=== PATIENT | female | born 1945 | race Caucasian/White ===

== ENCOUNTER → 2016-06-24 | Outpatient (CLI) | payer MEDICARE ==
--- NOTE | 2016-06-28 10:55 | MM ---
Reason for exam: screening (asymptomatic). Last mammogram was performed 6 years and 1 month ago. History: Patient is postmenopausal and has history of high-risk lesion on a previous biopsy at age 58. Excisional biopsy of the right breast, March 24, 2004. Benign stereotactic core biopsy of the right breast, February 25, 2004. High risk stereotactic core biopsy of the right breast, February 25, 2004. 2 core biopsies of the right breast. Took hormonal contraceptives for 10 years beginning at age 18. Physical Findings: A clinical breast exam by your physician is recommended on an annual basis and results should be correlated with mammographic findings. MG 3D Screening Mammo W/Cad Bilateral CC and MLO view(s) were taken. Prior study comparison: July 03, 2014, mammogram, performed at [facility]. The breast tissue is heterogeneously dense. This may lower the sensitivity of mammography. Finding #1: There is a 21 mm obscured oval mass in the subareolar position of the right breast. Finding #2: There are typically benign round calcifications in both breasts. ASSESSMENT: Incomplete: need additional imaging evaluation, BI-RAD 0 RECOMMENDATION: Ultrasound of the right breast. [facility] will attempt to contact patient to return for ultrasound.
== END ==
LOC: RADMAMWWP 07:11
PROVIDERS: ATTEND Family Medicine
DX: Z12.31 Encounter for screening mammogram for malignant neoplasm of breast (principal)
CPT/HCPCS: 77063; G0202

== ENCOUNTER → 2016-06-29 | Outpatient (CLI) | payer MEDICARE ==
--- NOTE | 2016-06-29 08:36 | USB ---
Reason for exam: additional evaluation requested from abnormal screening. History: Patient is postmenopausal and has history of high-risk lesion on a previous biopsy at age 58. Excisional biopsy of the right breast, March 24, 2004. Benign stereotactic core biopsy of the right breast, February 25, 2004. High risk stereotactic core biopsy of the right breast, February 25, 2004. 2 core biopsies of the right breast. Took hormonal contraceptives for 10 years beginning at age 18. Physical Findings: Nurse Summary: right breast prominent nodularity posterior nipple, all soft, movable (nurse ts). US Breast Workup RT Right breast ultrasound includes all four quadrants, the retroareolar region and axilla. Finding demonstrates no cystic or solid lesion seen. These results were verbally communicated with the patient and result sheet given to the patient on 06/29/16. ASSESSMENT: Negative, BI-RAD 1 RECOMMENDATION: Return to routine screening mammogram schedule for both breasts. Manage patient on a clinical basis.
== END | disposition home or self-care (01) ==
LOC: RADUSWWP 07:36
PROVIDERS: ATTEND Family Medicine
DX: R92.8 Other abnormal and inconclusive findings on diagnostic imaging of breast (principal)

== ENCOUNTER → 2016-12-14 | Outpatient (CLI) | payer MEDICARE ==
--- NOTE | 2016-12-14 11:58 | MM ---
Reason for exam: follow-up at short interval from prior study. Last mammogram was performed 6 months ago. History: Patient is postmenopausal and has history of high-risk lesion on a previous biopsy at age 58. Excisional biopsy of the right breast, March 24, 2004. Benign stereotactic core biopsy of the right breast, February 25, 2004. High risk stereotactic core biopsy of the right breast, February 25, 2004. 2 core biopsies of the right breast. Took hormonal contraceptives for 10 years beginning at age 18. Physical Findings: Nurse did not find any significant physical abnormalities on exam. MG 3D Diag Mammo W/Cad RT CC and MLO view(s) were taken of the right breast. Prior study comparison: June 29, 2016, right breast US breast workup RT. June 24, 2016, bilateral MG 3d screening mammo w/cad. July 03, 2014, mammogram, performed at [facility]. May 21, 2010, bilateral digital screening mammo w/CAD. The breast tissue is heterogeneously dense. This may lower the sensitivity of mammography. There is chronic nodularity in the right breast. Similar configuration with a large dense patch of tissue in the anterior to middle depth central right breast. These results were verbally communicated with the patient and result sheet given to the patient on 12/14/16. ASSESSMENT: Incomplete: need additional imaging evaluation, BI-RAD 0 RECOMMENDATION: Ultrasound of the right breast.
--- NOTE | 2016-12-14 11:59 | USB ---
Reason for exam: follow-up at short interval from prior study. History: Patient is postmenopausal and has history of high-risk lesion on a previous biopsy at age 58. Excisional biopsy of the right breast, March 24, 2004. Benign stereotactic core biopsy of the right breast, February 25, 2004. High risk stereotactic core biopsy of the right breast, February 25, 2004. 2 core biopsies of the right breast. Took hormonal contraceptives for 10 years beginning at age 18. US Breast RT Right breast ultrasound includes all four quadrants, the retroareolar region and axilla. Finding demonstrates no cystic or solid lesion seen. These results were verbally communicated with the patient and result sheet given to the patient on 12/14/16. ASSESSMENT: Negative, BI-RAD 1 RECOMMENDATION: Return to routine screening mammogram schedule for both breasts. Back on schedule.
== END | disposition home or self-care (01) ==
LOC: RADMAMWWP 08:46
PROVIDERS: ATTEND Surgery
DX: R92.8 Other abnormal and inconclusive findings on diagnostic imaging of breast (principal)
CPT/HCPCS: 76641; G0206; G0279

== ENCOUNTER → 2017-06-30 | Outpatient (CLI) | payer MEDICARE ==
--- NOTE | 2017-07-03 07:20 | MM ---
Reason for exam: screening (asymptomatic). Last mammogram was performed 7 months ago. History: Patient is postmenopausal and has history of high-risk lesion on a previous biopsy at age 58. Excisional biopsy of the right breast, March 24, 2004. Benign stereotactic core biopsy of the right breast, February 25, 2004. High risk stereotactic core biopsy of the right breast, February 25, 2004. 2 core biopsies of the right breast. Took hormonal contraceptives for 10 years beginning at age 18. Physical Findings: A clinical breast exam by your physician is recommended on an annual basis and results should be correlated with mammographic findings. MG 3D Screening Mammo W/Cad Bilateral CC and MLO view(s) were taken. Prior study comparison: December 14, 2016, right breast MG 3d diag mammo w/cad RT. June 24, 2016, bilateral MG 3d screening mammo w/cad. The breast tissue is heterogeneously dense. This may lower the sensitivity of mammography. Finding: There are typically benign round, diffuse/scattered and grouped calcifications in both breasts. There is no discrete abnormality. ASSESSMENT: Benign, BI-RAD 2 RECOMMENDATION: Routine screening mammogram of both breasts in 1 year.
== END | disposition home or self-care (01) ==
LOC: RADMAMWWP 08:43
PROVIDERS: ATTEND Family Medicine
DX: Z12.31 Encounter for screening mammogram for malignant neoplasm of breast (principal)
CPT/HCPCS: 77063; 77067

== ENCOUNTER → 2017-07-14 | Outpatient (CLI) | payer MEDICARE ==
--- NOTE | 2017-07-14 15:36 | US ---
EXAMINATION TYPE: US carotid duplex BILAT DATE OF EXAM: 07/14/2017 COMPARISON: NONE CLINICAL HISTORY: R51 Headache; prior smoker x 2 years; HTN, high cholesterol EXAM MEASUREMENTS: RIGHT: Peak Systolic Velocity (PSV) cm/sec ----- Right CCA: 48.8 ----- Right ICA: 118.9 ----- Right ECA: 114.3 ICA/CCA ratio: 2.4 RIGHT: End Diastole cm/sec ----- Right CCA: 9.7 ----- Right ICA: 29.7 ----- Right ECA: 20.8 LEFT: Peak Systolic Velocity (PSV) cm/sec ----- Left CCA: 93.4 ----- Left ICA: 90.7 ----- Left ECA: 187.3 ICA/CCA ratio: 1.0 LEFT: End Diastole cm/sec ----- Left CCA: 22.0 ----- Left ICA: 25.9 ----- Left ECA: 20.0 VERTEBRALS (direction of flow): Right Vertebral: Antegrade Left Vertebral: Antegrade Rhythm: Arrhythmia note on image [id number]. Tortuous ECA and ICA vessels are noted bilaterally. IMPRESSION: Mild to moderate hyperechoic wall changes are seen in bilateral carotid artery vessels with abnormall y elevated PSV in Left ECA proximally. Criteria for Assigning % of Stenosis / Diameter reduction (Estimation based on the indirect measurements of the internal carotid artery velocities (ICA PSV). 1. Normal (no stenosis)=ICA PSV < 125 cm/s: ratio < 2.0: ICA EDV<40 cm/s. 2. Less than 50% stenosis=ICA PSV < 125 cm/s: ratio < 2.0: ICA EDV<40 cm/s. 3. 50 to 69% stenosis=ICA PSV of 125 to 230 cm/s: ration 2.0 ? 4.0: ICA EDV 40-100 cm/s. 4. Greater than 70% stenosis to near occlusion= ICA PSV > 230 cm/s: ratio > 4.0: ICA EDV > 100 cm/s. 5. Near occlusion= ICA PSV velocities may be low or undetectable: variable ratio and ICA EDV. 6. Total occlusion=unable to detect flow.
== END | disposition home or self-care (01) ==
LOC: RADUSWWP 13:15
PROVIDERS: ATTEND Family Medicine
DX: R93.1 Abnormal findings on diagnostic imaging of heart and coronary circulation (principal); R51 Headache
CPT/HCPCS: 93880

== ENCOUNTER → 2017-11-03 | Outpatient (CLI) | payer MEDICARE ==
--- NOTE | 2017-11-03 09:59 | CT ---
EXAMINATION TYPE: CT brain wo con DATE OF EXAM: 11/03/2017 COMPARISON: None HISTORY: MOBLEY, confusion CT DLP: [address] of the brain was performed. The ventricles, basal cisterns and sulci overlying the cerebral convexities demonstrate mild enlargem ent. There is no evidence for intracranial hemorrhage or sulcal effacement. There is decreased attenuation about the periventricular white matter and deep white matter of both c erebral hemispheres, compatible with chronic small vessel ischemia. Differential diagnosis does inclu de demyelination. No mass effects are seen.No midline shift. Osseous calvarium is intact. If symptoms persist consider MRI. Mild chronic maxillary sinusitis. IMPRESSION: 1. Age related atrophic and chronic small vessel ischemic change without acute intracranial process s een at this time.
== END | disposition home or self-care (01) ==
LOC: RADCTMAIN 09:30
PROVIDERS: ATTEND Family Medicine
DX: G31.1 Senile degeneration of brain, not elsewhere classified (principal); I67.82 Cerebral ischemia
CPT/HCPCS: 70450

== ENCOUNTER → 2018-07-06 | Outpatient (CLI) | payer MEDICARE ==
--- NOTE | 2018-07-06 14:48 | MM ---
Reason for exam: screening (asymptomatic). Last mammogram was performed 1 year ago. History: Patient is postmenopausal and has history of high-risk lesion on a previous biopsy at age 58. Excisional biopsy of the right breast, March 24, 2004. Benign stereotactic core biopsy of the right breast, February 25, 2004. High risk stereotactic core biopsy of the right breast, February 25, 2004. 2 core biopsies of the right breast. Took hormonal contraceptives for 10 years beginning at age 18. Physical Findings: A clinical breast exam by your physician is recommended on an annual basis and results should be correlated with mammographic findings. MG 3D Screening Mammo W/Cad Bilateral CC and MLO view(s) were taken. Prior study comparison: June 30, 2017, bilateral MG 3d screening mammo w/cad. December 14, 2016, right breast MG 3d diag mammo w/cad RT. The breast tissue is heterogeneously dense. This may lower the sensitivity of mammography. There are benign appearing round regional calcifications bilaterally. There is chronic nodularity in the right breast. There is no discrete abnormality. ASSESSMENT: Benign, BI-RAD 2 RECOMMENDATION: Routine screening mammogram of both breasts in 1 year.
== END | disposition home or self-care (01) ==
LOC: RADMAMWWP 07:50
PROVIDERS: ATTEND Family Medicine
DX: Z12.31 Encounter for screening mammogram for malignant neoplasm of breast (principal)
CPT/HCPCS: 77063; 77067

== ENCOUNTER → 2020-04-29 | Outpatient (CLI) | payer MEDICARE ==
--- NOTE | 2020-05-01 13:34 | MM ---
Reason for exam: screening (asymptomatic). Last mammogram was performed 1 year and 10 months ago. History: Patient is postmenopausal and has history of high-risk lesion on a previous biopsy at age 58. Excisional biopsy of the right breast, March 24, 2004. Benign stereotactic core biopsy of the right breast, February 25, 2004. High risk stereotactic core biopsy of the right breast, February 25, 2004. 2 core biopsies of the right breast. Took hormonal contraceptives for 10 years beginning at age 18. Physical Findings: A clinical breast exam by your physician is recommended on an annual basis and results should be correlated with mammographic findings. MG 3D Screening Mammo W/Cad Bilateral CC and MLO view(s) were taken. Prior study comparison: July 06, 2018, bilateral MG 3d screening mammo w/cad. June 30, 2017, bilateral MG 3d screening mammo w/cad. The breast tissue is heterogeneously dense. This may lower the sensitivity of mammography. Stable benign calcifications. There is no discrete abnormality. No significant changes when compared with prior studies. ASSESSMENT: Benign, BI-RAD 2 RECOMMENDATION: Routine screening mammogram of both breasts in 1 year.
== END ==
LOC: RADMAMWWP 11:17
PROVIDERS: ATTEND Family Medicine
DX: Z12.31 Encounter for screening mammogram for malignant neoplasm of breast (principal)
CPT/HCPCS: 77063; 77067

== ENCOUNTER → 2020-06-18 | Outpatient (CLI) | payer MEDICARE ==
--- NOTE | 2020-06-18 16:55 | FL ---
EXAMINATION TYPE: FL barium swallow DATE OF EXAM: 06/18/2020 COMPARISON: NONE HISTORY: Gastroesophageal reflux TECHNIQUE: Fluoroscopy. FINDINGS: Esophagus stylish normal-caliber and is normal contour of the gastroesophageal junction. Ga stroesophageal junction opens to normal caliber. No reflux could be elicited. The few tertiary contra ctions were present during the exam. There is incomplete stripping of the esophageal bolus in the hor izontal drinking position. Significant volume remains present following swallowing and horizontal dri nking. Fluoroscopy time 45 seconds. Number of images: 0. IMPRESSION: 1. Presbyesophagus. 2. No significant retention of contrast in the esophagus in the horizontal drinking position. 3. No reflux elicited. 4. No persistent stenosis.
== END | disposition home or self-care (01) ==
LOC: RADUSWWP 10:58
PROVIDERS: ATTEND Family Medicine
DX: K22.8 Other specified diseases of esophagus (principal)
CPT/HCPCS: 74220

== ENCOUNTER 2020-07-08 16:50 | Inpatient (IN) | payer MEDICARE ==
--- NOTE | 2020-07-08 17:36 | ED ---
General Adult HPI - General Chief complaint: Psychiatric Symptoms Stated complaint: Confusion Time Seen by Provider: 07/08/20 17:09 Source: patient, family Mode of arrival: ambulatory Limitations: no limitations - History of Present Illness Initial comments: Dictation was produced using [employer] dictation software. please excuse any grammatical, word or spelling errors. This patient was cared for during a federal and state declared state of emerg ency secondary to Covid 19 Chief Complaint: 75-year-old female past medical history of dementia presents to the emergency department with daughter for worsening mental status changes. History of Present Illness: Patient 75-year-old female she has what daughter describes as early stages of dementia. Patient has multiple personalities. Normally she is calm and makes comments to herself. Over the last couple days her symptoms have been acutely worsening to the point where she would destroy things in the house. Daughter describes patient as having arguments with her self. Daughter states that patient has been talking to multiple people the house that aren't there. Patient denies any complaints at this time. She has been followed up with by neurologist and primary care physician on an outpatient basis. Daughter reports that neurologist recently ordered an MRI for the patie nt. The ROS documented in this emergency department record has been reviewed and confirmed by me. Those systems with pertinent positive or negative responses have been documented in the HPI. All other systems are other negative and/or noncontributory. PHYSICAL EXAM: General Impression: Alert and oriented x3, not in acute distress HEENT: Normocephalic atraumatic, extra-ocular movements intact, pupils equal and reactive to light bilaterally, mucous membranes moist. Cardiovascular: Heart regular rate and rhythm Chest: Able to complete full sentences, no retractions, no tachypnea Abdomen: abdomen soft, non-tender, non-distended, no organomegaly Musculoskeletal: Pulses present and equal in all extremities, no peripheral edema Motor: no focal deficits noted Neurological: CN II-XII grossly intact, no focal motor or sensory deficits noted Skin: Intact with no visualized rashes Psych: Pleasant, talks about this other individual ED course: 75-year-old who presents to the emergency department for mental status changes. Patient has chronic history of dementia however is having worsening symptoms. Furthermore, patient is being worked aggressive. Vital signs upon arrival are within acceptable limits. Laboratory evaluation obtained. CBC, metabolic panel is unremarkable. Urinalysis shows 18 white blood cells, no other acute abnormalities. Computed tomography scan of the brain is unremarkable. Patient denies any urinary symptoms. However there is some concern that patient might have a UTI. Pending urine cultures. Patient is medically cleared for EPS evaluation they recomm ended inpatient admission to our psychiatric unit. EKG interpretation: Ventricular rate 60, normal sinus rhythm,. 164, QRS 92, QTc 438. No WV prolongation, no QTC prolongation, T-wave inversion in lead 3 d. No old EKG for comparison. Overall, this EKG is nonspecific - Related Data Home Medications Medication Instructions Recorded Confirmed Aspirin EC [Ecotrin] 325 mg PO DAILY 07/08/20 07/08/20 Calcium Carbonate/Vitamin D3 1 cap PO DAILY 07/08/20 07/08/20 [Calcium 600 mg-D3 10 Mcg (400 Iu)] DULoxetine HCL 40 mg PO DAILY 07/08/20 07/08/20 Donepezil [Aricept] 10 mg PO HS 07/08/20 07/08/20 Famotidine [Pepcid] 20 mg PO DAILY PRN 07/08/20 07/08/20 Fish Oil/Dha/Epa [Fish Oil 1,200 1 cap PO HS 07/08/20 07/08/20 mg Fish Oil] Ginko Biloba 120 mg PO DAILY 07/08/20 07/08/20 Levothyroxine Sodium [Euthyrox] 50 mcg PO DAILY 07/08/20 07/08/20 Memantine [Namenda] 5 mg PO HS 07/08/20 07/08/20 Memantine [Namenda] 10 mg PO DAILY 07/08/20 07/08/20 Metoprolol Tartrate [Lopressor] 100 mg PO BID 07/08/20 07/08/20 Mirtazapine [Remeron] 15 mg PO HS 07/08/20 07/08/20 Multivit-Min/FA/Lycopen/Lutein 1 tab PO DAILY 07/08/20 07/08/20 [Centrum Silver Tablet] Nitroglycerin Sl Tabs [Nitrostat] 0.4 mg SUBLINGUAL Q5M PRN 07/08/20 07/08/20 Pantoprazole Sodium [Protonix] 40 mg PO DAILY 07/08/20 07/08/20 Pravastatin Sodium [Pravachol] 80 mg PO HS 07/08/20 07/08/20 QUEtiapine [SEROquel] 50 mg PO BID@1700,2100 07/08/20 07/08/20 Ubidecarenone [Co Q-10] 200 mg PO DAILY 07/08/20 07/08/20 Vitamin B Complex 1 cap PO DAILY 07/08/20 07/08/20 hydrALAZINE HCL [Apresoline] 50 mg PO BID 07/08/20 07/08/20 Allergies Allergy/AdvReac Type Severity Reaction Status Date / Time lisinopril Allergy Unknown Verified 07/08/20 17:06 simvastatin [From Zocor] Allergy Unknown Verified 07/08/20 17:06 Review of Systems ROS Statement: Those systems with pertinent positive or pertinent negative responses have been documented in the HPI. ROS Other: All systems not noted in ROS Statement are negative. Past Medical History Past Medical History: Dementia, Hyperlipidemia, Hypertension History of Any Multi-Drug Resistant Organisms: None Reported Past Surgical History: Orthopedic Surgery Past Psychological History: Anxiety, Depression Smoking Status: Former smoker Past Alcohol Use History: None Reported Past Drug Use History: None Reported General Exam Limitations: no limitations Course Vital Signs 07/08/20 07/08/20 17:02 18:30 Temperature 98.1 F Pulse Rate 76 64 Respiratory 16 18 Rate Blood Pressure 158/69 168/70 O2 Sat by Pulse 95 97 Oximetry Medical Decision Making - Lab Data Result diagrams: 07/08/20 18:05 07/08/20 18:05 Lab Results 07/08/20 07/08/20 07/08/20 Range/Units 18:05 18:05 18:05 WBC 5.7 (3.8-10.6) k/uL RBC 4.33 (3.80-5.40) m/uL Hgb 12.7 (11.4-16.0) gm/dL Hct 36.5 (34.0-46.0) % MCV 84.3 (80.0-100.0) fL MCH 29.3 (25.0-35.0) pg MCHC 34.7 (31.0-37.0) g/dL RDW 13.5 (11.5-15.5) % Plt Count 169 (150-450) k/uL MPV 7.4 Neutrophils % 76 % Lymphocytes % 14 % Monocytes % 4 % Eosinophils % 4 % Basophils % 1 % Neutrophils # 4.4 (1.3-7.7) k/uL Lymphocytes # 0.8 L (1.0-4.8) k/uL Monocytes # 0.2 (0-1.0) k/uL Eosinophils # 0.2 (0-0.7) k/uL Basophils # 0.0 (0-0.2) k/uL Sodium 141 (137-145) mmol/L Potassium 4.6 (3.5-5.1) mmol/L Chloride 107 (98-107) mmol/L Carbon Dioxide 25 (22-30) mmol/L Anion Gap 9 mmol/L BUN 23 H (7-17) mg/dL Creatinine 0.78 (0.52-1.04) mg/dL Est GFR (CKD-EPI)AfAm 85 (>60 ml/min/1.73 sqM) Est GFR (CKD-EPI)NonAf 74 (>60 ml/min/1.73 sqM) Glucose 107 H (74-99) mg/dL Calcium 9.6 (8.4-10.2) mg/dL Magnesium 2.3 (1.6-2.3) mg/dL Urine Color Yellow Urine Appearance Clear (Clear) Urine pH 7.0 (5.0-8.0) Ur Specific [place] 1.016 (1.001-1.035) Urine Protein Negative (Negative) Urine Glucose (UA) Negative (Negative) Urine Ketones Negative (Negative) Urine Blood Negative (Negative) Urine Nitrite Negative (Negative) Urine Bilirubin Negative (Negative) Urine Urobilinogen <2.0 (<2.0) mg/dL Ur Leukocyte Esterase Large H (Negative) Urine RBC 2 (0-5) /hpf Urine WBC 18 H (0-5) /hpf Ur Squamous Epith Cells <1 (0-4) /hpf Hyaline Casts 1 (0-2) /lpf Urine Mucus Rare H (None) /hpf Disposition Clinical Impression: Psychosis Disposition: ADMITTED IP TO THIS [facility] Condition: Fair Referrals: Zac Thurston DO [Primary Care Provider] - 1-2 days Decision Time: 21:27
[2020-07-08 18:15] LABS: Basophils % (A) 1 %; Eosinophils # (A) 0.2 k/uL (0-0.7); Eosinophils % (A) 4 %; HCT 36.5 % (34.0-46.0); HGB 12.7 gm/dL (11.4-16.0); Lymphocytes # (A) 0.8 k/uL (1.0-4.8); Lymphocytes % (A) 14 %; MCH 29.3 pg (25.0-35.0); MCHC 34.7 g/dL (31.0-37.0); MCV 84.3 fL (80.0-100.0); Mean Platelet Volume 7.4; Monocytes # (A) 0.2 k/uL (0-1.0); Monocytes % (A) 4 %; Neutrophils # (A) 4.4 k/uL (1.3-7.7); Neutrophils % (A) 76 %; Platelet Count 169 k/uL (150-450); RBC 4.33 m/uL (3.80-5.40); RDW 13.5 % (11.5-15.5); WBC 5.7 k/uL (3.8-10.6)
[2020-07-08 18:24] LABS: Calcium 9.6 mg/dL (8.4-10.2); Magnesium 2.3 mg/dL (1.6-2.3); Potassium 4.6 mmol/L (3.5-5.1)
--- NOTE | 2020-07-08 18:49 | CT ---
EXAM: CT brain wo con CLINICAL HISTORY: Altered mental status and hallucinations. COMPARISON: None TECHNIQUE: Contiguous axial noncontrast images of the brain were obtained. Coronal and sagittal refor mats were generated and reviewed. Automated dose control was used for this exam. FINDINGS: There is no evidence for intracranial hemorrhage, mass effect or midline shift. There is moderate par enchymal volume loss. Otherwise the white matter is grossly preserved. Ventricular size and configuration is within normal limits for degree of parenchymal volume. The paranasal sinuses demonstrate moderate disease most notable at the maxillary sinuses. The mastoid air cells are clear. No evidence for calvarial fracture. IMPRESSION: No acute intracranial abnormality. Paranasal sinus disease.
[2020-07-08 18:54] LABS: Appearance,Urine Clear (Clear); Bilirubin,Urine Negative (Negative); Blood,Urine Negative (Negative); Color,Urine Yellow; Glucose,Urine (UA) Negative (Negative); Hyaline Casts,Urine 1 /lpf (0-2); Ketones,Urine Negative (Negative); Leukocyte Esterase,Urine Large (Negative); Mucus,Urine Rare /hpf; Nitrite,Urine Negative (Negative); Protein,Urine Negative (Negative); RBC,Urine 2 /hpf (0-5); Specific Gravity,Urine 1.016 (1.001-1.035); Squamous Epithelial Cell,Urine <1 /hpf (0-4); Urobilinogen,Urine <2.0 mg/dL (<2.0); WBC,Urine 18 /hpf (0-5)
[2020-07-08] MEDS ORDERED: CEPHALEXIN 500 MG CAP PO STA (19:20)
[2020-07-08] MEDS ORDERED: FAMOTIDINE 20 MG TAB PO PRN (19:23)
[2020-07-08] MEDS ORDERED: NON FORMULARY DRUG (Fish Oil/Dha/Epa [Fish Oil 1,200 Mg Fish Oil] 1 EACH Capsule) PO SCH (21:00)
[2020-07-08] MEDS ORDERED: QUEtiapine 50 MG TAB PO SCH (21:00)
[2020-07-08] MEDS ORDERED: MAG HYDROX/AL HYDROX/SIMETH 30 ML CUP PO PRN (22:55)
[2020-07-08] MEDS ORDERED: MAGNESIUM HYDROXIDE 2,400 MG/10 ML CUP PO PRN (22:55)
[2020-07-08] MEDS ORDERED: ACETAMINOPHEN TAB 325 MG TAB PO PRN (22:55)
[2020-07-08] MEDS ORDERED: NITROGLYCERIN SL TABS 0.4 MG TAB SUBLINGUAL PRN (23:06)
[2020-07-08] MEDS: PRAVASTATIN SODIUM 80 MG TAB PO SCH (23:33)
[2020-07-08] MEDS: MEMANTINE 5 MG TAB PO SCH (23:33)
[2020-07-08] MEDS: MIRTAZAPINE 15 MG TAB PO SCH (23:34)
[2020-07-08] MEDS: hydrALAZINE HCL 50 MG TAB PO SCH (23:34)
[2020-07-08] MEDS: DONEPEZIL 10 MG TAB PO SCH (23:34)
[2020-07-08] MEDS: CEPHALEXIN 500 MG CAP PO SCH (23:34)
[2020-07-08] MEDS: METOPROLOL TARTRATE 50 MG TAB PO SCH (23:34)
[2020-07-09] MEDS: LEVOTHYROXINE 50 MCG TAB PO SCH (06:36)
[2020-07-09] MEDS: METOPROLOL TARTRATE 50 MG TAB PO SCH ×2 (09:00→19:39)
[2020-07-09] MEDS: DULoxetine HCL 20 MG CAPSULE.DR PO SCH (09:00)
[2020-07-09] MEDS ORDERED: VITAMIN B COMPLEX PO SCH (09:00)
[2020-07-09] MEDS ORDERED: CO Q PO SCH (09:00)
[2020-07-09] MEDS ORDERED: NON FORMULARY DRUG (Ubidecarenone [Co Q-10] 100 MG Capsule) PO SCH (09:00)
[2020-07-09] MEDS ORDERED: NON FORMULARY DRUG (Vitamin B Complex [Vitamin B Complex] 1 EACH Capsule) PO SCH (09:00)
[2020-07-09] MEDS: CALCIUM CARB-VIT D 500 MG-5 MCG TAB PO SCH (09:01)
[2020-07-09] MEDS: CEPHALEXIN 500 MG CAP PO SCH ×4 (09:01→19:40)
[2020-07-09] MEDS: PANTOPRAZOLE 40 MG TABLET PO SCH (09:01)
[2020-07-09] MEDS: MULTIVITAMINS, THERA 1 EACH TAB PO SCH (09:01)
[2020-07-09] MEDS: ASPIRIN 325 MG TAB PO SCH (09:01)
[2020-07-09] MEDS: hydrALAZINE HCL 50 MG TAB PO SCH ×2 (09:02→19:39)
[2020-07-09] MEDS: MEMANTINE 10 MG TAB PO SCH (09:03)
[2020-07-09] MEDS: OLANZapine 2.5 MG TAB PO SCH ×3 (13:24→19:43)
--- NOTE | 2020-07-09 15:35 | HP ---
DATE OF SERVICE: 07/09/2020 HISTORY AND PHYSICAL IDENTIFYING DATA: The patient is a 75-year-old female. She resides with her daughter. She was brought to the ED for evaluation. CHIEF COMPLAINT: The patient has mild dementia. She has been having increasing problems with hallucinations and delusions, to the point that in the last couple of weeks she has been severely agitated. HISTORY OF PRESENTING ILLNESS: Information was provided by the patient's daughter. The patient has not had a prior psychiatric hospitalization. She has not had past mental health or substance abuse issues or interventions. She was diagnosed with dementia around 2018. One of the early symptoms that led to the diagnosis was her having hallucinations. She has had issues with hallucinations over the last two years for quite a period of time. The hallucinations were in a fairly benign way. She would relate to people on TV where she believed that she could actually see these people in person and vice versa. She believes that she had direct interactions with these people, and they with her. This included people such as the president. In March of this year she started having more problems with hallucinations where they were distressing her. She had episodes where she would start screaming about different things that apparently were involved in the hallucinations. At that time she was tested for UTI with test being negative, though she was started on antibiotics prophylactically. She has been on Seroquel, which initially was at 25 mg a day. She has been on Seroquel for quite a period of time. Starting in February her doctor started titrating up on Seroquel. She was increased to 50 mg twice a day in February. Apparently that seemed to help to some extent, though not to a significant degree. Because of increasing problems, the Seroquel dose was increased to 100 mg at bedtime. The patient had much difficulty with the 100 mg dose. She was very restless. She went 3 days where she barely slept at all. She was in a highly distressed state. So the Seroquel dose was reduced. She has been on Cymbalta. Her current dose is 40 mg a day. More recently she had seen Neurology as part of evaluation of her dementia. An EEG is scheduled. One of the recommendations from Neurology was possibly to taper her off Cymbalta. She also recently was started on Remeron 15 mg a day. Apparently the neurologist was indicating that it would not be helpful to have the patient on two antidepressants. She is also on Namenda. Her dose had been up to 10 mg twice a day. Along with that she has been on Aricept 10 mg a day. Apparently the neurologist is recommending a taper of Namenda, as that potentially may be a source for her hallucinations. Current psychotropic medications include Cymbalta 40 mg a day, Remeron 15 mg a day, Seroquel 50 mg at 1700 and 50 mg at 2100 hours. In addition, she is on Namenda 10 mg in the morning, 5 mg at bedtime, and Aricept 10 mg a day. The patient's daughter notes that the patient has had long-term issues with insomnia which predate the dementia. The daughter notes that over the last few weeks the hallucinations have gotten very distressing. The patient has ongoing conversations with herself as if she is two or more different people. She will argue with herself. She will get into episodes where she is yelling at herself. She has had recent behaviors such as pulling cords out of the wall from the television when she sees things that seem to set off more of her hallucinations. Apparently recently she was started on Keflex 500 mg q.i.d. prophylactically. She is admitted for further evaluation. SUBSTANCE USE HISTORY: None reported. PAST MEDICAL HISTORY: The patient has been diagnosed with hypertension and hyperlipidemia. FAMILY AND SOCIAL HISTORY: I only have limited information available. The patient has been living with her daughter. Although she has a diagnosis of dementia, according to her daughter she has been able to manage reasonably well in the home setting. MENTAL STATUS EXAMINATION: The patient was wandering the hallways. She came into the room. She was somewhat restless. She gave fairly good eye contact. She answered questions with brief responses. For the most part, she responded appropriately to questions. The information she provided was somewhat vague, though appropriate to the questions asked. She had a quiet affect. She smiled quite a bit through the interview. Her mood was a little down. She had a worried manner, though she did not appear to be significantly distressed. She has significant problems with auditory and visual hallucinations. She voiced no thoughts of harm. On cognitive exam, the patient was not able to give day or date. She did not know the year. She could follow some basic directions. She has been able to manage herself on the unit. She was able to use the telephone. When I asked her some orientation questions, she was not able to respond appropriately. One example was I asked her to give the days of the week in reverse order. She started giving the days of the week normally with each day. If I asked her what day came before, she was able to tell me, though she would hesitate and was not able to go more than one day without starting to go back to state the days in normal order. ASSESSMENT: This 75-year-old female is diagnosed with dementia. She also has possible mood disorder with auditory and visual hallucinations. Hallucinations have intensified since February and have gotten even worse in the last few weeks. She does function reasonably well on the unit and apparently has been functioning adequately at home. There do not appear to be any significant safety issues. At this point I will discontinue Seroquel. I will start the patient on Zyprexa 2.5 mg 3 times a day. It is noted that when the patient's Seroquel was titrated up, she apparently had significant EPS symptoms, which we should be able to avoid with the Zyprexa. I will continue the patient on Cymbalta 40 mg a day. I would look to titrate up further on Cymbalta as appropriate. As I discussed with the patient's daughter, the response rate to antidepressants are in the 65% range, though they may be critical medications for someone with dementia. I noted that also in the face of dementia the patient may need to be on higher doses of psychotropic medications, so I would look to titrate up on Cymbalta if we continue with it, at least up to 90 mg a day if necessary. I would at this point look to possibly titrate up on Zyprexa to a total of 5 mg 3 times a day. If we see some improvement in sleep, I would take that as a positive indicator for benefits of Zyprexa. I will continue on Remeron 15 mg at bedtime. Also in regard to her dementia medications, I will continue Aricept 10 mg a day and Namenda 10 mg in the morning, 5 mg in the evening. I had an extensive discussion with the patient's daughter in regard to medications, their indications, potential side effects and the treatment process. We will focus on stabilization and discharge planning. MMODL / IJN: [id number] / CRISTINE
--- NOTE | 2020-07-09 19:04 | P.CONS ---
History of Present Illness - Reason for Consult Consult date: 07/09/20 Medical management Requesting physician: Zenon Gonzalez - Chief Complaint Hallucinations - History of Present Illness Consultation: This is a pleasant 75-year-old patient who follows with Dr. Thurston. Chronic stable medical conditions include hyperlipidemia, hypertension, hypothyroid. She apparently has a diagnosis of dementia . She started having hallucinations in 2019 and she was diagnosed then with dementia. He started seeing people that through television and started to connect with them. Have started having some interactions. Also she with episodes that she'll start screaming at people. She has been put on Seroquel. That did not help much. Symptoms have gradually progressed. Seroquel dose was adjusted. Recently she was made to see neurology. She was also recently started on Remeron. Patient states since her childhood she was very active and never slept well in fact is hardly step for most of her life. She states sometime patient will argue with herself and other times she will also get upset with herself. All these reasons put together culminated in her getting admission to the hospital. Patient denies any respiratory symptoms. Appetite is not the best. Reflux symptoms Review of systems: GEN.: None EYES: None HEENT: None NECK: None RESPIRATORY: None CARDIOVASCULAR: None GASTROINTESTINAL: None GENITOURINARY: Some urinary incontinence MUSCULOSKELETAL: Joint pains especially the hands LYMPHATICS: None HEMATOLOGICAL: None PSYCHIATRY: As above NEUROLOGICAL: None Past medical history to include: Hypertension, hyperlipidemia, hypothyroid, anxiety, depression, dementia Social history: Lives with her a daughter. Drinks alcohol rarely. Patient smoked for about 20- 30 years stopped about 30 years ago. Physical examination: VITAL SIGNS: 97.8, 80, 18, 116/72, 97% room air GENERAL: BMI 32.5, sitting up in chair, comfortable. EYES: Pupils equal. Conjunctiva normal. HEENT: External appearance of nose and ears normal, oral cavity grossly normal. NECK: JVD not raised; masses not palpable. HEART: First and second heart sounds are normal; mild edema. LUNGS: Respiratory rate normal; clear to auscultation. ABDOMEN: Soft, nontender, liver spleen not palpable, no masses palpable. PSYCH: [Awake and alert, answering questions appropriately. Smiling. More detailed examination as per psychiatry MUSCULAR skeletal: Evidence of OA especially in the hands L. NEUROLOGICAL: Cranial nerves grossly intact; no facial asymmetry, power and sensation grossly intact. LYMPHATICS: No lymph nodes palpable in the axilla and neck INVESTIGATIONS, reviewed in the clinical context: WBC 5.7 hemoglobin 12.7 platelets 169 potassium 4.6 creatinine 0.78 TSH 1.2 UA positive for leukoesterase, WBC Influenza type A, diabetic, RSV, COVID 19 PCR: Not detected EKG tracing personally reviewed by me-normal sinus rhythm nonspecific T-wave changes Computed tomography scan of the brain: Moderate parenchymal volume loss. Assessment and plan: -Essential hypertension Continue with hydralazine, Lopressor -Hypercholesterolemia Continue with Pravachol -GERD Continue with Protonix -Chronic insomnia long-standing Continue with Remeron -Hypothyroid Continue with levothyroxine -Mild cognitive impairment from dementia Patient on Aricept and Namenda -Primary osteoarthritis, bilateral multiple joints Continue with Tylenol when necessary -Obesity BMI 32.5 Weight loss measures and follow-up with PCP -Schizophrenia/psychosis Being managed by psychiatry Care was discussed with the patient. Questions answered. Patient be started on Zyprexa by psychiatry. Home medications to be resumed. We will do a Mini- Mental cogwheel test tomorrow. Patient would've that 24 hours of current medications Thank you Dr. Gonzalez Past Medical History Past Medical History: Dementia, Hyperlipidemia, Hypertension, Thyroid Disorder Additional Past Medical History / Comment(s): Pt unreliable historian but states she thinks she has an implanted defibrillator. History of Any Multi-Drug Resistant Organisms: None Reported Past Surgical History: Orthopedic Surgery Smoking Status: Former smoker Medications and Allergies Home Medications Medication Instructions Recorded Confirmed Type Aspirin EC [Ecotrin] 325 mg PO DAILY 07/08/20 07/08/20 History Calcium Carbonate/Vitamin D3 1 cap PO DAILY 07/08/20 07/08/20 History [Calcium 600 mg-D3 10 Mcg (400 Iu)] DULoxetine HCL 40 mg PO DAILY 07/08/20 07/08/20 History Donepezil [Aricept] 10 mg PO HS 07/08/20 07/08/20 History Famotidine [Pepcid] 20 mg PO DAILY PRN 07/08/20 07/08/20 History Fish Oil/Dha/Epa [Fish Oil 1,200 1 cap PO HS 07/08/20 07/08/20 History mg Fish Oil] Ginko Biloba 120 mg PO DAILY 07/08/20 07/08/20 History Levothyroxine Sodium [Euthyrox] 50 mcg PO DAILY 07/08/20 07/08/20 History Memantine [Namenda] 5 mg PO HS 07/08/20 07/08/20 History Memantine [Namenda] 10 mg PO DAILY 07/08/20 07/08/20 History Metoprolol Tartrate [Lopressor] 100 mg PO BID 07/08/20 07/08/20 History Mirtazapine [Remeron] 15 mg PO HS 07/08/20 07/08/20 History Multivit-Min/FA/Lycopen/Lutein 1 tab PO DAILY 07/08/20 07/08/20 History [Centrum Silver Tablet] Nitroglycerin Sl Tabs [Nitrostat] 0.4 mg SUBLINGUAL Q5M PRN 07/08/20 07/08/20 History Pantoprazole Sodium [Protonix] 40 mg PO DAILY 07/08/20 07/08/20 History Pravastatin Sodium [Pravachol] 80 mg PO HS 07/08/20 07/08/20 History QUEtiapine [SEROquel] 50 mg PO BID@1700,2100 07/08/20 07/08/20 History Ubidecarenone [Co Q-10] 200 mg PO DAILY 07/08/20 07/08/20 History Vitamin B Complex 1 cap PO DAILY 07/08/20 07/08/20 History hydrALAZINE HCL [Apresoline] 50 mg PO BID 07/08/20 07/08/20 History Allergies Allergy/AdvReac Type Severity Reaction Status Date / Time lisinopril Allergy Unknown Verified 07/08/20 17:06 simvastatin [From Zocor] Allergy Unknown Verified 07/08/20 17:06 Physical Exam Vitals: Vital Signs Temp Pulse Pulse Resp BP BP Pulse Ox 07/09/20 00:16 97.8 F 80 18 168/72 97 07/08/20 22:55 72 17 164/81 99 07/08/20 18:30 64 18 168/70 97 07/08/20 17:02 98.1 F 76 16 158/69 95 Intake and Output 07/08/20 07/09/20 07/09/20 22:59 06:59 14:59 Other: Weight 74.389 kg 73 kg Results CBC & Chem 7: 07/08/20 18:05 07/08/20 18:05 Labs: Abnormal Lab Results - Last 24 Hours (Table) 07/08/20 07/08/20 07/08/20 Range/Units 18:05 18:05 18:05 Lymphocytes # 0.8 L (1.0-4.8) k/uL BUN 23 H (7-17) mg/dL Glucose 107 H (74-99) mg/dL Ur Leukocyte Esterase Large H (Negative) Urine WBC 18 H (0-5) /hpf Urine Mucus Rare H (None) /hpf Microbiology - Last 24 Hours (Table) 07/08/20 18:05 Urine Culture - Preliminary Urine,Voided
[2020-07-09] MEDS: DONEPEZIL 10 MG TAB PO SCH ×2 (19:39→19:41)
[2020-07-09] MEDS: MIRTAZAPINE 15 MG TAB PO SCH (19:40)
[2020-07-09] MEDS: MEMANTINE 5 MG TAB PO SCH (19:41)
[2020-07-09] MEDS: PRAVASTATIN SODIUM 80 MG TAB PO SCH (19:41)
[2020-07-09] MEDS ORDERED: OLANZapine 2.5 MG TAB PO ONE (21:09)
[2020-07-10] MEDS: LEVOTHYROXINE 50 MCG TAB PO SCH (06:30)
[2020-07-10] MEDS: CALCIUM CARB-VIT D 500 MG-5 MCG TAB PO SCH (10:09)
[2020-07-10] MEDS: MULTIVITAMINS, THERA 1 EACH TAB PO SCH (10:09)
[2020-07-10] MEDS: hydrALAZINE HCL 50 MG TAB PO SCH ×3 (10:09→21:18)
[2020-07-10] MEDS: CEPHALEXIN 500 MG CAP PO SCH ×4 (10:09→21:15)
[2020-07-10] MEDS: METOPROLOL TARTRATE 50 MG TAB PO SCH ×2 (10:09→21:15)
[2020-07-10] MEDS: OLANZapine 2.5 MG TAB PO SCH ×3 (10:10→21:15)
[2020-07-10] MEDS: PANTOPRAZOLE 40 MG TABLET PO SCH (10:10)
[2020-07-10] MEDS: ASPIRIN 325 MG TAB PO SCH (10:10)
[2020-07-10] MEDS: DULoxetine HCL 20 MG CAPSULE.DR PO SCH (10:10)
[2020-07-10] MEDS: MEMANTINE 10 MG TAB PO SCH (10:10)
--- NOTE | 2020-07-10 13:07 | PN ---
PROGRESS NOTE DATE OF SERVICE: 07/10/2020. CHIEF COMPLAINT: The patient has mild dementia. She has been having increasing problems with hallucinations and delusions to the point that in the last couple of weeks she has been severely agitated. INTERVAL HISTORY: Patient has been doing fair. She had a quiet day yesterday. She wanders about the unit. She interacts with others. Generally, she presents with a reasonable mood and disposition. It is noteworthy that she slept well last night that has been one of her major complaints. She was quite positive about getting sleep last night. She has been up today. She comes out in the day area. It is noted that the patient was asking questions about being discharged and was hopeful to be discharged today. Early in the morning I talked to her and indicated that she would be here through the weekend and that we would look for discharge on Monday or Monday. I saw her about an hour and a half later. She came up to me and said she had talked to her daughter and told her daughter she would not be discharged until at least Monday. I took that as a positive in terms of her cognitive status as she was clear about the discussion we had had previously. She appears to tolerate her psychotropic medication well. MENTAL STATUS: Patient sat with a little restlessness. She gave fairly good eye contact. She answered questions with brief responses. Her thoughts were clear. Her affect was a little constricted though not significantly so. Her mood was reserved though not clearly down or depressed. She did not appear distressed. It is noted that staff have noted she continues to have discussions without people in the room as an indication of continued hallucinations. She has limited, but reasonable orientation. It is noted that when I asked her about tennis, which is one of her favorite activities, she told me that the [place] open has passed and that in a few weeks the [place] open will begin. Both of these were accurate details. ASSESSMENT: I will continue the current diagnosis and treatment plan. I will continue psychotropic medications the same. Patient has been showing some possible improvement in terms of her auditory hallucinations. As daughter noted she has 1 person, namely Maricel, whom when she gets into that voice she can get very agitated. We have not seen that. The daughter alerted us to pay attention to see if she is talking about Yolanda or not. A significant positive is that she slept well last night. Will monitor over the next few days to see if he continues to get into a more stable sleep pattern. I discussed the case with the patient's daughter by telephone today. I indicated that if she seems to be sleeping better, that we could look at discharge early in the week. I discussed that it may take a considerable length of time to see if her hallucinations fully resolve, though we have noted so far that she has not gotten into any of the episodes of agitation that led to her coming into the hospital, given that she has been having some level of hallucinations going back 2 years relating to the early period when she was identified as having dementia. It is likely that hallucinations may continue though possibly fade over time. We will focus on stabilization and discharge planning. JET / PARKER: [id number] /
--- NOTE | 2020-07-10 16:18 | P.PN ---
Progress Note - Text Progress Note Date: 07/10/20 - Chief Complaint Hallucinations Consultation: This is a pleasant 75-year-old patient who follows with Dr. Thurston. Chronic stable medical conditions include hyperlipidemia, hypertension, hypothyroid. She apparently has a diagnosis of dementia . She started having hallucinations in 2019 and she was diagnosed then with dementia. He started seeing people that through television and started to connect with them. Have started having some i nteractions. Also she with episodes that she'll start screaming at people. She has been put on Seroquel. That did not help much. Symptoms have gradually progressed. Seroquel dose was adjusted. Recently she was made to see neurology. She was also recently started on Remeron. Patient states since her childhood she was very active and never slept well in fact is hardly step for most of her life. She states sometime patient will argue with herself and other times she will also get upset with herself. All these reasons put together culminated in her getting admission to the hospital. Patient denies any respiratory symptoms. Appetite is not the best. Reflux symptoms Admitted with hallucinations and delusions. Was placed on Zyprexa. And Remeron. Today: I discussed with Dr. Zaidi. Patient may have very mild cognitive impairment if any. I do not feel really if Namenda and Aricept are indicated. We agreed to discontinue both. Patient did sleep well last night. Had a fairly decent breakfast. Mother comfortable chatting away today. Has not had any further hallucinations Review of systems: Was done for constitutional, cardiovascular, GI, pulmonary. relevant finding as above Active Medications Acetaminophen (Acetaminophen Tab 325 Mg Tab) 650 mg PO Q4HR PRN PRN Reason: Pain/Discomfort Al Hydroxide/Mg Hydroxide (Mag Hydrox/Al Hydrox/Simeth 30 Ml Cup) 30 ml PO Q4HR PRN PRN Reason: GI Upset Aspirin (Aspirin 325 Mg Tab) 325 mg PO DAILY [facility] Last Admin: 07/10/20 10:10 Dose: 325 mg Documented by: Calcium Carbonate (Calcium Carb-Vit D 500 Mg-5 Mcg Tab) 1 each PO DAILY [facility] Last Admin: 07/10/20 10:09 Dose: 1 each Documented by: Cephalexin (Cephalexin 500 Mg Cap) 500 mg PO QID [facility] Last Admin: 07/10/20 13:03 Dose: 500 mg Documented by: Duloxetine HCl (Duloxetine Hcl 20 Mg Capsule.Dr) 40 mg PO DAILY [facility] Last Admin: 07/10/20 10:10 Dose: 40 mg Documented by: Hydralazine HCl (Hydralazine Hcl 50 Mg Tab) 50 mg PO BID [facility] Last Admin: 07/10/20 10:09 Dose: 50 mg Documented by: Levothyroxine Sodium (Levothyroxine 50 Mcg Tab) 50 mcg PO DAILY@0630 [facility] Last Admin: 07/10/20 06:30 Dose: 50 mcg Documented by: Magnesium Hydroxide (Magnesium Hydroxide 2,400 Mg/10 Ml Cup) 2,400 mg PO DAILY PRN PRN Reason: Constipation Metoprolol Tartrate (Metoprolol Tartrate 50 Mg Tab) 100 mg PO BID [facility] Last Admin: 07/10/20 10:09 Dose: 100 mg Documented by: Mirtazapine (Mirtazapine 15 Mg Tab) 15 mg PO [facility] Last Admin: 07/09/20 19:40 Dose: 15 mg Documented by: Multivitamins (Multivitamins, Thera 1 Each Tab) 1 each PO DAILY [facility] Last Admin: 07/10/20 10:09 Dose: 1 each Documented by: Nitroglycerin (Nitroglycerin Sl Tabs 0.4 Mg Tab) 0.4 mg SUBLINGUAL Q5M PRN PRN Reason: Chest Pain Olanzapine (Olanzapine 2.5 Mg Tab) 2.5 mg PO TID [facility] Last Admin: 07/10/20 15:10 Dose: 2.5 mg Documented by: Pantoprazole Sodium (Pantoprazole 40 Mg Tablet) 40 mg PO AC-BRKFST [facility] Last Admin: 07/10/20 10:10 Dose: 40 mg Documented by: Pravastatin Sodium (Pravastatin Sodium 80 Mg Tab) 80 mg PO [facility] Last Admin: 07/09/20 19:41 Dose: 80 mg Documented by: Past medical history to include: Hypertension, hyperlipidemia, hypothyroid, anxiety, depression, dementia Social history: Lives with her a daughter. Drinks alcohol rarely. Patient smoked for about 20- 30 years stopped about 30 years ago. Physical examination: VITAL SIGNS: 97.6, 88, 14, 194/85, 98% room air GENERAL: Sitting up, comfortable EYES: Pupils equal. Conjunctiva normal. HEENT: External appearance of nose and ears normal, oral cavity grossly normal. NECK: JVD not raised; masses not palpable. HEART: First and second heart sounds are normal; mild edema. LUNGS: Respiratory rate normal; clear to auscultation. ABDOMEN: Soft, nontender, liver spleen not palpable, no masses palpable. PSYCH: [Awake and alert, answering questions appropriately. Smiling. More detailed examination as per psychiatry MUSCULAR skeletal: Evidence of OA especially in the hands L. INVESTIGATIONS, reviewed in the clinical context: WBC 5.7 hemoglobin 12.7 platelets 169 potassium 4.6 creatinine 0.78 TSH 1.2 UA positive for leukoesterase, WBC Influenza type A, diabetic, RSV, COVID 19 PCR: Not detected EKG tracing personally reviewed by me-normal sinus rhythm nonspecific T-wave changes Computed tomography scan of the brain: Moderate parenchymal volume loss. Assessment and plan: -Essential hypertension Continue with hydralazine, Lopressor. Blood pressure reading high this morning. Repeat manual blood pressure -Hypercholesterolemia Continue with Pravachol -GERD Continue with Protonix -Chronic insomnia [id number] Continue with Remeron -Hypothyroid Continue with levothyroxine -Mild cognitive impairment Patient on Aricept and Namenda-discussed with Dr. Zaidi. We will discontinue both for now. -Primary osteoarthritis, bilateral multiple joints Continue with Tylenol when necessary -Obesity BMI 32.5 Weight loss measures and follow-up with PCP -Schizophrenia/psychosis Being managed by psychiatry Recheck blood pressure. Manual blood pressure. We'll decide on antihypertensives from there. Thank you Dr. Gonzalez
[2020-07-10] MEDS: MIRTAZAPINE 15 MG TAB PO SCH (21:15)
[2020-07-10] MEDS: PRAVASTATIN SODIUM 80 MG TAB PO SCH (21:15)
[2020-07-11] MEDS: LEVOTHYROXINE 50 MCG TAB PO SCH (06:25)
[2020-07-11] MEDS: PANTOPRAZOLE 40 MG TABLET PO SCH (08:09)
[2020-07-11] MEDS: ASPIRIN 81 MG PO SCH (08:09)
[2020-07-11] MEDS: CALCIUM CARB-VIT D 500 MG-5 MCG TAB PO SCH (08:09)
[2020-07-11] MEDS: CEPHALEXIN 500 MG CAP PO SCH ×4 (08:10→21:05)
[2020-07-11] MEDS: DULoxetine HCL 20 MG CAPSULE.DR PO SCH (08:11)
[2020-07-11] MEDS: hydrALAZINE HCL 50 MG TAB PO SCH ×3 (08:11→21:03)
[2020-07-11] MEDS: METOPROLOL TARTRATE 50 MG TAB PO SCH ×2 (08:13→21:01)
[2020-07-11] MEDS: OLANZapine 2.5 MG TAB PO SCH ×3 (08:13→21:05)
[2020-07-11] MEDS: MULTIVITAMINS, THERA 1 EACH TAB PO SCH (08:13)
--- NOTE | 2020-07-11 15:52 | P.PN ---
Progress Note - Text Progress Note Date: 07/11/20 - Chief Complaint Hallucinations Consultation: This is a pleasant 75-year-old patient who follows with Dr. Thurston. Chronic stable medical conditions include hyperlipidemia, hypertension, hypothyroid. She apparently has a diagnosis of dementia . She started having hallucinations in 2019 and she was diagnosed then with dementia. He started seeing people that through television and started to connect with them. Have started having some i nteractions. Also she with episodes that she'll start screaming at people. She has been put on Seroquel. That did not help much. Symptoms have gradually progressed. Seroquel dose was adjusted. Recently she was made to see neurology. She was also recently started on Remeron. Patient states since her childhood she was very active and never slept well in fact is hardly step for most of her life. She states sometime patient will argue with herself and other times she will also get upset with herself. All these reasons put together culminated in her getting admission to the hospital. Patient denies any respiratory symptoms. Appetite is not the best. Reflux symptoms Admitted with hallucinations and delusions. Was placed on Zyprexa. And Remeron. Blood pressure was uncontrolled. Hydralazine increased to 3 times a day/50 mg Today: Oral intake has been fair. Continues to be delusional. Blood pressure doing better. No chest pain or pressure. Review of systems: Was done for constitutional, cardiovascular, GI, pulmonary. relevant finding as above Active Medications Acetaminophen (Acetaminophen Tab 325 Mg Tab) 650 mg PO Q4HR PRN PRN Reason: Pain/Discomfort Al Hydroxide/Mg Hydroxide (Mag Hydrox/Al Hydrox/Simeth 30 Ml Cup) 30 ml PO Q4HR PRN PRN Reason: GI Upset Aspirin (Aspirin 81 Mg) 81 mg PO DAILY [facility] Last Admin: 07/11/20 08:09 Dose: 81 mg Documented by: Calcium Carbonate (Calcium Carb-Vit D 500 Mg-5 Mcg Tab) 1 each PO DAILY [facility] Last Admin: 07/11/20 08:09 Dose: 1 each Documented by: Cephalexin (Cephalexin 500 Mg Cap) 500 mg PO QID [facility] Last Admin: 07/11/20 12:03 Dose: 500 mg Documented by: Duloxetine HCl (Duloxetine Hcl 20 Mg Delores.) 40 mg PO DAILY [facility] Last Admin: 07/11/20 08:11 Dose: 40 mg Documented by: Hydralazine HCl (Hydralazine Hcl 50 Mg Tab) 50 mg PO TID [facility] Last Admin: 07/11/20 08:11 Dose: 50 mg Documented by: Levothyroxine Sodium (Levothyroxine 50 Mcg Tab) 50 mcg PO DAILY@0630 [facility] Last Admin: 07/11/20 06:25 Dose: 50 mcg Documented by: Magnesium Hydroxide (Magnesium Hydroxide 2,400 Mg/10 Ml Cup) 2,400 mg PO DAILY PRN PRN Reason: Constipation Metoprolol Tartrate (Metoprolol Tartrate 50 Mg Tab) 100 mg PO BID [facility] Last Admin: 07/11/20 08:13 Dose: 100 mg Documented by: Mirtazapine (Mirtazapine 15 Mg Tab) 15 mg PO [facility] Last Admin: 07/10/20 21:15 Dose: 15 mg Documented by: Multivitamins (Multivitamins, Thera 1 Each Tab) 1 each PO DAILY [facility] Last Admin: 07/11/20 08:13 Dose: 1 each Documented by: Nitroglycerin (Nitroglycerin Sl Tabs 0.4 Mg Tab) 0.4 mg SUBLINGUAL Q5M PRN PRN Reason: Chest Pain Olanzapine (Olanzapine 2.5 Mg Tab) 2.5 mg PO TID [facility] Last Admin: 07/11/20 08:13 Dose: 2.5 mg Documented by: Pantoprazole Sodium (Pantoprazole 40 Mg Tablet) 40 mg PO AC-BRKFST [facility] Last Admin: 07/11/20 08:09 Dose: 40 mg Documented by: Pravastatin Sodium (Pravastatin Sodium 80 Mg Tab) 80 mg PO [facility] Last Admin: 07/10/20 21:15 Dose: 80 mg Documented by: Past medical history to include: Hypertension, hyperlipidemia, hypothyroid, anxiety, depression, dementia Social history: Lives with her a daughter. Drinks alcohol rarely. Patient smoked for about 20- 30 years stopped about 30 years ago. Physical examination: VITAL SIGNS: 97.7, 77, 16, 1 36 x 63, 94% room air GENERAL: , comfortable EYES: Pupils equal. Conjunctiva normal. NECK: JVD not raised; masses not palpable. HEART: First and second heart sounds are normal; mild edema. LUNGS: Respiratory rate normal; clear to auscultation. ABDOMEN: Soft, nontender, liver spleen not palpable, no masses palpable. PSYCH: [Awake and alert, answering questions appropriately. Smiling. More detailed examination as per psychiatry MUSCULAR skeletal: Evidence of OA especially in the hands INVESTIGATIONS, reviewed in the clinical context: WBC 5.7 hemoglobin 12.7 platelets 169 potassium 4.6 creatinine 0.78 TSH 1.2 UA positive for leukoesterase, WBC Influenza type A, diabetic, RSV, COVID 19 PCR: Not detected EKG tracing personally reviewed by me-normal sinus rhythm nonspecific T-wave changes Computed tomography scan of the brain: Moderate parenchymal volume loss. Assessment and plan: -Essential hypertension, uncontrolled Lopressor. Increase hydralazine to 50 mg 3 times a day -Hypercholesterolemia Continue with Pravachol -GERD Continue with Protonix -Chronic insomnia [id number] Continue with Remeron -Hypothyroid Continue with levothyroxine -Mild cognitive impairment Patient on Aricept and Namenda-discussed with Dr. Zaidi. We will discontinue both for now. -Primary osteoarthritis, bilateral multiple joints Continue with Tylenol when necessary -Obesity BMI 32.5 Weight loss measures and follow-up with PCP -Schizophrenia/psychosis Being managed by psychiatry Continue to follow blood pressure. Other medications to continue. Thank you
--- NOTE | 2020-07-11 16:18 | P.PN ---
Progress Note - Text Progress Note Date: 07/11/20 Clinical Problems: Major neurocognitive disorder with behavioral disturbances Interim history: I reviewed the medical record and interviewed the patient. She is a 75-year-old female who has a history of a major neurocognitive disorder of Alzheimer's type. She presented to the psychiatric unit with a history of behavioral disturbances increasing confusion and auditory and visual hallucinations. She is pleasant on approach and voiced no concerns. Nursing notes that she is confused and needs frequent redirection. She is not sleeping at night. Earlier this week she experienced acute paranoia and apparent auditory or visual hallucination where she believed that there is a man-made bathroom. Our nurse spoke with her daughter who complained that the patient appears more confused. Mental status exam: She presented as a casually groomed short elderly woman who was pleasant on approach. She made eye contact but did not appear to attend to the interview. She had a bright facial expression. She was intermittently restless but not agitated or aggressive. Her speech was spontaneous and sometimes difficult to understand. Her affect was bright and stable. She did not express ideas reference, paranoid ideation or depressive cognitions. Her thinking was concrete and not fully organized. She did not appear to be responding to internal stimuli. Assessment: She is seriously mentally ill minimally improved from admission. In fact, her family reported that she appears more confused than on admission. Plan: Inpatient treatment. Continue safety precautions. Continue Cymbalta 40 mg daily, Remeron 50 mg at bedtime. Decrease Zyprexa to 2.5mg twice a day to decreased the apparent level of confusion. Repeat CBC with differential, basic metabolic panel and UA. Frequently reorient and redirect as needed. Evaluate clinical status response to treatment daily basis.
[2020-07-11 17:21] LABS: Basophils # (A) 0.1 k/uL (0-0.2); Basophils % (A) 1 %; Eosinophils # (A) 0.2 k/uL (0-0.7); Eosinophils % (A) 3 %; HCT 37.1 % (34.0-46.0); HGB 12.9 gm/dL (11.4-16.0); Lymphocytes # (A) 1.5 k/uL (1.0-4.8); Lymphocytes % (A) 25 %; MCH 29.4 pg (25.0-35.0); MCHC 34.7 g/dL (31.0-37.0); MCV 84.6 fL (80.0-100.0); Mean Platelet Volume 7.5; Monocytes # (A) 0.3 k/uL (0-1.0); Monocytes % (A) 6 %; Neutrophils # (A) 3.8 k/uL (1.3-7.7); Neutrophils % (A) 64 %; Platelet Count 238 k/uL (150-450); RBC 4.39 m/uL (3.80-5.40); RDW 13.5 % (11.5-15.5)
[2020-07-11 17:38] LABS: Calcium 10.1 mg/dL (8.4-10.2); Potassium 4.5 mmol/L (3.5-5.1)
[2020-07-11] MEDS: MIRTAZAPINE 15 MG TAB PO SCH (21:02)
[2020-07-11] MEDS: PRAVASTATIN SODIUM 80 MG TAB PO SCH (21:03)
[2020-07-12] MEDS: OLANZapine 2.5 MG TAB PO SCH ×2 (12:12→21:31)
[2020-07-12] MEDS: LEVOTHYROXINE 50 MCG TAB PO SCH (13:34)
[2020-07-12] MEDS: CEPHALEXIN 500 MG CAP PO SCH ×4 (13:35→21:31)
[2020-07-12] MEDS: CALCIUM CARB-VIT D 500 MG-5 MCG TAB PO SCH (13:35)
[2020-07-12] MEDS: PANTOPRAZOLE 40 MG TABLET PO SCH (13:35)
[2020-07-12] MEDS: ASPIRIN 81 MG PO SCH (13:35)
[2020-07-12] MEDS: hydrALAZINE HCL 50 MG TAB PO SCH ×3 (13:37→21:31)
[2020-07-12] MEDS: METOPROLOL TARTRATE 50 MG TAB PO SCH ×2 (13:37→21:32)
[2020-07-12] MEDS: MULTIVITAMINS, THERA 1 EACH TAB PO SCH (13:37)
[2020-07-12] MEDS: DULoxetine HCL 20 MG CAPSULE.DR PO SCH (14:42)
[2020-07-12] MEDS ORDERED: OLANZapine 2.5 MG TAB PO STA (17:08)
--- NOTE | 2020-07-12 20:29 | P.PN ---
Progress Note - Text Progress Note Date: 07/12/20 - Chief Complaint Hallucinations Consultation: This is a pleasant 75-year-old patient who follows with Dr. Thurston. Chronic stable medical conditions include hyperlipidemia, hypertension, hypothyroid. She apparently has a diagnosis of dementia . She started having hallucinations in 2019 and she was diagnosed then with dementia. He started seeing people that through television and started to connect with them. Have started having some i nteractions. Also she with episodes that she'll start screaming at people. She has been put on Seroquel. That did not help much. Symptoms have gradually progressed. Seroquel dose was adjusted. Recently she was made to see neurology. She was also recently started on Remeron. Patient states since her childhood she was very active and never slept well in fact is hardly step for most of her life. She states sometime patient will argue with herself and other times she will also get upset with herself. All these reasons put together culminated in her getting admission to the hospital. Patient denies any respiratory symptoms. Appetite is not the best. Reflux symptoms Admitted with hallucinations and delusions. Was placed on Zyprexa. And Remeron. Blood pressure was uncontrolled. Hydralazine increased to 3 times a day/50 mg Today: Patient is sleepy last night. Had reasonable weak with breakfast. Blood pressure better. Resting some delusions. Review of systems: Was done for constitutional, cardiovascular, GI, pulmonary. relevant finding as above Active Medications Acetaminophen (Acetaminophen Tab 325 Mg Tab) 650 mg PO Q4HR PRN PRN Reason: Pain/Discomfort Al Hydroxide/Mg Hydroxide (Mag Hydrox/Al Hydrox/Simeth 30 Ml Cup) 30 ml PO Q4HR PRN PRN Reason: GI Upset Aspirin (Aspirin 81 Mg) 81 mg PO DAILY [facility] Last Admin: 07/12/20 13:35 Dose: 81 mg Documented by: Calcium Carbonate (Calcium Carb-Vit D 500 Mg-5 Mcg Tab) 1 each PO DAILY [facility] Last Admin: 07/12/20 13:35 Dose: 1 each Documented by: Cephalexin (Cephalexin 500 Mg Cap) 500 mg PO QID [facility] Last Admin: 07/12/20 17:04 Dose: 500 mg Documented by: Duloxetine HCl (Duloxetine Hcl 20 Mg Delores.) 40 mg PO DAILY [facility] Last Admin: 07/12/20 14:42 Dose: Not Given Documented by: Hydralazine HCl (Hydralazine Hcl 50 Mg Tab) 50 mg PO TID [facility] Last Admin: 07/12/20 17:04 Dose: 50 mg Documented by: Levothyroxine Sodium (Levothyroxine 50 Mcg Tab) 50 mcg PO DAILY@0630 [facility] Last Admin: 07/12/20 13:34 Dose: 50 mcg Documented by: Magnesium Hydroxide (Magnesium Hydroxide 2,400 Mg/10 Ml Cup) 2,400 mg PO DAILY PRN PRN Reason: Constipation Metoprolol Tartrate (Metoprolol Tartrate 50 Mg Tab) 100 mg PO BID [facility] Last Admin: 07/12/20 13:37 Dose: 100 mg Documented by: Mirtazapine (Mirtazapine 15 Mg Tab) 15 mg PO [facility] Last Admin: 07/11/20 21:02 Dose: 15 mg Documented by: Multivitamins (Multivitamins, Thera 1 Each Tab) 1 each PO DAILY [facility] Last Admin: 07/12/20 13:37 Dose: 1 each Documented by: Nitroglycerin (Nitroglycerin Sl Tabs 0.4 Mg Tab) 0.4 mg SUBLINGUAL Q5M PRN PRN Reason: Chest Pain Olanzapine (Olanzapine 2.5 Mg Tab) 2.5 mg PO BID [facility] Pantoprazole Sodium (Pantoprazole 40 Mg Tablet) 40 mg PO AC-BRKFST [facility] Last Admin: 07/12/20 13:35 Dose: 40 mg Documented by: Pravastatin Sodium (Pravastatin Sodium 80 Mg Tab) 80 mg PO [facility] Last Admin: 07/11/20 21:03 Dose: 80 mg Documented by: Past medical history to include: Hypertension, hyperlipidemia, hypothyroid, anxiety, depression, dementia Social history: Lives with her a daughter. Drinks alcohol rarely. Patient smoked for about 20- 30 years stopped about 30 years ago. Physical examination: VITAL SIGNS: 87.6, 75, 16, 146.68, 96% room air GENERAL: , Laying in bed, comfortable EYES: Pupils equal. Conjunctiva normal. NECK: JVD not raised; masses not palpable. HEART: First and second heart sounds are normal; mild edema. LUNGS: Respiratory rate normal; clear to auscultation. ABDOMEN: Soft, nontender, liver spleen not palpable, no masses palpable. PSYCH: [Awake and alert, answering questions appropriately. Smiling. More detailed examination as per psychiatry MUSCULAR skeletal: Evidence of OA especially in the hands INVESTIGATIONS, reviewed in the clinical context: WBC 5.7 hemoglobin 12.7 platelets 169 potassium 4.6 creatinine 0.78 TSH 1.2 UA positive for leukoesterase, WBC Influenza type A, diabetic, RSV, COVID 19 PCR: Not detected EKG tracing personally reviewed by me-normal sinus rhythm nonspecific T-wave changes Computed tomography scan of the brain: Moderate parenchymal volume loss. Assessment and plan: -Essential hypertension, better controlled Lopressor. Increase hydralazine to 50 mg 3 times a day -Hypercholesterolemia Continue with Pravachol -GERD Continue with Protonix -Chronic insomnia [id number] Continue with Remeron -Hypothyroid Continue with levothyroxine -Mild cognitive impairment Patient on Aricept and Namenda-discussed with Dr. Zaidi. We will discontinue both for now. -Primary osteoarthritis, bilateral multiple joints Continue with Tylenol when necessary -Obesity BMI 32.5 Weight loss measures and follow-up with PCP -Schizophrenia/psychosis Being managed by psychiatry -Acute UTI with cystitis On Keflex-course completed. ANGELINE tonmaxime Continue to follow blood pressure. Other medications to continue. Thank you
[2020-07-12] MEDS: PRAVASTATIN SODIUM 80 MG TAB PO SCH (21:31)
[2020-07-12] MEDS: MIRTAZAPINE 15 MG TAB PO SCH (21:31)
[2020-07-13] MEDS: LEVOTHYROXINE 50 MCG TAB PO SCH (05:43)
[2020-07-13] MEDS: MULTIVITAMINS, THERA 1 EACH TAB PO SCH (09:26)
[2020-07-13] MEDS: CEPHALEXIN 500 MG CAP PO SCH ×2 (09:26→13:06)
[2020-07-13] MEDS: METOPROLOL TARTRATE 50 MG TAB PO SCH ×2 (09:26→21:36)
[2020-07-13] MEDS: CALCIUM CARB-VIT D 500 MG-5 MCG TAB PO SCH (09:26)
[2020-07-13] MEDS: OLANZapine 2.5 MG TAB PO SCH ×2 (09:26→21:37)
[2020-07-13] MEDS: PANTOPRAZOLE 40 MG TABLET PO SCH (09:26)
[2020-07-13] MEDS: ASPIRIN 81 MG PO SCH (09:26)
[2020-07-13] MEDS: hydrALAZINE HCL 50 MG TAB PO SCH ×3 (09:27→22:37)
--- NOTE | 2020-07-13 10:33 | P.PN ---
Progress Note - Text Progress Note Date: 07/13/20 Interval History: Patient was seen wandering the hallways and was directable and agreeable to speak with typewriter ribbon winder in the office. The patient continues to endorse significant auditory and visual hallucinations. She states that she is able to hear and see her mother present in the hospital. She states her mother is 55 years old despite the patient being 75 years old herself. During the interview, the patient even made reference that her mother is in the chair sitting behind her. The patient appears to respond to internal stimuli. Otherwise the patient is not reporting any suicidal or homicidal ideation, intention, and/or plan. She is not reporting any paranoia or other delusions. She has been in adherent with her medications and is not reporting any significant side effects at this time. As per noted from Dr. Trevino's note, the patient has been expressing significant confusion. At this time the patient is only alert and oriented to person and place but not time or date. Mental Status Exam: General Appearance: Patient appears to be stated age is alert, directable, and cooperative. Petite elderly female with good hygiene and grooming. Behavior: Patient is calmly seated without any agitated behavior. Psychomotor activity appears slightly elevated, Eye contact is appropriate. Patient does appear to respond to internal stimuli. Speech: Patient's speech is fluent and nonpressured. Mood/Affect: Mood is "doing fine." Affect is confused but bright. Suicidality/Homicidality: Patient denies any suicidal or homicidal ideation, intention, and/or plan. Perceptions: Patient appears to be endorsing both auditory and visual hallucinations. Though content/process: Bizarre delusional thought content. Thought process appears to be responding to internal stimuli. Memory and concentration: AOX2, grossly intact for the purposes of this session Judgment and insight: Very poor Assessment Psychosis, unspecified - rule out mood disorder with psychotic features Major neurocognitive disorder with behavioral disturbances Plan: -Patient continues to meet criteria for inpatient psychiatric admission for symptom stabilization and safety. Patient has signed adult voluntary form. -Medications: We'll decrease Cymbalta to 20 mg by mouth daily to decrease polypharmacy Continue Remeron 15 mg by mouth at bedtime for depression/insomnia/appetite Increase Zyprexa to 3.75 mg by mouth twice a day for psychosis -When necessary Ativan and haldol for agitation/aggression. -NRT - nicotine patch -SW on board for discharge planning. Encouraged the patient to participate in milieu.
[2020-07-13] MEDS: DULoxetine HCL 20 MG CAPSULE.DR PO SCH ×2 (10:37→10:38)
[2020-07-13] MEDS ORDERED: OLANZapine 2.5 MG TAB PO SCH (21:00)
[2020-07-13] MEDS: MIRTAZAPINE 15 MG TAB PO SCH (21:36)
[2020-07-13] MEDS: PRAVASTATIN SODIUM 80 MG TAB PO SCH (21:36)
[2020-07-14] MEDS: LEVOTHYROXINE 50 MCG TAB PO SCH (05:45)
[2020-07-14] MEDS: MULTIVITAMINS, THERA 1 EACH TAB PO SCH (10:47)
[2020-07-14] MEDS: CALCIUM CARB-VIT D 500 MG-5 MCG TAB PO SCH (10:48)
[2020-07-14] MEDS: ASPIRIN 81 MG PO SCH (10:48)
[2020-07-14] MEDS: OLANZapine 2.5 MG TAB PO SCH ×2 (10:48→20:36)
[2020-07-14] MEDS: METOPROLOL TARTRATE 50 MG TAB PO SCH ×2 (10:49→20:35)
[2020-07-14] MEDS: PANTOPRAZOLE 40 MG TABLET PO SCH (10:49)
[2020-07-14] MEDS: hydrALAZINE HCL 50 MG TAB PO SCH ×3 (10:49→20:37)
--- NOTE | 2020-07-14 11:10 | P.PN ---
Progress Note - Text Progress Note Date: 07/14/20 Interval History: Patient was seen wandering the hallways and was directable and agreeable to speak with caption writer in the office. The patient reports that her auditory and visual hallucinations are decreased significantly. She is currently not endorsing seeing her mother on the unit or hearing her mother on the unit. She continues to be somewhat confused regarding her children and does not acknowledge that she has been living with her daughter stating that she only has 1 daughter currently living in [facility]. When informed that this provider spoke with her daughter who is living in [place], the patient then acknowledges that she is living with her daughter. The patient is currently not reporting any suicidal or homicidal ideation, intention, and/or plan. She is not reporting any paranoia or other delusions. She denies any issues with sleep or appetite at this time. She has been adherent with her medications is not reporting any significant side effects at this time. Mental Status Exam: General Appearance: Patient appears to be stated age is alert, directable, and cooperative. Petite elderly female with good hygiene and grooming. Behavior: Patient is calmly seated without any agitated behavior. Psychomotor activity appears slightly elevated, Eye contact is appropriate. Patient does appear to respond to internal stimuli. Speech: Patient's speech is fluent and nonpressured. Mood/Affect: Mood is "feeling better." Affect is constricted in range but otherwise euthymic. Suicidality/Homicidality: Patient denies any suicidal or homicidal ideation, intention, and/or plan. Perceptions: Patient is not reporting any auditory or visual hallucinations today. Though content/process: Patient does appear to be confused at baseline. Thought process can be illogical and nonlinear at times. Memory and concentration: AOX2, grossly intact for the purposes of this session Judgment and insight: Very poor Assessment Psychosis, unspecified - rule out mood disorder with psychotic features Major neurocognitive disorder with behavioral disturbances Plan: -Patient continues to meet criteria for inpatient psychiatric admission for symptom stabilization and safety. Patient has signed adult voluntary form. -Medications: Decrease Remeron to 7.5 mg by mouth at bedtime for depression/insomnia/appetite Discontinue Cymbalta to decrease polypharmacy Continue Zyprexa 3.75 mg by mouth twice a day for psychosis -When necessary Ativan and haldol for agitation/aggression. -NRT - nicotine patch -SW on board for discharge planning. Encouraged the patient to participate in milieu.
[2020-07-14] MEDS: DULoxetine HCL 20 MG CAPSULE.DR PO SCH (11:25)
[2020-07-14 20:24] LABS: Potassium 4.4 mmol/L (3.5-5.1)
[2020-07-14] MEDS: MELATONIN 5 MG TABLET PO SCH (20:35)
[2020-07-14] MEDS: MIRTAZAPINE 15 MG TAB PO SCH (20:36)
[2020-07-14] MEDS: PRAVASTATIN SODIUM 80 MG TAB PO SCH (20:38)
[2020-07-14] MEDS: OLANZapine 2.5 MG TAB PO STA ×2 (22:11→22:17)
[2020-07-14] MEDS ORDERED: OLANZapine 10 MG VIAL IM ONE (22:30)
[2020-07-15] MEDS: LEVOTHYROXINE 50 MCG TAB PO SCH ×2 (07:18→07:22)
[2020-07-15] MEDS: PANTOPRAZOLE 40 MG TABLET PO SCH (09:28)
[2020-07-15] MEDS: hydrALAZINE HCL 50 MG TAB PO SCH ×2 (09:28→16:24)
[2020-07-15] MEDS: MULTIVITAMINS, THERA 1 EACH TAB PO SCH (09:28)
[2020-07-15] MEDS: ASPIRIN 81 MG PO SCH (09:29)
[2020-07-15] MEDS: CALCIUM CARB-VIT D 500 MG-5 MCG TAB PO SCH (09:29)
[2020-07-15] MEDS: METOPROLOL TARTRATE 50 MG TAB PO SCH (09:29)
[2020-07-15] MEDS: OLANZapine 2.5 MG TAB PO SCH ×2 (10:45→16:23)
--- NOTE | 2020-07-15 10:57 | P.PN ---
Progress Note - Text Progress Note Date: 07/15/20 Interval History: Patient was seen wandering the hallways and was directable and agreeable to speak with comic writer in the office. The patient was noted by staff to be agitated last night. As per staff note, the patient barricaded the door and was combative with staff. The patient required IM Zyprexa in order to calm her down. Currently, the patient is not reporting any suicidal or homicidal ideation, intention, and/or plan. She is not reporting any auditory or visual hallucinations today. She states that her mother has been trying to contact her. When further clarified, it is identified that the mother is actually the patient's daughter whom she calls her mother. The patient is not reporting any issues with appetite. She does report difficulty sleeping. She has been adherent with her medications and is not reporting any significant side effects at this time. The patient is unable to recall events of last night. She is only alert and oriented to person and place today. Mental Status Exam: General Appearance: Patient appears to be stated age is alert, directable, and cooperative. Petite elderly female with good hygiene and grooming. Behavior: Patient is calmly seated without any agitated behavior. Psychomotor activity appears slightly elevated, Eye contact is appropriate. Speech: Patient's speech is fluent and nonpressured. Low in volume. Mood/Affect: Mood is "doing fine." Affect is constricted in range but otherwise euthymic. Suicidality/Homicidality: Patient denies any suicidal or homicidal ideation, intention, and/or plan. Perceptions: Patient is not reporting any auditory or visual hallucinations today. Though content/process: Patient does appear to be confused at baseline. Thought process can be illogical and nonlinear at times. Memory and concentration: AOX2, grossly intact for the purposes of this session Judgment and insight: Very poor Assessment Psychosis, unspecified - rule out mood disorder with psychotic features Major neurocognitive disorder with behavioral disturbances Plan: -Patient continues to meet criteria for inpatient psychiatric admission for symptom stabilization and safety. Patient has signed adult voluntary form. -Medications: Continue Remeron 7.5 mg by mouth at bedtime for depression/insomnia/appetite Zyprexa 2.5 mg by mouth for be administered at 9 AM, and 4 PM to address behavioral disturbances and psychosis. 5 mg Zyprexa will be given at bedtime. Start melatonin 5 mg by mouth at bedtime for insomnia. Start Aricept 5 mg by mouth at bedtime for major neurocognitive disorder. -When necessary Ativan and haldol for agitation/aggression. -NRT - nicotine patch -SW on board for discharge planning. Encouraged the patient to participate in milieu.
[2020-07-15] MEDS ORDERED: OLANZapine 2.5 MG TAB PO SCH ×2 (16:00→21:00)
[2020-07-15 16:45] LABS: Glucose,Whole Blood 116 mg/dL (75-99)
--- NOTE | 2020-07-15 17:59 | XR ---
EXAMINATION TYPE: XR elbow complete RT DATE OF EXAM: 07/15/2020 COMPARISON: NONE HISTORY: Elbow pain TECHNIQUE: 3 views FINDINGS: There is some spurring on the olecranon process of the ulna. I see no fracture nor dislocat ion. There is no evidence of joint effusion. IMPRESSION: Olecranon process spur formation. No fracture seen.
--- NOTE | 2020-07-15 18:01 | XR ---
EXAMINATION TYPE: XR knee complete RT DATE OF EXAM: 07/15/2020 COMPARISON: NONE HISTORY: Pain TECHNIQUE: 3 views FINDINGS: There is some spurring of the medial femoral and tibial condyles. I see no fracture nor dis location. There is no sign of joint effusion. IMPRESSION: Mild osteoarthritis. No fracture.
--- NOTE | 2020-07-15 18:03 | CT ---
EXAMINATION TYPE: CT brain wo con DATE OF EXAM: 07/15/2020 COMPARISON: 07/08/2020 HISTORY: Fall, frontal bone contusion. CT DLP: 809.2 mGycm Automated exposure control for dose reduction was used. There is cerebral cortical atrophy. There is no mass effect nor midline shift. There is no sign of in tracranial hemorrhage. Calvarium is intact. Sella turcica appears normal. There is thinning of the co rpus callosum. There is mucosal thickening in the maxillary sinuses. IMPRESSION: Cerebral atrophy and chronic small vessel ischemia. No acute abnormality. No significant change.
--- NOTE | 2020-07-15 19:58 | PN ---
PROGRESS NOTE DATE OF SERVICE: 07/15/2020 INTERVAL HISTORY: This 75-year-old woman was admitted for psychiatric evaluation. Had some change in mental status. The patient is less responsive, but currently the patient is responsive. No chest pain. No palpitation. No focal weakness is evident. PHYSICAL EXAMINATION: GENERAL: Patient is conscious but confused. VITAL SIGNS: Pulse 75, blood pressure 135/76, respirations 18, temperature 97.3, pulse ox 94% on room air. HEENT: Conjunctivae normal. Oral mucosa moist. NECK: No jugular venous distention. No carotid bruits. No lymph node enlargement. RESPIRATORY: Breath sounds diminished at the bases. No rhonchi, no crackles. HEART: S1 and S2, muffled. ABDOMEN: Soft, no tenderness. No masses palpable. EXTREMITIES: No edema, no swelling. NERVOUS: No focal deficits. LAB: CBC within normal limits, otherwise glucose 116. Influenza and SARS negative. UA with possible UTI. ASSESSMENT: 1. Change in mental status, rule out acute stroke. 2. Hypertension. 3. Possible urinary tract infection. 4. Hypercholesteremia. 5. History of gastroesophageal reflux disease. 6. Chronic insomnia. 7. Hypothyroidism. 8. Alcohol. 9. DJD. 10.Obesity. 11.Schizophrenia. RECOMMENDATIONS AND DISCUSSION: I recommend to continue current management, continue with symptomatic treatment. I recommend UA with micro and if it is positive recommend a course of antibiotics. Otherwise, we will follow the patient closely and further recommendations to follow. The CT of the brain is noted. Neuro checks recommended. MMODL / IJN: [id number] /
[2020-07-16] MEDS: DONEPEZIL 5 MG TAB PO SCH ×2 (05:58→21:33)
[2020-07-16] MEDS: MELATONIN 5 MG TABLET PO SCH ×2 (05:58→21:36)
[2020-07-16] MEDS: METOPROLOL TARTRATE 50 MG TAB PO SCH ×3 (05:58→21:36)
[2020-07-16] MEDS: OLANZapine 5 MG TAB PO SCH ×2 (05:59→21:37)
[2020-07-16] MEDS: hydrALAZINE HCL 50 MG TAB PO SCH ×4 (05:59→21:36)
[2020-07-16] MEDS: MIRTAZAPINE 15 MG TAB PO SCH ×2 (05:59→21:36)
[2020-07-16] MEDS: PRAVASTATIN SODIUM 80 MG TAB PO SCH ×2 (05:59→21:33)
[2020-07-16] MEDS: LEVOTHYROXINE 50 MCG TAB PO SCH (06:43)
[2020-07-16] MEDS: MULTIVITAMINS, THERA 1 EACH TAB PO SCH (08:13)
[2020-07-16] MEDS: ASPIRIN 81 MG PO SCH (08:14)
[2020-07-16] MEDS: OLANZapine 2.5 MG TAB PO SCH ×2 (08:14→16:03)
[2020-07-16] MEDS: PANTOPRAZOLE 40 MG TABLET PO SCH (08:14)
[2020-07-16] MEDS: CALCIUM CARB-VIT D 500 MG-5 MCG TAB PO SCH (08:14)
--- NOTE | 2020-07-16 10:54 | P.PN ---
Progress Note - Text Progress Note Date: 07/16/20 Interval History: Patient was seen in her room accompanied by her 1:1. The patient reports that she is feeling better today. She reports that she was able to sleep well last night. She did not take her bedtime medications because she was sleeping already. This morning, the patient is alert and oriented to person and place but not to time. She is not reporting any suicidal or homicidal ideation, intention, and/or plan. She is not putting any auditory or visual halluci nations. She denying any paranoia or other delusions. She did take her morning medications. She is presenting with much improved appetite after not eating much yesterday. She is also displaying improved hygiene and grooming today. Mental Status Exam: General Appearance: Patient appears to be stated age is alert, directable, and cooperative. Petite elderly female with good hygiene and grooming. Behavior: Patient is calmly seated without any agitated behavior. Normal psychomotor activity. Eye contact is fair. Speech: Patient's speech is fluent and nonpressured. Low in volume. Mood/Affect: Mood is "feeling good." Affect is constricted in range but otherwise euthymic. Suicidality/Homicidality: Patient denies any suicidal or homicidal ideation, intention, and/or plan. Perceptions: Patient is not reporting any auditory or visual hallucinations today. Though content/process: Thought content without delusional thought content. Thought process is linear and logical in short conversation. Memory and concentration: AOX2, grossly intact for the purposes of this session Judgment and insight: Very poor Assessment Psychosis, unspecified - rule out mood disorder with psychotic features Major neurocognitive disorder with behavioral disturbances Plan: -Patient continues to meet criteria for inpatient psychiatric admission for symptom stabilization and safety. Patient has signed adult voluntary form. -Medications: Continue Remeron 7.5 mg by mouth at bedtime for depression/insomnia/appetite Continue Zyprexa 2.5 mg by mouth for be administered at 9 AM, and 4 PM, and 5 mg at bedtime to address behavioral disturbances and psychosis. Continue melatonin 5 mg by mouth at bedtime for insomnia. Continue Aricept 5 mg by mouth at bedtime for major neurocognitive disorder. -When necessary Ativan and haldol for agitation/aggression. -NRT - nicotine patch -SW on board for discharge planning. Encouraged the patient to participate in milieu.
[2020-07-16 13:36] LABS: Appearance,Urine Clear (Clear); Bacteria,Urine Rare /hpf; Bilirubin,Urine Negative (Negative); Blood,Urine Negative (Negative); Color,Urine Yellow; Glucose,Urine (UA) Negative (Negative); Ketones,Urine 1+ (Negative); Leukocyte Esterase,Urine Large (Negative); Mucus,Urine Rare /hpf; Nitrite,Urine Negative (Negative); PH, Urine 5.5 (5.0-8.0); Protein,Urine Negative (Negative); Specific Gravity,Urine 1.019 (1.001-1.035); Squamous Epithelial Cell,Urine 1 /hpf (0-4); Urobilinogen,Urine <2.0 mg/dL (<2.0); WBC,Urine 49 /hpf (0-5)
--- NOTE | 2020-07-16 18:43 | P.PN ---
Progress Note - Text Progress Note Date: 07/16/20 - Chief Complaint Hallucinations Consultation: This is a pleasant 75-year-old patient who follows with Dr. Thurston. Chronic stable medical conditions include hyperlipidemia, hypertension, hypothyroid. She apparently has a diagnosis of dementia . She started having hallucinations in 2019 and she was diagnosed then with dementia. He started seeing people that through television and started to connect with them. Have started having some i nteractions. Also she with episodes that she'll start screaming at people. She has been put on Seroquel. That did not help much. Symptoms have gradually progressed. Seroquel dose was adjusted. Recently she was made to see neurology. She was also recently started on Remeron. Patient states since her childhood she was very active and never slept well in fact is hardly step for most of her life. She states sometime patient will argue with herself and other times she will also get upset with herself. All these reasons put together culminated in her getting admission to the hospital. Patient denies any respiratory symptoms. Appetite is not the best. Reflux symptoms Admitted with hallucinations and delusions. Was placed on Zyprexa. And Remeron. Blood pressure was uncontrolled. Hydralazine increased to 3 times a day/50 mg Today: Oral intake is fair. Still having delusions. She thought, somebody had come to her room to give her a box that she knew for 50 years ago. I did walk with her in the hallway along with the nurse and a sitter. And she was able to walk on herself. Review of systems: Was done for constitutional, cardiovascular, GI, pulmonary. relevant finding as above Active Medications Acetaminophen (Acetaminophen Tab 325 Mg Tab) 650 mg PO Q4HR PRN PRN Reason: Pain/Discomfort Last Admin: 07/16/20 16:03 Dose: 650 mg Documented by: Al Hydroxide/Mg Hydroxide (Mag Hydrox/Al Hydrox/Simeth 30 Ml Cup) 30 ml PO Q4HR PRN PRN Reason: GI Upset Aspirin (Aspirin 81 Mg) 81 mg PO DAILY REPLACED BY [facility] Last Admin: 07/16/20 08:14 Dose: 81 mg Documented by: Calcium Carbonate (Calcium Carb-Vit D 500 Mg-5 Mcg Tab) 1 each PO DAILY REPLACED BY [facility] Last Admin: 07/16/20 08:14 Dose: 1 each Documented by: Donepezil HCl (Donepezil 5 Mg Tab) [address] [facility] Last Admin: 07/16/20 05:58 Dose: Not Given Documented by: Hydralazine HCl (Hydralazine Hcl 50 Mg Tab) 50 mg PO TID REPLACED BY [facility] Last Admin: 07/16/20 16:03 Dose: 50 mg Documented by: Levothyroxine Sodium (Levothyroxine 50 Mcg Tab) 50 mcg PO DAILY@0630 REPLACED BY [facility] Last Admin: 07/16/20 06:43 Dose: 50 mcg Documented by: Magnesium Hydroxide (Magnesium Hydroxide 2,400 Mg/10 Ml Cup) 2,400 mg PO DAILY PRN PRN Reason: Constipation Melatonin (Melatonin 5 Mg Tablet) [address] [facility] Last Admin: 07/16/20 05:58 Dose: Not Given Documented by: Metoprolol Tartrate (Metoprolol Tartrate 50 Mg Tab) 100 mg PO BID REPLACED BY [facility] Last Admin: 07/16/20 08:14 Dose: 100 mg Documented by: Mirtazapine (Mirtazapine 15 Mg Tab) 7.[address] [facility] Last Admin: 07/16/20 05:59 Dose: Not Given Documented by: Multivitamins (Multivitamins, Thera 1 Each Tab) 1 each PO DAILY REPLACED BY [facility] Last Admin: 07/16/20 08:13 Dose: 1 each Documented by: Nitroglycerin (Nitroglycerin Sl Tabs 0.4 Mg Tab) 0.4 mg SUBLINGUAL Q5M PRN PRN Reason: Chest Pain Olanzapine (Olanzapine 2.5 Mg Tab) 2.5 mg PO BID@0900,1600 REPLACED BY [facility] Last Admin: 07/16/20 16:03 Dose: 2.5 mg Documented by: Olanzapine (Olanzapine 5 Mg Tab) [address] [facility] Last Admin: 07/16/20 05:59 Dose: Not Given Documented by: Pantoprazole Sodium (Pantoprazole 40 Mg Tablet) 40 mg PO AC-BRKFST REPLACED BY [facility] Last Admin: 07/16/20 08:14 Dose: 40 mg Documented by: Pravastatin Sodium (Pravastatin Sodium 80 Mg Tab) [address] [facility] Last Admin: 07/16/20 05:59 Dose: Not Given Documented by: Past medical history to include: Hypertension, hyperlipidemia, hypothyroid, anxiety, depression, dementia Social history: Lives with her a daughter. Drinks alcohol rarely. Patient smoked for about 20- 30 years stopped about 30 years ago. Physical examination: VITAL SIGNS: 97.9, 98, 16, 138/72, 98% room air GENERAL: , Sitting up in a recliner,, comfortable EYES: Pupils equal. Conjunctiva normal. NECK: JVD not raised; masses not palpable. HEART: First and second heart sounds are normal; mild edema. LUNGS: Respiratory rate normal; clear to auscultation. ABDOMEN: Soft, nontender, liver spleen not palpable, no masses palpable. PSYCH: [Awake and alert, delusional as above MUSCULAR skeletal: Evidence of OA especially in the hands INVESTIGATIONS, reviewed in the clinical context: WBC 5.7 hemoglobin 12.7 platelets 169 potassium 4.6 creatinine 0.78 TSH 1.2 UA positive for leukoesterase, WBC Influenza type A, diabetic, RSV, COVID 19 PCR: Not detected EKG tracing personally reviewed by me-normal sinus rhythm nonspecific T-wave changes Computed tomography scan of the brain: Moderate parenchymal volume loss. Assessment and plan: -Essential hypertension, better controlled Lopressor. Increase hydralazine to 50 mg 3 times a day -Hypercholesterolemia Continue with Pravachol -GERD Continue with Protonix -Chronic insomnia [id number] Continue with Remeron -Hypothyroid Continue with levothyroxine. -Mild cognitive impairment Patient on Aricept and Namenda-discussed with Dr. Zaidi. We will discontinue both for now. -Primary osteoarthritis, bilateral multiple joints Continue with Tylenol when necessary -Obesity BMI 32.5 Weight loss measures and follow-up with PCP -Schizophrenia/psychosis Being managed by psychiatry -Acute UTI with cystitis On Keflex-course completed. Repeat UA positive. Put on a course of nitrofurantoin for 3 days. -Acute kidney injury, prerenal Improved Nitrofurantoin added for 3 days. Other medications to continue. Thank you
[2020-07-16] MEDS: NITROFURANTOIN MONOHYD/M-CRYST 100 MG CAP PO SCH (21:34)
[2020-07-17 03:40] VITALS: RESP 18; TEMP 97.6
[2020-07-17] MEDS: LEVOTHYROXINE 50 MCG TAB PO SCH (05:30)
[2020-07-17] MEDS: MULTIVITAMINS, THERA 1 EACH TAB PO SCH (07:46)
[2020-07-17] MEDS: NITROFURANTOIN MONOHYD/M-CRYST 100 MG CAP PO SCH (07:46)
[2020-07-17] MEDS: OLANZapine 2.5 MG TAB PO SCH (07:46)
[2020-07-17] MEDS: METOPROLOL TARTRATE 50 MG TAB PO SCH (07:46)
[2020-07-17] MEDS: CALCIUM CARB-VIT D 500 MG-5 MCG TAB PO SCH (07:47)
[2020-07-17] MEDS: PANTOPRAZOLE 40 MG TABLET PO SCH (07:47)
[2020-07-17] MEDS: hydrALAZINE HCL 50 MG TAB PO SCH (07:47)
[2020-07-17] MEDS: ASPIRIN 81 MG PO SCH (07:47)
[2020-07-17 07:49] VITALS: BP 158/65; PULSE 76
--- NOTE | 2020-07-17 11:19 | P.DS ---
Providers Date of admission: 07/08/20 22:48 Expected date of discharge: 07/17/20 Attending physician: Zenon Gonzalez MD Consults: 07/08/20 22:55 Consult Physician Routine Consulting Provider: Kana Ragland Consult Reason/Comments: Medical management/H&P Do you want consulting provider notified?: Yes Primary care physician: Zac Thurston - Discharge Diagnosis(es) (1) Major neurocognitive disorder Current Visit: Yes Status: Acute Priority: High (2) Psychosis Current Visit: Yes Status: Acute Priority: High Hospital Course: Admission HPI: Initial psychiatric evaluation was completed by Dr. Zaidi on 07/09/2020 who wrote: "The patient is a 75-year-old female who resides with her daughter. She was brought to the ED for evaluation. The patient has mild dementia. She has been having increasing problems with hallucinations and delusions, to the point that in the last couple weeks she has been severely agitated. Information was provided by the patient's daughter. The patient has not had prior psychiatric hospitalizations. She has not had prior mental health or substance abuse issues or interventions. She was diagnosed with dementia around 2018. One of the early symptoms relative diagnosis was her having hallucinations. She has had issues with hallucinations over the last 2 years for quite a period of time. The hallucinations were not fairly benign way. She would relate to people on TV where she believed that she could actually sees people in person and vice versa. She believes that she had direct interactions with these people and they've with her. This included people such as the president. In March of this year she started having more problems with hallucinations where they were distressing her. She had episodes where she wou ld start screaming about different things and apparently were involved in the hallucinations. At that time she tested positive for a TIA and was negative, though she was started and antibiotics prophylactically. She has been on Seroquel which was initially started at 25 mg a day. She has been on Seroquel for quite a period of time. Setting in February, her doctor started titrating up on Seroquel. She was increased to 50 mg twice a day in February. Currently that seemed to help to some extent though not to significant degree. Because of increasing problems, the Seroquel dose was increased to 100 at bedtime. The patient has had much difficulty with the 100 mg dose. She was very restless. She went 3 days where she barely slept at all. She was in a highly distressed state. So the Seroquel dose was reduced. She has been on Cymbalta. Her current doses 40 mg a day. More recently she had seen neurology as part of evaluation of her dementia. An EEG scheduled. One of the recommendations from neurology was possible to taper her off Cymbalta. She also was recently started on Remeron 15 mg a day. The neurologist was indicating that it would not be helpful to have the patient on 2 antidepressants. She is also on Namenda. The dose had been up to 10 mg twice a day. Along with that, she has been on Aricept 10 mg a day. Apparently the neurologist is recommending a taper of Namenda as that potentially may be a source of her hallucinations. Current psychotropic medications include Cymbalta, Remeron, Seroquel, and the patient is also taking Namenda and Aricept. The patient's daughters notes that the patient has had long-term issues with insomnia which predate the dementia. The daughter notes that over the last few weeks, the hallucinations have gone very distressing. The patient has ongoing conversations with herself as if she is 2 or more different people. She will argue with herself. Children's episodes where she is yelling at herself. She has had a recent behaviors: "Unable both the television where she sees things that seemed to set her hallucinations off more. She has been started on Keflex 500 mg 4 times a day prophylactically. She is admitted for further evaluation. Hospital course: Upon admission to the unit patient was initially presenting as disorganized, confused, and actively psychotic and responding to internal stimuli. Patient was however directable and agreeable to commence treatment. the patient's Seroquel was discontinued and the patient was started on a regimen of Zyprexa. The patient's antidepressants of Remeron and Cymbalta was continued. Aricept and Namenda were continued as well. The patient initially began presenting with significant confusion and the patient's Zyprexa was decreased. When evaluated by this provider, the patient continued to endorse significant hallucinations and response to internal stimuli. Cymbalta was tapered and eventually discontinued and the patient's Zyprexa was slightly increased. The patient did have an episode of agitation one evening which required staff intervention. The patient expressed a fall and her cage herself in her room. The patient's Zyprexa regimen was split to 3 doses throughout the day in order to address possible sundowning. On this regimen of Remeron, Zyprexa, melatonin, and Aricept, the patient displayed significant improvement. The patient started sle eping well and eating well. She began taking care of her hygiene and grooming and had better completion of her ADLs. The patient also showed significant improvement with decreased hallucinations. Urinalysis revealed a UTI and the patient was started on Macrobid. On day of discharge, the patient is not reporting any suicidal or homicidal ideation, intention, and/or plan. She is now putting any auditory or visual hallucinations. She denies any paranoia or delusions. She denies any access to firearms or other weapons. The patient reports that she is eating and sleeping well. She is currently alert and oriented in all spheres. She occasionally display some episodes of confusion but is directable and cooperative and polite. The patient was counseled great length on the importance of medication adherence and follow-up. Risks, benefits, and treatment alternatives of the medications were also discussed with the patient's daughter. Prior to discharge, family meeting will be arranged by social worker aide to questions and ensure safety. Mental status exam: General Appearance: Patient appears to be stated age is alert, directable, and cooperative. Petite elderly female with good hygiene and grooming. Behavior: Patient is calmly seated without any agitated behavior. Normal psychomotor activity. Eye contact is fair. Speech: Patient's speech is fluent and nonpressured. Low in volume. Mood/Affect: Mood is "feeling good." Affect is with appropriate range and euthymic. Suicidality/Homicidality: Patient denies any suicidal or homicidal ideation, intention, and/or plan. Perceptions: Patient is not reporting any auditory or visual hallucinations today. Though content/process: Thought content without delusional thought content. Thought process is linear and logical in short conversation. Memory and concentration: AOX2, grossly intact for the purposes of this session Judgment and insight: Poor at baseline. Improved since admission. Impression: Psychosis, unspecified Major neurocognitive disorder with behavioral disturbances Plan: -Continue with discharge today as patient has improved and stabilized psychiatrically and is not currently an imminent threat to herself and/or others. Patient will remain at chronically elevated risk for harm to self and/or others due to her major neurocognitive disorder. -Continue medications: Zyprexa 2.5 mg twice a day, and 5 mg by mouth at bedtime for psychosis Aricept 5 mg by mouth at bedtime for major neurocognitive disorder Macrobid 100 mg by mouth twice a day for UTI Remeron 7.5 mg by mouth at bedtime for insomnia/appetite Melatonin 5 mg by mouth at bedtime for insomnia -Patient was counseled on the need for medication compliance and appropriate follow-up at mental health and also primary care for medical issues. Patient verbalized understanding and agreed. -Social work to arrange for and conduct family meeting to ensure safety upon discharge and answer any questions/concerns. Social work also to arrange for patients follow up appointments with Dr Snow for psychiatric care along with follow up with primary care provider. -Patient was instructed to return to the hospital or seek immediate medical care if their psychiatric or medical symptoms do worsen or reoccur. -Psychoeducation and supportive therapy provided to patient. Risks and benefits of pharmacological treatment versus the risks and benefits of nontreatment weight and discussed. Informed consent discussion held. Common side effects of psychotropics discussed such as, but not limited to headache, GI disturbance, sexual dysfunction, movement disorders, sedation, and orthostatic hypotension. Life threatening and blackbox warnings of prescribed medications also discussed, in particular the risk for cardiovascular events with antipsychotic medications treating dementia related psychosis. Potential risks of operating a vehicle or heavy machinery discussed with patient at length. Advised on importance of compliance and a reliable and responsible manner. Patient advised to review FDA consumer labeling of all medications prior to taking. Patient verbalized understanding of potential risks, and agrees with current treatment plan. Patient advised to medically contact physician/emergency personnel if any acute changes in condition occur. Allergies Allergy/AdvReac Type Severity Reaction Status Date / Time lisinopril Allergy Unknown Verified 07/08/20 17:06 simvastatin [From Zocor] Allergy Unknown Verified 07/08/20 17:06 Laboratory Results WBC 6.0 k/uL (3.8-10.6) 07/11/20 16:40 RBC 4.39 m/uL (3.80-5.40) 07/11/20 16:40 Hgb 12.9 gm/dL (11.4-16.0) 07/11/20 16:40 Hct 37.1 % (34.0-46.0) 07/11/20 16:40 MCV 84.6 fL (80.0-100.0) 07/11/20 16:40 MCH 29.4 pg (25.0-35.0) 07/11/20 16:40 MCHC 34.7 g/dL (31.0-37.0) 07/11/20 16:40 RDW 13.5 % (11.5-15.5) 07/11/20 16:40 Plt Count 238 k/uL (150-450) 07/11/20 16:40 MPV 7.5 07/11/20 16:40 Neutrophils % 64 % 07/11/20 16:40 Lymphocytes % 25 % 07/11/20 16:40 Monocytes % 6 % 07/11/20 16:40 Eosinophils % 3 % 07/11/20 16:40 Basophils % 1 % 07/11/20 16:40 Neutrophils # 3.8 k/uL (1.3-7.7) 07/11/20 16:40 Lymphocytes # 1.5 k/uL (1.0-4.8) 07/11/20 16:40 Monocytes # 0.3 k/uL (0-1.0) 07/11/20 16:40 Eosinophils # 0.2 k/uL (0-0.7) 07/11/20 16:40 Basophils # 0.1 k/uL (0-0.2) 07/11/20 16:40 Sodium 139 mmol/L (137-145) 07/14/20 19:07 Potassium 4.4 mmol/L (3.5-5.1) 07/14/20 19:07 Chloride 106 mmol/L (98-107) 07/14/20 19:07 Carbon Dioxide 21 mmol/L (22-30) L 07/14/20 19:07 Anion Gap 12 mmol/L 07/14/20 19:07 BUN 34 mg/dL (7-17) H 07/14/20 19:07 Creatinine 0.93 mg/dL (0.52-1.04) 07/14/20 19:07 Est GFR (CKD-EPI)AfAm 69 (>60 ml/min/1.73 sqM) 07/14/20 19:07 Est GFR (CKD-EPI)NonAf 60 (>60 ml/min/1.73 sqM) 07/14/20 19:07 Glucose 87 mg/dL (74-99) 07/14/20 19:07 POC Glucose (mg/dL) 116 mg/dL (75-99) H 07/15/20 16:44 POC Glu Demolition Expert ID 07/15/20 16:[address] Glu mg/dL 105 07/08/20 18:05 Hemoglobin A1c 5.3 % (4.0-6.0) 07/08/20 18:05 Calcium 10.0 mg/dL (8.4-10.2) 07/14/20 19:07 Magnesium 2.3 mg/dL (1.6-2.3) 07/08/20 18:05 Troponin I <0.012 ng/mL (0.000-0.034) 07/14/20 19:07 Triglycerides 74 mg/dL (<150) 07/08/20 18:05 Cholesterol 141 mg/dL (<200) 07/08/20 18:05 LDL Cholesterol, Calc 78 mg/dL (0-99) 07/08/20 18:05 HDL Cholesterol 48 mg/dL (40-60) 07/08/20 18:05 TSH 1.290 mIU/L (0.465-4.680) 07/08/20 18:05 Urine Color Yellow 07/16/20 12:59 Urine Appearance Clear (Clear) 07/16/20 12:59 Urine pH 5.5 (5.0-8.0) 07/16/20 12:59 Ur Specific [place] 1.019 (1.001-1.035) 07/16/20 12:59 Urine Protein Negative (Negative) 07/16/20 12:59 Urine Glucose (UA) Negative (Negative) 07/16/20 12:59 Urine Ketones 1+ (Negative) H 07/16/20 12:59 Urine Blood Negative (Negative) 07/16/20 12:59 Urine Nitrite Negative (Negative) 07/16/20 12:59 Urine Bilirubin Negative (Negative) 07/16/20 12:59 Urine Urobilinogen <2.0 mg/dL (<2.0) 07/16/20 12:59 Ur Leukocyte Esterase Large (Negative) H 07/16/20 12:59 Urine RBC 2 /hpf (0-5) 07/08/20 18:05 Urine WBC 49 /hpf (0-5) H 07/16/20 12:59 Ur Squamous Epith Cells 1 /hpf (0-4) 07/16/20 12:59 Urine Bacteria Rare /hpf (None) H 07/16/20 12:59 Hyaline Casts 1 /lpf (0-2) 07/08/20 18:05 Urine Mucus Rare /hpf (None) H 07/16/20 12:59 Influenza Type A (PCR) Not Detected (Not Detectd) 07/08/20 21:32 Influenza Type B (PCR) Not Detected (Not Detectd) 07/08/20 21:32 RSV (PCR) Not Detected (Not Detectd) 07/08/20 21:32 SARS-CoV-2 (PCR) Not Detected (Not Detectd) 07/08/20 21:32 Vital Signs Temp 97.6 F 07/17/20 03:39 Pulse 76 07/17/20 07:45 Resp 18 07/17/20 07:45 BP 158/65 07/17/20 07:45 Pulse Ox 99 07/16/20 16:10 Patient Condition at Discharge: Stable Plan - Discharge Summary Discharge Rx Participant: No New Discharge Prescriptions: New hydrALAZINE HCL [Apresoline] 50 mg PO TID 30 Days tab Aspirin 81 mg PO DAILY 30 Days chew Metoprolol Tartrate [Lopressor] 100 mg PO BID 30 Days tab Nitrofurantoin Monohyd/M-Cryst [Macrobid] 100 mg PO BID #4 cap Levothyroxine Sodium [Synthroid] 50 mcg PO DAILY@0630 30 Days tab Donepezil [Aricept] 5 mg PO HS 30 Days tab Melatonin 5 mg PO HS 30 Days tablet Pravastatin Sodium [Pravachol] 80 mg PO HS 30 Days tab Mirtazapine [Remeron] 7.5 mg PO HS 30 Days tab OLANZapine [ZyPREXA] 2.5 mg PO BID@0900,1600 30 Days tab OLANZapine [ZyPREXA] 5 mg PO HS 30 Days tab Continue Nitroglycerin Sl Tabs [Nitrostat] 0.4 mg SUBLINGUAL Q5M PRN PRN Reason: Chest Pain Multivit-Min/FA/Lycopen/Lutein [Centrum Silver Tablet] 1 tab PO DAILY Ubidecarenone [Co Q-10] 200 mg PO DAILY Pantoprazole Sodium [Protonix] 40 mg PO DAILY Calcium Carbonate/Vitamin D3 [Calcium 600 mg-D3 10 Mcg (400 Iu)] 1 cap PO DAILY Fish Oil/Dha/Epa [Fish Oil 1,200 mg Fish Oil] 1 cap PO HS Famotidine [Pepcid] 20 mg PO DAILY PRN PRN Reason: Heartburn Vitamin B Complex 1 cap PO DAILY Ginko Biloba 120 mg PO DAILY Discontinued Mirtazapine [Remeron] 15 mg PO HS Donepezil [Aricept] 10 mg PO HS hydrALAZINE HCL [Apresoline] 50 mg PO BID Aspirin EC [Ecotrin] 325 mg PO DAILY QUEtiapine [SEROquel] 50 mg PO BID@1700,2100 Pravastatin Sodium [Pravachol] 80 mg PO HS Memantine [Namenda] 10 mg PO DAILY Memantine [Namenda] 5 mg PO HS Metoprolol Tartrate [Lopressor] 100 mg PO BID DULoxetine HCL 40 mg PO DAILY Levothyroxine Sodium [Euthyrox] 50 mcg PO DAILY Discharge Medication List Calcium Carbonate/Vitamin D3 [Calcium 600 mg-D3 10 Mcg (400 Iu)] 1 cap PO DAILY 07/08/20 [History] Famotidine [Pepcid] 20 mg PO DAILY PRN 07/08/20 [History] Fish Oil/Dha/Epa [Fish Oil 1,200 mg Fish Oil] 1 cap PO HS 07/08/20 [History] Ginko Biloba 120 mg PO DAILY 07/08/20 [History] Multivit-Min/FA/Lycopen/Lutein [Centrum Silver Tablet] 1 tab PO DAILY 07/08/20 [History] Nitroglycerin Sl Tabs [Nitrostat] 0.4 mg SUBLINGUAL Q5M PRN 07/08/20 [History] Pantoprazole Sodium [Protonix] 40 mg PO DAILY 07/08/20 [History] Ubidecarenone [Co Q-10] 200 mg PO DAILY 07/08/20 [History] Vitamin B Complex 1 cap PO DAILY 07/08/20 [History] Aspirin 81 mg PO DAILY 30 Days chew 07/17/20 [Rx] Donepezil [Aricept] 5 mg PO HS 30 Days tab 07/17/20 [Rx] Levothyroxine Sodium [Synthroid] 50 mcg PO DAILY@0630 30 Days tab 07/17/20 [Rx] Melatonin 5 mg PO HS 30 Days tablet 07/17/20 [Rx] Metoprolol Tartrate [Lopressor] 100 mg PO BID 30 Days tab 07/17/20 [Rx] Mirtazapine [Remeron] 7.5 mg PO HS 30 Days tab 07/17/20 [Rx] Nitrofurantoin Monohyd/M-Cryst [Macrobid] 100 mg PO BID #4 cap 07/17/20 [Rx] OLANZapine [ZyPREXA] 2.5 mg PO BID@0900,1600 30 Days tab 07/17/20 [Rx] OLANZapine [ZyPREXA] 5 mg PO HS 30 Days tab 07/17/20 [Rx] Pravastatin Sodium [Pravachol] 80 mg PO HS 30 Days tab 07/17/20 [Rx] hydrALAZINE HCL [Apresoline] 50 mg PO TID 30 Days tab 07/17/20 [Rx] Follow up Appointment(s)/Referral(s): Zac Thurston DO [Primary Care Provider] - 1-2 days Jose L Snow MD [REFERRING] - 07/23/20 5:00 pm (will call Monday with appointment daughter called and got an apt with Dr. Snow July 23 5pm. They will get her in earlier if they have a cancellation. ) Patient Instructions/Handouts: Dementia (ED), Psychotic Disorder (DC) Activity/Diet/Wound Care/Special Instructions: Activity and diet as tolerated. Avoid the use of street drugs and alcohol. Take all medications as prescribed. When you are in need of refills on your medications please contact your medical provider and/or outpatient psychiatrist to have this done. Please go to scheduled outpatient appointment for aftercare treatment. If symptoms return or become worse, call the crisis line at and/or go to the nearest emergency room for evaluation. Discharge Disposition: HOME SELF-CARE
--- NOTE | 2020-08-05 10:47 | P.PN ---
Progress Note - Text Progress Note Date: 07/12/20 Clinical Problems: Major neurocognitive disorder with behavioral disturbances Interim history: I reviewed the medical record and interviewed the patient. She is much more sedated today. She has intermittent periods of restlessness and requires frequent redirection by nursing staff. Her repeat comprehensive metabolic panel showed a continued increase in BUN as well as an increase in creatinine from 0.78 on 07/08/2020 to 1.22 yesterday. Mental status exam: She presented as a casually groomed short elderly woman who was pleasant on approach. She had difficulty attending and concentrating to interview. She had a flat facial expression. She was sedated. Her speech was spontaneous and difficult to understand. Her affect was pointed. She did not express ideas reference, paranoid ideation or depressive cognitions. Her thinking was concrete and not fully organized. She did not appear to be responding to internal stimuli. Assessment: Her station is increasing. She is also showing signs of dehydration with elevated BUN and creatinine. Plan: Continue treatment. Continue safety precautions. Hydration status discussed with nursing staff will encourage oral hydration. If we are unable to titrate her adequately she may need IV hydration. Continue Cymbalta 40 mg daily, Remeron 50 mg at bedtime and Zyprexa to 2.5mg twice a day. She may need lower doses of Zyprexa. Repeat CBC with differential, basic metabolic panel and UA. Frequently reorient and redirect as needed. Evaluate clinical status response to treatment daily basis.
== END 2020-07-17 12:40 | disposition home or self-care (01) | DRG 884 ==
LOC: EC 16:50 → 3MHU 22:48
PROVIDERS: ADMIT Psychiatry & Neurology Psychiatry; ATTEND Psychiatry & Neurology Psychiatry
DX: F01.51 Vascular dementia, unspecified severity, with behavioral disturbance (principal); N17.9 Acute kidney failure, unspecified; E03.9 Hypothyroidism, unspecified; E66.9 Obesity, unspecified; E78.00 Pure hypercholesterolemia, unspecified; E78.5 Hyperlipidemia, unspecified; F20.9 Schizophrenia, unspecified; F44.81 Dissociative identity disorder; F51.04 Psychophysiologic insomnia; G30.9 Alzheimer's disease, unspecified; I10 Essential (primary) hypertension; K21.9 Gastro-esophageal reflux disease without esophagitis; F41.9 Anxiety disorder, unspecified; R45.1 Restlessness and agitation; M19.91 Primary osteoarthritis, unspecified site; N30.90 Cystitis, unspecified without hematuria; Z68.32 Body mass index [BMI] 32.0-32.9, adult; Z20.822 Contact with and (suspected) exposure to COVID-19; Z79.82 Long term (current) use of aspirin; Z79.890 Hormone replacement therapy; Z79.899 Other long term (current) drug therapy; Z87.891 Personal history of nicotine dependence; Z91.83 Wandering in diseases classified elsewhere
CPT/HCPCS: 36415; 70450; 80048; 80061; 81001; 83036; 83735; 84443; 84484; 85025; 87086; 87636; 93005; 99285

== ENCOUNTER → 2020-08-05 | Outpatient (CLI) | payer MEDICARE ==
--- NOTE | 2020-08-05 16:24 | US ---
EXAMINATION TYPE: US abdomen comp/pelvis limited DATE OF EXAM: 08/05/2020 COMPARISON: 08/14/2015 urinary bladder study CLINICAL HISTORY: R10.9 Unspecified Abdominal pain. Abdominal pain EXAM MEASUREMENTS: Liver Length: 13.7 cm Gallbladder Wall: 0.2 cm CBD: 0.4 cm Spleen: 11.3 cm Right Kidney: 9.7 x 5.1 x 5.2 cm Left Kidney: 9.2 x 5.3 x 4.0 cm Technical limitations, patient unable to roll into decub, entire exam performed with patient in supi ne position Pancreas: visualized portions appear wnl Liver: slightly heterogeneous no discrete hepatic mass or intrahepatic biliary dilatation. Gallbladder: no evidence of stones CBD: limited evaluation Spleen: wnl Right Kidney: cystic structure lower pole = 1.3cm no hydronephrosis or renal calculi. Left Kidney: no evidence of hydronephrosis or renal calculi Upper IVC: wnl Abd Aorta: wnl Bladder: appears wnl Bilateral Jets Seen no IMPRESSION: 1. Technical limitations. Patient is unable to roll in the decubitus position. The common duct is neumann ited in evaluation. 2. The liver parenchyma slightly heterogeneous. No discrete hepatic mass or intrahepatic biliary dila tation. 3. No gallstones. Common duct is normal in caliber at visualized portions. 4. No renal calculi or hydronephrosis. There is a cystic structure at the lower pole of the right kid durga measuring 1.3 cm.
== END | disposition home or self-care (01) ==
LOC: RADUSWWP 10:17
PROVIDERS: ATTEND Family Medicine
DX: N28.1 Cyst of kidney, acquired (principal)
CPT/HCPCS: 76700; 76857

== ENCOUNTER 2020-08-09 15:23 | Observation (INO) | payer MEDICARE ==
[2020-08-09] MEDS ORDERED: SODIUM CHLORIDE 0.9% 500 ML 500 ML IV STA (15:52)
--- NOTE | 2020-08-09 15:56 | ED ---
General Adult HPI - General Chief complaint: Extremity Problem,Nontraumatic Stated complaint: leg swelling Time Seen by Provider: 08/09/20 15:25 Source: patient, RN notes reviewed, old records reviewed Mode of arrival: ambulatory Limitations: no limitations - History of Present Illness Initial comments: This is a 75-year-old female presents emergency Department complaining of generalized weakness. Patient also states that she's having pain in her upper thighs bilaterally however there is been no injury. Patient has no swelling or redness in that area patient denies any fever chills per patient denies chest pain or difficulty breathing. Patient denies abdominal pain patient denies nausea vomiting diarrhea. Patient denies any calf tenderness or leg swelling. Daughter states yesterday she was fine last night she started complaining of weakness and by this morning she was unable to ablate on her own and yesterday she was able to walk up and down stairs. According to the daughter patient has started a variety of antipsychotic medications recently. - Related Data Home Medications Medication Instructions Recorded Confirmed Calcium Carbonate/Vitamin D3 1 cap PO DAILY@89907/08/20 08/09/20 [Calcium 600 mg-D3 10 Mcg (400 Iu)] Famotidine [Pepcid] 20 mg PO DAILY PRN 07/08/20 08/09/20 Ginko Biloba 120 mg PO DAILY@89907/08/20 08/09/20 Multivit-Min/FA/Lycopen/Lutein 1 tab PO DAILY@89907/08/20 08/09/20 [Centrum Silver Tablet] Nitroglycerin Sl Tabs [Nitrostat] 0.4 mg SUBLINGUAL Q5M PRN 07/08/20 08/09/20 Ubidecarenone [Co Q-10] 200 mg PO DAILY@89907/08/20 08/09/20 Vitamin B Complex 1 cap PO DAILY@89907/08/20 08/09/20 Aspirin 81 mg PO DAILY@1300 08/09/20 08/09/20 D-Mannose 500mg 500 mg PO DAILY@89908/09/20 08/09/20 Donepezil [Aricept] 5 mg PO HS@209908/09/20 08/09/20 Melatonin 5 mg PO HS@209908/09/20 08/09/20 Metoprolol Tartrate [Lopressor] 100 mg PO BID@0900,2100 08/09/20 08/09/20 Mirtazapine 7.5 mg PO HS@2100 08/09/20 08/09/20 OLANZapine [ZyPREXA] 2.5 mg PO DAILY@0900 08/09/20 08/09/20 OLANZapine [ZyPREXA] 5 mg PO HS@2100 08/09/20 08/09/20 [place]-3 Fatty Acids/Fish Oil 1 cap PO HS@209908/09/20 08/09/20 [[place]-3 Fish Oil 1,200 mg Sfgl] Pravastatin Sodium [Pravachol] 80 mg PO HS@2100 08/09/20 08/09/20 haloperidoL [Haloperidol] 2.5 mg PO BID@0900,1700 08/09/20 08/09/20 hydrALAZINE HCL [Apresoline] 50 mg PO TID@0900,1300,2100 08/09/20 08/09/20 Allergies Allergy/AdvReac Type Severity Reaction Status Date / Time lisinopril Allergy Unknown Verified 08/09/20 16:34 simvastatin [From Zocor] Allergy Unknown Verified 08/09/20 16:34 Review of Systems ROS Statement: Those systems with pertinent positive or pertinent negative responses have been documented in the HPI. ROS Other: All systems not noted in ROS Statement are negative. Past Medical History Past Medical History: Dementia, Hyperlipidemia, Hypertension, Thyroid Disorder Additional Past Medical History / Comment(s): Pt unreliable historian but states she thinks she has an implanted defibrillator. History of Any Multi-Drug Resistant Organisms: None Reported Past Surgical History: Orthopedic Surgery Past Psychological History: Anxiety, Depression Smoking Status: Former smoker Past Alcohol Use History: None Reported Past Drug Use History: None Reported General Exam - General Exam Comments Initial Comments: GENERAL: Patient is well-developed and well-nourished. Patient is nontoxic and well- hydrated and is in no acute distress. Patient does seem tired but in no distress ENT: Neck is soft and supple. No significant lymphadenopathy is noted. Oropharynx is clear. Moist mucous membranes. Neck has full range of motion without eliciting any pain. EYES: The sclera were anicteric and conjunctiva were pink and moist. Extraocular movements were intact and pupils were equal round and reactive to light. Eyelids were unremarkable. PULMONARY: Unlabored respirations. Good breath sounds bilaterally. No audible rales rhonchi or wheezing was noted. CARDIOVASCULAR: There is a regular rate and rhythm without any murmurs gallops or rubs. ABDOMEN: Soft and nontender with normal bowel sounds. SKIN: Skin is clear with no lesions or rashes and otherwise unremarkable. NEUROLOGIC: Patient is alert and oriented x3. Cranial nerves II through XII are grossly intact. Motor and sensory are also intact. Normal speech, volume and content. Symmetrical smile. Unable to elicit any pain in the thighs. MUSCULOSKELETAL: Normal extremities with adequate strength and full range of motion. No lower extremity swelling or edema. No calf tenderness. LYMPHATICS: No significant lymphadenopathy is noted PSYCHIATRIC: Normal psychiatric evaluation. Limitations: no limitations Course Vital Signs 08/09/20 08/09/20 08/09/20 15:27 17:00 17:30 Temperature 98.3 F Pulse Rate 64 71 73 Respiratory 22 13 16 Rate Blood Pressure 148/70 176/76 166/71 O2 Sat by Pulse 96 99 99 Oximetry 08/09/20 08/09/20 08/09/20 18:00 18:30 19:00 Temperature Pulse Rate 84 70 77 Respiratory 16 18 18 Rate Blood Pressure 164/71 164/71 171/75 O2 Sat by Pulse 99 99 98 Oximetry 08/09/20 19:40 Temperature Pulse Rate 77 Respiratory 18 Rate Blood Pressure 168/78 O2 Sat by Pulse 96 Oximetry Medical Decision Making - Medical Decision Making EKG shows normal sinus rhythm at 71 bpm WV interval is 180 QRS is 90 QT was 424 QTC is 460. Patient's EKG shows no ST segment elevation or depression. EKG shows no acute abnormality. I will back into the room patient was unable to stand on her own still so I spoke with Dr. Ragland agreed to admit the patient admitted the patient generalized weakness and I consult to psychiatry for a medication review. - Lab Data Result diagrams: 08/09/20 17:29 08/09/20 16:30 Lab Results 08/09/20 08/09/20 08/09/20 Range/Units 16:10 16:30 16:30 WBC (3.8-10.6) k/uL RBC (3.80-5.40) m/uL Hgb (11.4-16.0) gm/dL Hct (34.0-46.0) % MCV (80.0-100.0) fL MCH (25.0-35.0) pg MCHC (31.0-37.0) g/dL RDW (11.5-15.5) % Plt Count (150-450) k/uL MPV Neutrophils % % Lymphocytes % % Monocytes % % Eosinophils % % Basophils % % Neutrophils # (1.3-7.7) k/uL Lymphocytes # (1.0-4.8) k/uL Monocytes # (0-1.0) k/uL Eosinophils # (0-0.7) k/uL Basophils # (0-0.2) k/uL Sodium 140 (137-145) mmol/L Potassium 4.4 (3.5-5.1) mmol/L Chloride 104 (98-107) mmol/L Carbon Dioxide 28 (22-30) mmol/L Anion Gap 8 mmol/L BUN 24 H (7-17) mg/dL Creatinine 0.76 (0.52-1.04) mg/dL Est GFR (CKD-EPI)AfAm 88 (>60 ml/min/1.73 sqM) Est GFR (CKD-EPI)NonAf 76 (>60 ml/min/1.73 sqM) Glucose 93 (74-99) mg/dL Plasma Lactic Acid Filiberto 1.1 (0.7-2.0) mmol/L Calcium 9.7 (8.4-10.2) mg/dL Magnesium 2.1 (1.6-2.3) mg/dL Total Bilirubin 0.3 (0.2-1.3) mg/dL AST 39 H (14-36) U/L ALT 20 (4-34) U/L Alkaline Phosphatase 69 (38-126) U/L Creatine Kinase 239 H (30-135) U/L Troponin I (0.000-0.034) ng/mL Total Protein 6.8 (6.3-8.2) g/dL Albumin 4.4 (3.5-5.0) g/dL TSH 2.140 (0.465-4.680) mIU/L Urine Color Light Yellow Urine Appearance Clear (Clear) Urine pH 6.0 (5.0-8.0) Ur Specific [place] 1.008 (1.001-1.035) Urine Protein Negative (Negative) Urine Glucose (UA) Negative (Negative) Urine Ketones Negative (Negative) Urine Blood Negative (Negative) Urine Nitrite Negative (Negative) Urine Bilirubin Negative (Negative) Urine Urobilinogen <2.0 (<2.0) mg/dL Ur Leukocyte Esterase Small H (Negative) Urine RBC <1 (0-5) /hpf Urine WBC 17 H (0-5) /hpf Ur Squamous Epith Cells 1 (0-4) /hpf 08/09/20 08/09/20 Range/Units 16:30 17:29 WBC 5.2 (3.8-10.6) k/uL RBC 4.20 (3.80-5.40) m/uL Hgb 12.3 (11.4-16.0) gm/dL Hct 35.4 (34.0-46.0) % MCV 84.1 (80.0-100.0) fL MCH 29.2 (25.0-35.0) pg MCHC 34.7 (31.0-37.0) g/dL RDW 13.5 (11.5-15.5) % Plt Count 186 (150-450) k/uL MPV 7.4 Neutrophils % 66 % Lymphocytes % 23 % Monocytes % 8 % Eosinophils % 2 % Basophils % 1 % Neutrophils # 3.4 (1.3-7.7) k/uL Lymphocytes # 1.2 (1.0-4.8) k/uL Monocytes # 0.4 (0-1.0) k/uL Eosinophils # 0.1 (0-0.7) k/uL Basophils # 0.0 (0-0.2) k/uL Sodium (137-145) mmol/L Potassium (3.5-5.1) mmol/L Chloride (98-107) mmol/L Carbon Dioxide (22-30) mmol/L Anion Gap mmol/L BUN (7-17) mg/dL Creatinine (0.52-1.04) mg/dL Est GFR (CKD-EPI)AfAm (>60 ml/min/1.73 sqM) Est GFR (CKD-EPI)NonAf (>60 ml/min/1.73 sqM) Glucose (74-99) mg/dL Plasma Lactic Acid Filiberto (0.7-2.0) mmol/L Calcium (8.4-10.2) mg/dL Magnesium (1.6-2.3) mg/dL Total Bilirubin (0.2-1.3) mg/dL AST (14-36) U/L ALT (4-34) U/L Alkaline Phosphatase (38-126) U/L Creatine Kinase (30-135) U/L Troponin I 0.014 (0.000-0.034) ng/mL Total Protein (6.3-8.2) g/dL Albumin (3.5-5.0) g/dL TSH (0.465-4.680) mIU/L Urine Color Urine Appearance (Clear) Urine pH (5.0-8.0) Ur Specific [place] (1.001-1.035) Urine Protein (Negative) Urine Glucose (UA) (Negative) Urine Ketones (Negative) Urine Blood (Negative) Urine Nitrite (Negative) Urine Bilirubin (Negative) Urine Urobilinogen (<2.0) mg/dL Ur Leukocyte Esterase (Negative) Urine RBC (0-5) /hpf Urine WBC (0-5) /hpf Ur Squamous Epith Cells (0-4) /hpf Disposition Clinical Impression: Generalized weakness, Unable to ambulate, Adverse effect of psychotropic drug Disposition: ADMITTED IP TO THIS [facility] Referrals: Zac Thurston DO [Primary Care Provider] - 1-2 days Time of Disposition: 20:35
[2020-08-09 17:03] LABS: Albumin 4.4 g/dL (3.5-5.0); Calcium 9.7 mg/dL (8.4-10.2); Magnesium 2.1 mg/dL (1.6-2.3); Potassium 4.4 mmol/L (3.5-5.1); Total Bilirubin 0.3 mg/dL (0.2-1.3); Total Protein 6.8 g/dL (6.3-8.2)
--- NOTE | 2020-08-09 17:03 | XR ---
EXAMINATION TYPE: XR chest 2V DATE OF EXAM: 08/09/2020 COMPARISON: NONE HISTORY: Weakness TECHNIQUE: 2 views FINDINGS: Heart and mediastinum are normal. Lungs are clear. Diaphragm is normal. There are chest nikita ds. Bony thorax is intact. Pulmonary vascularity is normal. IMPRESSION: Normal chest. Normal heart.
[2020-08-09 17:37] LABS: Basophils % (A) 1 %; Eosinophils # (A) 0.1 k/uL (0-0.7); Eosinophils % (A) 2 %; HCT 35.4 % (34.0-46.0); HGB 12.3 gm/dL (11.4-16.0); Lymphocytes # (A) 1.2 k/uL (1.0-4.8); Lymphocytes % (A) 23 %; MCH 29.2 pg (25.0-35.0); MCHC 34.7 g/dL (31.0-37.0); MCV 84.1 fL (80.0-100.0); Mean Platelet Volume 7.4; Monocytes # (A) 0.4 k/uL (0-1.0); Monocytes % (A) 8 %; Neutrophils # (A) 3.4 k/uL (1.3-7.7); Neutrophils % (A) 66 %; Platelet Count 186 k/uL (150-450); RDW 13.5 % (11.5-15.5); WBC 5.2 k/uL (3.8-10.6)
[2020-08-09] MEDS ORDERED: SODIUM CHLORIDE 0.9% 500 ML 500 ML IV ONE (19:55)
[2020-08-09 20:09] LABS: Appearance,Urine Clear (Clear); Bilirubin,Urine Negative (Negative); Blood,Urine Negative (Negative); Color,Urine Light Yellow; Glucose,Urine (UA) Negative (Negative); Ketones,Urine Negative (Negative); Leukocyte Esterase,Urine Small (Negative); Nitrite,Urine Negative (Negative); Protein,Urine Negative (Negative); RBC,Urine <1 /hpf (0-5); Specific Gravity,Urine 1.008 (1.001-1.035); Squamous Epithelial Cell,Urine 1 /hpf (0-4); Urobilinogen,Urine <2.0 mg/dL (<2.0); WBC,Urine 17 /hpf (0-5)
[2020-08-09] MEDS ORDERED: SODIUM CHLORIDE 0.9% 1,000 ML IV ONE (20:35)
[2020-08-09] MEDS ORDERED: cefTRIAXone IN SWFI 1,000 MG/10 ML SYRINGE IVP STA (20:44)
[2020-08-10] MEDS ORDERED: FAMOTIDINE 20 MG TAB PO PRN (10:25)
[2020-08-10] MEDS ORDERED: NITROGLYCERIN SL TABS 0.4 MG TAB SUBLINGUAL PRN (10:25)
[2020-08-10] MEDS ORDERED: OLANZapine 2.5 MG TAB PO SCH (11:00)
[2020-08-10] MEDS ORDERED: haloperidoL 5 MG TAB PO SCH (11:00)
[2020-08-10] MEDS: METOPROLOL TARTRATE 50 MG TAB PO SCH ×2 (12:05→21:18)
[2020-08-10] MEDS: hydrALAZINE HCL 50 MG TAB PO SCH ×3 (12:05→22:10)
[2020-08-10] MEDS: MULTIVITAMINS, THERA 1 EACH TAB PO SCH (12:05)
[2020-08-10] MEDS: ASPIRIN 81 MG PO SCH (12:12)
--- NOTE | 2020-08-10 16:02 | P.CN ---
Psychiatric Consult - . Consult date: 08/10/20 Consult:: IDENTIFYING DATA: This patient is a 75-year-old female who lives with her daughter is admitted for weakness HISTORY OF PRESENT ILLNESS: The patient is a 75 yo CF with a significant history of dementia, hyperlipidemia, hypertension, who presented to the hospital on 08/09/2020 with a chief complaint of increasing weakness and pain in her upper thighs bilaterally. Psychiatry has been consulted to evaluate and manage the patient's psychiatric medications as they may have contributed to the patient's current presentation weakness. History was provided by the patient and her daughter with permission granted by the patient. The patient is a limited historian at this time due to her dementia. She does however report that she has been feeling increasing pain in her upper bilateral thighs. She reports that it she noticed this when she attempted to get out of bed. In regards to her mood, the patient is not reporting any significant symptoms of depression at this time. She is denying any suicidal or homicidal ideation, intention, and/or plan. She is not reporting any auditory or visual hallucinations at this time. When the patient was previously admitted to the psychiatric unit last month, the patient was noted to be delusional and at times psychotic. However, the patient is not reporting any significant psychotic symptoms at this time. She is also alert and oriented in all spheres. The patient's daughter reports that the patient has continued to experience hallucinations when she was discharged. She reports that the Zyprexa that she was discharged on provided no relief of the patient's psychotic symptoms. She states that once the patient is a valid by Dr. Snow and started on Haldol, the patient experienced significant improvement her psychotic symptoms. She does state however that Zyprexa was continued because the Zyprexa appeared to help with the patient's sleep. The patient's daughter reports that the patient displayed significant psychotic symptoms since her discharge was often noted to be arguing with herself. At times the patient would yell. She does report that the patient is currently not expressing these symptoms. She does express concern that the patient's appetite appears to be low. She is otherwise not reporting any other significant psychiatric issues for the patient. PAST PSYCHIATRIC HISTORY: Patient has a history of neurocognitive disorder with behavioral disturbance. The patient was discharged on a regimen of Remeron, Zyprexa, and Aricept. Patient has had 1 prior inpatient psychiatric hospitalization on our unit [facility] this past July. Family follows with Dr. Snow in the outpatient setting. Patient denies any history of suicide attempts in the past. PAST MEDICAL HISTORY: Past Medical History: Dementia, Hyperlipidemia, Hypertension, Thyroid Disorder Additional Past Medical History / Comment(s): Pt unreliable historian but states she thinks she has an implanted defibrillator. History of Any Multi-Drug Resistant Organisms: None Reported Past Surgical History: Orthopedic Surgery Past Psychological History: Anxiety, Depression Smoking Status: Former smoker Past Alcohol Use History: None Reported Past Drug Use History: None Reported ALLERGIES: Lisinopril, simvastatin CHEMICAL DEPENDENCY HISTORY: Patient does not use any alcohol, tobacco, marijuana, or illicit drug use. FAMILY PSYCHIATRIC/SUBSTANCE USE HISTORY: No significant history. SOCIAL HISTORY: Patient was born and raised in [place]. The patient currently lives with her daughter Ericka. Patient's daughter reports that there is no intention for the patient to live in a supervised setting other than home. She reports that she promises to the patient's and her father. MENTAL STATUS EXAM: General Appearance: Patient appears to be stated age is alert, pleasant, and co operative. Patient appears to have fair hygiene and grooming wearing hospital gown with fair eye contact. Behavior: Patient is calmly lying in bed without any agitated behavior. Speech: Patient's speech is fluent and nonpressured. Mood/Affect: Patient reports their mood is "feeling okay", affect is congruent to bright. Suicidality/Homicidality: The patient denies any suicidal or homicidal ideation, intention, and/or plan. Perceptions: Patient denies any visual hallucinations and denies any auditory hallucinations Though content/process: There is no evidence of any delusional thought content and thought process is linear and goal-directed. Memory and concentration: AOX3, grossly intact for the purposes of this session. Can spell "WORLD" backwards Judgment and insight: At baseline poor. Vital Signs Temp 98.3 F 08/09/20 15:27 Pulse 64 08/10/20 15:53 Resp 18 08/10/20 15:53 BP 139/48 08/10/20 15:53 Pulse Ox 97 08/10/20 15:53 Intake & Output 08/09/20 08/10/20 08/10/20 18:59 06:59 18:59 Weight 74.843 kg Laboratory Results WBC 5.2 k/uL (3.8-10.6) 08/09/20 17:29 RBC 4.20 m/uL (3.80-5.40) 08/09/20 17:29 Hgb 12.3 gm/dL (11.4-16.0) 08/09/20 17:29 Hct 35.4 % (34.0-46.0) 08/09/20 17:29 MCV 84.1 fL (80.0-100.0) 08/09/20 17:29 MCH 29.2 pg (25.0-35.0) 08/09/20 17:29 MCHC 34.7 g/dL (31.0-37.0) 08/09/20 17:29 RDW 13.5 % (11.5-15.5) 08/09/20 17:29 Plt Count 186 k/uL (150-450) 08/09/20 17:29 MPV 7.4 08/09/20 17:29 Neutrophils % 66 % 08/09/20 17:29 Lymphocytes % 23 % 08/09/20 17:29 Monocytes % 8 % 08/09/20 17:29 Eosinophils % 2 % 08/09/20 17:29 Basophils % 1 % 08/09/20 17:29 Neutrophils # 3.4 k/uL (1.3-7.7) 08/09/20 17:29 Lymphocytes # 1.2 k/uL (1.0-4.8) 08/09/20 17:29 Monocytes # 0.4 k/uL (0-1.0) 08/09/20 17:29 Eosinophils # 0.1 k/uL (0-0.7) 08/09/20 17:29 Basophils # 0.0 k/uL (0-0.2) 08/09/20 17:29 Sodium 140 mmol/L (137-145) 08/09/20 16:30 Potassium 4.4 mmol/L (3.5-5.1) 08/09/20 16:30 Chloride 104 mmol/L (98-107) 08/09/20 16:30 Carbon Dioxide 28 mmol/L (22-30) 08/09/20 16:30 Anion Gap 8 mmol/L 08/09/20 16:30 BUN 24 mg/dL (7-17) H 08/09/20 16:30 Creatinine 0.76 mg/dL (0.52-1.04) 08/09/20 16:30 Est GFR (CKD-EPI)AfAm 88 (>60 ml/min/1.73 sqM) 08/09/20 16:30 Est GFR (CKD-EPI)NonAf 76 (>60 ml/min/1.73 sqM) 08/09/20 16:30 Glucose 93 mg/dL (74-99) 08/09/20 16:30 Plasma Lactic Acid Filiberto 1.1 mmol/L (0.7-2.0) 08/09/20 16:30 Calcium 9.7 mg/dL (8.4-10.2) 08/09/20 16:30 Magnesium 2.1 mg/dL (1.6-2.3) 08/09/20 16:30 Total Bilirubin 0.3 mg/dL (0.2-1.3) 08/09/20 16:30 AST 39 U/L (14-36) H 08/09/20 16:30 ALT 20 U/L (4-34) 08/09/20 16:30 Alkaline Phosphatase 69 U/L (38-126) 08/09/20 16:30 Creatine Kinase 239 U/L (30-135) H 08/09/20 16:30 Troponin I <0.012 ng/mL (0.000-0.034) 08/10/20 12:31 Total Protein 6.8 g/dL (6.3-8.2) 08/09/20 16:30 Albumin 4.4 g/dL (3.5-5.0) 08/09/20 16:30 TSH 2.140 mIU/L (0.465-4.680) 08/09/20 16:30 Urine Color Light Yellow 08/09/20 16:10 Urine Appearance Clear (Clear) 08/09/20 16:10 Urine pH 6.0 (5.0-8.0) 08/09/20 16:10 Ur Specific [place] 1.008 (1.001-1.035) 08/09/20 16:10 Urine Protein Negative (Negative) 08/09/20 16:10 Urine Glucose (UA) Negative (Negative) 08/09/20 16:10 Urine Ketones Negative (Negative) 08/09/20 16:10 Urine Blood Negative (Negative) 08/09/20 16:10 Urine Nitrite Negative (Negative) 08/09/20 16:10 Urine Bilirubin Negative (Negative) 08/09/20 16:10 Urine Urobilinogen <2.0 mg/dL (<2.0) 08/09/20 16:10 Ur Leukocyte Esterase Small (Negative) H 08/09/20 16:10 Urine RBC <1 /hpf (0-5) 08/09/20 16:10 Urine WBC 17 /hpf (0-5) H 08/09/20 16:10 Ur Squamous Epith Cells 1 /hpf (0-4) 08/09/20 16:10 Coronavirus (PCR) Not Detected (Not Detectd) 08/09/20 21:37 IMPRESSIONS: 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 It is likely that the combination of his medications predispose her to increase side effects such as acute dystonic reactions, with limited therapeutic benefit. After significant discussion with the patient's daughter, the preference of medication is towards Haldol for management of her psychotic symptoms. Patient does present with an elevated CK. PLAN: -At this time patient DOES NOT meet criteria for inpatient psychiatric admission. Patient is currently not presenting with any immediate risk of harm to self or others. She is not actively psychotic at this time. The patient's daughter is not requesting any inpatient psychiatric treatment and prefers that the patient continue treatment in the outpatient setting. -Delirium precautions recommended with patient including - avoiding use of narcotics and [employer] sedatives, limit anticholinergic medications when possible, frequent re-orientation, minimize use of restraints, open window shades during the day and close them at night -Would recommend the following medication changes/additions: Discontinue Zyprexa to limit polypharmacy Increase Haldol to 2.5 mg by mouth 3 times a day @0900,1700,2100 for management of dementia related psychosis Continue Remeron 7.5 mg by mouth at bedtime for insomnia/appetite stimulation -Psychiatry will continue to follow as long as the patient is currently admitted to the hospital. Otherwise the patient is cleared psychiatrically for discharge. 08/10/20 15:45
--- NOTE | 2020-08-10 17:10 | P.HPIM ---
History of Present Illness H&P Date: 08/10/20 Chief Complaint: Increased weakness History of presenting complaint: This is a pleasant 75-year-old patient who follows with Dr. Thursotn. Chronic stable medical conditions include hyperlipidemia, hypertension, hypothyroid. She apparently has a diagnosis of dementia . She started having hallucinations in 2019 and she was diagnosed then with dementia. He started seeing people that through television and started to connect with them. Have started having some interactions. Also she with episodes that she'll start screaming at people. She has been put on Seroquel. That did not help much. Symptoms have gradually progressed. Seroquel dose was adjusted. Recently she was made to see neurology. She was also recently started on Remeron. Patient states since her childhood she was very active and never slept well in fact is hardly step for most of her life. She states sometime patient will argue with herself and other times she will also get upset with herself. Patient was admitted with the above symptoms to the psychiatry unit with the diagnosis of major neurocognitive disorder and psychosis and was discharged on 07/17/2020 from the psychiatry unit. At [facility] on. This presentation: Patient has a daughter the bedside who narrates the story. Patient during the second half of last psychiatry hospitalization, started bit more lethargic tired and unable to walk. In the first half of the admission patient is walking around and eating. In fact today she was discharged she had to be assisted to the car. Patient has remained very weak and tired. This was patient was doing gardening before admission. Patient also getting Zyprexa and Haldol and finds that the patient does better with Haldol rather than Zyprexa. Patient's appetite is also gone down. And patient appears to be rather distant. No fever no chills. No respiratory urinary symptoms. Just generally tired. Patient is also hurting in her hips. Patient also complaining of some achiness in the muscles. Review of systems: GEN.: Tired, decreased appetite EYES: None HEENT: None NECK: None RESPIRATORY: None CARDIOVASCULAR: None GASTROINTESTINAL: None GENITOURINARY: Some urinary incontinence MUSCULOSKELETAL: Joint pains especially the hands, achiness in the muscles LYMPHATICS: None HEMATOLOGICAL: None PSYCHIATRY: As above NEUROLOGICAL: None Past medical history to include: Hypertension, hyperlipidemia, hypothyroid, anxiety, depression, dementia, psychosis Social history: Lives with her a daughter. Drinks alcohol rarely. Patient smoked for about 20- 30 years stopped about 30 years ago. Physical examination: VITAL SIGNS: Afebrile, 55, 18, 140/80, 94% room air GENERAL: BMI 31.2, sitting up in bed, appears a bit distant EYES: Pupils equal. Conjunctiva normal. HEENT: External appearance of nose and ears normal, oral cavity grossly normal. NECK: JVD not raised; masses not palpable. HEART: First and second heart sounds are normal; mild edema. LUNGS: Respiratory rate normal; clear to auscultation. ABDOMEN: Soft, nontender, liver spleen not palpable, no masses palpable. PSYCH: Appears a bit distant. Somewhat of a flat affect. Answering questions MUSCULOSKELETAL: Evidence of OA especially in the hands. Some limited range of motion on the hips. Straight leg raising about 15 MUSCULAR skeletal: Evidence of OA especially in the hands L. NEUROLOGICAL: Cranial nerves grossly intact; no facial asymmetry, power and sensation grossly intact. LYMPHATICS: No lymph nodes palpable in the axilla and neck INVESTIGATIONS, reviewed in the clinical context: WBC 5.2 hemoglobin 12.3 platelets 186 potassium 4.4 creatinine 0.76 CPK 239 Troponin I 3 negative TSH 2.1 Coronavirus [PCR] not detected EKG tracing personally reviewed by me-normal sinus rhythm Chest x-ray film personally reviewed by me-no obvious infiltrates Assessment and plan: -This is a patient who was admitted for psychosis about a month ago and medication adjusted for the same. Since that time decreased activity tired more distant appearing. Possible side effect of antipsychotics. Psychiatry consulted to address the same. May need to cut back on Zyprexa or discontinue the same. -Acute metabolic encephalopathy from medications Adjust medications -Acute medical debility, could be from medications including side effect of statins Cutting back dose of Zyprexa. Cut back the dose of pravastatin to half. PTOT -Essential hypertension Continue with hydralazine, Lopressor -Hypercholesterolemia Continue with Pravachol -GERD Continue with Protonix -Chronic insomnia long-standing Continue with melatonin -Hypothyroid Patient was not on the Synthroid when she was discharged from the last admission. We'll resume the same. At the smaller dose. 37.5. Patient's current TSH is 2.5 - cognitive impairment from dementia Patient on Aricept -Primary osteoarthritis, bilateral multiple joints Continue with Tylenol when necessary -Obesity BMI 31.2 Weight loss measures and follow-up with PCP -Chronic psychosis Consult psychiatry -Clinical dehydration Lactated Ringer's at 75 mL an hour. Care was discussed at length with the patient's daughter the bedside. He started Synthroid 37.5 g. PTOT. ultrasound of both the legs to rule out DVT. -Though felt unlikely Patient has multiple things going on. Close monitoring on medications and adjustments of this antipsychotics to be done. Given the complexity and severity of patient's condition expect the patient to be in the hospital at least for 2 overnights Past Medical History Past Medical History: Dementia, Hyperlipidemia, Hypertension, Thyroid Disorder Additional Past Medical History / Comment(s): Pt unreliable historian but states she thinks she has an implanted defibrillator. History of Any Multi-Drug Resistant Organisms: None Reported Past Surgical History: Orthopedic Surgery Past Psychological History: Anxiety, Depression Smoking Status: Former smoker Past Alcohol Use History: None Reported Past Drug Use History: None Reported Medications and Allergies Home Medications Medication Instructions Recorded Confirmed Type Calcium Carbonate/Vitamin D3 1 cap PO DAILY@89907/08/20 08/09/20 History [Calcium 600 mg-D3 10 Mcg (400 Iu)] Famotidine [Pepcid] 20 mg PO DAILY PRN 07/08/20 08/09/20 History Ginko Biloba 120 mg PO DAILY@89907/08/20 08/09/20 History Multivit-Min/FA/Lycopen/Lutein 1 tab PO DAILY@00 07/08/20 08/09/20 History [Centrum Silver Tablet] Nitroglycerin Sl Tabs [Nitrostat] 0.4 mg SUBLINGUAL Q5M PRN 07/08/20 08/09/20 History Ubidecarenone [Co Q-10] 200 mg PO DAILY@89907/08/20 08/09/20 History Vitamin B Complex 1 cap PO DAILY@89907/08/20 08/09/20 History Aspirin 81 mg PO DAILY@1300 08/09/20 08/09/20 History D-Mannose 500mg 500 mg PO DAILY@0908/09/20 08/09/20 History Donepezil [Aricept] 5 mg PO HS@2100 08/09/20 08/09/20 History Melatonin 5 mg PO HS@209908/09/20 08/09/20 History Metoprolol Tartrate [Lopressor] 100 mg PO BID@0900,2100 08/09/20 08/09/20 History Mirtazapine 7.5 mg PO HS@209908/09/20 08/09/20 History OLANZapine [ZyPREXA] 2.5 mg PO DAILY@0900 08/09/20 08/09/20 History OLANZapine [ZyPREXA] 5 mg PO HS@209908/09/20 08/09/20 History [place]-3 Fatty Acids/Fish Oil 1 cap PO HS@209908/09/20 08/09/20 History [[place]-3 Fish Oil 1,200 mg Sfgl] Pravastatin Sodium [Pravachol] 80 mg PO HS@209908/09/20 08/09/20 History haloperidoL [Haloperidol] 2.5 mg PO BID@0900,1700 08/09/20 08/09/20 History hydrALAZINE HCL [Apresoline] 50 mg PO TID@0900,1300,2100 08/09/20 08/09/20 History Allergies Allergy/AdvReac Type Severity Reaction Status Date / Time lisinopril Allergy Unknown Verified 08/09/20 16:34 simvastatin [From Zocor] Allergy Unknown Verified 08/09/20 16:34 Physical Exam Vitals: Vital Signs Temp Pulse Resp BP Pulse Ox 08/10/20 06:00 55 L 18 140/80 94 L 08/10/20 00:00 65 15 126/52 95 08/09/20 22:00 67 14 176/70 94 L 08/09/20 21:33 75 18 176/90 93 L 08/09/20 20:00 80 16 168/78 96 08/09/20 19:40 77 18 168/78 96 08/09/20 19:29 77 15 179/74 97 08/09/20 19:00 77 18 171/75 98 08/09/20 18:30 70 18 164/71 99 08/09/20 18:00 84 16 164/71 99 08/09/20 17:30 73 16 166/71 99 08/09/20 17:00 71 13 176/76 99 08/09/20 15:27 98.3 F 64 22 148/70 96 Intake and Output 08/09/20 08/10/20 08/10/20 22:59 06:59 14:59 Other: Weight 74.843 kg Results CBC & Chem 7: 08/09/20 17:29 08/09/20 16:30 Labs: Abnormal Lab Results - Last 24 Hours (Table) 08/09/20 08/09/20 Range/Units 16:10 16:30 BUN 24 H (7-17) mg/dL AST 39 H (14-36) U/L Creatine Kinase 239 H (30-135) U/L Ur Leukocyte Esterase Small H (Negative) Urine WBC 17 H (0-5) /hpf Microbiology - Last 24 Hours (Table) 08/09/20 16:10 Urine Culture - Preliminary Urine,Voided
--- NOTE | 2020-08-10 17:30 | XR ---
EXAMINATION TYPE: XR Hip Bilateral Complete DATE OF EXAM: 08/10/2020 COMPARISON: NONE HISTORY: Bilateral hip pain TECHNIQUE: 4 views FINDINGS: The proximal femurs are intact. Hip joint spaces are fairly normal for age. Sacroiliac join ts are intact. I see no evidence of a fracture. IMPRESSION: Negative bilateral hip exam. No significant joint space narrowing.
[2020-08-10] MEDS: LACTATED RINGERS 1,000 ML IV SCH (18:01)
[2020-08-10] MEDS: haloperidoL 5 MG TAB PO SCH ×2 (18:09→21:19)
[2020-08-10] MEDS: ENOXAPARIN 40 MG/0.4 ML SYRINGE SQ SCH (18:09)
--- NOTE | 2020-08-10 18:13 | US ---
EXAMINATION TYPE: US venous doppler duplex LE BI DATE OF EXAM: 08/10/2020 6:04 PM COMPARISON: NONE CLINICAL HISTORY: Upper thigh pain. Pain in bilateral legs. No hx of DVT. Patient does not take blood thinners. SIDE PERFORMED: Bilateral TECHNIQUE: The lower extremity deep venous system is examined utilizing real time linear array sonog anh with graded compression, doppler sonography and color-flow sonography. VESSELS IMAGED: Common Femoral Vein Deep Femoral Vein Greater Saphenous Vein * Femoral Vein Popliteal Vein Small Saphenous Vein * Proximal Calf Veins (* superficial vessels) Slightly limited due to edema. Right Leg: No evidence of DVT in veins imaged at this time. Left Leg: No evidence of DVT in veins imaged at this time. IMPRESSION: No evidence of deep vein thrombosis in both legs.
[2020-08-10] MEDS ORDERED: MIRTAZAPINE 15 MG TAB PO SCH (21:00)
[2020-08-10] MEDS ORDERED: OLANZapine 5 MG TAB PO SCH (21:00)
[2020-08-10] MEDS ORDERED: DONEPEZIL 5 MG TAB PO SCH (21:00)
[2020-08-10] MEDS ORDERED: PRAVASTATIN SODIUM 80 MG TAB PO SCH (21:00)
[2020-08-10] MEDS: MELATONIN 5 MG TABLET PO SCH (21:18)
[2020-08-11] MEDS: LACTATED RINGERS 1,000 ML IV SCH ×2 (04:54→14:30)
[2020-08-11] MEDS: LEVOTHYROXINE 75 MCG TAB PO SCH (06:24)
[2020-08-11] MEDS ORDERED: D MANNOSE 500 MG PO SCH (09:00)
[2020-08-11] MEDS ORDERED: NON FORMULARY DRUG (Vitamin B Complex [Vitamin B Complex] 1 EACH Capsule) PO SCH (09:00)
[2020-08-11] MEDS: ENOXAPARIN 40 MG/0.4 ML SYRINGE SQ SCH (10:09)
[2020-08-11] MEDS: haloperidoL 5 MG TAB PO SCH ×3 (10:10→20:41)
[2020-08-11] MEDS: METOPROLOL TARTRATE 50 MG TAB PO SCH ×2 (10:11→20:40)
[2020-08-11] MEDS: MULTIVITAMINS, THERA 1 EACH TAB PO SCH (10:11)
--- NOTE | 2020-08-11 10:50 | P.CRDCN ---
History of Present Illness History of present illness: HISTORY OF PRESENTING ILLNESS This is a pleasant 75-year-old female past medical history significant for hypertension, dyslipidemia and dementia. She follows in the office with Dr. Yu. We have been asked to see in consultation for chest pain. She is seen and examined laying flat in bed in no acute distress. She is pleasantly confused. She is unable to verbalize why she came to the hospital. Upon questioning if she had chest pain at all she states "oh yeah I did I think." She thinks she can recall feeling a sharp pain in the left precordial region on 2 separate occasions. She does not recall the situation or what may have exacerbated her pain. She denies feeling short of breath, dizzy, nauseated or palpitations. ER documentation indicates her initial complaint was overall generalized weakness and pain in her bilateral thighs. Lower extremity Doppler is negative for DVT. EKG reveals sinus mechanism heart rate of 71 with nonspecific abnormalities, no acute changes. Chest x-ray is negative for an acute cardiopulmonary process. Laboratory data reviewed, CBC unremarkable, sodium 140, potassium 4.4, creatinine 0.76, magnesium 2.1, cardiac enzymes negative 3 and TSH 2.14. Current daily cardiac medications include aspirin 81 mg daily, hydralazine 50 mg 3 times a day, pravastatin 80 mg daily and Lopressor 100 mg twice a day. REVIEW OF SYSTEMS At the time of my exam: CONSTITUTIONAL: Denies fever or chills. CARDIOVASCULAR: Denies chest pain, shortness of breath, orthopnea, PND or palpitations. RESPIRATORY: Denies cough. GASTROINTESTINAL: Denies abdominal pain, diarrhea, constipation, nausea or vomiting. MUSCULOSKELETAL: Denies myalgias. NEUROLOGIC: Denies numbness, tingling, headacbe or weakness. ENDOCRINE: Denies fatigue, weight change, polydipsia or polyurina. GENITOURINARY: Denies burning, hematuria or urgency with micturation. HEMATOLOGIC: Denies history of anemia or bleeding. PHYSICAL EXAMINATION Blood pressure 139/64 heart rate 65 afebrile and maintaining oxygen saturation on room air. CONSTITUTIONAL: No apparent distress. HEENT: Head is normocephalic. Pupils are equal, round. Sclerae anicteric. Mucous membranes of the mouth are moist. No JVD. No carotid bruit. CHEST EXAMINATION: Lungs are clear to auscultation. No chest wall tenderness is noted on palpation or with deep breathing. HEART EXAMINATION: Regular rate and rhythm. S1, S2 heard. Systolic ejection murmur at the base, no gallops or rub. ABDOMEN: Soft, nontender. Positive bowel sounds. EXTREMITIES: 2+ peripheral pulses, no lower extremity edema and no calf tendern ess. NEUROLOGIC EXAMINATION: Patient is awake, alert and oriented x3. ASSESSMENT Chest pain, atypical Generalized weakness Hypertension Dyslipidemia Dementia PLAN An acute coronary event has been ruled out. Obtain 2-D echocardiogram and Doppler study to assess cardiac structure and function. Overall clinically stable from a cardiac perspective, no further cardiac intervention at this time. Ongoing medical management and treatment of underlying dementia. Follow-up upon discharge with Dr. Yu. Thank you kindly for this consultation. Nurse Practitioner note has been reviewed, I agree with a documented findings and plan of care. Patient was seen and examined. Past Medical History Past Medical History: Dementia, Hyperlipidemia, Hypertension, Thyroid Disorder Additional Past Medical History / Comment(s): Pt unreliable historian but states she thinks she has an implanted defibrillator. History of Any Multi-Drug Resistant Organisms: None Reported Past Surgical History: Orthopedic Surgery Past Psychological History: Anxiety, Depression Smoking Status: Former smoker Past Alcohol Use History: None Reported Past Drug Use History: None Reported Medications and Allergies Home Medications Medication Instructions Recorded Confirmed Type Calcium Carbonate/Vitamin D3 1 cap PO DAILY@89907/08/20 08/09/20 History [Calcium 600 mg-D3 10 Mcg (400 Iu)] Famotidine [Pepcid] 20 mg PO DAILY PRN 07/08/20 08/09/20 History Ginko Biloba 120 mg PO DAILY@89907/08/20 08/09/20 History Multivit-Min/FA/Lycopen/Lutein 1 tab PO DAILY@89907/08/20 08/09/20 History [Centrum Silver Tablet] Nitroglycerin Sl Tabs [Nitrostat] 0.4 mg SUBLINGUAL Q5M PRN 07/08/20 08/09/20 History Ubidecarenone [Co Q-10] 200 mg PO DAILY@89907/08/20 08/09/20 History Vitamin B Complex 1 cap PO DAILY@0907/08/20 08/09/20 History Aspirin 81 mg PO DAILY@1300 08/09/20 08/09/20 History D-Mannose 500mg 500 mg PO DAILY@0900 08/09/20 08/09/20 History Donepezil [Aricept] 5 mg PO HS@209908/09/20 08/09/20 History Melatonin 5 mg PO HS@209908/09/20 08/09/20 History Metoprolol Tartrate [Lopressor] 100 mg PO BID@0900,2100 08/09/20 08/09/20 History Mirtazapine 7.5 mg PO HS@209908/09/20 08/09/20 History OLANZapine [ZyPREXA] 2.5 mg PO DAILY@0900 08/09/20 08/09/20 History OLANZapine [ZyPREXA] 5 mg PO HS@209908/09/20 08/09/20 History [place]-3 Fatty Acids/Fish Oil 1 cap PO HS@209908/09/20 08/09/20 History [[place]-3 Fish Oil 1,200 mg Sfgl] Pravastatin Sodium [Pravachol] 80 mg PO HS@209908/09/20 08/09/20 History haloperidoL [Haloperidol] 2.5 mg PO BID@0900,1700 08/09/20 08/09/20 History hydrALAZINE HCL [Apresoline] 50 mg PO TID@0900,1300,2100 08/09/20 08/09/20 History Allergies Allergy/AdvReac Type Severity Reaction Status Date / Time lisinopril Allergy Unknown Verified 08/09/20 16:34 simvastatin [From Zocor] Allergy Unknown Verified 08/09/20 16:34 Physical Exam Vitals: Vital Signs Temp Pulse Pulse Resp BP BP Pulse Ox 08/11/20 04:51 98.7 F 65 18 139/64 95 08/10/20 21:00 69 18 08/10/20 20:06 98.1 F 61 18 130/52 96 08/10/20 20:00 98 F 69 20 159/70 96 08/10/20 15:53 64 18 139/48 97 08/10/20 11:26 67 18 123/43 95 Intake and Output 08/10/20 08/11/20 08/11/20 22:59 06:59 14:59 Intake Total 100 Balance 100 Intake: Oral 100 Other: Voiding Method Bedside Commode Diaper # Voids 2 4 Weight 74.843 kg Results 08/09/20 17:29 08/09/20 16:30 Cardiac Enzymes 08/10/20 08/10/20 Range/Units 12:31 15:20 Troponin I <0.012 <0.012 (0.000-0.034) ng/mL Current Medications Generic Name Dose Route Start Last Admin Trade Name Pankajq PRN Reason Stop Dose Admin Aspirin 81 mg 08/10/20 13:00 08/10/20 12:12 Aspirin 81 Mg PO 81 mg DAILY@1300 [facility] Administration Calcium Carbonate 1 each 08/11/20 09:00 Calcium Carb-Vit D 500 Mg-5 Mcg Tab PO DAILY@0900 [facility] Donepezil HCl 5 mg 08/10/20 21:00 08/10/20 21:19 Donepezil 5 Mg Tab PO 5 mg HS@2100 LIZ Administration Enoxaparin Sodium 40 mg 08/10/20 17:15 08/10/20 18:09 Enoxaparin 40 Mg/0.4 Ml Syringe SQ 40 mg DAILY LIZ Administration Famotidine 20 mg 08/10/20 10:25 08/10/20 12:05 Famotidine 20 Mg Tab PO 20 mg DAILY PRN Administration Heartburn Haloperidol 2.5 mg 08/10/20 17:00 08/10/20 21:19 Haloperidol 5 Mg Tab PO 2.5 mg TID@0900,1700,2100 LIZ Administration Hydralazine HCl 50 mg 08/10/20 10:25 08/10/20 22:10 Hydralazine Hcl 50 Mg Tab PO 50 mg TID@0900,1300,2100 [facility] Administration Lactated Ringer's 1,000 mls @ 75 mls/hr 08/10/20 12:15 08/11/20 04:54 Lactated Ringers IV 75 mls/hr .[id number] LIZ Administration Levothyroxine Sodium 37.5 mcg 08/11/20 06:30 08/11/20 06:24 Levothyroxine 75 Mcg Tab PO 37.5 mcg DAILY@0630 [facility] Administration Melatonin 5 mg 08/10/20 21:00 08/10/20 21:18 Melatonin 5 Mg Tablet PO 5 mg HS@2100 LIZ Administration Metoprolol Tartrate 100 mg 08/10/20 10:25 08/10/20 21:18 Metoprolol Tartrate 50 Mg Tab PO 100 mg BID@0900,2100 [facility] Administration Mirtazapine 7.5 mg 08/10/20 21:00 08/10/20 22:10 Mirtazapine 15 Mg Tab PO 7.5 mg HS@2100 LIZ Administration Multivitamins 1 each 08/10/20 09:00 08/10/20 12:05 Multivitamins, Thera 1 Each Tab PO 1 each DAILY@0900 LIZ Administration Nitroglycerin 0.4 mg 08/10/20 10:25 Nitroglycerin Sl Tabs 0.4 Mg Tab SUBLINGUAL Q5M PRN Chest Pain Pravastatin Sodium 40 mg 08/11/20 21:00 Pravastatin Sodium 40 Mg Tab PO HS [facility] Intake and Output 08/10/20 08/11/20 08/11/20 22:59 06:59 14:59 Intake Total 100 Balance 100 Intake: Oral 100 Other: Voiding Method Bedside Commode Diaper # Voids 2 4 Weight 74.843 kg 08/09/20 17:29 08/09/20 16:30
[2020-08-11] MEDS: hydrALAZINE HCL 50 MG TAB PO SCH ×3 (11:17→20:42)
[2020-08-11] MEDS: ASPIRIN 81 MG PO SCH (11:17)
[2020-08-11] MEDS: CALCIUM CARB-VIT D 500 MG-5 MCG TAB PO SCH (11:17)
--- NOTE | 2020-08-11 14:56 | P.PN ---
Progress Note - Text Progress Note Date: 08/11/20 Interval History: Patient was seen resting in bed with her daughter at bedside. Currently the patient is reporting that she had a terrible night. As per daughter, the patient has been confrontational with staff. Despite this, the patient has not been violent or displayed any significant outbursts. The patient has been noted to have difficulty sleeping. She is otherwise attempts the medications and is not reporting any significant side effects at this time. Patient continues to report low appetite. She is not reporting any suicidal or homicidal ideation, intention, and/or plan. She does not present any auditory or visual hallucinations. She is currently alert and oriented to person, place, and time. However, the patient is unable to identify that the lady next to her is her daughter and instead refers to her as her "." Patient does report that her strength in her hips and legs appear to have improved. Mental Status Exam: General Appearance: Patient appears to be stated age is alert, pleasant, and cooperative. Patient appears to have fair hygiene and grooming wearing hospital gown with fair eye contact. Behavior: Patient is calmly sitting upright in bed and eating her dessert. Speech: Patient's speech is fluent and nonpressured. Mood/Affect: Patient reports their mood is "terrible", affect is irritable. Suicidality/Homicidality: The patient denies any suicidal or homicidal ideation, intention, and/or plan. Perceptions: Patient denies any visual hallucinations and denies any auditory hallucinations Though content/process: There is no evidence of any delusional thought content and thought process is linear and goal-directed. Memory and concentration: AOX3, grossly intact for the purposes of this session. Unable to spell "WORLD" Backwards. Judgment and insight: At baseline poor. Laboratory Results - Last 24 Hours 08/10/20 15:20 Troponin I <0.012 Vital Signs Temp 98.4 F 08/11/20 12:48 Pulse 64 08/11/20 12:48 Resp 16 08/11/20 12:48 BP 92/54 08/11/20 12:48 Pulse Ox 95 08/11/20 12:48 Intake & Output 08/10/20 08/11/20 08/11/20 18:59 06:59 18:59 Intake Total 100 Balance 100 Weight 74.843 kg Intake: Oral 100 Other: Voiding Method Bedside Commode Diaper # Voids 4 1 Assessment Major neurocognitive cognitive disorder with behavioral disturbances Generalized weakness - suspect secondary to polypharmacy Plan: -At this time patient DOES NOT meet criteria for inpatient psychiatric admission. Patient is currently not presenting with any immediate risk of harm to self or others. She is not actively psychotic at this time. -Delirium precautions recommended with patient including - avoiding use of narcotics and [employer] CLAIMS [employer]ER sedatives, limit anticholinergic medications when possible, frequent re-orientation, minimize use of restraints, open window shades during the day and close them at night -Would recommend the following medication changes/additions: Continue Haldol 2.5 mg by mouth 3 times a day @0900,1700,2100 for management of dementia related psychosis Continue Remeron 7.5 mg by mouth at bedtime for insomnia/appetite stimulation -Psychiatry will continue to follow as long as the patient is currently admitted to the hospital. Otherwise the patient is cleared psychiatrically for discharge.
--- NOTE | 2020-08-11 19:40 | P.PN ---
Progress Note - Text Progress Note Date: 08/11/20 Chief Complaint: Increased weakness History of presenting complaint: This is a pleasant 75-year-old patient who follows with Dr. Thurston. Chronic stable medical conditions include hyperlipidemia, hypertension, hypothyroid. She apparently has a diagnosis of dementia . She started having hallucinations in 2018 and she was diagnosed then with dementia. He started seeing people that through television and started to connect with them. Have started having some interactions. Also she with episodes that she'll start screaming at people. She has been put on Seroquel. That did not help much. Symptoms have gradually progressed. Seroquel dose was adjusted. Recently she was made to see neurology. She was also recently started on Remeron. Patient states since her childhood she was very active and never slept well in fact is hardly step for most of her life. She states sometime patient will argue with herself and other times she will also get upset with herself. Patient was admitted with the above symptoms to the psychiatry unit with the diagnosis of major neurocognitive disorder and psychosis and was discharged on 07/17/2020 from the psychiatry unit. At [facility] on. This presentation: Patient has a daughter the bedside who narrates the story. Patient during the second half of last psychiatry hospitalization, started bit more lethargic tired and unable to walk. In the first half of the admission patient is walking around and eating. In fact today she was discharged she had to be assisted to the car. Patient has remained very weak and tired. This was patient was doing gardening before admission. Patient also getting Zyprexa and Haldol and finds that the patient does better with Haldol rather than Zyprexa. Patient's appetite is also gone down. And patient appears to be rather distant. No fever no chills. No respiratory urinary symptoms. Just generally tired. Patient is also hurting in her hips. Patient also complaining of some achiness in the muscles. Admitted with side effects of antipsychotics causing increasing medical debility, encephalopathic. Zyprexa was discontinued. Patient's Synthroid was resumed. Psychiatry was consulted. Today: Sitting up in a chair. Did not want to eat her breakfast. Looking a bit more awake. Discussed with Dr. Gonzalez from psychiatry: It was felt the patient may benefit from discontinuing the Aricept the role of which is limited. Also it was felt that we'll discontinue mirtazapine as of was not much of depression element and use melatonin for sleep. Review of systems: Was done for constitutional, cardiovascular, GI, pulmonary. relevant finding as above Active Medications Aspirin (Aspirin 81 Mg) 81 mg PO DAILY@1300 [facility] Last Admin: 08/11/20 11:17 Dose: 81 mg Documented by: Calcium Carbonate (Calcium Carb-Vit D 500 Mg-5 Mcg Tab) 1 each PO DAILY@0900 [facility] Last Admin: 08/11/20 11:17 Dose: 1 each Documented by: Enoxaparin Sodium (Enoxaparin 40 Mg/0.4 Ml Syringe) 40 mg SQ DAILY [facility] Last Admin: 08/11/20 10:09 Dose: 40 mg Documented by: Famotidine (Famotidine 20 Mg Tab) 20 mg PO DAILY PRN PRN Reason: Heartburn Last Admin: 08/10/20 12:05 Dose: 20 mg Documented by: Haloperidol (Haloperidol 5 Mg Tab) 2.5 mg PO TID@0900,1700,2100 [facility] Last Admin: 08/11/20 17:37 Dose: 2.5 mg Documented by: Hydralazine HCl (Hydralazine Hcl 50 Mg Tab) 50 mg PO TID@0900,1300,2100 [facility] Last Admin: 08/11/20 14:12 Dose: Not Given Documented by: Lactated Ringer's (Lactated Ringers) 1,000 mls @ 75 mls/hr IV .[id number] [facility] Last Admin: 08/11/20 14:30 Dose: Not Given Documented by: Levothyroxine Sodium (Levothyroxine 75 Mcg Tab) 37.5 mcg PO DAILY@0630 [facility] Last Admin: 08/11/20 06:24 Dose: 37.5 mcg Documented by: Melatonin (Melatonin 5 Mg Tablet) 5 mg PO HS@2100 [facility] Last Admin: 08/10/20 21:18 Dose: 5 mg Documented by: Metoprolol Tartrate (Metoprolol Tartrate 50 Mg Tab) 100 mg PO BID@0900,2100 [facility] Last Admin: 08/11/20 10:11 Dose: 100 mg Documented by: Multivitamins (Multivitamins, Thera 1 Each Tab) 1 each PO DAILY@0900 [facility] Last Admin: 08/11/20 10:11 Dose: 1 each Documented by: Nitroglycerin (Nitroglycerin Sl Tabs 0.4 Mg Tab) 0.4 mg SUBLINGUAL Q5M PRN PRN Reason: Chest Pain Pravastatin Sodium (Pravastatin Sodium 40 Mg Tab) 40 mg PO HS LIZ Past medical history to include: Hypertension, hyperlipidemia, hypothyroid, anxiety, depression, dementia, psychosis Social history: Lives with her a daughter. Drinks alcohol rarely. Patient smoked for about 20- 30 years stopped about 30 years ago. Physical examination: VITAL SIGNS: Gadiel, 18, 123/43, 95% on room air GENERAL: Sitting up in a chair, a bit more awake today EYES: Pupils equal. Conjunctiva normal. HEENT: External appearance of nose and ears normal, oral cavity grossly normal. NECK: JVD not raised; masses not palpable. HEART: First and second heart sounds are normal; mild edema. LUNGS: Respiratory rate normal; clear to auscultation. ABDOMEN: Soft, nontender, liver spleen not palpable, no masses palpable. PSYCH: Answering simple questions MUSCULOSKELETAL: Evidence of OA especially in the hands. Some limited range of motion on the hips. Straight leg raising about 15 MUSCULAR skeletal: Evidence of OA especially in the hands L. INVESTIGATIONS, reviewed in the clinical context: WBC 5.2 hemoglobin 12.3 platelets 186 potassium 4.4 creatinine 0.76 CPK 239 Troponin I 3 negative TSH 2.1 Coronavirus [PCR] not detected EKG tracing personally reviewed by me-normal sinus rhythm Chest x-ray film personally reviewed by me-no obvious infiltrates Assessment and plan: -This is a patient who was admitted for psychosis about a month ago and medication adjusted for the same. Since that time decreased activity tired more distant appearing. Possible side effect of antipsychotics. Psychiatry consulted to address the same. Zyprexa discontinued. -Acute metabolic encephalopathy from medications-slow to respond Zyprexa discontinued. We'll also discontinue mirtazapine. Also DC Aricept -Acute medical debility, could be from medications including side effect of statins Zyprexa and mirtazapine discontinued. Cut back the dose of pravastatin to half. PTOT -Essential hypertension Continue with hydralazine, Lopressor -Hypercholesterolemia Continue with Pravachol -GERD Continue with Protonix -Chronic insomnia long-standing Continue with melatonin -Hypothyroid Patient was not on the Synthroid when she was discharged from the last admission. We'll resume the same. At the smaller dose. 37.5. Patient's current TSH is 2.5 - cognitive impairment from dementia DC Aricept -Primary osteoarthritis, bilateral multiple joints Continue with Tylenol when necessary -Obesity BMI 31.2 Weight loss measures and follow-up with PCP -Chronic psychosis Consult psychiatry -Clinical dehydration Lactated Ringer's at 75 mL an hour. Care was discussed with Dr. Gonzalez from psychiatry. Decision made to DC Aricept and mirtazapine. Keep the patient on melatonin. Have asked nursing staff not to wake up the patient after her p.m. medications for vitals for routine measurement. Total time spent today about 40 minutes with over 20 minutes of discussion
[2020-08-11] MEDS: MELATONIN 5 MG TABLET PO SCH (20:40)
[2020-08-11] MEDS: PRAVASTATIN SODIUM 40 MG TAB PO SCH (20:54)
[2020-08-12] MEDS: LACTATED RINGERS 1,000 ML IV SCH ×2 (06:47→17:36)
[2020-08-12] MEDS: hydrALAZINE HCL 50 MG TAB PO SCH ×3 (09:28→21:22)
[2020-08-12] MEDS: METOPROLOL TARTRATE 50 MG TAB PO SCH ×2 (09:28→21:21)
[2020-08-12] MEDS: CALCIUM CARB-VIT D 500 MG-5 MCG TAB PO SCH (09:28)
[2020-08-12] MEDS: MULTIVITAMINS, THERA 1 EACH TAB PO SCH (09:28)
[2020-08-12] MEDS: ENOXAPARIN 40 MG/0.4 ML SYRINGE SQ SCH (09:29)
[2020-08-12] MEDS: LEVOTHYROXINE 75 MCG TAB PO SCH (09:29)
[2020-08-12] MEDS: haloperidoL 5 MG TAB PO SCH (09:29)
--- NOTE | 2020-08-12 12:39 | ECHOF ---
Referral Reason:cp MEASUREMENTS -------- HEIGHT: 154.9 cm WEIGHT: 74.8 kg BP: 139/64 IVSd: 1.5 cm (0.6 - 1.1) LVIDd: 3.8 cm (3.9 - 5.3) LVPWd: 1.4 cm (0.6 - 1.1) IVSs: 1.4 cm LVIDs: 2.6 cm LVPWs: 1.9 cm LAESV Index (A-L): 34.08 ml/m Ao Diam: 3.1 cm (2.0 - 3.7) AV Cusp: 1.4 cm (1.5 - 2.6) MV EXCURSION: 14.414 mm (> 18.000) MV EF SLOPE: 97 mm/s (70 - 150) EPSS: 0.4 cm MV E Koffi: 1.17 m/s MV DecT: 163 ms MV A Koffi: 1.08 m/s MV E/A Ratio: 1.09 AV maxP.22 mmHg AV meanP.56 mmHg AR PHT: 839 ms RAP: 5.00 mmHg RVSP: 38.22 mmHg FINDINGS -------- Sinus rhythm. This was a technically difficult study with suboptimal views. The left ventricular size is normal. There is moderate concentric left ventricular hypertrophy. O verall left ventricular systolic function is normal with, an EF between 55 - 60 %. The right ventricle is normal in size. LA is moderately dilated 34-39 ml/m2 The right atrial size is normal. 5.0mg of Lumason was utilized for enhancement of images Interatrial and interventricular septum intact. There is mild aortic regurgitation. There is moderate aortic stenosis present. Peak/mean gradient across the Aortic Valve is 42.22mmHg / 21.56mmHg. Mild mitral annular calcification present. Moderate mitral regurgitation is present. Mild tricuspid regurgitation present. There is mild pulmonary hypertension. The right ventricular systolic pressure, as measured by Doppler, is 38.22mmHg. There is no pulmonic regurgitation present. The aortic root size is normal. IVC Not well visulized. There is no pericardial effusion. CONCLUSIONS -------- 1. The left ventricular size is normal. 2. There is moderate concentric left ventricular hypertrophy. 3. Overall left ventricular systolic function is normal with, an EF between 55 - 60 %. 4. LA is moderately dilated 34-39 ml/m2 5. There is mild aortic regurgitation. 6. There is moderate aortic stenosis present. 7. Peak/mean gradient across the Aortic Valve is 42.22mmHg / 21.56mmHg. 8. Mild mitral annular calcification present. 9. Moderate mitral regurgitation is present. 10. Mild tricuspid regurgitation present. 11. There is mild pulmonary hypertension. 12. The right ventricular systolic pressure, as measured by Doppler, is 38.22mmHg. [employer] SALES REPRESENTATIVE: Chiquis Jeter RDCS
--- NOTE | 2020-08-12 12:53 | P.PN ---
Progress Note - Text Progress Note Date: 08/12/20 Interval History: Patient was seen resting in bed with her daughter at bedside. Patient reports that she was able to sleep well last night. She does report she does feel tired today. Despite this she is calm and pleasant today and less irritable. The patient is alert and oriented to person but has difficulty recalling her last name today. She oriented to place but not time. She has been adherent with her medications. She does report mild GI discomfort and low appetite but both daughter and patient state this is nothing new. After discussion with the primary team and the family, they are agreeable on discontinuing aricept and remeron. Melatonin appears to be effective. They are okay to decrease haldol as well. She reports no SI or HI. She reports no AH or VH. Mental Status Exam: General Appearance: Patient appears to be stated age is alert, pleasant, and cooperative. Patient appears to have fair hygiene and grooming wearing hospital gown with fair eye contact. Behavior: Patient is calmly sitting upright in her chair about to eat lunch. Speech: Patient's speech is fluent and nonpressured. Mood/Affect: Patient reports their mood is "just tired", affect is pleasant and polite. Suicidality/Homicidality: The patient denies any suicidal or homicidal ideation, intention, and/or plan. Perceptions: Patient denies any visual hallucinations and denies any auditory hallucinations Though content/process: There is no evidence of any delusional thought content and thought process is linear and goal-directed. Memory and concentration: AOX2 - person and place only, grossly intact for the purposes of this session. Unable to spell "WORLD" Backwards. Judgment and insight: At baseline poor. Vital Signs Temp 97.6 F 08/12/20 09:00 Pulse 71 08/12/20 09:00 Resp 20 08/12/20 09:00 BP 175/75 08/12/20 09:00 Pulse Ox 91 L 08/12/20 09:00 Intake & Output 08/11/20 08/12/20 08/12/20 18:59 06:59 18:59 Intake Total 1210 1300 Balance 1210 1300 Intake: Intake, IV Titration 900 Amount Lactated Ringers 1,000 ml 900 @ 75 mls/hr IV .[id number] LIZ Rx#:[id number] Oral 1210 400 Other: Voiding Method Toilet Toilet Diaper Diaper # Voids 3 1 Assessment Major neurocognitive cognitive disorder with behavioral disturbances Generalized weakness - suspect secondary to polypharmacy Plan: -At this time patient DOES NOT meet criteria for inpatient psychiatric admission. Patient is currently not presenting with any immediate risk of harm to self or others. She is not actively psychotic at this time. -Delirium precautions recommended with patient including - avoiding use of narcotics and LOG OPERATIONS COORDINATOR sedatives, limit anticholinergic medications when possible, frequent re-orientation, minimize use of restraints, open window shades during the day and close them at night -Would recommend the following medication changes/additions: Continue Haldol 2 mg by mouth 3 times a day @0900,1700,2100 for management of dementia related psychosis Discontinue remeron and aricept. Continue melatonin 5 mg at bedtime for insomnia. -Psychiatry will continue to follow as long as the patient is currently admitted to the hospital. Otherwise the patient is cleared psychiatrically for discharge.
[2020-08-12] MEDS: ASPIRIN 81 MG PO SCH (14:15)
[2020-08-12 20:12] VITALS: RESP 16
[2020-08-12] MEDS: MELATONIN 5 MG TABLET PO SCH (21:21)
[2020-08-12] MEDS: PRAVASTATIN SODIUM 40 MG TAB PO SCH (21:21)
--- NOTE | 2020-08-12 21:25 | P.PN ---
Progress Note - Text Progress Note Date: 08/12/20 Chief Complaint: Increased weakness History of presenting complaint: This is a pleasant 75-year-old patient who follows with Dr. Thurston. Chronic stable medical conditions include hyperlipidemia, hypertension, hypothyroid. She apparently has a diagnosis of dementia . She started having hallucinations in 2019 and she was diagnosed then with dementia. He started seeing people that through television and started to connect with them. Have started having some interactions. Also she with episodes that she'll start screaming at people. She has been put on Seroquel. That did not help much. Symptoms have gradually progressed. Seroquel dose was adjusted. Recently she was made to see neurology. She was also recently started on Remeron. Patient states since her childhood she was very active and never slept well in fact is hardly step for most of her life. She states sometime patient will argue with herself and other times she will also get upset with herself. Patient was admitted with the above symptoms to the psychiatry unit with the diagnosis of major neurocognitive disorder and psychosis and was discharged on 07/17/2020 from the psychiatry unit. At [facility] on. This presentation: Patient has a daughter the bedside who narrates the story. Patient during the second half of last psychiatry hospitalization, started bit more lethargic tired and unable to walk. In the first half of the admission patient is walking around and eating. In fact today she was discharged she had to be assisted to the car. Patient has remained very weak and tired. This was patient was doing gardening before admission. Patient also getting Zyprexa and Haldol and finds that the patient does better with Haldol rather than Zyprexa. Patient's appetite is also gone down. And patient appears to be rather distant. No fever no chills. No respiratory urinary symptoms. Just generally tired. Patient is also hurting in her hips. Patient also complaining of some achiness in the muscles. Admitted with side effects of antipsychotics causing increasing medical debility, encephalopathic. Zyprexa was discontinued. Patient's Synthroid was resumed. Psychiatry was consulted. After further discussion with Dr. Gonzalez decision was made to stop the mirtazapine and Aricept. Today: Patient slept very well last night. Again patient's grandmother skeptical about the hospital food and does not like it. Daughter is present. Appears to be communicating better. Though doses off while talking. Discussed with Dr. Gonzalez. Decrease Haldol to 2 mg 3 times a day. Review of systems: Was done for constitutional, cardiovascular, GI, pulmonary. relevant finding as above Past medical history to include: Hypertension, hyperlipidemia, hypothyroid, anxiety, depression, dementia, psychosis Social history: Lives with her a daughter. Drinks alcohol rarely. Patient smoked for about 20- 30 years stopped about 30 years ago. Physical examination: VITAL SIGNS: 97.7, 58, 19, 140/57, 95% room air GENERAL: Sitting up in a chair, awake but doses off while talking EYES: Pupils equal. Conjunctiva normal. HEENT: External appearance of nose and ears normal, oral cavity grossly normal. NECK: JVD not raised; masses not palpable. HEART: First and second heart sounds are normal; mild edema. LUNGS: Respiratory rate normal; clear to auscultation. ABDOMEN: Soft, nontender, liver spleen not palpable, no masses palpable. PSYCH: Answering simple questions MUSCULOSKELETAL: Evidence of OA especially in the hands. INVESTIGATIONS, reviewed in the clinical context: WBC 5.2 hemoglobin 12.3 platelets 186 potassium 4.4 creatinine 0.76 CPK 239 Troponin I 3 negative TSH 2.1 Coronavirus [PCR] not detected EKG tracing personally reviewed by me-normal sinus rhythm Chest x-ray film personally reviewed by me-no obvious infiltrates Assessment and plan: -This is a patient who was admitted for psychosis about a month ago and medication adjusted for the same. Since that time decreased activity tired more distant appearing. Possible side effect of antipsychotics. Psychiatry consulted to address the same. Zyprexa, mirtazapine, Aricept discontinued. -Acute metabolic encephalopathy from medications-slow to respond Zyprexa discontinued. Mirtazapine and Aricept discontinued. Dose of Haldol being decreased to 2 mg 3 times a day -Acute medical debility, could be from medications including side effect of statins Zyprexa and mirtazapine discontinued. Cut back the dose of pravastatin to half. PTOT -Essential hypertension Continue with hydralazine, Lopressor -Hypercholesterolemia Continue with Pravachol -GERD Continue with Protonix -Chronic insomnia long-standing Continue with melatonin -Hypothyroid Patient was not on the Synthroid when she was discharged from the last admission. We'll resume the same. At the smaller dose. 37.5. Patient's current TSH is 2.5 - cognitive impairment from dementia DC Aricept -Primary osteoarthritis, bilateral multiple joints Continue with Tylenol when necessary -Obesity BMI 31.2 Weight loss measures and follow-up with PCP -Chronic psychosis Consult psychiatry -Clinical dehydration Lactated Ringer's at 75 mL an hour. Care was discussed with Dr. Gonzalez. We'll cut back dose of Haldol to 2 mg 3 times a day. Care was discussed at length with her daughter the nurse. Looking at possible rehab if she qualifies. We'll see how she does overnight. Total time spent today about 40 minutes with over 25 minutes of discussion
[2020-08-13] MEDS: ENOXAPARIN 40 MG/0.4 ML SYRINGE SQ SCH (08:44)
[2020-08-13] MEDS: hydrALAZINE HCL 50 MG TAB PO SCH ×3 (08:46→20:38)
[2020-08-13] MEDS: LEVOTHYROXINE 75 MCG TAB PO SCH (08:46)
[2020-08-13] MEDS: METOPROLOL TARTRATE 50 MG TAB PO SCH ×2 (08:47→20:14)
[2020-08-13] MEDS: CALCIUM CARB-VIT D 500 MG-5 MCG TAB PO SCH (08:47)
[2020-08-13] MEDS: MULTIVITAMINS, THERA 1 EACH TAB PO SCH (08:47)
--- NOTE | 2020-08-13 13:54 | P.PN ---
Progress Note - Text Progress Note Date: 08/13/20 Interval History: Patient was seen resting in bed. Patient reports that she is feeling slightly better. She is not reporting any suicidal or homicidal ideation, intention, and/or plan. She is not reporting auditory or visual hallucinations. He denies any paranoia or delusions. Patient was that her daughter went out for a meeting will be back later. The patient is not reporting any issues with sleep last night and reports no issues with appetite but has been noted not to eat her lunch that is right in front of her. She continues to be calm and pleasant today. She is not reporting any significant side effects of her medications.Currently, the patient is alert and oriented to person only. Mental Status Exam: General Appearance: Patient appears to be stated age is alert, pleasant, and cooperative. Patient appears to have fair hygiene and grooming wearing hospital gown with fair eye contact. Behavior: Patient is calmly sitting upright in her chair Mood appears no acute distress. Speech: Patient's speech is fluent and nonpressured. More spontaneous today. Mood/Affect: Patient reports their mood is "Feeling better today", affect is pleasant and polite. Suicidality/Homicidality: The patient denies any suicidal or homicidal ideation, intention, and/or plan. Perceptions: Patient denies any visual hallucinations and denies any auditory hallucinations Though content/process: There is no evidence of any delusional thought content and thought process is linear and goal-directed. Memory and concentration: AOX1 - person only, grossly intact for the purposes of this session. Unable to spell "WORLD" Backwards. Judgment and insight: At baseline poor. Vital Signs Temp 98.0 F 08/13/20 11:50 Pulse 64 08/13/20 11:50 Resp 16 08/13/20 11:50 BP 96/56 08/13/20 11:50 Pulse Ox 95 08/13/20 11:50 Intake & Output 08/12/20 08/13/20 08/13/20 18:59 06:59 18:59 Intake Total 1220 Balance 1220 Intake: Intake, IV Titration 600 Amount Lactated Ringers 1,000 ml 600 @ 75 mls/hr IV .[id number] LIZ Rx#:[id number] Oral 620 Other: Voiding Method Toilet Toilet Bedside Commode Diaper Diaper # Voids 4 4 Assessment Major neurocognitive cognitive disorder with behavioral disturbances Generalized weakness - suspect secondary to polypharmacy Plan: -At this time patient DOES NOT meet criteria for inpatient psychiatric admission. Patient is currently not presenting with any immediate risk of harm to self or others. She is not actively psychotic at this time. -Delirium precautions recommended with patient including - avoiding use of narcotics and ELECTRIC WHEELCHAIR REPAIRER sedatives, limit anticholinergic medications when possible, frequent re-orientation, minimize use of restraints, open window shades during the day and close them at night -Would recommend the following medication changes/additions: Agree to decrease haldol to 1.25 mg by mouth 3 times a day @0900,1700,2100 for management of dementia related psychosis Continue melatonin 5 mg at bedtime for insomnia. -Psychiatry will sign off at this point. Thank you for letting us participate in this patient's care. Please feel free to call or reconsult us if necessary.
[2020-08-13] MEDS: haloperidoL 0.5 MG TAB PO SCH ×2 (16:20→20:14)
[2020-08-13] MEDS: ASPIRIN 81 MG PO SCH (16:20)
--- NOTE | 2020-08-13 17:04 | P.PN ---
Progress Note - Text Progress Note Date: 08/13/20 Chief Complaint: Increased weakness History of presenting complaint: This is a pleasant 75-year-old patient who follows with Dr. Thurston. Chronic stable medical conditions include hyperlipidemia, hypertension, hypothyroid. She apparently has a diagnosis of dementia . She started having hallucinations in 2018 and she was diagnosed then with dementia. He started seeing people that through television and started to connect with them. Have started having some interactions. Also she with episodes that she'll start screaming at people. She has been put on Seroquel. That did not help much. Symptoms have gradually progressed. Seroquel dose was adjusted. Recently she was made to see neurology. She was also recently started on Remeron. Patient states since her childhood she was very active and never slept well in fact is hardly step for most of her life. She states sometime patient will argue with herself and other times she will also get upset with herself. Patient was admitted with the above symptoms to the psychiatry unit with the diagnosis of major neurocognitive disorder and psychosis and was discharged on 07/17/2020 from the psychiatry unit. At [facility] on. This presentation: Patient has a daughter the bedside who narrates the story. Patient during the second half of last psychiatry hospitalization, started bit more lethargic tired and unable to walk. In the first half of the admission patient is walking around and eating. In fact today she was discharged she had to be assisted to the car. Patient has remained very weak and tired. This was patient was doing gardening before admission. Patient also getting Zyprexa and Haldol and finds that the patient does better with Haldol rather than Zyprexa. Patient's appetite is also gone down. And patient appears to be rather distant. No fever no chills. No respiratory urinary symptoms. Just generally tired. Patient is also hurting in her hips. Patient also complaining of some achiness in the muscles. Admitted with side effects of antipsychotics causing increasing medical debility, encephalopathic. Zyprexa was discontinued. Patient's Synthroid was resumed. Psychiatry was consulted. After further discussion with Dr. Gonzalez decision was made to stop the mirtazapine and Aricept. Patient started sleeping better. Patient is very choosy about eating hospital food. Today: Communicating better. Daughter the bedside. Less confused. Discussed with Dr. Gonzalez from psychiatry. Decrease Haldol. This discussed with the patient about going to the ECF. Review of systems: Was done for constitutional, cardiovascular, GI, pulmonary. relevant finding as above Active Medications Aspirin (Aspirin 81 Mg) 81 mg PO DAILY@1300 [facility] Last Admin: 08/13/20 16:20 Dose: 81 mg Documented by: Calcium Carbonate (Calcium Carb-Vit D 500 Mg-5 Mcg Tab) 1 each PO DAILY@0900 [facility] Last Admin: 08/13/20 08:47 Dose: 1 each Documented by: Enoxaparin Sodium (Enoxaparin 40 Mg/0.4 Ml Syringe) 40 mg SQ DAILY [facility] Last Admin: 08/13/20 08:44 Dose: 40 mg Documented by: Famotidine (Famotidine 20 Mg Tab) 20 mg PO DAILY PRN PRN Reason: Heartburn Last Admin: 08/10/20 12:05 Dose: 20 mg Documented by: Haloperidol (Haloperidol 0.5 Mg Tab) 1.25 mg PO TID [facility] Last Admin: 08/13/20 16:20 Dose: 1.25 mg Documented by: Hydralazine HCl (Hydralazine Hcl 50 Mg Tab) 50 mg PO TID@0900,1300,2100 [facility] Last Admin: 08/13/20 12:45 Dose: Not Given Documented by: Levothyroxine Sodium (Levothyroxine 75 Mcg Tab) 37.5 mcg PO DAILY@0630 [facility] Last Admin: 08/13/20 08:46 Dose: 37.5 mcg Documented by: Melatonin (Melatonin 5 Mg Tablet) 5 mg PO HS@2100 [facility] Last Admin: 08/12/20 21:21 Dose: 5 mg Documented by: Metoprolol Tartrate (Metoprolol Tartrate 50 Mg Tab) 100 mg PO BID@0900,2100 [facility] Last Admin: 08/13/20 08:47 Dose: 100 mg Documented by: Multivitamins (Multivitamins, Thera 1 Each Tab) 1 each PO DAILY@0900 [facility] Last Admin: 08/13/20 08:47 Dose: 1 each Documented by: Nitroglycerin (Nitroglycerin Sl Tabs 0.4 Mg Tab) 0.4 mg SUBLINGUAL Q5M PRN PRN Reason: Chest Pain Pravastatin Sodium (Pravastatin Sodium 40 Mg Tab) 40 mg PO HS [facility] Last Admin: 08/12/20 21:21 Dose: 40 mg Documented by: Past medical history to include: Hypertension, hyperlipidemia, hypothyroid, anxiety, depression, dementia, psychosis Social history: Lives with her a daughter. Drinks alcohol rarely. Patient smoked for about 20- 30 years stopped about 30 years ago. Physical examination: VITAL SIGNS: 98, 64, 16, 96 x 56, 95% room air GENERAL: Sitting up in a chair, a bit more awake today EYES: Pupils equal. Conjunctiva normal. HEENT: External appearance of nose and ears normal, oral cavity grossly normal. NECK: JVD not raised; masses not palpable. HEART: First and second heart sounds are normal; mild edema. LUNGS: Respiratory rate normal; clear to auscultation. ABDOMEN: Soft, nontender, liver spleen not palpable, no masses palpable. PSYCH: Answering simple questions MUSCULOSKELETAL: Evidence of OA especially in the hands. INVESTIGATIONS, reviewed in the clinical context: WBC 5.2 hemoglobin 12.3 platelets 186 potassium 4.4 creatinine 0.76 CPK 239 Troponin I 3 negative TSH 2.1 Coronavirus [PCR] not detected EKG tracing personally reviewed by me-normal sinus rhythm Chest x-ray film personally reviewed by me-no obvious infiltrates Assessment and plan: -This is a patient who was admitted for psychosis about a month ago and medication adjusted for the same. Since that time decreased activity tired more distant appearing. Possible side effect of antipsychotics. Psychiatry consulted to address the same. Zyprexa, mirtazapine, Aricept discontinued. -Acute metabolic encephalopathy from medications-slow to respond Zyprexa discontinued. Mirtazapine and Aricept discontinued. Haldol further decreased to 1.25 mg 3 times a day -Acute medical debility, could be from medications including side effect of statins Zyprexa and mirtazapine discontinued. Cut back the dose of pravastatin to half. PTOT -Essential hypertension Continue with hydralazine, Lopressor -Hypercholesterolemia Continue with Pravachol -GERD Continue with Protonix -Chronic insomnia long-standing Continue with melatonin -Hypothyroid Patient was not on the Synthroid when she was discharged from the last admission. We'll resume the same. At the smaller dose. 37.5. Patient's current TSH is 2.5 - cognitive impairment from dementia DC Aricept -Primary osteoarthritis, bilateral multiple joints Continue with Tylenol when necessary -Obesity BMI 31.2 Weight loss measures and follow-up with PCP -Chronic psychosis Consult psychiatry -Clinical dehydration Lactated Ringer's at 75 mL an hour. Care was discussed with the psychiatrist Dr. Gonzalez, the patient and daughter the bedside. Decreased dose of Haldol to 1.25 mg 3 times a day. Total time spent today about 40-45 minutes with over 25 minutes of discussion. Hopefully DC to ECF tomorrow.
[2020-08-13] MEDS: MELATONIN 5 MG TABLET PO SCH (20:14)
[2020-08-13] MEDS: PRAVASTATIN SODIUM 40 MG TAB PO SCH (20:38)
[2020-08-14] MEDS: hydrALAZINE HCL 50 MG TAB PO SCH ×2 (09:36→15:40)
[2020-08-14] MEDS: haloperidoL 0.5 MG TAB PO SCH ×2 (09:37→15:40)
[2020-08-14] MEDS: ENOXAPARIN 40 MG/0.4 ML SYRINGE SQ SCH (09:37)
[2020-08-14] MEDS: LEVOTHYROXINE 75 MCG TAB PO SCH (09:38)
[2020-08-14] MEDS: ASPIRIN 81 MG PO SCH (09:38)
[2020-08-14] MEDS: METOPROLOL TARTRATE 50 MG TAB PO SCH (09:38)
[2020-08-14] MEDS: CALCIUM CARB-VIT D 500 MG-5 MCG TAB PO SCH (09:38)
[2020-08-14] MEDS: MULTIVITAMINS, THERA 1 EACH TAB PO SCH (09:38)
[2020-08-14 12:07] VITALS: BMI 31.1
--- NOTE | 2020-08-14 14:57 | P.DS ---
Providers Date of admission: 08/10/20 17:04 Expected date of discharge: 08/14/20 Attending physician: Kana Ragland Consults: 08/09/20 20:35 Consult Physician Urgent Consulting Provider: Zenon Gonzalez Consult Reason/Comments: Adverse reaction psychiatric medications Do you want consulting provider notified?: Already Contacted 08/10/20 11:50 Consult Physician Routine Consulting Provider: Joo Garcia Consult Reason/Comments: chest pain Do you want consulting provider notified?: Yes Primary care physician: [facility] Course: Chief Complaint: Increased weakness History of presenting complaint: This is a pleasant 75-year-old patient who follows with Dr. Thurston. Chronic stable medical conditions include hyperlipidemia, hypertension, hypothyroid. Diagnosis of neurocognitive disorder. She started having hallucinations in 2019 and she was diagnosed then with dementia. He started seeing people that through television and started to connect with them. Have started having some interactions. Also she with episodes that she'll start screaming at people. She has been put on Seroquel. That did not help much. Symptoms have gradually progressed. Seroquel dose was adjusted. Recently she was made to see neurology. She was also recently started on Remeron. Patient states since her childhood she was very active and never slept well in fact is hardly step for most of her life. She states sometime patient will argue with herself and other times she will also get upset with herself. Patient was admitted with the above symptoms to the psychiatry unit with the diagnosis of major neurocognitive disorder and psychosis and was discharged on 07/17/2020 from the psychiatry / [facility].. This presentation: daughter at the bedside who narrates the story. Patient during the second half of last psychiatry hospitalization, started bit more lethargic tired and unable to walk. In the first half of the admission patient is walking around and eating. On the day, she was discharged she had to be assisted to the car. Patient has remained very weak and tired. patient was doing gardening before admission. Patient also getting Zyprexa and Haldol and finds that the patient does better with Haldol rather than Zyprexa. Patient's appetite is also gone down. And patient appears to be rather distant. No fever no chills. No respiratory urinary symptoms. Just generally tired. Patient is also hurting in her hips. Patient also complaining of some achiness in the muscles. Admitted with side effects of antipsychotics causing increasing medical debility, encephalopathic. Zyprexa was discontinued. Patient's Synthroid was resumed. Psychiatry was consulted. After further discussion with Dr. Gonzalez decision was made to stop the mirtazapine and Aricept. Patient started sleeping better. Patient is very choosy about eating hospital food. Patient does of statin felt to be contribution to some muscle weakness was halved. Today: Patient has been sleeping better. Still choosy about food. Less weak. Patient be sent to rehab. Patient's daughter is very good about bringing in food for the patient. This should be encouraged at the [facility]. Discussed with patient and the staff. Patient still has elements of psychosis but controlled. Able to use a walker. Discussion and discharge planning more than 35 minutes Consultation: Dr. Gonzalez from psychiatry Past medical history to include: Hypertension, hyperlipidemia, hypothyroid, anxiety, depression, dementia, psychosis Social history: Lives with her a daughter. Drinks alcohol rarely. Patient smoked for about 20- 30 years stopped about 30 years ago. Physical examination: VITAL SIGNS: 98, 61, 16, 94% on room air, 159/68 GENERAL: Sitting up in a chair, awake, tired EYES: Pupils equal. Conjunctiva normal. HEENT: External appearance of nose and ears normal, oral cavity grossly normal. NECK: JVD not raised; masses not palpable. HEART: First and second heart sounds are normal; mild edema. LUNGS: Respiratory rate normal; clear to auscultation. ABDOMEN: Soft, nontender, liver spleen not palpable, no masses palpable. PSYCH: Answering simple questions MUSCULOSKELETAL: Evidence of OA especially in the hands. INVESTIGATIONS, reviewed in the clinical context: WBC 5.2 hemoglobin 12.3 platelets 186 potassium 4.4 creatinine 0.76 CPK 239 Troponin I 3 negative TSH 2.1 Coronavirus [PCR] not detected EKG tracing personally reviewed by me-normal sinus rhythm Chest x-ray film personally reviewed by me-no obvious infiltrates Assessment and plan: -This is a patient who was admitted for psychosis about a month ago and medication adjusted for the same. Since that time decreased activity tired more distant appearing. Possible side effect of antipsychotics. Psychiatry consulted to address the same. Zyprexa, mirtazapine, Aricept discontinued. -Acute metabolic encephalopathy from improved Zyprexa , Mirtazapine and Aricept discontinued. Haldol changed to 1.5 mg every 12 -Acute medical debility, could be from medications including side effect of statins Zyprexa and mirtazapine discontinued. Cut back the dose of pravastatin to half. PTOT -Essential hypertension Continue with hydralazine, Lopressor -Hypercholesterolemia Continue with Pravachol -GERD Continue with Protonix -Chronic insomnia long-standing Continue with melatonin -Hypothyroid Patient was not on the Synthroid when she was discharged from the last admission. Resume and 50 g daily - Moderate cognitive impairment from dementia Aricept discontinued because of possible limited benefit at this point -Primary osteoarthritis, bilateral multiple joints Continue with Tylenol when necessary -Obesity BMI 31.2 Weight loss measures and follow-up with PCP -Chronic psychosis Medications adjusted by psychiatry -Clinical dehydration Lactated Ringer's at 75 mL an hour. Disposition: [facility] Plan - Discharge Summary Discharge Rx Participant: No New Discharge Prescriptions: New haloperidoL [Haldol] 1.5 mg PO Q12H #10 tablet Levothyroxine Sodium [Levo-T] 50 mcg PO DAILY #1 tablet Pravastatin Sodium [Pravachol] 40 mg PO HS tab Continue Nitroglycerin Sl Tabs [Nitrostat] 0.4 mg SUBLINGUAL Q5M PRN PRN Reason: Chest Pain Multivit-Min/FA/Lycopen/Lutein [Centrum Silver Tablet] 1 tab PO DAILY@0900 Calcium Carbonate/Vitamin D3 [Calcium 600 mg-D3 10 Mcg (400 Iu)] 1 cap PO DAILY@0900 D-Mannose 500mg 500 mg PO DAILY@0900 Melatonin 5 mg PO HS@2100 Famotidine [Pepcid] 20 mg PO DAILY PRN PRN Reason: Heartburn Vitamin B Complex 1 cap PO DAILY@0900 Metoprolol Tartrate [Lopressor] 100 mg PO BID@0900,2100 hydrALAZINE HCL [Apresoline] 50 mg PO TID@0900,1300,2100 Aspirin 81 mg PO DAILY@1300 Discontinued Ubidecarenone [Co Q-10] 200 mg PO DAILY@0900 OLANZapine [ZyPREXA] 2.5 mg PO DAILY@0900 OLANZapine [ZyPREXA] 5 mg PO HS@2100 Mirtazapine 7.5 mg PO HS@2100 Pravastatin Sodium [Pravachol] 80 mg PO HS@2100 haloperidoL [Haloperidol] 2.5 mg PO BID@0900,1700 Ginko Biloba 120 mg PO DAILY@0900 Donepezil [Aricept] 5 mg PO HS@2100 [place]-3 Fatty Acids/Fish Oil [[place]-3 Fish Oil 1,200 mg Sfgl] 1 cap PO HS@2100 Discharge Medication List Calcium Carbonate/Vitamin D3 [Calcium 600 mg-D3 10 Mcg (400 Iu)] 1 cap PO DAILY@0900 07/08/20 [History] Famotidine [Pepcid] 20 mg PO DAILY PRN 07/08/20 [History] Multivit-Min/FA/Lycopen/Lutein [Centrum Silver Tablet] 1 tab PO DAILY@0907/08/20 [History] Nitroglycerin Sl Tabs [Nitrostat] 0.4 mg SUBLINGUAL Q5M PRN 07/08/20 [History] Vitamin B Complex 1 cap PO DAILY@0900 07/08/20 [History] Aspirin 81 mg PO DAILY@1300 08/09/20 [History] D-Mannose 500mg 500 mg PO DAILY@0908/09/20 [History] Melatonin 5 mg PO HS@209908/09/20 [History] Metoprolol Tartrate [Lopressor] 100 mg PO BID@0900,209908/09/20 [History] hydrALAZINE HCL [Apresoline] 50 mg PO TID@0900,1300,209908/09/20 [History] Levothyroxine Sodium [Levo-T] 50 mcg PO DAILY #1 tablet 08/14/20 [Rx] Pravastatin Sodium [Pravachol] 40 mg PO HS tab 08/14/20 [Rx] haloperidoL [Haldol] 1.5 mg PO Q12H #10 tablet 08/14/20 [Rx] Follow up Appointment(s)/Referral(s): DANIEL, [Other] - 10 Days Zac Thurston DO [Primary Care Provider] - 1-2 days Gabino Yu MD [STAFF PHYSICIAN] - 2 Weeks
[2020-08-14 15:00] VITALS: PULSE 61; TEMP 98
[2020-08-14 15:01] VITALS: BP 122/62
== END 2020-08-14 16:15 ==
LOC: EC 15:23 → 5NMEDONC 20:35 → OBSVTOIN 08-10 17:04 → INTOOBSV 08-10 17:04 → 5NMEDONC 08-10 19:08 → UNDODISIN 08-14 16:15
PROVIDERS: ADMIT Hospitalist; ATTEND Hospitalist
DX: F01.50 Vascular dementia, unspecified severity, without behavioral disturbance, psychotic disturbance, mood disturbance, and anxiety (principal); G92 Toxic encephalopathy; T43.595A Adverse effect of other antipsychotics and neuroleptics, initial encounter; T43.025A Adverse effect of tetracyclic antidepressants, initial encounter; T44.1X5A Adverse effect of other parasympathomimetics [cholinergics], initial encounter; R53.81 Other malaise; I10 Essential (primary) hypertension; E78.00 Pure hypercholesterolemia, unspecified; K21.9 Gastro-esophageal reflux disease without esophagitis; F51.04 Psychophysiologic insomnia; E03.9 Hypothyroidism, unspecified; R07.89 Other chest pain; R41.89 Other symptoms and signs involving cognitive functions and awareness; E86.0 Dehydration; R26.2 Difficulty in walking, not elsewhere classified; E66.9 Obesity, unspecified; Z68.31 Body mass index [BMI] 31.0-31.9, adult; M19.91 Primary osteoarthritis, unspecified site; E78.5 Hyperlipidemia, unspecified; F41.9 Anxiety disorder, unspecified; Z20.822 Contact with and (suspected) exposure to COVID-19; F32.9 Major depressive disorder, single episode, unspecified; Z87.891 Personal history of nicotine dependence; Z79.82 Long term (current) use of aspirin; Z79.899 Other long term (current) drug therapy; Z88.8 Allergy status to other drugs, medicaments and biological substances
CPT/HCPCS: 96361 ×5; 96372 ×5; 93005 ×2; 96374; 99285; 36415; 97530 ×5; 97162; 97166; 80053; 82550; 83605; 83735; 84443; 84484 ×2; 85025; 81001; 87086; 87635; 73521; 71046; 93970; G0378 ×6; C8929; J1650 ×5; J0696; Q9950; 93306; 96360

== ENCOUNTER 2020-09-08 12:50 | Inpatient (IN) | payer MEDICARE ==
[2020-09-08] MEDS ORDERED: SODIUM CHLORIDE 0.9% 500 ML 500 ML IV STA (13:31)
[2020-09-08] MEDS ORDERED: SODIUM CHLORIDE 0.9% 1,000 ML IV STA ×2 (13:31→13:56)
--- NOTE | 2020-09-08 13:36 | ED ---
Arrhythmia/Palpitations HPI - General Chief Complaint: Arrhythmia/Palpitations Stated Complaint: Chest Pain Time Seen by Provider: 09/08/20 12:55 Source: patient, family, EMS, RN notes reviewed Mode of arrival: EMS - History of Present Illness Initial Comments: This is a 75-year-old female with a history of anxiety dementia and has been taken off all of her medications for that was brought in today because she's been having loose stools for the past 4 days and this morning started developing elevated heart rate retrosternal chest pain with radiation to the left arm. Per her daughter she was noted have a heart rate of over 150 beats a minute he is given nitro did slow down to about 113 with an accelerated to about 150 beats a minute. Patient states she still has some left-sided discomfort. It was unclear whether this was secondary to her anxiety or some other etiology. MD Complaint: "heart racing", palpitations - Related Data Home Medications Medication Instructions Recorded Confirmed Calcium Carbonate/Vitamin D3 1 cap PO DAILY@89907/08/20 09/08/20 [Calcium 600 mg-D3 10 Mcg (400 Iu)] Famotidine [Pepcid] 20 mg PO DAILY PRN 07/08/20 09/08/20 Multivit-Min/FA/Lycopen/Lutein 1 tab PO DAILY@89907/08/20 09/08/20 [Centrum Silver Tablet] Nitroglycerin Sl Tabs [Nitrostat] 0.4 mg SUBLINGUAL Q5M PRN 07/08/20 09/08/20 Vitamin B Complex 1 cap PO DAILY@89907/08/20 09/08/20 Aspirin 81 mg PO DAILY@129908/09/20 09/08/20 D-Mannose 500mg 500 mg PO DAILY@89908/09/20 09/08/20 Melatonin 5 mg PO HS@209908/09/20 09/08/20 Metoprolol Tartrate [Lopressor] 100 mg PO BID@899,209908/09/20 09/08/20 Fish Oil/Dha/Epa [Fish Oil 1,200 1 cap PO DAILY@209909/08/20 09/08/20 mg Fish Oil] Ginkgo Biloba [place] Extract [Ginkgo] 120 mg PO DAILY@89909/08/20 09/08/20 Levothyroxine Sodium [Euthyrox] 50 mcg PO DAILY 09/08/20 09/08/20 Pravastatin Sodium 80 mg PO HS@2100 09/08/20 09/08/20 Ubidecarenone [Co Q-10] 200 mg PO DAILY@0900 09/08/20 09/08/20 hydrALAZINE HCL 50 mg PO TID@0900,1300,2100 09/08/20 09/08/20 Allergies Allergy/AdvReac Type Severity Reaction Status Date / Time lisinopril Allergy Unknown Verified 09/08/20 15:45 simvastatin [From Zocor] Allergy Unknown Verified 09/08/20 15:45 Review of Systems ROS Statement: Those systems with pertinent positive or pertinent negative responses have been documented in the HPI. ROS Other: All systems not noted in ROS Statement are negative. Past Medical History Past Medical History: Dementia, Hyperlipidemia, Hypertension, Thyroid Disorder Additional Past Medical History / Comment(s): Pt unreliable historian but states she thinks she has an implanted defibrillator. History of Any Multi-Drug Resistant Organisms: None Reported Past Surgical History: Orthopedic Surgery Past Psychological History: Anxiety, Depression Smoking Status: Former smoker Past Alcohol Use History: None Reported Past Drug Use History: None Reported General Exam - General Exam Comments Initial Comments: This is a well-developed well-nourished awake alert female General appearance: alert, in no apparent distress Head exam: Present: atraumatic, normocephalic, normal inspection Eye exam: Present: normal appearance, PERRL, EOMI. Absent: scleral icterus, conjunctival injection, periorbital swelling ENT exam: Present: mucous membranes dry Neck exam: Present: normal inspection. Absent: tenderness, meningismus, lymphadenopathy Respiratory exam: Present: normal lung sounds bilaterally. Absent: respiratory distress, wheezes, rales, rhonchi, stridor Cardiovascular Exam: Present: normal rhythm, tachycardia. Absent: systolic murmur, diastolic murmur, rubs, gallop, clicks GI/Abdominal exam: Present: soft, normal bowel sounds. Absent: distended, tend erness, guarding, rebound, rigid Extremities exam: Present: normal inspection, full ROM, normal capillary refill. Absent: tenderness, pedal edema, joint swelling, calf tenderness Back exam: Present: normal inspection Neurological exam: Present: alert, oriented X3, CN II-XII intact Psychiatric exam: Present: normal affect, normal mood Skin exam: Present: warm, dry, intact, normal color. Absent: rash Course Vital Signs 09/08/20 09/08/20 09/08/20 12:55 14:50 16:53 Temperature 97.7 F Pulse Rate 149 H 143 H 83 Respiratory 18 16 16 Rate Blood Pressure 139/83 143/86 128/76 O2 Sat by Pulse 95 100 99 Oximetry - Reevaluation(s) Reevaluation #1: 09/08/20 16:55 Initial EKG appeared to be consistent with either a slow SVT versus a flutter with 21 block. Patient did not respond well to the initial Cardizem. 6 mg of adenosine was given with good results and the patient was back to sinus rhythm and did say she felt better. Reevaluation #2: 09/08/20 17:08 Patient has no further chest pain. Patient did state she thought she had some bleeding secondary to hemorrhoids on my exam there was no evidence of inflamed or bleeding hemorrhoids but black colored stool which turned out to be heme positive. Reevaluation #3: 09/08/20 17:19 Post conversion EKG normal sinus rhythm of 83. Interval 166 QRS 88 QT since QTC 42/[address]-T wave duration prolonged QT EKG Findings - EKG Results: EKG: interpreted by ERMD (Tachycardic rate of 142 QRS 100 daily since QTC 332/510 minimal voltage criteria for LVH. Rhythm this is SVT versus atrial flutter with 21 block.) Medical Decision Making - Medical Decision Making I did discuss case with or constipation will be admitted with consultation by cardiology and GI. - Lab Data Result diagrams: 09/08/20 13:31 09/08/20 13:31 Lab Results 09/08/20 09/08/20 09/08/20 Range/Units 13:31 13:31 13:31 WBC 6.0 (3.8-10.6) k/uL RBC 3.34 L (3.80-5.40) m/uL Hgb 9.9 L D (11.4-16.0) gm/dL Hct 27.6 L (34.0-46.0) % MCV 82.9 (80.0-100.0) fL MCH 29.7 (25.0-35.0) pg MCHC 35.8 (31.0-37.0) g/dL RDW 13.4 (11.5-15.5) % Plt Count 308 (150-450) k/uL MPV 7.5 Neutrophils % 63 % Lymphocytes % 24 % Monocytes % 8 % Eosinophils % 2 % Basophils % 1 % Neutrophils # 3.8 (1.3-7.7) k/uL Lymphocytes # 1.5 (1.0-4.8) k/uL Monocytes # 0.5 (0-1.0) k/uL Eosinophils # 0.1 (0-0.7) k/uL Basophils # 0.0 (0-0.2) k/uL PT 10.5 (9.0-12.0) sec INR 1.0 (<1.2) APTT 22.5 (22.0-30.0) sec D-Dimer 0.58 (<0.60) mg/L FEU Sodium 136 L (137-145) mmol/L Potassium 3.7 (3.5-5.1) mmol/L Chloride 103 (98-107) mmol/L Carbon Dioxide 24 (22-30) mmol/L Anion Gap 9 mmol/L BUN 24 H (7-17) mg/dL Creatinine 0.67 (0.52-1.04) mg/dL Est GFR (CKD-EPI)AfAm >90 (>60 ml/min/1.73 sqM) Est GFR (CKD-EPI)NonAf 85 (>60 ml/min/1.73 sqM) Glucose 103 H (74-99) mg/dL Calcium 9.0 (8.4-10.2) mg/dL Magnesium 2.1 (1.6-2.3) mg/dL Total Bilirubin 0.3 (0.2-1.3) mg/dL AST 37 H (14-36) U/L ALT 26 (4-34) U/L Alkaline Phosphatase 60 (38-126) U/L Creatine Kinase 98 (30-135) U/L Troponin I (0.000-0.034) ng/mL Total Protein 5.7 L (6.3-8.2) g/dL Albumin 3.5 (3.5-5.0) g/dL TSH 1.480 (0.465-4.680) mIU/L Stool Occult Blood (Negative) 09/08/20 09/08/20 Range/Units 13:31 15:07 WBC (3.8-10.6) k/uL RBC (3.80-5.40) m/uL Hgb (11.4-16.0) gm/dL Hct (34.0-46.0) % MCV (80.0-100.0) fL MCH (25.0-35.0) pg MCHC (31.0-37.0) g/dL RDW (11.5-15.5) % Plt Count (150-450) k/uL MPV Neutrophils % % Lymphocytes % % Monocytes % % Eosinophils % % Basophils % % Neutrophils # (1.3-7.7) k/uL Lymphocytes # (1.0-4.8) k/uL Monocytes # (0-1.0) k/uL Eosinophils # (0-0.7) k/uL Basophils # (0-0.2) k/uL PT (9.0-12.0) sec INR (<1.2) APTT (22.0-30.0) sec D-Dimer (<0.60) mg/L FEU Sodium (137-145) mmol/L Potassium (3.5-5.1) mmol/L Chloride (98-107) mmol/L Carbon Dioxide (22-30) mmol/L Anion Gap mmol/L BUN (7-17) mg/dL Creatinine (0.52-1.04) mg/dL Est GFR (CKD-EPI)AfAm (>60 ml/min/1.73 sqM) Est GFR (CKD-EPI)NonAf (>60 ml/min/1.73 sqM) Glucose (74-99) mg/dL Calcium (8.4-10.2) mg/dL Magnesium (1.6-2.3) mg/dL Total Bilirubin (0.2-1.3) mg/dL AST (14-36) U/L ALT (4-34) U/L Alkaline Phosphatase (38-126) U/L Creatine Kinase (30-135) U/L Troponin I 0.107 H* (0.000-0.034) ng/mL Total Protein (6.3-8.2) g/dL Albumin (3.5-5.0) g/dL TSH (0.465-4.680) mIU/L Stool Occult Blood Positive H (Negative) - Radiology Data Radiology results: report reviewed (Imaging reviewed no acute findings.), image reviewed Disposition Clinical Impression: Supraventricular tachycardia, Elevated troponin, GI bleed, Anemia, Chest pain Disposition: ADMITTED IP TO THIS [facility] Condition: Fair Referrals: Zac Thurston DO [Primary Care Provider] - 1-2 days
[2020-09-08 14:18] LABS: Basophils % (A) 1 %; Eosinophils # (A) 0.1 k/uL (0-0.7); Eosinophils % (A) 2 %; HCT 27.6 % (34.0-46.0); Lymphocytes # (A) 1.5 k/uL (1.0-4.8); Lymphocytes % (A) 24 %; MCH 29.7 pg (25.0-35.0); MCHC 35.8 g/dL (31.0-37.0); MCV 82.9 fL (80.0-100.0); Mean Platelet Volume 7.5; Monocytes # (A) 0.5 k/uL (0-1.0); Monocytes % (A) 8 %; Neutrophils # (A) 3.8 k/uL (1.3-7.7); Neutrophils % (A) 63 %; Platelet Count 308 k/uL (150-450); RBC 3.34 m/uL (3.80-5.40); RDW 13.4 % (11.5-15.5)
[2020-09-08 14:21] LABS: HGB 9.9 gm/dL (11.4-16.0)
[2020-09-08 14:29] LABS: ALT 26 U/L (4-34); AST 37 U/L (14-36); African American GFR (CKD) >90 (>60 ml/min/1.73 sqM); Albumin 3.5 g/dL (3.5-5.0); Alkaline Phosphatase 60 U/L (38-126); Anion Gap 9 mmol/L; Blood Urea Nitrogen 24 mg/dL (7-17); Carbon Dioxide 24 mmol/L (22-30); Chloride 103 mmol/L (98-107); Creatine Kinase 98 U/L (30-135); Glucose 103 mg/dL (74-99); Magnesium 2.1 mg/dL (1.6-2.3); Non-African American GFR(CKD) 85 (>60 ml/min/1.73 sqM); Potassium 3.7 mmol/L (3.5-5.1); Sodium 136 mmol/L (137-145); Total Bilirubin 0.3 mg/dL (0.2-1.3); Total Protein 5.7 g/dL (6.3-8.2)
--- NOTE | 2020-09-08 14:30 | XR ---
EXAMINATION TYPE: XR chest 2V DATE OF EXAM: 09/08/2020 COMPARISON: Chest x-ray 08/09/2020 HISTORY: Dysrhythmia, epigastric pain TECHNIQUE: Frontal and lateral views of the chest are obtained. FINDINGS: There is rotated. There are overlying artifacts. There is no focal air space opacity, pleur al effusion, or pneumothorax seen. The cardiac silhouette size is within normal limits. The osseou s structures are intact. IMPRESSION: No acute cardiopulmonary process.
[2020-09-08 14:39] LABS: Partial Thromboplastin Time 22.5 sec (22.0-30.0); Prothrombin Time 10.5 sec (9.0-12.0)
[2020-09-08] MEDS ORDERED: DILTIAZEM DRIP BOLUS FROM BAG 1 MG SOLN IV ONE ×2 (14:41→15:59)
[2020-09-08] MEDS ORDERED: DILTIAZEM 125 MG in SODIUM CHLORIDE 0.9% 100 ML IV SCH (15:00)
[2020-09-08] MEDS ORDERED: ADENOSINE 3 MG/ML 2 ML VIAL IVP STA (16:16)
[2020-09-08] MEDS ORDERED: FAMOTIDINE 20 MG/2 ML VIAL IV STA (16:59)
[2020-09-08] MEDS ORDERED: NITROGLYCERIN SL TABS 0.4 MG TAB SUBLINGUAL PRN ×2 (17:20→19:53)
[2020-09-08] MEDS ORDERED: SODIUM CHLORIDE 0.9% 1,000 ML IV SCH (17:30)
[2020-09-08 19:26] LABS: Basophils % (A) 1 %; Eosinophils # (A) 0.1 k/uL (0-0.7); Eosinophils % (A) 2 %; HCT 35.8 % (34.0-46.0); HGB 12.3 gm/dL (11.4-16.0); Lymphocytes # (A) 1.1 k/uL (1.0-4.8); Lymphocytes % (A) 23 %; MCHC 34.4 g/dL (31.0-37.0); MCV 84.3 fL (80.0-100.0); Mean Platelet Volume 7.6; Monocytes # (A) 0.3 k/uL (0-1.0); Monocytes % (A) 6 %; Neutrophils # (A) 3.2 k/uL (1.3-7.7); Neutrophils % (A) 66 %; Platelet Count 255 k/uL (150-450); RBC 4.25 m/uL (3.80-5.40); RDW 13.4 % (11.5-15.5); WBC 4.8 k/uL (3.8-10.6)
[2020-09-08] MEDS ORDERED: FAMOTIDINE 20 MG TAB PO PRN (19:53)
[2020-09-08] MEDS: METOPROLOL TARTRATE 50 MG TAB PO SCH (20:56)
[2020-09-08] MEDS: MELATONIN 5 MG TABLET PO SCH (20:56)
[2020-09-08] MEDS: PRAVASTATIN SODIUM 80 MG TAB PO SCH (20:56)
[2020-09-08] MEDS: hydrALAZINE HCL 50 MG TAB PO SCH (20:56)
[2020-09-08] MEDS ORDERED: NON FORMULARY DRUG (Fish Oil/Dha/Epa [Fish Oil 1,200 Mg Fish Oil] 1 EACH Capsule) PO SCH (21:00)
--- NOTE | 2020-09-08 21:37 | P.HPIM ---
History of Present Illness H&P Date: 09/08/20 Chief Complaint: Chest pain History of presenting complaint: This is a pleasant 75-year-old patient who follows with Dr. Thurston. Chronic stable medical conditions include hyperlipidemia, hypertension, hypothyroid. Diagnosis of neurocognitive disorder. She started having hallucinations in 2018 and she was diagnosed then with dementia. started seeing people that through television and started to connect with them. Have started having some interactions. Also with episodes that she'll start screaming at people. Diagnosed with major neurocognitive disorder and psychosis and was discharged on 07/17/2020 August 10 through 08/14/2020 Admitted with side effects of antipsychotics causing increasing medical debility, encephalopathic. Zyprexa, mirtazapine and Aricept was discontinued. Synthroid was resumed.. started sleeping better. Patient is very choosy about eating hospital food. statin felt to be contributing to some muscle weakness was halved. Patient was discharged to the [facility]. Patient now presents this morning started having increasing heart rate and chest pressure going chest, with radiation radiation to the left arm. Has been feeling bit dizzy tired slightly short of breath. Heart and was getting up to the 150s. Hence patient was brought down the ER. Patient's troponin coming back positive. Cardiology has been informed. Review of systems: GEN.: Tired, EYES: None HEENT: None NECK: None RESPIRATORY: As above CARDIOVASCULAR: As above GASTROINTESTINAL: None GENITOURINARY: Some urinary incontinence MUSCULOSKELETAL: Some joint pains LYMPHATICS: None HEMATOLOGICAL: None PSYCHIATRY: Anxious NEUROLOGICAL: None Past medical history to include: Hypertension, hyperlipidemia, hypothyroid, anxiety, depression, dementia, psychosis Social history: Lives with her a daughter. Drinks alcohol rarely. Patient smoked for about 20- 30 years stopped about 30 years ago. Physical examination: VITAL SIGNS: 97.7, 78, 18, 147/61, 98% on room air GENERAL: BMI 28.5, reclining in bed, tired EYES: Pupils equal. Conjunctiva normal. HEENT: External appearance of nose and ears normal, oral cavity grossly normal. NECK: JVD not raised; masses not palpable. HEART: First and second heart sounds are normal; mild edema. LUNGS: Respiratory rate normal; clear to auscultation. ABDOMEN: Soft, nontender, liver spleen not palpable, no masses palpable. PSYCH: AO 3, mood and affect slightly low MUSCULOSKELETAL: Evidence of OA especially in the hands. NEUROLOGICAL: Cranial nerves grossly intact; no facial asymmetry, power and sensation grossly intact. LYMPHATICS: No lymph nodes palpable in the axilla and neck INVESTIGATIONS, reviewed in the clinical context: WBC 4.8 hemoglobin 12.3 platelets 255 potassium 3.7 creatinine 0.67 Troponin I 0.107, 1.76 TSH 1.4 Stool occult blood positive EKG tracing personally reviewed by me-normal sinus rhythm, nonspecific ST and T wave abnormality. Prolonged QT Previous EKG personally reviewed by me shows an SVT pattern rate of 142 Chest x-ray film personally reviewed by me-[patient rotated to the right: No obvious infiltrate Assessment and plan: -Acute non-Q wave myocardial infarction Aspirin, Lopressor,. Cardiology informed. Start IV heparin -Paroxysmal SVT On Lopressor. IV Cardizem started in the ER -Essential hypertension Lopressor -Hypercholesterolemia Continue with Pravachol -GERD Continue with Protonix -Chronic insomnia long-standing Continue with melatonin -Hypothyroid Synthroid - Moderate cognitive impairment from dementia -Primary osteoarthritis, bilateral multiple joints Continue with Tylenol when necessary -Chronic psychosis Patient taken off multiple medications on last admission Started on IV heparin. Pravachol, aspirin, Lopressor. Cardiology consulted Past Medical History Past Medical History: Dementia, Hyperlipidemia, Hypertension, Thyroid Disorder Additional Past Medical History / Comment(s): Pt unreliable historian but states she thinks she has an implanted defibrillator. History of Any Multi-Drug Resistant Organisms: None Reported Past Surgical History: Orthopedic Surgery Past Psychological History: Anxiety, Depression Smoking Status: Former smoker Past Alcohol Use History: None Reported Past Drug Use History: None Reported Medications and Allergies Home Medications Medication Instructions Recorded Confirmed Type Calcium Carbonate/Vitamin D3 1 cap PO DAILY@89907/08/20 09/08/20 History [Calcium 600 mg-D3 10 Mcg (400 Iu)] Famotidine [Pepcid] 20 mg PO DAILY PRN 07/08/20 09/08/20 History Multivit-Min/FA/Lycopen/Lutein 1 tab PO DAILY@89907/08/20 09/08/20 History [Centrum Silver Tablet] Nitroglycerin Sl Tabs [Nitrostat] 0.4 mg SUBLINGUAL Q5M PRN 07/08/20 09/08/20 History Vitamin B Complex 1 cap PO DAILY@89907/08/20 09/08/20 History Aspirin 81 mg PO DAILY@1300 08/09/20 09/08/20 History D-Mannose 500mg 500 mg PO DAILY@0900 08/09/20 09/08/20 History Melatonin 5 mg PO HS@209908/09/20 09/08/20 History Metoprolol Tartrate [Lopressor] 100 mg PO BID@0900,2100 08/09/20 09/08/20 History Fish Oil/Dha/Epa [Fish Oil 1,200 1 cap PO DAILY@209909/08/20 09/08/20 History mg Fish Oil] Ginkgo Biloba [place] Extract [Ginkgo] 120 mg PO DAILY@0900 09/08/20 09/08/20 History Levothyroxine Sodium [Euthyrox] 50 mcg PO DAILY 09/08/20 09/08/20 History Pravastatin Sodium 80 mg PO HS@209909/08/20 09/08/20 History Ubidecarenone [Co Q-10] 200 mg PO DAILY@0909/08/20 09/08/20 History hydrALAZINE HCL 50 mg PO TID@0900,1300,209909/08/20 09/08/20 History Allergies Allergy/AdvReac Type Severity Reaction Status Date / Time lisinopril Allergy Unknown Verified 09/08/20 15:45 simvastatin [From Zocor] Allergy Unknown Verified 09/08/20 15:45 Physical Exam Vitals: Vital Signs Temp Pulse Pulse Resp BP BP Pulse Ox 09/08/20 20:00 97.7 F 78 18 147/61 98 09/08/20 18:36 80 09/08/20 17:41 97.8 F 79 16 135/63 96 09/08/20 16:53 83 16 128/76 99 09/08/20 14:50 143 H 16 143/86 100 09/08/20 14:00 140 H 09/08/20 12:55 97.7 F 149 H 18 139/83 95 Intake and Output 09/08/20 09/08/20 09/08/20 06:59 14:59 22:59 Intake Total 5.5 Balance 5.5 Intake: Intake, IV Titration 5.5 Amount Diltiazem 125 mg In 5.5 Sodium Chloride 0.9% 100 ml @ 5 MG/HR 5 mls/hr IV .Q24H [facility] Rx#:[id number] Other: # Voids 1 Weight 75.75 kg 68.5 kg Results CBC & Chem 7: 09/08/20 18:51 09/08/20 13:31 Labs: Abnormal Lab Results - Last 24 Hours (Table) 09/08/20 09/08/20 09/08/20 Range/Units 13:31 13:31 13:31 RBC 3.34 L (3.80-5.40) m/uL Hgb 9.9 L D (11.4-16.0) gm/dL Hct 27.6 L (34.0-46.0) % Sodium 136 L (137-145) mmol/L BUN 24 H (7-17) mg/dL Glucose 103 H (74-99) mg/dL AST 37 H (14-36) U/L Troponin I 0.107 H* (0.000-0.034) ng/mL Total Protein 5.7 L (6.3-8.2) g/dL Stool Occult Blood (Negative) 09/08/20 09/08/20 Range/Units 15:07 18:51 RBC (3.80-5.40) m/uL Hgb (11.4-16.0) gm/dL Hct (34.0-46.0) % Sodium (137-145) mmol/L BUN (7-17) mg/dL Glucose (74-99) mg/dL AST (14-36) U/L Troponin I 1.760 H* (0.000-0.034) ng/mL Total Protein (6.3-8.2) g/dL Stool Occult Blood Positive H (Negative)
[2020-09-09] MEDS: LEVOTHYROXINE 50 MCG TAB PO SCH (05:30)
[2020-09-09 08:04] LABS: HCT 31.9 % (34.0-46.0); HGB 11.2 gm/dL (11.4-16.0); MCH 29.6 pg (25.0-35.0); MCHC 35.2 g/dL (31.0-37.0); Mean Platelet Volume 7.6; Platelet Count 234 k/uL (150-450); RDW 13.4 % (11.5-15.5); WBC 4.7 k/uL (3.8-10.6)
[2020-09-09 08:40] LABS: African American GFR (CKD) >90 (>60 ml/min/1.73 sqM); Anion Gap 6 mmol/L; Blood Urea Nitrogen 19 mg/dL (7-17); Calcium 8.8 mg/dL (8.4-10.2); Carbon Dioxide 24 mmol/L (22-30); Chloride 108 mmol/L (98-107); Glucose 90 mg/dL (74-99); Non-African American GFR(CKD) 89 (>60 ml/min/1.73 sqM); Potassium 3.8 mmol/L (3.5-5.1); Sodium 138 mmol/L (137-145)
[2020-09-09] MEDS ORDERED: ASPIRIN 325 MG TAB PO SCH (09:00)
[2020-09-09] MEDS ORDERED: NON FORMULARY DRUG (Ubidecarenone [Co Q-10] 100 MG Capsule) PO SCH (09:00)
[2020-09-09] MEDS ORDERED: D MANNOSE 500 MG PO SCH (09:00)
[2020-09-09] MEDS ORDERED: NON FORMULARY DRUG (Vitamin B Complex [Vitamin B Complex] 1 EACH Capsule) PO SCH (09:00)
[2020-09-09] MEDS ORDERED: NON FORMULARY DRUG (Ginkgo Biloba Leaf Extract [Ginkgo] 60 MG Tablet) PO SCH (09:00)
--- NOTE | 2020-09-09 09:55 | CONS ---
CONSULTATION CHIEF COMPLAINT: Chest pain. HISTORY OF PRESENT ILLNESS: Michell is a 75-year-old lady with history of dyslipidemia, hypertension who presented to hospital with symptoms of chest pain and palpitations. She was found to be in SVT with a heart rate around 150 beats per minute and converted to sinus rhythm. Her chest pain has gradually resolved. Her troponins have come back elevated. At the time of my evaluation she is chest pain free, hemodynamically stable and in no apparent distress. Her chest pain is like a pressure in the precordial area, moderate intensity and radiated to her left arm. The patient has history of hypertension, hypothyroidism, dyslipidemia, and has been diagnosed with dementia in 2019 and also has had hallucinations. On this admission they found her stool to be guaiac positive and her hemoglobin had 2 readings, one of them was around 12 and the other one has dropped and is 9.9. I am going to repeat his CBC this morning. The patient had acute non ST- segment elevation [place], which could be related to the SVT with significant underlying CAD. She is already on beta blockers which I am going to continue. Obtain a 2D echo to assess LV function and wall motion. If the hemoglobin is stable and does she does not have any active bleeding, I will consider cardiac catheterization to rule out significant obstructive CAD. PAST MEDICAL HISTORY: Significant for depression, anxiety, psychosis, dementia, hypothyroidism, hypertension, and dyslipidemia. SOCIAL HISTORY: She lives with her daughter. Quit smoking 30 years ago and drinks alcohol occasionally. REVIEW OF SYSTEMS: HEENT: Is unremarkable. CARDIAC: As described above. RESPIRATORY: Negative. GI: Negative. : Negative. ALLERGY/IMMUNOLOGY: Negative. SKIN: Negative. MUSCULOSKELETAL: Negative. ENDOCRINE: Negative. DERM: Negative. CONSTITUTIONAL: Negative. ONCOLOGICAL: Negative. JAVA CORE DEVELOPER: Significant for memory problems and history of depression and anxiety. Rest of the system review is not relevant. MEDICATIONS: Medications at home included pravastatin 80 daily, fish oil, Pepcid, aspirin, multivitamin, metoprolol 100 b.i.d., levothyroxine, hydralazine 50 t.i.d. ALLERGIES: LISINOPRIL AND SIMVASTATIN. PHYSICAL EXAMINATION: On exam she is comfortable at rest. Vital signs are stable. There is no jugular venous distention. Carotid upstroke is normal. There is no bruit. Chest exam reveals good air entry bilaterally. Heart exam reveals first and second heart sounds, a grade 2/6 ejection systolic murmur in the aortic area. Abdomen is soft. Examination of extremities reveal mild ankle edema. Peripheral pulses are palpable. LAB: Show that the hemoglobin is 11.2, white cell count is 4.7, platelet count is 234, potassium is 3.7, creatinine is 0.6. Troponins are elevated at 0.1, 1.7 and 2.2. TSH is normal at 1.4. ASSESSMENT: 1. Acute non ST-segment elevation myocardial infarction. 2. Paroxysmal supraventricular tachycardia. 3. Hypertension. PLAN: I am going to stop the IV Cardizem, resume the beta blockers, hydralazine, and Pravachol that she is on, along with the aspirin. I advised the patient to undergo cardiac catheterization. We are going to talk to the family and hopefully schedule this tomorrow, provided her hemoglobin remains stable and she is not bleeding actively. MMODL / TONGN: [id number] /
[2020-09-09] MEDS: METOPROLOL TARTRATE 50 MG TAB PO SCH ×2 (10:53→21:43)
[2020-09-09] MEDS: CALCIUM CARB-VIT D 500 MG-5 MCG TAB PO SCH (10:53)
[2020-09-09] MEDS: MULTIVITAMINS, THERA 1 EACH TAB PO SCH (10:53)
[2020-09-09] MEDS: ASPIRIN 81 MG PO SCH (10:53)
[2020-09-09] MEDS: hydrALAZINE HCL 50 MG TAB PO SCH ×3 (10:53→21:43)
[2020-09-09] MEDS ORDERED: ALPRAZolam 0.5 MG TAB PO PRN (11:14)
[2020-09-09] MEDS ORDERED: ALPRAZolam 0.25 MG TAB PO PRN (11:14)
[2020-09-09] MEDS ORDERED: NITROGLYCERIN SL TABS 0.4 MG TAB SUBLINGUAL PRN (11:14)
--- NOTE | 2020-09-09 12:00 | ECHOF ---
Referral Reason:LV function MEASUREMENTS -------- HEIGHT: 154.9 cm WEIGHT: 68.0 kg BP: IVSd: 1.0 cm (0.6 - 1.1) LVIDd: 4.1 cm (3.9 - 5.3) LVPWd: 1.3 cm (0.6 - 1.1) IVSs: 1.7 cm LVIDs: 2.1 cm LVPWs: 1.4 cm Ao Diam: 2.6 cm (2.0 - 3.7) AV Cusp: 1.5 cm (1.5 - 2.6) LA Diam: 2.9 cm (2.7 - 3.8) MV EXCURSION: 11.800 mm (> 18.000) MV EF SLOPE: 52 mm/s (70 - 150) EPSS: 3.4 cm MV E Koffi: 0.88 m/s MV DecT: 219 ms MV A Koffi: 0.91 m/s MV E/A Ratio: 0.97 AV maxP.76 mmHg AV meanP.83 mmHg RAP: 5.00 mmHg RVSP: 21.98 mmHg FINDINGS -------- This was a technically difficult study with suboptimal views. The left ventricular size is normal. Left ventricular wall thickness is normal. Overall left vent ricular systolic function is normal with, an EF between 55 - 60 %. The right ventricle is normal in size. The left atrial size is normal. The right atrium was not well visualized. Lumason used Unable to visualize the septum. Aortic valve is trileaflet and is mildly thickened. There is mild aortic stenosis present. Peak/m isauro gradient across the Aortic Valve is 28.76mmHg / 15.83mmHg. The mitral valve is normal. Mild mitral regurgitation is present. The tricuspid valve appears structurally normal. Mild tricuspid regurgitation present. Right vent ricular systolic pressure is normal at < 35 mmHg. There is no pulmonic regurgitation present. The aortic root size is normal. IVC Not well visulized. There is no pericardial effusion. CONCLUSIONS -------- 1. The left ventricular size is normal. 2. Left ventricular wall thickness is normal. 3. Overall left ventricular systolic function is normal with, an EF between 55 - 60 %. 4. Aortic valve is trileaflet and is mildly thickened. 5. There is mild aortic stenosis present. 6. Peak/mean gradient across the Aortic Valve is 28.76mmHg / 15.83mmHg. 7. Mild mitral regurgitation is present. 8. Mild tricuspid regurgitation present. 9. There is no pericardial effusion. DIGITIZER OPERATOR: Bella Wong RDCS
[2020-09-09 14:24] LABS: Chol/HDL Ratio 2.65; Cholesterol 106 mg/dL (0-200)
--- NOTE | 2020-09-09 14:40 | P.CONS ---
History of Present Illness - Reason for Consult Consult date: 09/09/20 GI bleed, anemia Requesting physician: Kana Ragland - Chief Complaint chest pain - History of Present Illness This is a 75-year-old white female who presented to the emergency department by EMS for complaints of chest pain and heart palpitations. The patient has a past medical history including dementia, hyperlipidemia, hypertension, hypothyroid, and recently diagnosed with major neurocognitive disorder and psychosis. Patient was recently hospitalized in July and August of this year for side effects of antipsychotics. The patient's daughter is at the bedside and gives most of the history stating that her mother was complaining of chest pain and pressure like bricks were laying on her chest, that eventually went down her left arm. She also states that she has been complaining of abdominal "issues" for the past month. Symptoms include abdominal pain she states has been sharp, has seen her primary care physician Dr. Jama. She underwent patient testing including a barium swallow study 06/18/2020that showed presbyesophagus, no reflexes elicited, no persistent stenosis. She also underwent an abdominal ultrasound 08/05/2020 which showed technical limitations, common bile duct limited in evaluation. The liver parenchyma is slightly heterogeneous. No discrete hepatic mass or intrahepatic biliary dilation. No gallstones. Common bile duct is normal in caliber and visualized portions. No renal calculi or hydronephrosis. There is cystic structure at the lower pole of the right kidney measuring 1.3 cm. The daughter also states she has had decreased appetite, and persistent nausea without vomiting. Monday morning she is started having diarrhea which was dark and light with bright red blood per rectum. He continued through Monday. She does have a history of hemorrhoids. No further reported diarrhea or rectal bleeding yesterday or today. Patient's daughter states she has a referral to Dr. Crane this up scheduled to see him later this month. She denied any NSAID use, does take a daily low-dose aspirin. Her last colonoscopy was approximately [address] Yu which she states was normal. She states she has colonoscopies every 3-4 years prior history of polyps. She does have a history of acid reflux and takes Pepcid as needed. On admission she was noted to have elevated troponins, they have continued to trend up. Initial hemoglobin on admission was 9.9, repeat was 12.3. She did have a possible occult stool. Cardiology is following patient and planning on cardiac catheterization tomorrow. Review of Systems REVIEW OF SYSTEMS: CARDIOPULMONARY: Chest pain/pressure prior to arrival. Gastrointestinal: Sharp abdominal pain. No nausea or vomiting. No hematemesis, coffee-ground emesis. Rectal bleeding, diarrhea multiple episodes Monday through Monday. Decreased appetite. GENITOURINARY: No dysuria or hematuria. MUSCULOSKELETAL: Reports normal range of motion., Joint pain. SKIN: No rashes. No jaundice. ENDOCRINE: No chills, fevers. No excessive weight gain or loss. No polydipsia or polyuria. PSYCHIATRIC: Unremarkable. NEUROLOGY: Dementia, recent psychosis. Denies dizziness, headache. ENT: Vision unremarkable. CONSTITUTIONAL: No recent weight loss. No fever, chills, night sweats. Past Medical History Past Medical History: Dementia, Hyperlipidemia, Hypertension, Thyroid Disorder Additional Past Medical History / Comment(s): Pt unreliable historian but states she thinks she has an implanted defibrillator. History of Any Multi-Drug Resistant Organisms: None Reported Past Surgical History: Orthopedic Surgery Past Psychological History: Anxiety, Depression Smoking Status: Former smoker Past Alcohol Use History: None Reported Past Drug Use History: None Reported Medications and Allergies Home Medications Medication Instructions Recorded Confirmed Type Calcium Carbonate/Vitamin D3 1 cap PO DAILY@0907/08/20 09/08/20 History [Calcium 600 mg-D3 10 Mcg (400 Iu)] Famotidine [Pepcid] 20 mg PO DAILY PRN 07/08/20 09/08/20 History Multivit-Min/FA/Lycopen/Lutein 1 tab PO DAILY@89907/08/20 09/08/20 History [Centrum Silver Tablet] Nitroglycerin Sl Tabs [Nitrostat] 0.4 mg SUBLINGUAL Q5M PRN 07/08/20 09/08/20 History Vitamin B Complex 1 cap PO DAILY@89907/08/20 09/08/20 History Aspirin 81 mg PO DAILY@1300 08/09/20 09/08/20 History D-Mannose 500mg 500 mg PO DAILY@0900 08/09/20 09/08/20 History Melatonin 5 mg PO HS@209908/09/20 09/08/20 History Metoprolol Tartrate [Lopressor] 100 mg PO BID@0900,209908/09/20 09/08/20 History Fish Oil/Dha/Epa [Fish Oil 1,200 1 cap PO DAILY@2100 09/08/20 09/08/20 History mg Fish Oil] Ginkgo Biloba [place] Extract [Ginkgo] 120 mg PO DAILY@0900 09/08/20 09/08/20 History Levothyroxine Sodium [Euthyrox] 50 mcg PO DAILY 09/08/20 09/08/20 History Pravastatin Sodium 80 mg PO HS@2100 09/08/20 09/08/20 History Ubidecarenone [Co Q-10] 200 mg PO DAILY@0900 09/08/20 09/08/20 History hydrALAZINE HCL 50 mg PO TID@0900,1300,2100 09/08/20 09/08/20 History Allergies Allergy/AdvReac Type Severity Reaction Status Date / Time lisinopril Allergy Unknown Verified 09/08/20 15:45 simvastatin [From Zocor] Allergy Unknown Verified 09/08/20 15:45 Physical Exam Vitals: Vital Signs Temp Pulse Pulse Resp BP BP Pulse Ox 09/09/20 09:30 98.1 F 90 18 178/74 97 09/09/20 04:00 73 18 131/60 97 09/09/20 01:39 63 18 09/09/20 00:00 63 18 106/48 97 09/08/20 20:00 97.7 F 78 18 147/61 98 09/08/20 18:36 80 09/08/20 17:41 97.8 F 79 16 135/63 96 09/08/20 16:53 83 16 128/76 99 09/08/20 14:50 143 H 16 143/86 100 09/08/20 14:00 140 H 09/08/20 12:55 97.7 F 149 H 18 139/83 95 Intake and Output 09/08/20 09/09/20 09/09/20 22:59 06:59 14:59 Intake Total 5.5 119.5 Balance 5.5 119.5 Intake: Intake, IV Titration 5.5 119.5 Amount Diltiazem 125 mg In 5.5 119.5 Sodium Chloride 0.9% 100 ml @ 5 MG/HR 5 mls/hr IV .Q24H [facility] Rx#:[id number] Other: # Voids 1 1 Weight 68.5 kg 86 kg General appearance: The patient is alert, oriented, appears in no acute distress. HET: Head is normocephalic and atraumatic. Conjunctiva pink. Sclera anicteric. Neck: Supple without lymphadenopathy. Trachea midline. Heart: S1 S2. Regular rate and rhythm. Lungs: Clear to auscultation. Abdomen: Soft, epigastric and lower abdominal tenderness, nondistended with bowel sounds. No guarding or rigidity. Skin: No rashes. No jaundice. Extremities: Normal skin color and turgor. No pedal edema. Neurological: No focal deficits. Alert and oriented 1.. Results CBC & Chem 7: 09/09/20 07:24 09/09/20 07:24 Labs: Abnormal Lab Results - Last 24 Hours (Table) 09/08/20 09/08/20 09/08/20 Range/Units 13:31 13:31 13:31 RBC 3.34 L (3.80-5.40) m/uL Hgb 9.9 L D (11.4-16.0) gm/dL Hct 27.6 L (34.0-46.0) % Sodium 136 L (137-145) mmol/L Chloride (98-107) mmol/L BUN 24 H (7-17) mg/dL Glucose 103 H (74-99) mg/dL AST 37 H (14-36) U/L Troponin I 0.107 H* (0.000-0.034) ng/mL Total Protein 5.7 L (6.3-8.2) g/dL Stool Occult Blood (Negative) 09/08/20 09/08/20 09/08/20 Range/Units 15:07 18:51 23:00 RBC (3.80-5.40) m/uL Hgb (11.4-16.0) gm/dL Hct (34.0-46.0) % Sodium (137-145) mmol/L Chloride (98-107) mmol/L BUN (7-17) mg/dL Glucose (74-99) mg/dL AST (14-36) U/L Troponin I 1.760 H* 2.280 H* (0.000-0.034) ng/mL Total Protein (6.3-8.2) g/dL Stool Occult Blood Positive H (Negative) 09/09/20 09/09/20 Range/Units 07:24 07:24 RBC (3.80-5.40) m/uL Hgb 11.2 L (11.4-16.0) gm/dL Hct 31.9 L (34.0-46.0) % Sodium (137-145) mmol/L Chloride 108 H (98-107) mmol/L BUN 19 H (7-17) mg/dL Glucose (74-99) mg/dL AST (14-36) U/L Troponin I (0.000-0.034) ng/mL Total Protein (6.3-8.2) g/dL Stool Occult Blood (Negative) Assessment and Plan (1) GI bleed Narrative/Plan: 75-year-old female who presented to the emergency department with complaints of chest pain and pressure that radiated to her left arm. Was noted to have an elevation in troponins continued to trend up. Patient is being followed by cardiology and plan is for cardiac catheterization tomorrow. Patient was noted to have an initial hemoglobin of 9.9 with a repeat at 12.3. She has had compla ints of diarrhea with bright red blood per rectum with the known history of hemorrhoids and a positive occult stool. Patient has also had complaints of abdominal pain for the last month with decreased appetite and persistent nausea without vomiting. Patient has had outpatient workup including abdominal ultrasound and barium swallow. Barium swallow showed presbyesophagus no other significant findings. Abdominal ultrasound unremarkable. Patient denies any anticoagulation or NSAID use. She does take a low-dose daily aspirin, and Pepcid as needed for acid reflux. She has no known previous EGD, her last colonoscopy was approximately 2 years ago which the daughter states was normal. She has colonoscopies every 3-4 years for history of colon polyps. There are no plans at this time for endoscopic evaluation due to cardiac event. Patient has appointment scheduled with Dr. Crane later this month. Current Visit: Yes Status: Acute Code(s): K92.2 - GASTROINTESTINAL HEMORRHAGE, UNSPECIFIED SNOMED Code(s): 38342983 (2) Chest pain Current Visit: Yes Status: Acute Code(s): R07.9 - CHEST PAIN, UNSPECIFIED SNOMED Code(s): 93724316 (3) Elevated troponin Narrative/Plan: Cardiology following, plan is for cardiac catheterization tomorrow Current Visit: Yes Status: Acute Code(s): R77.8 - OTHER SPECIFIED ABNORMALITIES OF PLASMA PROTEINS SNOMED Code(s): 253684398 Plan: 1. Clear liquid diet, nothing by mouth after midnight 2. Daily CBC 3. Avoid NSAIDs 4. Protonix 40 mg daily 5. Stool studies ordered 6. Continue with recommendations per cardiology 7. No plans for endoscopic evaluation at this time, hemoglobin is stable and bleeding likely due to known hemorrhoids. Continue with cardiac workup. 8. Patient to follow-up with Dr. Crane as scheduled Thank you for this consultation, we will continue to follow Dr. Cheung I agree with the dictator's note, documented as a scribe by Rosy Blake.
--- NOTE | 2020-09-09 19:17 | P.PN ---
Progress Note - Text Progress Note Date: 09/09/20 Chief Complaint: Chest pain History of presenting complaint: This is a pleasant 75-year-old patient who follows with Dr. Thurston. Chronic stable medical conditions include hyperlipidemia, hypertension, hypothyroid. Diagnosis of neurocognitive disorder. She started having hallucinations in 2018 and she was diagnosed then with dementia. started seeing people that through television and started to connect with them. Have started having some interactions. Also with episodes that she'll start screaming at people. Diagnosed with major neurocognitive disorder and psychosis and was discharged on 07/17/2020 August 10 through 08/14/2020 Admitted with side effects of antipsychotics causing increasing medical debility, encephalopathic. Zyprexa, mirtazapine and Aricept was discontinued. Synthroid was resumed.. started sleeping better. Patient is very choosy about eating hospital food. statin felt to be contributing to some muscle weakness was halved. Patient was discharged to the [facility]. Patient now presents this morning started having increasing heart rate and chest pressure going chest, with radiation radiation to the left arm. Has been feeling bit dizzy tired slightly short of breath. Heart and was getting up to the 150s. Hence patient was brought down the ER. Patient's troponin coming back positive. Cardiology has been informed. Admitted with acute non-Q-wave GA, SVT. Started IV heparin Today: Laying in bed. Tired. On IV heparin. Daughter the bedside. Seen by cardiology. For a cardiac cath tomorrow. Review of systems: Was done for constitutional, cardiovascular, GI, pulmonary. relevant finding as above Active Medications Alprazolam (Alprazolam 0.25 Mg Tab) 0.25 mg PO Q6HR PRN PRN Reason: Mild Anxiety Alprazolam (Alprazolam 0.5 Mg Tab) 0.5 mg PO Q6HR PRN PRN Reason: Moderate Anxiety Aspirin (Aspirin 81 Mg) 81 mg PO DAILY@1300 [facility] Last Admin: 09/09/20 10:53 Dose: 81 mg Documented by: Aspirin (Aspirin 325 Mg Tab) 325 mg PO ONCE ONE Stop: 09/10/20 07:01 Calcium Carbonate (Calcium Carb-Vit D 500 Mg-5 Mcg Tab) 1 each PO DAILY@0900 [facility] Last Admin: 09/09/20 10:53 Dose: Not Given Documented by: Famotidine (Famotidine 20 Mg Tab) 20 mg PO DAILY PRN PRN Reason: Heartburn Hydralazine HCl (Hydralazine Hcl 50 Mg Tab) 50 mg PO TID@0900,1300,2100 [facility] Last Admin: 09/09/20 15:32 Dose: 50 mg Documented by: Sodium Chloride 1,000 ml/ IV (Solution) 1,000 mls @ 86 mls/hr IV .[id number] ONE Stop: 09/10/20 10:37 Heparin Sodium (Porcine) 10, (000 unit/ Sodium Chloride) 1,001 mls @ 999 mls/hr IRRIGATION ONCE PRN PRN Reason: INTRA-OP Stop: 09/10/20 23:00 Heparin Sodium (Porcine) 2,500 (unit/ Sodium Chloride) 250.5 mls @ 250 mls/hr IRRIGATION ONCE PRN PRN Reason: INTRA-OP Stop: 09/10/20 23:00 Levothyroxine Sodium (Levothyroxine 50 Mcg Tab) 50 mcg PO DAILY@0630 [facility] Last Admin: 09/09/20 05:30 Dose: 50 mcg Documented by: Melatonin (Melatonin 5 Mg Tablet) 5 mg PO HS@2100 [facility] Last Admin: 09/08/20 20:56 Dose: 5 mg Documented by: Metoprolol Tartrate (Metoprolol Tartrate 50 Mg Tab) 100 mg PO BID@0900,2100 [facility] Last Admin: 09/09/20 10:53 Dose: 100 mg Documented by: Multivitamins (Multivitamins, Thera 1 Each Tab) 1 each PO DAILY@0900 [facility] Last Admin: 09/09/20 10:53 Dose: Not Given Documented by: Nitroglycerin (Nitroglycerin Sl Tabs 0.4 Mg Tab) 0.4 mg SUBLINGUAL Q5M PRN PRN Reason: Chest Pain Nitroglycerin (Nitroglycerin Sl Tabs 0.4 Mg Tab) 0.4 mg SUBLINGUAL Q5M PRN PRN Reason: Chest Pain Pantoprazole Sodium (Pantoprazole 40 Mg/10 Ml Vial) 40 mg IVP DAILY [facility] Pravastatin Sodium (Pravastatin Sodium 80 Mg Tab) 80 mg PO HS@2100 [facility] Last Admin: 09/08/20 20:56 Dose: 80 mg Documented by: Past medical history to include: Hypertension, hyperlipidemia, hypothyroid, anxiety, depression, dementia, psychosis Social history: Lives with her a daughter. Drinks alcohol rarely. Patient smoked for about 20- 30 years stopped about 30 years ago. Physical examination: VITAL SIGNS: 98.1, 90, 18, 130/60, 97% room air GENERAL:, reclining in bed, tired EYES: Pupils equal. Conjunctiva normal. HEENT: External appearance of nose and ears normal, oral cavity grossly normal. NECK: JVD not raised; masses not palpable. HEART: First and second heart sounds are normal; mild edema. LUNGS: Respiratory rate normal; clear to auscultation. ABDOMEN: Soft, nontender, liver spleen not palpable, no masses palpable. PSYCH: AO 3, mood and affect slightly low MUSCULOSKELETAL: Evidence of OA especially in the hands. INVESTIGATIONS, reviewed in the clinical context: September 09: WBC 4.7 hemoglobin 11.2 platelets 234 potassium 3.8 creatinine 0.59 WBC 4.8 hemoglobin 12.3 platelets 255 potassium 3.7 creatinine 0.67 Troponin I 0.107, 1.76, 2.2 LDL 48 TSH 1.4 Stool occult blood positive EKG tracing personally reviewed by me-normal sinus rhythm, nonspecific ST and T wave abnormality. Prolonged QT Previous EKG personally reviewed by me shows an SVT pattern rate of 142 Chest x-ray film personally reviewed by me-[patient rotated to the right: No obvious infiltrate Assessment and plan: -Acute non-Q wave myocardial infarction: Slow to respond Aspirin, Lopressor,. IV heparin-pending cardiac cath -Paroxysmal SVT On Lopressor. IV Cardizem started in the ER-discontinued -Essential hypertension Lopressor, hydralazine -Hypercholesterolemia Continue with Pravachol -GERD Continue with Protonix -Chronic insomnia long-standing Continue with melatonin -Hypothyroid Synthroid - Moderate cognitive impairment from dementia -Primary osteoarthritis, bilateral multiple joints Continue with Tylenol when necessary -Chronic psychosis-stable Patient taken off multiple medications on last admission -IV heparin monitoring Follow PTT Care was discussed with the patient and daughter the bedside. Per cardiology cardiac catheterize her tomorrow. Continue current medication including IV heparin.
[2020-09-09] MEDS: PRAVASTATIN SODIUM 80 MG TAB PO SCH (21:43)
[2020-09-09] MEDS: MELATONIN 5 MG TABLET PO SCH (21:43)
[2020-09-09] MEDS ORDERED: SODIUM CHLORIDE 0.9% 1,000 ML in EMPTY BAG 1 BAG IV ONE (23:00)
[2020-09-10] MEDS: METOPROLOL TARTRATE 50 MG TAB PO SCH ×2 (06:20→20:31)
[2020-09-10] MEDS: hydrALAZINE HCL 50 MG TAB PO SCH ×3 (06:20→20:31)
[2020-09-10] MEDS: MULTIVITAMINS, THERA 1 EACH TAB PO SCH (06:20)
[2020-09-10] MEDS: CALCIUM CARB-VIT D 500 MG-5 MCG TAB PO SCH (06:20)
[2020-09-10] MEDS: LEVOTHYROXINE 50 MCG TAB PO SCH (06:21)
[2020-09-10] MEDS: PANTOPRAZOLE 40 MG/10 ML VIAL IVP SCH (06:21)
[2020-09-10] MEDS ORDERED: HEPARIN SODIUM,PORCINE 10,000 UNIT in SODIUM CHLORIDE 0.9% 1,000 ML IRRIGATION PRN (07:00)
[2020-09-10] MEDS ORDERED: ASPIRIN 325 MG TAB PO ONE (07:00)
[2020-09-10] MEDS ORDERED: HEPARIN SODIUM,PORCINE 2,500 UNIT in SODIUM CHLORIDE 0.9% 250 ML IRRIGATION PRN (07:00)
[2020-09-10] MEDS ORDERED: ATORVASTATIN 80 MG TAB PO ONE (07:00)
[2020-09-10] MEDS: ASPIRIN 81 MG PO SCH (08:11)
[2020-09-10] MEDS ORDERED: HEPARIN SODIUM 1,000 UN/ML (10ML VL) ONE (08:31)
[2020-09-10] MEDS ORDERED: LIDOCAINE 1% INJ 10MG/ML (20 ML MDV) ONE ×2 (08:32→09:16)
[2020-09-10] MEDS ORDERED: VERAPAMIL 2.5 MG/ML 2 ML AMP ONE ×2 (08:32→09:19)
[2020-09-10] MEDS ORDERED: IV FLUID CONTINUATION 1,000 ML IV ONE (08:35)
[2020-09-10] MEDS ORDERED: fentaNYL (PF) 50 MCG/ML 2 ML AMP ONE (08:55)
[2020-09-10] MEDS ORDERED: fentaNYL (PF) 50 MCG/ML 2 ML AMP IVP ONE (09:03)
[2020-09-10] MEDS ORDERED: MIDAZOLAM 2 MG/2 ML VIAL IVP ONE (09:03)
[2020-09-10] MEDS ORDERED: LIDOCAINE 1% INJ 10MG/ML (20 ML MDV) SQ ONE ×2 (09:06)
[2020-09-10] MEDS ORDERED: LIDOCAINE 1% INJ 10MG/ML (10 ML MDV) SQ ONE (09:20)
[2020-09-10] MEDS ORDERED: VERAPAMIL SYRINGE (5 MG/10 ML) INTRAARTER ONE (09:31)
[2020-09-10] MEDS ORDERED: HEPARIN SODIUM 1,000 UN/ML (10ML VL) IV ONE (09:41)
[2020-09-10] MEDS ORDERED: IOPAMIDOL-370 125ML BTL INJ ONE (09:45)
[2020-09-10] MEDS ORDERED: RX INFO: IV CONTRAST WAS GIVEN 1 EACH MISC MISCELLANE PRN (09:57)
--- NOTE | 2020-09-10 10:01 | P.CARDCATH ---
Date of Procedure: 09/10/20 Description of Procedure: Cardiac catheterization was attempted from both right femoral approach and also from right radial approach. The right groin is infiltrated with lidocaine. Right femoral artery was entered using Seldinger technique. However, the guidewire would not advance and it was felt that patient has disease in the iliac arteries. The procedure was abandoned. Subsequently the right wrist is infiltrated with lidocaine. Right radial artery was entered and the guidewire would not go beyond mid humeral area. Injections size to that guidewire was going to a side branch. Attempts to get into main artery was unsuccessful. A total of 40 minutes was spent during the procedure. At this point the procedure was canceled. Patient will be transferred to [place] and medical therapy will be advised. If further evaluation is necessary, may consider brachial approach.
[2020-09-10] MEDS: SODIUM CHLORIDE 0.9% 1,000 ML IV SCH ×2 (10:12→23:51)
[2020-09-10 11:51] LABS: Basophils # (A) 0.1 k/uL (0-0.2); Basophils % (A) 1 %; Eosinophils # (A) 0.1 k/uL (0-0.7); Eosinophils % (A) 1 %; HCT 31.8 % (34.0-46.0); HGB 11.1 gm/dL (11.4-16.0); Lymphocytes # (A) 0.7 k/uL (1.0-4.8); Lymphocytes % (A) 16 %; MCH 29.4 pg (25.0-35.0); MCHC 34.9 g/dL (31.0-37.0); MCV 84.1 fL (80.0-100.0); Mean Platelet Volume 7.1; Monocytes # (A) 0.3 k/uL (0-1.0); Monocytes % (A) 7 %; Neutrophils # (A) 3.2 k/uL (1.3-7.7); Neutrophils % (A) 73 %; Platelet Count 209 k/uL (150-450); RBC 3.79 m/uL (3.80-5.40); RDW 13.4 % (11.5-15.5); WBC 4.4 k/uL (3.8-10.6)
--- NOTE | 2020-09-10 11:59 | P.PN ---
Subjective Progress Note Date: 09/10/20 HISTORY OF PRESENT ILLNESS: 75 year old female who follows with Dr. Quintero who is admitted to the hospital secondary to non-STEMI. Patient was scheduled for cardiac catheterizati on today however this was not performed. Attempts were made through the right femoral artery and the guidewire would not advance and was felt to be likely secondary to disease in the iliac arteries. Procedure was attempted via right radial artery and the guidewire would not advance past the mid humeral area and the procedure was cancelled. Patient examined at the bedside with her daughter present. Patient currently denies chest pain. She denies shortness of breath. Vital signs are stable. Echocardiogram was performed revealing ejection fraction 55-60%, mild aortic stenosis, mild mitral regurgitation, and mild tricuspid regurgitation. PHYSICAL EXAM: VITAL SIGNS: Reviewed. GENERAL: Well-developed in no acute distress. NECK: Supple. No JVD or thyromegaly LUNGS: Respirations even and unlabored. Lungs essentially clear to auscultation bilaterally. HEART: Regular rate and rhythm. S1 and S2 heard. EXTREMITIES: Normal range of motion. No clubbing or cyanosis. Peripheral pulses intact. No lower extremity edema ASSESSMENT: Non-STEMI Paroxysmal supraventricular tachycardia Hypertension PLAN: Continue current cardiac medications We will continue with medical management at this time If patient has recurrent chest pain, will consider attempting cardiac cath via brachial approach Further recommendations pending patient course Nurse practitioner note has been reviewed by physician. Signing provider agrees with the documented findings, assessment, and plan of care. Objective - Vital Signs Vital signs: Vital Signs Temp 97.4 F L 09/10/20 10:12 Pulse 53 L 09/10/20 11:27 Resp 18 09/10/20 11:27 BP 124/60 09/10/20 11:27 Pulse Ox 99 09/10/20 11:27 Intake & Output 09/09/20 09/10/20 09/10/20 18:59 06:59 18:59 Intake Total 489.5 50 Output Total 300 Balance 489.5 -300 50 Weight 86 kg 90 kg Intake: IV 50 Intake, IV Titration 119.5 Amount Diltiazem 125 mg In 119.5 Sodium Chloride 0.9% 100 ml @ 5 MG/HR 5 mls/hr IV .Q24H [facility] Rx#:[id number] Oral 370 0 Output: Urine 300 Other: # Voids 2 0 - Labs CBC & Chem 7: 09/09/20 07:24 09/09/20 07:24
[2020-09-10] MEDS: ISOSORBIDE MONONITRATE ER 30 MG TAB.ER.24H PO SCH (12:20)
--- NOTE | 2020-09-10 13:53 | P.PN ---
Subjective Progress Note Date: 09/10/20 Principal diagnosis: Anemia, GI bleed Patient is seen and examined in her bed. She went for attempted cardiac cath this morning but was unable to complete. Patient's daughter is at bedside and states they may try again tomorrow. Patient states she is still having chest pain. She is currently denying abdominal pain. She has not had any bowel movements. Hemoglobin stable at 11.1. No signs or symptoms of GI bleed. Objective - Vital Signs Vital signs: Vital Signs Temp 97.4 F L 09/10/20 10:12 Pulse 54 L 09/10/20 10:12 Resp 18 09/10/20 10:12 BP 129/58 09/10/20 10:12 Pulse Ox 99 09/10/20 10:12 Intake & Output 09/09/20 09/10/20 09/10/20 18:59 06:59 18:59 Intake Total 489.5 50 Output Total 300 Balance 489.5 -300 50 Weight 86 kg 90 kg Intake: IV 50 Intake, IV Titration 119.5 Amount Diltiazem 125 mg In 119.5 Sodium Chloride 0.9% 100 ml @ 5 MG/HR 5 mls/hr IV .Q24H [facility] Rx#:[id number] Oral 370 0 Output: Urine 300 Other: # Voids 2 0 - Exam General appearance: The patient is alert, oriented, appears in no acute distress. HET: Head is normocephalic and atraumatic. Conjunctiva pink. Sclera anicteric. Neck: Supple without lymphadenopathy. Abdomen: Soft, right lower quadrant and epigastric tenderness, nondistended with bowel sounds. No guarding or rigidity. Extremities: Normal skin color and turgor. No pedal edema Skin: No rashes, no jaundice Neurological: No focal deficits. Alert and oriented 3. - Labs CBC & Chem 7: 09/10/20 10:46 09/09/20 07:24 Assessment and Plan (1) GI bleed Narrative/Plan: 75-year-old female who presented to the emergency department with complaints of chest pain and pressure that radiated to her left arm. Was noted to have an elevation in troponins continued to trend up. Patient is being followed by cardiology and plan is for cardiac catheterization tomorrow. Patient was noted to have an initial hemoglobin of 9.9 with a repeat at 12.3. She has had complaints of diarrhea with bright red blood per rectum with the known history of hemorrhoids and a positive occult stool. Patient has also had complaints of abdominal pain for the last month with decreased appetite and persistent nausea without vomiting. Patient has had outpatient workup including abdominal ultrasound and barium swallow. Barium swallow showed presbyesophagus no other significant findings. Abdominal ultrasound unremarkable. Patient denies any anticoagulation or NSAID use. She does take a low-dose daily aspirin, and Pepcid as needed for acid reflux. She has no known previous EGD, her last colon oscopy was approximately 2 years ago which the daughter states was normal. She has colonoscopies every 3-4 years for history of colon polyps. There are no plans at this time for endoscopic evaluation due to cardiac event. Patient has appointment scheduled with Dr. Crane later this month. Current Visit: Yes Status: Acute Code(s): K92.2 - GASTROINTESTINAL HEMORRHAGE, UNSPECIFIED SNOMED Code(s): 45638609 (2) Chest pain Current Visit: Yes Status: Acute Code(s): R07.9 - CHEST PAIN, UNSPECIFIED SNOMED Code(s): 19400582 (3) Elevated troponin Narrative/Plan: Cardiology following, plan is for cardiac catheterization tomorrow Current Visit: Yes Status: Acute Code(s): R77.8 - OTHER SPECIFIED ABNORMALITIES OF PLASMA PROTEINS SNOMED Code(s): 019675672 Plan: 1. Diet as tolerated 2. Daily CBC 3. Avoid NSAIDs 4. Protonix 40 mg daily 5. Stool studies ordered 6. Continue with recommendations per cardiology 7. No plans for endoscopic evaluation at this time, if cleared by medicine and cardiology and patient still having abdominal pain, will proceed with endoscopy. Thank you for this consultation, we will continue to follow Dr. Cheung I agree with the dictator's note, documented as a scribe by Rosy Blake.
--- NOTE | 2020-09-10 14:49 | P.PN ---
Progress Note - Text Progress Note Date: 09/10/20 Chief Complaint: Chest pain History of presenting complaint: This is a pleasant 75-year-old patient who follows with Dr. Thurston. Chronic stable medical conditions include hyperlipidemia, hypertension, hypothyroid. Diagnosis of neurocognitive disorder. She started having hallucinations in 2018 and she was diagnosed then with dementia. started seeing people that through television and started to connect with them. Have started having some interactions. Also with episodes that she'll start screaming at people. Diagnosed with major neurocognitive disorder and psychosis and was discharged on 07/17/2020 August 10 through 08/14/2020 Admitted with side effects of antipsychotics causing increasing medical debility, encephalopathic. Zyprexa, mirtazapine and Aricept was discontinued. Synthroid was resumed.. started sleeping better. Patient is very choosy about eating hospital food. statin felt to be contributing to some muscle weakness was halved. Patient was discharged to the [facility]. Patient now presents this morning started having increasing heart rate and chest pressure going chest, with radiation radiation to the left arm. Has been feeling bit dizzy tired slightly short of breath. Heart and was getting up to the 150s. Hence patient was brought down the ER. Patient's troponin coming back positive. Cardiology has been informed. Admitted with acute non-Q-wave TX, SVT. Started IV heparin Today: Patient taken to the cardiac catheterization lab today. Unsuccessful access to the femoral and radial artery. Procedure abandoned. Patient had an episode of chest pain earlier today. Daughter at the bedside. Patient does not like hospital food. Laying in bed. Tired Review of systems: Was done for constitutional, cardiovascular, GI, pulmonary. relevant finding as above Active Medications Alprazolam (Alprazolam 0.25 Mg Tab) 0.25 mg PO Q6HR PRN PRN Reason: Mild Anxiety Alprazolam (Alprazolam 0.5 Mg Tab) 0.5 mg PO Q6HR PRN PRN Reason: Moderate Anxiety Aspirin (Aspirin 81 Mg) 81 mg PO DAILY@1300 [facility] Last Admin: 09/10/20 08:11 Dose: 81 mg Documented by: Calcium Carbonate (Calcium Carb-Vit D 500 Mg-5 Mcg Tab) 1 each PO DAILY@0900 [facility] Last Admin: 09/10/20 06:20 Dose: 1 each Documented by: Famotidine (Famotidine 20 Mg Tab) 20 mg PO DAILY PRN PRN Reason: Heartburn Hydralazine HCl (Hydralazine Hcl 50 Mg Tab) 50 mg PO TID@0900,1300,2100 [facility] Last Admin: 09/10/20 13:15 Dose: 50 mg Documented by: Heparin Sodium (Porcine) 10, (000 unit/ Sodium Chloride) 1,001 mls @ 999 mls/hr IRRIGATION ONCE PRN PRN Reason: INTRA-OP Stop: 09/10/20 23:00 Heparin Sodium (Porcine) 2,500 (unit/ Sodium Chloride) 250.5 mls @ 250 mls/hr IRRIGATION ONCE PRN PRN Reason: INTRA-OP Stop: 09/10/20 23:00 Sodium Chloride (Saline 0.9%) 1,000 mls @ 75 mls/hr IV .[id number] [facility] Last Admin: 09/10/20 10:12 Dose: Not Given Documented by: Isosorbide Mononitrate (Isosorbide Mononitrate Er 30 Mg Tab.Er.24h) 30 mg PO DAILY [facility] Last Admin: 09/10/20 12:20 Dose: 30 mg Documented by: Levothyroxine Sodium (Levothyroxine 50 Mcg Tab) 50 mcg PO DAILY@0630 [facility] Last Admin: 09/10/20 06:21 Dose: 50 mcg Documented by: Melatonin (Melatonin 5 Mg Tablet) 5 mg PO HS@2100 [facility] Last Admin: 09/09/20 21:43 Dose: 5 mg Documented by: Metoprolol Tartrate (Metoprolol Tartrate 50 Mg Tab) 100 mg PO BID@0900,2100 [facility] Last Admin: 09/10/20 06:20 Dose: 100 mg Documented by: Miscellaneous Information (Rx Info: Iv Contrast Was Given 1 Each Misc) 1 each MISCELLANE DAILY PRN PRN Reason: Per Protocol Stop: 09/12/20 09:57 Multivitamins (Multivitamins, Thera 1 Each Tab) 1 each PO DAILY@0900 [facility] Last Admin: 09/10/20 06:20 Dose: 1 each Documented by: Nitroglycerin (Nitroglycerin Sl Tabs 0.4 Mg Tab) 0.4 mg SUBLINGUAL Q5M PRN PRN Reason: Chest Pain Nitroglycerin (Nitroglycerin Sl Tabs 0.4 Mg Tab) 0.4 mg SUBLINGUAL Q5M PRN PRN Reason: Chest Pain Pantoprazole Sodium (Pantoprazole 40 Mg/10 Ml Vial) 40 mg IVP DAILY [facility] Last Admin: 09/10/20 06:21 Dose: 40 mg Documented by: Pravastatin Sodium (Pravastatin Sodium 80 Mg Tab) 80 mg PO HS@2100 [facility] Last Admin: 09/09/20 21:43 Dose: 80 mg Documented by: Past medical history to include: Hypertension, hyperlipidemia, hypothyroid, anxiety, depression, dementia, psychosis Social history: Lives with her a daughter. Drinks alcohol rarely. Patient smoked for about 20- 30 years stopped about 30 years ago. Physical examination: VITAL SIGNS: 97.4, 51, 18, 1 10 x 51, 98% room air GENERAL:, reclining in bed, tired EYES: Pupils equal. Conjunctiva normal. HEENT: External appearance of nose and ears normal, oral cavity grossly normal. NECK: JVD not raised; masses not palpable. HEART: First and second heart sounds are normal; mild edema. LUNGS: Respiratory rate normal; clear to auscultation. ABDOMEN: Soft, nontender, liver spleen not palpable, no masses palpable. PSYCH: AO 3, mood and affect slightly low MUSCULOSKELETAL: Evidence of OA especially in the hands. INVESTIGATIONS, reviewed in the clinical context: September 10 dose: WBC 4.4 hemoglobin 11.1 platelets 209 September 09: WBC 4.7 hemoglobin 11.2 platelets 234 potassium 3.8 creatinine 0.59 WBC 4.8 hemoglobin 12.3 platelets 255 potassium 3.7 creatinine 0.67 Troponin I 0.107, 1.76, 2.2 LDL 48 TSH 1.4 Stool occult blood positive EKG tracing personally reviewed by me-normal sinus rhythm, nonspecific ST and T wave abnormality. Prolonged QT Previous EKG personally reviewed by me shows an SVT pattern rate of 142 Chest x-ray film personally reviewed by me-[patient rotated to the right: No obvious infiltrate Assessment and plan: -Acute non-Q wave myocardial infarction: Postinfarct angina today Slow to respond Aspirin, Lopressor,. IV heparin. cardiac catheterization attempted unsuccessful. -Paroxysmal SVT-sinus rhythm On Lopressor. IV Cardizem started in the ER-discontinued -Essential hypertension Lopressor, hydralazine -Hypercholesterolemia Continue with Pravachol -GERD Continue with Protonix -Chronic insomnia long-standing Continue with melatonin -Hypothyroid Synthroid - Moderate cognitive impairment from dementia -Primary osteoarthritis, bilateral multiple joints Continue with Tylenol when necessary -Chronic psychosis-stable Patient taken off multiple medications on last admission -IV heparin monitoring Follow PTT Care was discussed at length with the patient daughter at the bedside. Discussion about further GI endoscopy. Did explain that in the setting of acute TX any GI endoscopy the left to be deferred for now. Until something emergent shows up. Plan is for possible cardiac catheterization tomorrow depending on symptoms. Continue IV heparin current medications
[2020-09-10] MEDS: MELATONIN 5 MG TABLET PO SCH (20:31)
[2020-09-10] MEDS: PRAVASTATIN SODIUM 80 MG TAB PO SCH (20:32)
[2020-09-11] MEDS: LEVOTHYROXINE 50 MCG TAB PO SCH (06:41)
[2020-09-11] MEDS: CALCIUM CARB-VIT D 500 MG-5 MCG TAB PO SCH (09:13)
[2020-09-11] MEDS: PANTOPRAZOLE 40 MG/10 ML VIAL IVP SCH (09:13)
[2020-09-11] MEDS: ISOSORBIDE MONONITRATE ER 30 MG TAB.ER.24H PO SCH (09:13)
[2020-09-11] MEDS: METOPROLOL TARTRATE 50 MG TAB PO SCH ×2 (09:13→21:00)
[2020-09-11] MEDS: hydrALAZINE HCL 50 MG TAB PO SCH ×3 (09:13→21:00)
[2020-09-11] MEDS: MULTIVITAMINS, THERA 1 EACH TAB PO SCH (09:13)
[2020-09-11] MEDS ORDERED: ASPIRIN 325 MG TAB PO STA (11:47)
[2020-09-11] MEDS ORDERED: ALPRAZolam 0.5 MG TAB PO PRN (11:47)
[2020-09-11] MEDS ORDERED: ATORVASTATIN 80 MG TAB PO STA (11:47)
[2020-09-11] MEDS ORDERED: ALPRAZolam 0.25 MG TAB PO PRN (11:47)
[2020-09-11] MEDS ORDERED: NITROGLYCERIN SL TABS 0.4 MG TAB SUBLINGUAL PRN (11:47)
[2020-09-11] MEDS ORDERED: SODIUM CHLORIDE 0.9% 1,000 ML in EMPTY BAG 1 BAG IV ONE (11:47)
[2020-09-11] MEDS: SODIUM CHLORIDE 0.9% 1,000 ML IV SCH (11:50)
[2020-09-11] MEDS: ASPIRIN 81 MG PO SCH (11:56)
[2020-09-11] MEDS: PRAVASTATIN SODIUM 80 MG TAB PO SCH (12:01)
--- NOTE | 2020-09-11 12:37 | P.PN ---
Subjective Progress Note Date: 09/11/20 Principal diagnosis: Anemia, GI bleed 75-year-old female who presented to the emergency department with complaints of chest pain and pressure who underwent an attempted cardiac catheterization yesterday was seen and evaluated sitting up in the bedside chair. The patient is pleasantly confused with a history of dementia. She is stating that she is having chest pain and pressure, no abdominal pain unless with palpation. She states she has some nausea, no vomiting. She was nothing by mouth this morning. There is possibility of plan cardiac catheterization today. Objective - Vital Signs Vital signs: Vital Signs Temp 98.4 F 09/11/20 08:00 Pulse 79 09/11/20 08:00 Resp 18 09/11/20 08:00 BP 170/74 09/11/20 08:00 Pulse Ox 96 09/11/20 08:00 Intake & Output 09/10/20 09/11/20 09/11/20 18:59 06:59 18:59 Intake Total 425 375 0 Output Total 150 Balance 425 225 0 Weight 93 kg Intake: IV 50 Intake, IV Titration 375 375 Amount Sodium Chloride 0.9% 1, 375 375 000 ml @ 75 mls/hr IV . [id number] Rx#:[id number] Oral 0 0 Output: Urine 150 Other: # Voids 0 1 1 - Exam General appearance: The patient is alert, oriented, appears in no acute distress. HET: Head is normocephalic and atraumatic. Conjunctiva pink. Sclera anicteric. Neck: Supple without lymphadenopathy. Abdomen: Soft, right lower quadrant and epigastric tenderness, nondistended w ith bowel sounds. No guarding or rigidity. Extremities: Normal skin color and turgor. No pedal edema Skin: No rashes, no jaundice Neurological: No focal deficits. Alert and oriented 3. - Labs CBC & Chem 7: 09/10/20 10:46 09/09/20 07:24 Labs: Abnormal Lab Results - Last 24 Hours (Table) 09/10/20 Range/Units 10:46 RBC 3.79 L (3.80-5.40) m/uL Hgb 11.1 L (11.4-16.0) gm/dL Hct 31.8 L (34.0-46.0) % Lymphocytes # 0.7 L (1.0-4.8) k/uL Assessment and Plan (1) GI bleed Narrative/Plan: 75-year-old female who presented to the emergency department with complaints of chest pain and pressure that radiated to her left arm. Was noted to have an elevation in troponins continued to trend up. Patient is being followed by cardiology and plan is for cardiac catheterization tomorrow. Patient was noted to have an initial hemoglobin of 9.9 with a repeat at 12.3. She has had complaints of diarrhea with bright red blood per rectum with the known history of hemorrhoids and a positive occult stool. Patient has also had complaints of abdominal pain for the last month with decreased appetite and persistent nausea without vomiting. Patient has had outpatient workup including abdominal ultrasound and barium swallow. Barium swallow showed presbyesophagus no other significant findings. Abdominal ultrasound unremarkable. Patient denies any anticoagulation or NSAID use. She does take a low-dose daily aspirin, and Pepcid as needed for acid reflux. She has no known previous EGD, her last colonoscopy was approximately 2 years ago which the daughter states was normal. She has colonoscopies every 3-4 years for history of colon polyps. There are no plans at this time for endoscopic evaluation due to cardiac event. Patient has appointment scheduled with Dr. Crane later this month. Current Visit: Yes Status: Acute Code(s): K92.2 - GASTROINTESTINAL HEMORRHAGE, UNSPECIFIED SNOMED Code(s): 10928247 (2) Chest pain Current Visit: Yes Status: Acute Code(s): R07.9 - CHEST PAIN, UNSPECIFIED SNOMED Code(s): 46532203 (3) Elevated troponin Narrative/Plan: Cardiology following, plan is for cardiac catheterization tomorrow Current Visit: Yes Status: Acute Code(s): R77.8 - OTHER SPECIFIED ABNORMALITIES OF PLASMA PROTEINS SNOMED Code(s): 507516637 (4) Abdominal pain Current Visit: Yes Status: Acute Code(s): R10.9 - UNSPECIFIED ABDOMINAL PAIN SNOMED Code(s): 04820814 Plan: 1. Diet as tolerated 2. Daily CBC 3. Avoid NSAIDs 4. Protonix 40 mg daily 5. Stool studies ordered 6. Continue with recommendations per cardiology 7. No plans for endoscopic evaluation at this time, if cleared by medicine and cardiology and patient still having abdominal pain, will proceed with endoscopy. Thank you for this consultation, we will continue to follow Dr. Velocci I agree with the dictator's note, documented as a scribe by Rosy Blake.
--- NOTE | 2020-09-11 12:43 | P.PN ---
Progress Note - Text Progress Note Date: 09/11/20 Chief Complaint: Chest pain History of presenting complaint: This is a pleasant 75-year-old patient who follows with Dr. Thurston. Chronic stable medical conditions include hyperlipidemia, hypertension, hypothyroid. Diagnosis of neurocognitive disorder. She started having hallucinations in 2018 and she was diagnosed then with dementia. started seeing people that through television and started to connect with them. Have started having some interactions. Also with episodes that she'll start screaming at people. Diagnosed with major neurocognitive disorder and psychosis and was discharged on 07/17/2020 August 10 through 08/14/2020 Admitted with side effects of antipsychotics causing increasing medical debility, encephalopathic. Zyprexa, mirtazapine and Aricept was discontinued. Synthroid was resumed.. started sleeping better. Patient is very choosy about eating hospital food. statin felt to be contributing to some muscle weakness was halved. Patient was discharged to the [facility]. Patient now presents this morning started having increasing heart rate and chest pressure going chest, with radiation radiation to the left arm. Has been feeling bit dizzy tired slightly short of breath. Heart and was getting up to the 150s. Hence patient was brought down the ER. Patient's troponin coming back positive. Cardiology has been informed. Admitted with acute non-Q-wave [place], SVT. Started IV heparin September 10: Patient taken to the cardiac catheterization lab today. Unsuccessful access to the femoral and radial artery. Procedure abandoned. Patient had an episode of chest pain earlier today. Daughter at the bedside. Patient does not like hospital food. Laying in bed. Tired September 11: Resting in a recliner. Daughter the bedside. And has had couple episodes of chest pain. Pending cardiac catheterization this afternoon. Nothing by mouth. Review of systems: Was done for constitutional, cardiovascular, GI, pulmonary. relevant finding as above Active Medications Alprazolam (Alprazolam 0.25 Mg Tab) 0.25 mg PO Q6HR PRN PRN Reason: Mild Anxiety Alprazolam (Alprazolam 0.5 Mg Tab) 0.5 mg PO Q6HR PRN PRN Reason: Moderate Anxiety Aspirin (Aspirin 81 Mg) 81 mg PO DAILY@1300 [facility] Last Admin: 09/11/20 11:56 Dose: Not Given Documented by: Calcium Carbonate (Calcium Carb-Vit D 500 Mg-5 Mcg Tab) 1 each PO DAILY@00 [facility] Last Admin: 09/11/20 09:13 Dose: 1 each Documented by: Famotidine (Famotidine 20 Mg Tab) 20 mg PO DAILY PRN PRN Reason: Heartburn Hydralazine HCl (Hydralazine Hcl 50 Mg Tab) 50 mg PO TID@0900,1300,2100 [facility] Last Admin: 09/11/20 09:13 Dose: 50 mg Documented by: Sodium Chloride 1,000 ml/ IV (Solution) 1,000 mls @ 93 mls/hr IV .[id number] ONE Stop: 09/11/20 22:32 Last Admin: 09/11/20 12:00 Dose: 93 mls/hr Documented by: Heparin Sodium (Porcine) 10, (000 unit/ Sodium Chloride) 1,001 mls @ 999 mls/hr IRRIGATION ONCE PRN PRN Reason: INTRA-OP Stop: 09/12/20 23:00 Heparin Sodium (Porcine) 2,500 (unit/ Sodium Chloride) 250.5 mls @ 250 mls/hr IRRIGATION ONCE PRN PRN Reason: INTRA-OP Stop: 09/12/20 23:00 Isosorbide Mononitrate (Isosorbide Mononitrate Er 30 Mg Tab.Er.24h) 30 mg PO DAILY [facility] Last Admin: 09/11/20 09:13 Dose: 30 mg Documented by: Levothyroxine Sodium (Levothyroxine 50 Mcg Tab) 50 mcg PO DAILY@0630 [facility] Last Admin: 09/11/20 06:41 Dose: 50 mcg Documented by: Melatonin (Melatonin 5 Mg Tablet) 5 mg PO HS@2100 [facility] Last Admin: 09/10/20 20:31 Dose: 5 mg Documented by: Metoprolol Tartrate (Metoprolol Tartrate 50 Mg Tab) 100 mg PO BID@0900,2100 [facility] Last Admin: 09/11/20 09:13 Dose: 100 mg Documented by: Miscellaneous Information (Rx Info: Iv Contrast Was Given 1 Each Misc) 1 each MISCELLANE DAILY PRN PRN Reason: Per Protocol Stop: 09/12/20 09:57 Multivitamins (Multivitamins, Thera 1 Each Tab) 1 each PO DAILY@0900 [facility] Last Admin: 09/11/20 09:13 Dose: 1 each Documented by: Nitroglycerin (Nitroglycerin Sl Tabs 0.4 Mg Tab) 0.4 mg SUBLINGUAL Q5M PRN PRN Reason: Chest Pain Pantoprazole Sodium (Pantoprazole 40 Mg/10 Ml Vial) 40 mg IVP DAILY [facility] Last Admin: 09/11/20 09:13 Dose: 40 mg Documented by: Pravastatin Sodium (Pravastatin Sodium 80 Mg Tab) 80 mg PO HS@2100 [facility] Last Admin: 09/11/20 12:01 Dose: Not Given Documented by: Past medical history to include: Hypertension, hyperlipidemia, hypothyroid, anxiety, depression, dementia, psychosis Social history: Lives with her a daughter. Drinks alcohol rarely. Patient smoked for about 20- 30 years stopped about 30 years ago. Physical examination: VITAL SIGNS: 97.6, 60, 18, 123/59, 100% room air GENERAL:, reclining in chair, tired EYES: Pupils equal. Conjunctiva normal. HEENT: External appearance of nose and ears normal, oral cavity grossly normal. NECK: JVD not raised; masses not palpable. HEART: First and second heart sounds are normal; mild edema. LUNGS: Respiratory rate normal; clear to auscultation. ABDOMEN: Soft, nontender, liver spleen not palpable, no masses palpable. PSYCH: AO 3, mood and affect slightly low MUSCULOSKELETAL: Evidence of OA especially in the hands. INVESTIGATIONS, reviewed in the clinical context: September 10 dose: WBC 4.4 hemoglobin 11.1 platelets 209 September 09: WBC 4.7 hemoglobin 11.2 platelets 234 potassium 3.8 creatinine 0.59 WBC 4.8 hemoglobin 12.3 platelets 255 potassium 3.7 creatinine 0.67 Troponin I 0.107, 1.76, 2.2 LDL 48 TSH 1.4 Stool occult blood positive EKG tracing personally reviewed by me-normal sinus rhythm, nonspecific ST and T wave abnormality. Prolonged QT Previous EKG personally reviewed by me shows an SVT pattern rate of 142 Chest x-ray film personally reviewed by me-[patient rotated to the right: No obvious infiltrate Assessment and plan: -Acute non-Q wave myocardial infarction: Postinfarct angina : Slow to respond Aspirin, Lopressor,. IV heparin. September 10 cardiac catheterization attempted unsuccessful. For repeat cardiac catheterization today -Paroxysmal SVT-sinus rhythm On Lopressor. IV Cardizem started in the ER-discontinued -Essential hypertension Lopressor, hydralazine -Hypercholesterolemia Continue with Pravachol -GERD Continue with Protonix -Chronic insomnia long-standing Continue with melatonin -Hypothyroid Synthroid - Moderate cognitive impairment from dementia -Primary osteoarthritis, bilateral multiple joints Continue with Tylenol when necessary -Chronic psychosis-stable Patient taken off multiple medications on last admission -IV heparin monitoring Follow PTT Discussed with patient daughter. Continue current medications. Awaiting cardiac catheterization this afternoon.
[2020-09-11] MEDS ORDERED: LIDOCAINE 1% INJ 10MG/ML (20 ML MDV) ONE (12:48)
[2020-09-11] MEDS ORDERED: VERAPAMIL 2.5 MG/ML 2 ML AMP ONE (12:48)
[2020-09-11] MEDS ORDERED: HEPARIN SODIUM 1,000 UN/ML (10ML VL) ONE (12:48)
--- NOTE | 2020-09-11 13:04 | P.PN ---
Subjective Progress Note Date: 09/11/20 HISTORY OF PRESENT ILLNESS: 75 year old female who follows with Dr. Quintero who is admitted to the hospital secondary to non-STEMI. Patient was scheduled for cardiac catheterizati on today however this was not performed. Attempts were made through the right femoral artery and the guidewire would not advance and was felt to be likely secondary to disease in the iliac arteries. Procedure was attempted via right radial artery and the guidewire would not advance past the mid humeral area and the procedure was cancelled. Patient examined at the bedside with her daughter present. Patient currently denies chest pain. She denies shortness of breath. Vital signs are stable. Echocardiogram was performed revealing ejection fraction 55-60%, mild aortic stenosis, mild mitral regurgitation, and mild tricuspid regurgitation. 09/11/2020 Patient examined this morning at the bedside. Patient's daughter is present. Imdur was added to patient's medication regimen yesterday. Per nursing, the patient had an episode of chest pain yesterday. At the time of examination, the patient reports having midsternal chest pain. She states the pain goes down her arms. She does report discomfort with deep inspiration and chest wall palpation. PHYSICAL EXAM: VITAL SIGNS: Reviewed. GENERAL: Well-developed in no acute distress. NECK: Supple. No JVD or thyromegaly LUNGS: Respirations even and unlabored. Lungs essentially clear to auscultation bilaterally. HEART: Regular rate and rhythm. S1 and S2 heard. EXTREMITIES: Normal range of motion. No clubbing or cyanosis. Peripheral pulses intact. No lower extremity edema ASSESSMENT: Non-STEMI Paroxysmal supraventricular tachycardia Hypertension PLAN: Continue current cardiac medications Patient to undergo cardiac catheterization today with Dr. Garcia Further recommendations pending patient's course Nurse practitioner note has been reviewed by physician. Signing provider agrees with the documented findings, assessment, and plan of care. Objective - Vital Signs Vital signs: Vital Signs Temp 97.6 F 09/11/20 12:00 Pulse 60 09/11/20 12:00 Resp 18 09/11/20 12:00 BP 123/59 09/11/20 12:00 Pulse Ox 100 09/11/20 12:00 Intake & Output 09/10/20 09/11/20 09/11/20 18:59 06:59 18:59 Intake Total 425 375 0 Output Total 150 Balance 425 225 0 Weight 93 kg Intake: IV 50 Intake, IV Titration 375 375 Amount Sodium Chloride 0.9% 1, 375 375 000 ml @ 75 mls/hr IV . [id number] [facility] Rx#:[id number] Oral 0 0 Output: Urine 150 Other: # Voids 0 1 2 - Labs CBC & Chem 7: 09/10/20 10:46 09/09/20 07:24
[2020-09-11] MEDS ORDERED: MIDAZOLAM 2 MG/2 ML VIAL IV ONE (13:08)
[2020-09-11] MEDS ORDERED: LIDOCAINE 1% INJ 10MG/ML (20 ML MDV) SQ ONE (13:11)
[2020-09-11] MEDS ORDERED: IV FLUID CONTINUATION 900 ML IV ONE (13:15)
[2020-09-11] MEDS ORDERED: IOPAMIDOL-370 125ML BTL INJ ONE ×2 (13:17)
[2020-09-11] MEDS ORDERED: RX INFO: IV CONTRAST WAS GIVEN 1 EACH MISC MISCELLANE PRN (13:28)
[2020-09-11] MEDS ORDERED: SODIUM CHLORIDE 0.9% 1,000 ML IV SCH (13:30)
[2020-09-11 14:03] VITALS: BMI 38.7
--- NOTE | 2020-09-11 18:58 | CC ---
CARDIAC CATHETERIZATION REPORT DATE OF SERVICE: 09/11/2020. PERFORMING PHYSICIAN: Joo Garcia MD. PROCEDURE PERFORMED: 1. Selective right and left coronary angiogram. 2. Bilateral common and external iliac arteries angiogram. INDICATION0: This is a 75-year-old female patient who was admitted to the hospital with chest discomfort and ruled in for acute [id number] myocardial infarction which she underwent an attempted heart catheterization yesterday by Dr. Quintero, but there was still difficulty in accessing the right common femoral artery and severe PAD was suspected and because of that I was asked to perform the heart catheterization on the patient. APPROACH: Right common femoral artery. COMPLICATION: None. SEDATION: Level of sedation moderate with sedation length of 18 minutes. PROCEDURE DESCRIPTION: After obtaining informed consent, the patient was brought to the cardiac feed mill lab technician. The right common femoral artery was cannulated using micropuncture technique and a micropuncture wire passed easily, then I placed a 6-Faroese sheath. I did selective right and left coronary angiogram with JR4 and JL4 catheters. Bilateral common and external iliac artery angiogram was performed using 5-Faroese pigtail catheter. The procedure was completed without any complication. CORONARY ANGIOGRAM: 1. The RCA appeared to be chronically occluded by the ostium and fills by collateral from the left coronary system. The RCA is extremely calcified. 2. The left main appeared to be calcified with mild disease. Bifurcates into LCX and LAD. 3. The LCX is a moderate caliber vessel. It is a nondominant vessel. The LCX proximally has mild disease only. It gives rise into the first obtuse marginal branch which is small caliber vessel. The mid LCX has also intermediate disease only. 4. The LAD is a large caliber vessel. The LAD appeared to be calcified with mild diffuse disease. It gives rise into a diagonal branch which appeared to have also mild to moderate disease. SELECTIVE ILIAC ANGIOGRAM: Selective iliac angiogram was performed in the AP projection and using digital subtraction. It showed only mild disease. CONCLUSION: 1. Extremely calcified right and left coronary systems. 2. Chronic total occlusion of the RCA which fills by bridging collaterals from the left coronary system. 3. Dkey-wt-cbewcusz disease involving the left coronary system. 4. Mild peripheral arterial disease. POSTPROCEDURE: 1. Maximize medical treatment. 2. Aggressive cholesterol control. 3. Risk factor modifications. 4. Follow up with the patient. MMODL / IJN: [id number] /
[2020-09-11 20:44] LABS: Glucose,Whole Blood 130 mg/dL (75-99)
[2020-09-11] MEDS: MELATONIN 5 MG TABLET PO SCH (21:00)
[2020-09-12] MEDS: LEVOTHYROXINE 50 MCG TAB PO SCH (04:47)
[2020-09-12] MEDS ORDERED: HEPARIN SODIUM,PORCINE 10,000 UNIT in SODIUM CHLORIDE 0.9% 1,000 ML IRRIGATION PRN (07:00)
[2020-09-12] MEDS ORDERED: HEPARIN SODIUM,PORCINE 2,500 UNIT in SODIUM CHLORIDE 0.9% 250 ML IRRIGATION PRN (07:00)
[2020-09-12] MEDS: CALCIUM CARB-VIT D 500 MG-5 MCG TAB PO SCH (09:54)
[2020-09-12] MEDS: METOPROLOL TARTRATE 50 MG TAB PO SCH ×2 (09:54→20:18)
[2020-09-12] MEDS: PANTOPRAZOLE 40 MG/10 ML VIAL IVP SCH (09:54)
[2020-09-12] MEDS: hydrALAZINE HCL 50 MG TAB PO SCH ×2 (09:54→13:06)
[2020-09-12] MEDS: ISOSORBIDE MONONITRATE ER 30 MG TAB.ER.24H PO SCH (09:54)
[2020-09-12] MEDS: MULTIVITAMINS, THERA 1 EACH TAB PO SCH (10:47)
--- NOTE | 2020-09-12 11:47 | P.PN ---
Subjective Progress Note Date: 09/12/20 HISTORY OF PRESENT ILLNESS: 75 year old female who follows with Dr. Quintero who is admitted to the hospital secondary to non-STEMI. Patient was scheduled for cardiac catheterizati on today however this was not performed. Attempts were made through the right femoral artery and the guidewire would not advance and was felt to be likely secondary to disease in the iliac arteries. Procedure was attempted via right radial artery and the guidewire would not advance past the mid humeral area and the procedure was cancelled. Patient examined at the bedside with her daughter present. Patient currently denies chest pain. She denies shortness of breath. Vital signs are stable. Echocardiogram was performed revealing ejection fraction 55-60%, mild aortic stenosis, mild mitral regurgitation, and mild tricuspid regurgitation. 09/11/2020 Patient examined this morning at the bedside. Patient's daughter is present. Imdur was added to patient's medication regimen yesterday. Per nursing, the patient had an episode of chest pain yesterday. At the time of examination, the patient reports having midsternal chest pain. She states the pain goes down her arms. She does report discomfort with deep inspiration and chest wall palpation. 09/12/2020 Patient is status post cardiac catheterization with Dr. Garcia revealing extremely calcified right and left coronary systems. Chronic total occlusion of the RCA which fills by bridging collaterals from the left coronary system. Mild-to- moderate disease involving the left coronary system. Mild peripheral arterial disease. Medical management was recommended. Patient examined at bedside. Patient currently denies chest pain or pressure. She denies shortness of breath. Vital signs are stable. PHYSICAL EXAM: VITAL SIGNS: Reviewed. GENERAL: Well-developed in no acute distress. NECK: Supple. No JVD or thyromegaly LUNGS: Respirations even and unlabored. Lungs essentially clear to auscultation bilaterally. HEART: Regular rate and rhythm. S1 and S2 heard. EXTREMITIES: Normal range of motion. No clubbing or cyanosis. Peripheral pulses intact. No lower extremity edema. Cath site with pulse present. ASSESSMENT: Non-STEMI Paroxysmal supraventricular tachycardia Hypertension Coronary artery disease with chronic total occlusion of RCA Mild peripheral arterial disease PLAN: Continue current cardiac medications Patient is stable from a cardiac standpoint. We will sign off. Please reconsult if needed. Patient to follow up on an outpatient basis. Nurse practitioner note has been reviewed by physician. Signing provider agrees with the documented findings, assessment, and plan of care. Objective - Vital Signs Vital signs: Vital Signs Temp 97.6 F 09/12/20 08:00 Pulse 89 09/12/20 08:00 Resp 18 09/12/20 08:00 BP 207/81 09/12/20 08:00 Pulse Ox 95 09/12/20 08:00 Intake & Output 09/11/20 09/12/20 09/12/20 18:59 06:59 18:59 Intake Total 410 220 0 Output Total 250 Balance 410 -30 0 Weight 93 kg 114 kg Intake: IV 50 20 Invasive Line 3 20 Oral 360 200 0 Output: Urine 250 Other: # Voids 2 2 - Labs CBC & Chem 7: 09/10/20 10:46 09/09/20 07:24 Labs: Abnormal Lab Results - Last 24 Hours (Table) 09/11/20 Range/Units 20:44 POC Glucose (mg/dL) 130 H (75-99) mg/dL
[2020-09-12 12:36] LABS: African American GFR (CKD) >90 (>60 ml/min/1.73 sqM); Anion Gap 6 mmol/L; Blood Urea Nitrogen 11 mg/dL (7-17); Carbon Dioxide 25 mmol/L (22-30); Chloride 108 mmol/L (98-107); Glucose 97 mg/dL (74-99); Non-African American GFR(CKD) 88 (>60 ml/min/1.73 sqM); Potassium 3.6 mmol/L (3.5-5.1); Sodium 139 mmol/L (137-145)
[2020-09-12 12:49] LABS: HCT 30.1 % (34.0-46.0); MCH 30.5 pg (25.0-35.0); MCHC 36.6 g/dL (31.0-37.0); MCV 83.5 fL (80.0-100.0); Mean Platelet Volume 7.4; Platelet Count 245 k/uL (150-450); RBC 3.61 m/uL (3.80-5.40); RDW 13.5 % (11.5-15.5); WBC 4.5 k/uL (3.8-10.6)
[2020-09-12] MEDS: ASPIRIN 81 MG PO SCH (13:06)
--- NOTE | 2020-09-12 13:20 | PN ---
PROGRESS NOTE PROGRESS NOTE: Patient is a 75-year-old pleasant white female, admitted to the hospital with chest pain and shortness and chest pressure. She underwent cardiac catheterization yesterday and was noted to have significant calcification of her coronary arteries and, as per Dr. Garcia, medical management was recommended. We have been seeing her in consultation for intermittent abdominal pain, as well as rectal bleeding. The patient denies any abdominal pain today. She does complain of occasional chest pressure. She had no further episodes of rectal bleeding. Her hemoglobin continues to remain stable. PHYSICAL EXAMINATION: She appears comfortable, no apparent distress. Vital signs are stable. Blood pressure is 207/81, pulse 89, temperature 97.6. HEENT examination unremarkable. Sclerae anicteric. Oral cavity no lesions. Neck: No JVD. No lymph node enlargement. Chest was clear to auscultation. Heart: Regular rate and rhythm. Abdomen: Soft, bowel sounds are positive. No organomegaly. Extremities: No pedal edema. Neuro: She is alert and oriented x3. No focal deficits. LABS: No labs available from today. Hemoglobin from 2 days ago was 11.1 g/dL. IMPRESSION: 1. Acute PA, status post cardiac catheterization yesterday that showed significant coronary artery disease and as per Cardiology, medical management was recommended. 2. Intermittent rectal bleeding, resolved. 3. Abdominal pain, possible GERD. 4. History of hypertension. RECOMMENDATION: 1. Continue with current medical management. 2. Continue with Protonix 40 mg daily. 3. Given the underlying cardiac condition, no plan for any EGD or colonoscopy at this time. We will consider an outpatient endoscopy in 4-6 weeks. Thank you for this consultation. MMODL / IJN: [id number] /
[2020-09-12] MEDS ORDERED: LACTULOSE 20 GM/30 ML CUP PO ONE (14:38)
[2020-09-12 15:08] VITALS: RESP 16
[2020-09-12] MEDS: amLODIPine 5 MG TAB PO SCH (16:41)
--- NOTE | 2020-09-12 18:21 | P.PN ---
Progress Note - Text Progress Note Date: 09/12/20 Chief Complaint: Chest pain History of presenting complaint: This is a pleasant 75-year-old patient who follows with Dr. Thurston. Chronic stable medical conditions include hyperlipidemia, hypertension, hypothyroid. Diagnosis of neurocognitive disorder. She started having hallucinations in 2018 and she was diagnosed then with dementia. started seeing people that through television and started to connect with them. Have started having some interactions. Also with episodes that she'll start screaming at people. Diagnosed with major neurocognitive disorder and psychosis and was discharged on 07/17/2020 August 10 through 08/14/2020 Admitted with side effects of antipsychotics causing increasing medical debility, encephalopathic. Zyprexa, mirtazapine and Aricept was discontinued. Synthroid was resumed.. started sleeping better. Patient is very choosy about eating hospital food. statin felt to be contributing to some muscle weakness was halved. Patient was discharged to the F. Patient now presents this morning started having increasing heart rate and chest pressure going chest, with radiation radiation to the left arm. Has been feeling bit dizzy tired slightly short of breath. Heart and was getting up to the 150s. Hence patient was brought down the ER. Patient's troponin coming back positive. Cardiology has been informed. Admitted with acute non-Q-wave SD, SVT. Started IV heparin September 10: Patient taken to the cardiac catheterization lab today. Unsuccessful access to the femoral and radial artery. Procedure abandoned. Patient had an episode of chest pain earlier today. Daughter at the bedside. Patient does not like hospital food. Laying in bed. Tired September 11: Resting in a recliner. Daughter the bedside. And has had couple episodes of chest pain. Pending cardiac catheterization this afternoon. Nothing by mouth. September 12: Cardiac catheterization yesterday showed significant disease. For medical management. Not amenable to intervention. Patient lying in bed. Tired. Did eat some. Patient is off IV heparin Review of systems: Was done for constitutional, cardiovascular, GI, pulmonary. relevant finding as above Active Medications Alprazolam (Alprazolam 0.25 Mg Tab) 0.25 mg PO Q6HR PRN PRN Reason: Mild Anxiety Alprazolam (Alprazolam 0.5 Mg Tab) 0.5 mg PO Q6HR PRN PRN Reason: Moderate Anxiety Amlodipine Besylate (Amlodipine 5 Mg Tab) 5 mg PO DAILY [facility] Last Admin: 09/12/20 16:41 Dose: 5 mg Documented by: Aspirin (Aspirin 81 Mg) 81 mg PO DAILY@1300 [facility] Last Admin: 09/12/20 13:06 Dose: 81 mg Documented by: Calcium Carbonate (Calcium Carb-Vit D 500 Mg-5 Mcg Tab) 1 each PO DAILY@0900 [facility] Last Admin: 09/12/20 09:54 Dose: 1 each Documented by: Famotidine (Famotidine 20 Mg Tab) 20 mg PO DAILY PRN PRN Reason: Heartburn Heparin Sodium (Porcine) 10, (000 unit/ Sodium Chloride) 1,001 mls @ 999 mls/hr IRRIGATION ONCE PRN PRN Reason: INTRA-OP Stop: 09/12/20 23:00 Heparin Sodium (Porcine) 2,500 (unit/ Sodium Chloride) 250.5 mls @ 250 mls/hr IRRIGATION ONCE PRN PRN Reason: INTRA-OP Stop: 09/12/20 23:00 Isosorbide Mononitrate (Isosorbide Mononitrate Er 30 Mg Tab.Er.24h) 30 mg PO DAILY [facility] Last Admin: 09/12/20 09:54 Dose: 30 mg Documented by: Levothyroxine Sodium (Levothyroxine 50 Mcg Tab) 50 mcg PO DAILY@0630 [facility] Last Admin: 09/12/20 04:47 Dose: 50 mcg Documented by: Melatonin (Melatonin 5 Mg Tablet) 5 mg PO HS@2100 [facility] Last Admin: 09/11/20 21:00 Dose: 5 mg Documented by: Metoprolol Tartrate (Metoprolol Tartrate 50 Mg Tab) 100 mg PO BID@0900,2100 [facility] Last Admin: 09/12/20 09:54 Dose: 100 mg Documented by: Miscellaneous Information (Rx Info: Iv Contrast Was Given 1 Each Misc) 1 each MISCELLANE DAILY PRN PRN Reason: Per Protocol Stop: 09/13/20 13:28 Multivitamins (Multivitamins, Thera 1 Each Tab) 1 each PO DAILY@0900 [facility] Last Admin: 09/12/20 10:47 Dose: 1 each Documented by: Nitroglycerin (Nitroglycerin Sl Tabs 0.4 Mg Tab) 0.4 mg SUBLINGUAL Q5M PRN PRN Reason: Chest Pain Pantoprazole Sodium (Pantoprazole 40 Mg/10 Ml Vial) 40 mg IVP DAILY [facility] Last Admin: 09/12/20 09:54 Dose: 40 mg Documented by: Pravastatin Sodium (Pravastatin Sodium 80 Mg Tab) 80 mg PO HS@2100 [facility] Last Admin: 09/11/20 12:01 Dose: Not Given Documented by: Past medical history to include: Hypertension, hyperlipidemia, hypothyroid, anxiety, depression, dementia, psychosis Social history: Lives with her a daughter. Drinks alcohol rarely. Patient smoked for about 20- 30 years stopped about 30 years ago. Physical examination: VITAL SIGNS: 97.7, 78, 16, 150/67, 94% room air GENERAL:, Laying in bed, tired EYES: Pupils equal. Conjunctiva normal. HEENT: External appearance of nose and ears normal, oral cavity grossly normal. NECK: JVD not raised; masses not palpable. HEART: First and second heart sounds are normal; mild edema. LUNGS: Respiratory rate normal; clear to auscultation. ABDOMEN: Soft, nontender, liver spleen not palpable, no masses palpable. PSYCH: AO 3, mood and affect slightly low MUSCULOSKELETAL: Evidence of OA especially in the hands. INVESTIGATIONS, reviewed in the clinical context: September 12: WBC 4.5 hemoglobin 11 potassium 3.6 creatinine 0.61 September 10 dose: WBC 4.4 hemoglobin 11.1 platelets 209 September 09: WBC 4.7 hemoglobin 11.2 platelets 234 potassium 3.8 creatinine 0.59 WBC 4.8 hemoglobin 12.3 platelets 255 potassium 3.7 creatinine 0.67 Troponin I 0.107, 1.76, 2.2 LDL 48 TSH 1.4 Stool occult blood positive EKG tracing personally reviewed by me-normal sinus rhythm, nonspecific ST and T wave abnormality. Prolonged QT Previous EKG personally reviewed by me shows an SVT pattern rate of 142 Chest x-ray film personally reviewed by me-[patient rotated to the right: No obvious infiltrate Assessment and plan: -Acute non-Q wave myocardial infarction: Postinfarct angina Aspirin, Lopressor,. IV heparin-discontinued. - coronary artery disease: Significant. Not amenable to angioplasty stenting. For medical management. Will DC hydralazine. Changed to amlodipine. -Paroxysmal SVT-sinus rhythm On Lopressor. IV Cardizem started in the ER-discontinued -Essential hypertension Lopressor, hydralazine -Hypercholesterolemia Continue with Pravachol -GERD Continue with Protonix -Chronic insomnia long-standing Continue with melatonin -Hypothyroid Synthroid - Moderate cognitive impairment from dementia -Primary osteoarthritis, bilateral multiple joints Continue with Tylenol when necessary -Chronic psychosis-stable Patient taken off multiple medications on last admission -IV heparin monitoring-discontinued -Acute GI bleed. Seen by Dr. Eduardo Yu. Given the acute SD not for any current intervention for now. PPI. Follow up in 4-6 weeks DC hydralazine. Start amlodipine 5 mg daily. Discussed with patient. Other medications to continue. Late discussed the care with the patient's daughter. Prognosis guarded. Hopefully home in next 24 hours.
[2020-09-12] MEDS: MELATONIN 5 MG TABLET PO SCH (20:18)
[2020-09-12] MEDS: PRAVASTATIN SODIUM 80 MG TAB PO SCH (20:18)
[2020-09-13] MEDS: LEVOTHYROXINE 50 MCG TAB PO SCH (05:40)
[2020-09-13] MEDS ORDERED: PANTOPRAZOLE 40 MG TABLET PO SCH (07:30)
[2020-09-13] MEDS: amLODIPine 5 MG TAB PO SCH (09:56)
[2020-09-13] MEDS: ISOSORBIDE MONONITRATE ER 30 MG TAB.ER.24H PO SCH (09:56)
[2020-09-13] MEDS: METOPROLOL TARTRATE 50 MG TAB PO SCH (09:56)
[2020-09-13] MEDS: MULTIVITAMINS, THERA 1 EACH TAB PO SCH (09:56)
[2020-09-13] MEDS: CALCIUM CARB-VIT D 500 MG-5 MCG TAB PO SCH (09:56)
--- NOTE | 2020-09-13 10:20 | PN ---
PROGRESS NOTE DATE OF SERVICE: 09/13/2020 INTERVAL HISTORY: Patient is a 75-year-old pleasant white female admitted to the hospital with non ST- segment elevation acute PR and underwent cardiac catheterization and was noted to have coronary artery disease and advised on medical management. The patient this morning states that she is having some chest pressure. She denies any chest pain. She reports no shortness of breath. She also complains of some abdominal discomfort, mostly in the lower abdominal area. She denies any nausea, vomiting, but she has a poor appetite. She denies any further episodes of rectal bleeding. PHYSICAL EXAMINATION: GENERAL: She appears comfortable. VITAL SIGNS: Stable. Blood pressure is 145/86, pulse rate 78, temperature 98.8. HEENT: Examination unremarkable. Conjunctivae are pink. Sclerae anicteric. Oral cavity no lesions. NECK: No JVD or lymph node enlargement. CHEST: Clear to auscultation. HEART: Regular rate and rhythm. ABDOMEN: Soft. There was some mild tenderness in the lower abdominal area but no rebound or rigidity. EXTREMITIES: No pedal edema. SKIN: No rashes. NEURO: She is alert and oriented x3. No focal deficits. LABS: From today hemoglobin 11.2 g/dL. IMPRESSION: 1. Acute non-Q-wave PR, status post cardiac catheterization which showed coronary artery disease. Medical management was advised by the sales coordinator. 2. Intermittent lower abdominal pain and rectal bleeding have resolved. No further bleeding noted. Hemoglobin currently stable. 3. History of gastroesophageal reflux disease on Protonix 40 mg daily. 4. History of hypertension and hypothyroidism. RECOMMENDATIONS: 1. Continue with current medical management. 2. Continue Protonix 40 mg daily. 3. No plans for any endoscopic intervention during this hospitalization because of acute recent PR. 4. The patient was advised to follow up in the office in 3-4 weeks following discharge from the hospital and will consider outpatient EGD and colonoscopy. Will sign off at this time. Please call us if needed. Thank you for this consultation. MMODL / IJN: [id number] /
[2020-09-13 12:16] VITALS: BP 104/52; PULSE 70; TEMP 97.9
[2020-09-13] MEDS: ASPIRIN 81 MG PO SCH (12:24)
--- NOTE | 2020-09-14 19:41 | P.DS ---
Providers Date of admission: 09/08/20 17:20 Expected date of discharge: 09/13/20 Attending physician: Kana Ragland Consults: 09/08/20 17:20 Consult Physician Routine Consulting Provider: Grace Yu Consult Reason/Comments: GI bleed, anemia Do you want consulting provider notified?: Yes [facility]: Chief Complaint: Chest pain History of presenting complaint: This is a pleasant 75-year-old patient who follows with Dr. Thurston. Chronic stable medical conditions include hyperlipidemia, hypertension, hypothyroid. Diagnosis of neurocognitive disorder. She started having hallucinations in 2018 and she was diagnosed then with dementia. started seeing people that through television and started to connect with them. Have started having some interactions. Also with episodes that she'll start screaming at people. Diagnosed with major neurocognitive disorder and psychosis and was discharged on 07/17/2020 August 10 through 08/14/2020 Admitted with side effects of antipsychotics causing increasing medical debility, encephalopathic. Zyprexa, mirtazapine and Aricept was discontinued. Synthroid was resumed.. started sleeping better. Patient is very choosy about eating hospital food. statin felt to be contributing to some muscle weakness was halved. Patient was discharged to the [facility]. Patient now presents this morning started having increasing heart rate and chest pressure going chest, with radiation radiation to the left arm. Has been feeling bit dizzy tired slightly short of breath. Heart and was getting up to the 150s. Hence patient was brought down the ER. Patient's troponin coming back positive. Cardiology has been informed. Admitted with acute non-Q-wave [place], SVT. Started IV heparin September 10: Patient taken to the cardiac catheterization lab today. Unsuccessful access to the femoral and radial artery. Procedure abandoned. Patient had an episode of chest pain earlier today. Daughter at the bedside. Patient does not like hospital food. Laying in bed. Tired September 11: Resting in a recliner. Daughter the bedside. And has had couple episodes of chest pain. Pending cardiac catheterization this afternoon. Nothing by mouth. September 12: Cardiac catheterization yesterday showed significant disease. For medical management. Not amenable to intervention. Patient lying in bed. Tired. Did eat some. Patient is off IV heparin. September 13: Sitting up in a chair. Feeling better. Daughter the bedside. Care was discussed with the patient and her daughter. Questions were answered. They understand overall prognosis is guarded. Dr. Eduardo Yu will follow-up as an outpatient. Discussion and discharge planning more than 35 minutes Consultation: cardiology associates Past medical history to include: Hypertension, hyperlipidemia, hypothyroid, anxiety, depression, dementia, psychosis Social history: Lives with her a daughter. Drinks alcohol rarely. Patient smoked for about 20- 30 years stopped about 30 years ago. Physical examination: VITAL SIGNS: 97.9, 70, 16, 104/52, 96% room air GENERAL:, Reclining in chair, awake, comfortable EYES: Pupils equal. Conjunctiva normal. HEENT: External appearance of nose and ears normal, oral cavity grossly normal. NECK: JVD not raised; masses not palpable. HEART: First and second heart sounds are normal; mild edema. LUNGS: Respiratory rate normal; clear to auscultation. ABDOMEN: Soft, nontender, liver spleen not palpable, no masses palpable. PSYCH: AO 3, mood and affect normal MUSCULOSKELETAL: Evidence of OA especially in the hands. INVESTIGATIONS, reviewed in the clinical context: September 12: WBC 4.5 hemoglobin 11 potassium 3.6 creatinine 0.61 September 10 dose: WBC 4.4 hemoglobin 11.1 platelets 209 September 09: WBC 4.7 hemoglobin 11.2 platelets 234 potassium 3.8 creatinine 0.59 WBC 4.8 hemoglobin 12.3 platelets 255 potassium 3.7 creatinine 0.67 Troponin I 0.107, 1.76, 2.2 LDL 48 TSH 1.4 Stool occult blood positive EKG tracing personally reviewed by me-normal sinus rhythm, nonspecific ST and T wave abnormality. Prolonged QT Previous EKG personally reviewed by me shows an SVT pattern rate of 142 Chest x-ray film personally reviewed by me-[patient rotated to the right: No obvious infiltrate Assessment and plan: -Acute non-Q wave myocardial infarction: Postinfarct angina Aspirin, Lopressor,. IV heparin-discontinued. Imdur added - coronary artery disease: Cardiac catheterization: Significant disease. Not amenable to angioplasty stenting. For medical management. Will DC hydralazine. Started amlodipine. -Paroxysmal SVT-sinus rhythm On Lopressor. IV Cardizem started in the ER-discontinued -Essential hypertension Lopressor, amlodipine -Hypercholesterolemia Continue with Pravachol -GERD Continue with Protonix -Chronic insomnia long-standing Continue with melatonin -Hypothyroid Synthroid - Moderate cognitive impairment from dementia -Primary osteoarthritis, bilateral multiple joints Continue with Tylenol when necessary -Chronic psychosis-stable Patient taken off multiple medications on last admission -IV heparin monitoring-discontinued -Acute GI bleed. Seen by Dr. Eduardo Yu. Given the acute [place] not for any current intervention for now. PPI. Follow up in 4-6 weeks Disposition: Home Patient Condition at Discharge: Stable Plan - Discharge Summary Discharge Rx Participant: Yes New Discharge Prescriptions: New Isosorbide Mononitrate ER [Imdur] 30 mg PO DAILY #30 tab.er.24h amLODIPine [Norvasc] 5 mg PO DAILY #30 tab Pantoprazole [Protonix] 40 mg PO AC-BID #60 tablet.dr Continue Nitroglycerin Sl Tabs [Nitrostat] 0.4 mg SUBLINGUAL Q5M PRN PRN Reason: Chest Pain Multivit-Min/FA/Lycopen/Lutein [Centrum Silver Tablet] 1 tab PO DAILY@0900 Calcium Carbonate/Vitamin D3 [Calcium 600 mg-D3 10 Mcg (400 Iu)] 1 cap PO DAILY@0900 D-Mannose 500mg 500 mg PO DAILY@0900 Melatonin 5 mg PO HS@2100 Levothyroxine Sodium [Euthyrox] 50 mcg PO DAILY Vitamin B Complex 1 cap PO DAILY@0900 Metoprolol Tartrate [Lopressor] 100 mg PO BID@0900,2100 Aspirin 81 mg PO DAILY@1300 Ginkgo Biloba [place] Extract [Ginkgo] 120 mg PO DAILY@0900 Fish Oil/Dha/Epa [Fish Oil 1,200 mg Fish Oil] 1 cap PO DAILY@2100 Ubidecarenone [Co Q-10] 200 mg PO DAILY@0900 Pravastatin Sodium 80 mg PO HS@2100 Discontinued hydrALAZINE HCL 50 mg PO TID@0900,1300,2100 Famotidine [Pepcid] 20 mg PO DAILY PRN PRN Reason: Heartburn Discharge Medication List Calcium Carbonate/Vitamin D3 [Calcium 600 mg-D3 10 Mcg (400 Iu)] 1 cap PO DAILY@0900 07/08/20 [History] Multivit-Min/FA/Lycopen/Lutein [Centrum Silver Tablet] 1 tab PO DAILY@0900 07/08/20 [History] Nitroglycerin Sl Tabs [Nitrostat] 0.4 mg SUBLINGUAL Q5M PRN 07/08/20 [History] Vitamin B Complex 1 cap PO DAILY@89907/08/20 [History] Aspirin 81 mg PO DAILY@1300 08/09/20 [History] D-Mannose 500mg 500 mg PO DAILY@89908/09/20 [History] Melatonin 5 mg PO HS@209908/09/20 [History] Metoprolol Tartrate [Lopressor] 100 mg PO BID@899,209908/09/20 [History] Fish Oil/Dha/Epa [Fish Oil 1,200 mg Fish Oil] 1 cap PO DAILY@209909/08/20 [History] Ginkgo Biloba [place] Extract [Ginkgo] 120 mg PO DAILY@89909/08/20 [History] Levothyroxine Sodium [Euthyrox] 50 mcg PO DAILY 09/08/20 [History] Pravastatin Sodium 80 mg PO HS@209909/08/20 [History] Ubidecarenone [Co Q-10] 200 mg PO DAILY@89909/08/20 [History] Isosorbide Mononitrate ER [Imdur] 30 mg PO DAILY #30 tab.er.24h 09/13/20 [Rx] Pantoprazole [Protonix] 40 mg PO AC-BID #60 tablet.dr 09/13/20 [Rx] amLODIPine [Norvasc] 5 mg PO DAILY #30 tab 09/13/20 [Rx] Follow up Appointment(s)/Referral(s): [facility], [NON-STAFF] - Zac Thurston DO [Primary Care Provider] - 1-2 days Grace Yu MD [STAFF PHYSICIAN] - 1 Week Columba Quintero MD [STAFF PHYSICIAN] - 1 Week Discharge Disposition: HOME SELF-CARE
--- NOTE | 2020-11-05 12:20 | CDI ---
Documentation Clarification Form Date: 11/10/2020 12:04:56 PM From: Chris Etienne Admit Date: 09/08/2020 05:20:00 PM Patient Name: Michell Raymundo Visit Number: [id number] Discharge Date: 09/13/2020 01:31:00 PM ATTENTION: The Clinical Documentation Specialists (CDI) and [facility] Coding Staff appreciate your assistance in clarifying documentation. Please respond to the clarification below the line at the bottom and electronically sign. The CDI & [facility] Coding staff will review the response and follow-up if needed. Please note: Queries are made part of the Legal Health Record. If you have any questions, please contact the author of this message via ITS. Dr. Kana Ragland GI bleed is documented in the discharge summary. Additional clarification regarding the etiology of the GI bleed is requested. History/risk factors: hemorrhoids. Clinical Indicators: anemia Please clarify the etiology of the GI bleed, if known: [ ] GIB due to esophageal varices [ ] GIB due to gastric ulcer [ ] GIB due to diverticular disease [ ] GIB due to hemorroids [ ] GIB, etiology unknown [ ] Other, please specify [ ] Unable to determine GI on the case - query to them. BRAN COLUNGA
--- NOTE | 2020-11-19 17:13 | CDI ---
Documentation Clarification Form Date: 11/19/2020 05:06:54 PM From: Chris Etienne Phone: Admit Date: 09/08/2020 05:20:00 PM Patient Name: Michell Raymundo Visit Number: [id number] Discharge Date: 09/13/2020 01:31:00 PM ATTENTION: The Clinical Documentation Specialists (CDI) and [facility] Coding Staff appreciate your assistance in clarifying documentation. Please respond to the clarification below the line at the bottom and electronically sign. The CDI & [facility] Coding staff will review the response and follow-up if needed. Please note: Queries are made part of the Legal Health Record. If you have any questions, please contact the author of this message via ITS. Dr. Grace Yu GI bleed is documented. Additional clarification regarding the etiology of the GI bleed is requested. History/risk factors: esophageal varices, gastric ulcer, diverticulosis, hemorrhoids Clinical Indicators: Consults: GI Please clarify the etiology of the GI bleed, if known: [ ] GIB due to esophageal varices [ ] GIB due to gastric ulcer [ ] GIB due to diverticular disease [ ] GIB due to hemorrhoids [ ] GIB, etiology unknown [ ] Other, please specify [ ] Unable to determine Etiology of GI bleed unknown as pt was not sable to have EGD or colonoscopy done during hospitalization MD Kevin [facility]
== END 2020-09-13 13:31 | disposition home or self-care (01) | DRG 281 ==
LOC: EC 12:50 → 3SCARD 17:20
PROVIDERS: ADMIT Hospitalist; ATTEND Hospitalist
PROC: B41B1ZZ Fluoroscopy of Other Intra-Abdominal Arteries using Low Osmolar Contrast (ICD-10-PCS; 2020-09-11)
PROC: 4A023N7 Measurement of Cardiac Sampling and Pressure, Left Heart, Percutaneous Approach (ICD-10-PCS; principal; 2020-09-11 15:50)
PROC: B2111ZZ Fluoroscopy of Multiple Coronary Arteries using Low Osmolar Contrast (ICD-10-PCS; 2020-09-11 15:50)
DX: I21.4 Non-ST elevation (NSTEMI) myocardial infarction (principal); I47.1 Supraventricular tachycardia; K92.2 Gastrointestinal hemorrhage, unspecified; I23.7 Postinfarction angina; R00.2 Palpitations; F03.90 Unspecified dementia, unspecified severity, without behavioral disturbance, psychotic disturbance, mood disturbance, and anxiety; F41.9 Anxiety disorder, unspecified; Z79.82 Long term (current) use of aspirin; Z79.890 Hormone replacement therapy; Z87.891 Personal history of nicotine dependence; F32.9 Major depressive disorder, single episode, unspecified; K64.9 Unspecified hemorrhoids; I10 Essential (primary) hypertension; E78.00 Pure hypercholesterolemia, unspecified; K21.9 Gastro-esophageal reflux disease without esophagitis; F51.04 Psychophysiologic insomnia; M19.91 Primary osteoarthritis, unspecified site; D64.9 Anemia, unspecified; I25.10 Atherosclerotic heart disease of native coronary artery without angina pectoris; Z53.09 Procedure and treatment not carried out because of other contraindication; E03.9 Hypothyroidism, unspecified; Z86.010 Personal history of colon polyps; I73.9 Peripheral vascular disease, unspecified; K22.8 Other specified diseases of esophagus; Z79.899 Other long term (current) drug therapy
CPT/HCPCS: 36415; 71046; 75716; 80048; 80053; 80061; 82272; 82550; 83735; 84443; 84484; 85025; 85027; 85379; 85610; 85730; 86850; 86900; 86901; 93005; 93306; 93458; 94760; 96374; 96375; 99285

== ENCOUNTER 2020-12-07 12:27 | Inpatient (IN) | payer MEDICARE ==
[2020-12-07 13:21] LABS: Basophils % (A) 0 %; Eosinophils # (A) 0.1 k/uL (0-0.7); Eosinophils % (A) 2 %; HCT 37.1 % (34.0-46.0); HGB 12.1 gm/dL (11.4-16.0); Lymphocytes # (A) 0.8 k/uL (1.0-4.8); Lymphocytes % (A) 21 %; MCH 28.2 pg (25.0-35.0); MCHC 32.6 g/dL (31.0-37.0); MCV 86.6 fL (80.0-100.0); Mean Platelet Volume 8.6; Monocytes # (A) 0.2 k/uL (0-1.0); Monocytes % (A) 6 %; Neutrophils # (A) 2.7 k/uL (1.3-7.7); Neutrophils % (A) 69 %; Platelet Count 152 k/uL (150-450); RBC 4.28 m/uL (3.80-5.40); RDW 13.6 % (11.5-15.5); WBC 3.9 k/uL (3.8-10.6)
--- NOTE | 2020-12-07 13:22 | ED ---
Altered Mental Status HPI - General Chief Complaint: Altered Mental Status Stated Complaint: altered mental status Time Seen by Provider: 12/07/20 12:30 Source: patient Mode of arrival: EMS Limitations: no limitations - History of Present Illness Initial Comments: 75-year-old female presents emergency room with reported altered mental status. Daughter states that the symptoms have been present for the past couple of days. She just started clozapine earlier this week. She is under the care of a geriatric psychiatrist for hallucinations due to dementia. She was started on valproic acid 1 month ago and has been increasing the dose of clozapine this week. Daughter states that she has been more sleepy and confused. Yesterday the patient could barely keep her eyes open. She called and spoke with the psychiatrist who told him the patient adjust the medication slowly. And was extremely sedated, barely able to open her eyes. Her daughter placed her at the table to eat breakfast and she would not stay awake to eat. The patient slumping over to her left side. She was having speech changes. The confusion is intermittent. Today symptoms seemed extremely worse and therefore she brought her mother into the emergency room for further evaluation. Patient appears generally weak with intermittent confusion and inability to follow commands. No unilateral weakness. Denies any headaches. No fevers. No other alleviating, precipitating or modifying factors - Related Data Home Medications Medication Instructions Recorded Confirmed Calcium Carbonate/Vitamin D3 1 cap PO DAILY@00 07/08/20 12/07/20 [Calcium 600 mg-D3 10 Mcg (400 Iu)] Multivit-Min/FA/Lycopen/Lutein 1 tab PO DAILY@89907/08/20 12/07/20 [Centrum Silver Tablet] Nitroglycerin Sl Tabs [Nitrostat] 0.4 mg SUBLINGUAL Q5M PRN 07/08/20 12/07/20 Vitamin B Complex 1 cap PO DAILY@89907/08/20 12/07/20 D-[place] 500mg 500 mg PO DAILY@89908/09/20 12/07/20 Metoprolol Tartrate [Lopressor] 100 mg PO BID@0900,209908/09/20 12/07/20 Fish Oil/Dha/Epa [Fish Oil 1,200 1 cap PO HS@209909/08/20 12/07/20 mg Fish Oil] Pravastatin Sodium 80 mg PO HS@209909/08/20 12/07/20 Ubidecarenone [Co Q-10] 100 mg PO DAILY@0900 09/08/20 12/07/20 Dicyclomine [Bentyl] 10 mg PO TID PRN 12/07/20 12/07/20 Furosemide [Lasix] 20 mg PO DAILY@0900 12/07/20 12/07/20 Isosorbide Mononitrate ER [Imdur] 30 mg PO HS@2100 12/07/20 12/07/20 LORazepam [Ativan] 0.5 mg PO BID PRN 12/07/20 12/07/20 amLODIPine [Norvasc] 5 mg PO HS@2100 12/07/20 12/07/20 Previous Rx's Medication Instructions Recorded Clopidogrel Bisulfate [Plavix] 75 mg PO DAILY #30 tab 12/10/20 Divalproex [Depakote] 250 mg PO HS@2100 #30 tablet 12/10/20 cloZAPine [Clozaril] 25 mg PO HS@2100 #0 12/10/20 Allergies Allergy/AdvReac Type Severity Reaction Status Date / Time lisinopril Allergy Unknown Verified 12/07/20 13:28 simvastatin [From Zocor] Allergy Unknown Verified 12/07/20 13:28 Review of Systems ROS Statement: Those systems with pertinent positive or pertinent negative responses have been documented in the HPI. ROS Other: All systems not noted in ROS Statement are negative. Past Medical History Past Medical History: Dementia, Hyperlipidemia, Hypertension, Thyroid Disorder Additional Past Medical History / Comment(s): Pt unreliable historian but states she thinks she has an implanted defibrillator. History of Any Multi-Drug Resistant Organisms: None Reported Past Surgical History: Orthopedic Surgery Past Psychological History: Anxiety, Depression Smoking Status: Former smoker Past Alcohol Use History: None Reported Past Drug Use History: None Reported General Exam Limitations: altered mental status General appearance: alert, lethargic Head exam: Present: atraumatic, normocephalic, normal inspection Eye exam: Present: normal appearance, PERRL, EOMI. Absent: scleral icterus, conjunctival injection, periorbital swelling ENT exam: Present: normal exam, mucous membranes moist Respiratory exam: Present: normal lung sounds bilaterally. Absent: respiratory distress, wheezes, rales, rhonchi, stridor Cardiovascular Exam: Present: regular rate, normal rhythm, normal heart sounds. Absent: systolic murmur, diastolic murmur, rubs, gallop, clicks GI/Abdominal exam: Present: soft, normal bowel sounds. Absent: distended, tenderness, guarding, rebound, rigid Extremities exam: Present: normal inspection, full ROM, normal capillary refill. Absent: tenderness, pedal edema, joint swelling, calf tenderness Neurological exam: Present: altered, CN II-XII intact, other (No expressive aphasia or dysarthria. Intermittent confused speech. strength equal bilaterally and in the upper and lower extremities. No facial droop. Finger to nose more asymmetric on the left) Course Vital Signs 12/07/20 12/07/20 12/07/20 12:27 12:45 13:11 Temperature 98.5 F Pulse Rate 89 89 Respiratory 18 16 Rate Blood Pressure 141/74 129/74 125/71 O2 Sat by Pulse 98 97 Oximetry 12/07/20 12/07/20 12/07/20 14:00 18:06 23:14 Temperature Pulse Rate 83 92 82 Respiratory 16 16 16 Rate Blood Pressure 136/68 141/74 129/67 O2 Sat by Pulse 96 96 96 Oximetry Medical Decision Making - Medical Decision Making Upon arrival patient is placed into trauma 1. A thorough history and physical exam is performed. NIH is assessed. Patient does have some intermittent episodes of confusion and speech difficulty however symptoms dont last long before she has some improvement. Patient placed on continuous pulse ox and cardiac monitoring. IV is established. Laboratory studies were conducted and reviewed. Valproic acid level is 29.9. Remainder the patient's labs are within normal limits. She has over for a CT of her brain as well as CT angiography and a chest x-ray. Chest x-ray reviewed demonstrates scattered bilateral interstitial densities. Covid is not detected. CT of the brain demonstrates no significant stenosis or no significant aneurysm. Moderate diffuse cerebral atrophy and mild to moderate chronic small vessel ischemic change. The patient is reevaluated. Appears more alert at this time. Due to the patient's altered mental status did recommend admission for neurology consultation. I spoke with Dr. Ragland who agreed to admit the patient. She is currently awaiting a bed on the floor in stable condition - Lab Data Result diagrams: 12/08/20 06:41 12/10/20 06:50 Lab Results 12/07/20 12/07/20 12/07/20 Range/Units 12:55 13:01 13:01 WBC 3.9 (3.8-10.6) k/uL RBC 4.28 (3.80-5.40) m/uL Hgb 12.1 (11.4-16.0) gm/dL Hct 37.1 (34.0-46.0) % MCV 86.6 (80.0-100.0) fL MCH 28.2 (25.0-35.0) pg MCHC 32.6 (31.0-37.0) g/dL RDW 13.6 (11.5-15.5) % Plt Count 152 (150-450) k/uL MPV 8.6 Neutrophils % 69 % Lymphocytes % 21 % Monocytes % 6 % Eosinophils % 2 % Basophils % 0 % Neutrophils # 2.7 (1.3-7.7) k/uL Lymphocytes # 0.8 L (1.0-4.8) k/uL Monocytes # 0.2 (0-1.0) k/uL Eosinophils # 0.1 (0-0.7) k/uL Basophils # 0.0 (0-0.2) k/uL PT 10.6 (9.0-12.0) sec INR 1.0 (<1.2) APTT 23.1 (22.0-30.0) sec Sodium (137-145) mmol/L Potassium (3.5-5.1) mmol/L Chloride (98-107) mmol/L Carbon Dioxide (22-30) mmol/L Anion Gap mmol/L BUN (7-17) mg/dL Creatinine (0.52-1.04) mg/dL Est GFR (CKD-EPI)AfAm (>60 ml/min/1.73 sqM) Est GFR (CKD-EPI)NonAf (>60 ml/min/1.73 sqM) Glucose (74-99) mg/dL POC Glucose (mg/dL) (75-99) mg/dL POC Glu [employer] Consultant ID Calcium (8.4-10.2) mg/dL Magnesium (1.6-2.3) mg/dL Total Bilirubin (0.2-1.3) mg/dL AST (14-36) U/L ALT (4-34) U/L Alkaline Phosphatase (38-126) U/L Ammonia (<30) umol/L Troponin I (0.000-0.034) ng/mL Total Protein (6.3-8.2) g/dL Albumin (3.5-5.0) g/dL TSH (0.465-4.680) mIU/L Urine Color Yellow Urine Appearance Clear (Clear) Urine pH 6.5 (5.0-8.0) Ur Specific [place] 1.012 (1.001-1.035) Urine Protein Negative (Negative) Urine Glucose (UA) Negative (Negative) Urine Ketones Negative (Negative) Urine Blood Negative (Negative) Urine Nitrite Negative (Negative) Urine Bilirubin Negative (Negative) Urine Urobilinogen <2.0 (<2.0) mg/dL Ur Leukocyte Esterase Negative (Negative) Urine Opiates Screen Not Detected (NotDetected) Ur Oxycodone Screen Not Detected (NotDetected) Urine Methadone Screen Not Detected (NotDetected) Ur Propoxyphene Screen Not Detected (NotDetected) Ur Barbiturates Screen Not Detected (NotDetected) Valproic Acid ug/mL U Tricyclic Antidepress Not Detected (NotDetected) Ur Phencyclidine Scrn Not Detected (NotDetected) Ur Amphetamines Screen Not Detected (NotDetected) U Methamphetamines Scrn Not Detected (NotDetected) U Benzodiazepines Scrn Not Detected (NotDetected) Urine Cocaine Screen Not Detected (NotDetected) U Marijuana (THC) Screen Not Detected (NotDetected) Coronavirus (PCR) (Not Detectd) 12/07/20 12/07/20 12/07/20 Range/Units 13:01 13:01 13:01 WBC (3.8-10.6) k/uL RBC (3.80-5.40) m/uL Hgb (11.4-16.0) gm/dL Hct (34.0-46.0) % MCV (80.0-100.0) fL MCH (25.0-35.0) pg MCHC (31.0-37.0) g/dL RDW (11.5-15.5) % Plt Count (150-450) k/uL MPV Neutrophils % % Lymphocytes % % Monocytes % % Eosinophils % % Basophils % % Neutrophils # (1.3-7.7) k/uL Lymphocytes # (1.0-4.8) k/uL Monocytes # (0-1.0) k/uL Eosinophils # (0-0.7) k/uL Basophils # (0-0.2) k/uL PT (9.0-12.0) sec INR (<1.2) APTT (22.0-30.0) sec Sodium 140 (137-145) mmol/L Potassium 4.4 (3.5-5.1) mmol/L Chloride 106 (98-107) mmol/L Carbon Dioxide 26 (22-30) mmol/L Anion Gap 8 mmol/L BUN 36 H (7-17) mg/dL Creatinine 0.76 (0.52-1.04) mg/dL Est GFR (CKD-EPI)AfAm 88 (>60 ml/min/1.73 sqM) Est GFR (CKD-EPI)NonAf 76 (>60 ml/min/1.73 sqM) Glucose 128 H (74-99) mg/dL POC Glucose (mg/dL) (75-99) mg/dL POC Glu [employer] Consultant ID Calcium 9.3 (8.4-10.2) mg/dL Magnesium (1.6-2.3) mg/dL Total Bilirubin 0.3 (0.2-1.3) mg/dL AST 32 (14-36) U/L ALT 26 (4-34) U/L Alkaline Phosphatase 76 (38-126) U/L Ammonia <9 (<30) umol/L Troponin I <0.012 (0.000-0.034) ng/mL Total Protein 6.3 (6.3-8.2) g/dL Albumin 3.8 (3.5-5.0) g/dL TSH (0.465-4.680) mIU/L Urine Color Urine Appearance (Clear) Urine pH (5.0-8.0) Ur Specific [place] (1.001-1.035) Urine Protein (Negative) Urine Glucose (UA) (Negative) Urine Ketones (Negative) Urine Blood (Negative) Urine Nitrite (Negative) Urine Bilirubin (Negative) Urine Urobilinogen (<2.0) mg/dL Ur Leukocyte Esterase (Negative) Urine Opiates Screen (NotDetected) Ur Oxycodone Screen (NotDetected) Urine Methadone Screen (NotDetected) Ur Propoxyphene Screen (NotDetected) Ur Barbiturates Screen (NotDetected) Valproic Acid 29.9 ug/mL U Tricyclic Antidepress (NotDetected) Ur Phencyclidine Scrn (NotDetected) Ur Amphetamines Screen (NotDetected) U Methamphetamines Scrn (NotDetected) U Benzodiazepines Scrn (NotDetected) Urine Cocaine Screen (NotDetected) U Marijuana (THC) Screen (NotDetected) Coronavirus (PCR) (Not Detectd) 12/07/20 12/08/20 12/08/20 Range/Units 15:26 06:41 06:41 WBC 5.1 (3.8-10.6) k/uL RBC 4.72 (3.80-5.40) m/uL Hgb 13.0 (11.4-16.0) gm/dL Hct 40.3 (34.0-46.0) % MCV 85.2 (80.0-100.0) fL MCH 27.5 (25.0-35.0) pg MCHC 32.3 (31.0-37.0) g/dL RDW 13.6 (11.5-15.5) % Plt Count 188 (150-450) k/uL MPV 8.6 Neutrophils % 65 % Lymphocytes % 23 % Monocytes % 6 % Eosinophils % 3 % Basophils % 1 % Neutrophils # 3.3 (1.3-7.7) k/uL Lymphocytes # 1.2 (1.0-4.8) k/uL Monocytes # 0.3 (0-1.0) k/uL Eosinophils # 0.2 (0-0.7) k/uL Basophils # 0.0 (0-0.2) k/uL PT (9.0-12.0) sec INR (<1.2) APTT (22.0-30.0) sec Sodium 140 (137-145) mmol/L Potassium 4.8 (3.5-5.1) mmol/L Chloride 103 (98-107) mmol/L Carbon Dioxide 26 (22-30) mmol/L Anion Gap 11 mmol/L BUN 24 H (7-17) mg/dL Creatinine 0.72 (0.52-1.04) mg/dL Est GFR (CKD-EPI)AfAm >90 (>60 ml/min/1.73 sqM) Est GFR (CKD-EPI)NonAf 82 (>60 ml/min/1.73 sqM) Glucose 106 H (74-99) mg/dL POC Glucose (mg/dL) (75-99) mg/dL POC Glu [employer] Consultant ID Calcium 9.9 (8.4-10.2) mg/dL Magnesium (1.6-2.3) mg/dL Total Bilirubin (0.2-1.3) mg/dL AST (14-36) U/L ALT (4-34) U/L Alkaline Phosphatase (38-126) U/L Ammonia (<30) umol/L Troponin I (0.000-0.034) ng/mL Total Protein (6.3-8.2) g/dL Albumin (3.5-5.0) g/dL TSH (0.465-4.680) mIU/L Urine Color Urine Appearance (Clear) Urine pH (5.0-8.0) Ur Specific [place] (1.001-1.035) Urine Protein (Negative) Urine Glucose (UA) (Negative) Urine Ketones (Negative) Urine Blood (Negative) Urine Nitrite (Negative) Urine Bilirubin (Negative) Urine Urobilinogen (<2.0) mg/dL Ur Leukocyte Esterase (Negative) Urine Opiates Screen (NotDetected) Ur Oxycodone Screen (NotDetected) Urine Methadone Screen (NotDetected) Ur Propoxyphene Screen (NotDetected) Ur Barbiturates Screen (NotDetected) Valproic Acid ug/mL U Tricyclic Antidepress (NotDetected) Ur Phencyclidine Scrn (NotDetected) Ur Amphetamines Screen (NotDetected) U Methamphetamines Scrn (NotDetected) U Benzodiazepines Scrn (NotDetected) Urine Cocaine Screen (NotDetected) U Marijuana (THC) Screen (NotDetected) Coronavirus (PCR) Not Detected (Not Detectd) 12/08/20 12/08/20 Range/Units 06:41 22:47 WBC (3.8-10.6) k/uL RBC (3.80-5.40) m/uL Hgb (11.4-16.0) gm/dL Hct (34.0-46.0) % MCV (80.0-100.0) fL MCH (25.0-35.0) pg MCHC (31.0-37.0) g/dL RDW (11.5-15.5) % Plt Count (150-450) k/uL MPV Neutrophils % % Lymphocytes % % Monocytes % % Eosinophils % % Basophils % % Neutrophils # (1.3-7.7) k/uL Lymphocytes # (1.0-4.8) k/uL Monocytes # (0-1.0) k/uL Eosinophils # (0-0.7) k/uL Basophils # (0-0.2) k/uL PT (9.0-12.0) sec INR (<1.2) APTT (22.0-30.0) sec Sodium (137-145) mmol/L Potassium (3.5-5.1) mmol/L Chloride (98-107) mmol/L Carbon Dioxide (22-30) mmol/L Anion Gap mmol/L BUN (7-17) mg/dL Creatinine (0.52-1.04) mg/dL Est GFR (CKD-EPI)AfAm (>60 ml/min/1.73 sqM) Est GFR (CKD-EPI)NonAf (>60 ml/min/1.73 sqM) Glucose (74-99) mg/dL POC Glucose (mg/dL) 101 H (75-99) mg/dL POC Glu [employer] Consultant ID Maira Ozuna Calcium (8.4-10.2) mg/dL Magnesium 2.3 (1.6-2.3) mg/dL Total Bilirubin (0.2-1.3) mg/dL AST (14-36) U/L ALT (4-34) U/L Alkaline Phosphatase (38-126) U/L Ammonia (<30) umol/L Troponin I (0.000-0.034) ng/mL Total Protein (6.3-8.2) g/dL Albumin (3.5-5.0) g/dL TSH 3.530 (0.465-4.680) mIU/L Urine Color Urine Appearance (Clear) Urine pH (5.0-8.0) Ur Specific [place] (1.001-1.035) Urine Protein (Negative) Urine Glucose (UA) (Negative) Urine Ketones (Negative) Urine Blood (Negative) Urine Nitrite (Negative) Urine Bilirubin (Negative) Urine Urobilinogen (<2.0) mg/dL Ur Leukocyte Esterase (Negative) Urine Opiates Screen (NotDetected) Ur Oxycodone Screen (NotDetected) Urine Methadone Screen (NotDetected) Ur Propoxyphene Screen (NotDetected) Ur Barbiturates Screen (NotDetected) Valproic Acid ug/mL U Tricyclic Antidepress (NotDetected) Ur Phencyclidine Scrn (NotDetected) Ur Amphetamines Screen (NotDetected) U Methamphetamines Scrn (NotDetected) U Benzodiazepines Scrn (NotDetected) Urine Cocaine Screen (NotDetected) U Marijuana (THC) Screen (NotDetected) Coronavirus (PCR) (Not Detectd) - EKG Data EKG Comments: EKG demonstrates normal sinus rhythm with a ventricular rate of 88. PA interval 144. QRS 90. QTC 49. No acute ST segment elevations or depressions Disposition Clinical Impression: Acute encephalopathy, Medication adverse effect Disposition: ADMITTED IP TO THIS [facility] Condition: Stable Is patient prescribed a controlled substance at d/c from ED?: No Decision to Admit Reason: Admit from EC Decision Date: 12/07/20 Decision Time: 15:09
[2020-12-07 13:32] LABS: Partial Thromboplastin Time 23.1 sec (22.0-30.0); Prothrombin Time 10.6 sec (9.0-12.0)
[2020-12-07 13:36] LABS: Albumin 3.8 g/dL (3.5-5.0); Calcium 9.3 mg/dL (8.4-10.2); Potassium 4.4 mmol/L (3.5-5.1); Total Bilirubin 0.3 mg/dL (0.2-1.3); Total Protein 6.3 g/dL (6.3-8.2)
[2020-12-07 13:41] LABS: Valproic Acid (Depakene) 29.9 ug/mL
--- NOTE | 2020-12-07 13:45 | XR ---
EXAMINATION TYPE: XR chest 2V DATE OF EXAM: 12/07/2020 COMPARISON: 09/08/2020 HISTORY: 75-year-old female confusion, altered mental status TECHNIQUE: AP and lateral views FINDINGS: Heart upper limits of normal in size. Scattered interstitial densities appear more pronounced from pr ior. Scattered peribronchial cuffing. No well-defined rani consolidation or pleural effusion. IMPRESSION: Scattered bilateral interstitial densities. Consider bronchitis or atypical pneumonias including the possibility of COVID pneumonia.
--- NOTE | 2020-12-07 14:15 | CT ---
EXAMINATION TYPE: CT brain wo con DATE OF EXAM: 12/07/2020 HISTORY: Altered mental status CT DLP: 1029.8 mGycm. Automated Exposure Control for Dose Reduction was Utilized. TECHNIQUE: CT scan of the head is performed without contrast. COMPARISON: CT brain July 15, 2020. FINDINGS: There is no acute intracranial hemorrhage or midline shift identified. There is moderate diffuse ventricular and sulcal prominence consistent with diffuse age-related cerebral atrophy. Ther e is mild to moderate low-attenuation in the periventricular white matter consistent with chronic sma ll vessel ischemic change. Mild to moderate dependent fluid and mucosal thickening in visualized port ion of bilateral maxillary sinuses. Globes are intact bilaterally. IMPRESSION: No acute intracranial hemorrhage or midline shift. There is moderate diffuse cerebral a trophy and mild to moderate chronic small vessel ischemic change redemonstrated. No significant peng ge from prior. 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 Correlate ari fontana.
--- NOTE | 2020-12-07 14:21 | CT ---
EXAMINATION TYPE: CT angio head neck DATE OF EXAM: 12/07/2020 HISTORY: Altered mental status COMPARISON: None. CT DLP: 405.3 mGycm. Automated Exposure Control for Dose Reduction was Utilized. TECHNIQUE: CTA scan of the head and neck are performed without and with IV Contrast, patient injecte d with 65 ml mL of Isovue 370, axial images are obtained, coronal and sagittal reformatted images are reviewed. 3D reconstructed images are created on an independent workstation and reviewed. FINDINGS: Carotid/Vascular Structures: Patent central pulmonary arteries. Mild peripheral plaque in the aortic arch with more moderate plaque at origin of the 3 great vessels. No significant stenosis. Normal orig in right common carotid artery from right brachiocephalic artery with tortuous proximal course. Moder ate to severe peripheral calcified plaque in right carotid bulb without significant stenosis. Patent external carotid artery without significant stenosis. Poor visualization of portion of the left commo n carotid artery due to streak artifact from hyperdense venous injection left subclavian vein. Remain karlo of common carotid artery shows moderate peripheral anterior calcified plaque distally. There is s evere calcified plaque at the left carotid bulb extending into proximal internal carotid artery witho ut significant stenosis. Patent external carotid artery without significant stenosis. Tortuous course to the proximal to mid internal carotid arteries bilaterally with [id number] calcified plaque distally. Right vertebral artery is small caliber and becomes hypoplastic or stenotic distally. Dominant left v ertebral artery fills the basilar artery. There is patent right posterior communicating artery. There is hypoplastic left posterior communicating artery. No significant focal stenosis or aneurysm in the posterior circulation. There is absent right A1 segment with filling of the right A2 segment due to patent anterior communicating artery, normal variant. There is no significant focal stenosis or aneur ysm in the anterior circulation.1 Other: Mild to moderate emphysematous change visualized upper lungs. Underlying dextroconvex scoliosis or positioning centered upper thoracic spine. Moderate disc space n arrowing C4-C5 through C6-C7 levels. IMPRESSION: No significant stenosis in common or internal carotid arteries bilaterally. No significa nt stenosis or aneurysm at the level of the [place]. NASCET criteria was used in interpretation of this exam?
[2020-12-07 14:23] LABS: Appearance,Urine Clear (Clear); Bilirubin,Urine Negative (Negative); Blood,Urine Negative (Negative); Color,Urine Yellow; Glucose,Urine (UA) Negative (Negative); Ketones,Urine Negative (Negative); Leukocyte Esterase,Urine Negative (Negative); Nitrite,Urine Negative (Negative); PH, Urine 6.5 (5.0-8.0); Protein,Urine Negative (Negative); Specific Gravity,Urine 1.012 (1.001-1.035); Urobilinogen,Urine <2.0 mg/dL (<2.0)
[2020-12-07 14:51] LABS: Amphetamine Screen,Urine Not Detected (NotDetected); Barbiturate Screen,Urine Not Detected (NotDetected); Benzodiazepines Screen,Urine Not Detected (NotDetected); Cocaine Screen,Urine Not Detected (NotDetected); Methadone Screen, Urine Not Detected (NotDetected); Opiate Screen,Urine Not Detected (NotDetected); Oxycodone Screen, Urine Not Detected (NotDetected); Phencyclidine Screen,Urine Not Detected (NotDetected); Tricyclic Antidepressant,Urine Not Detected (NotDetected); Urn Cannabinoid Scrn Not Detected (NotDetected)
[2020-12-07] MEDS ORDERED: NALOXONE 0.4 MG/ML 1 ML VIAL IV PRN (15:09)
[2020-12-07] MEDS ORDERED: DICYCLOMINE 10 MG CAP PO PRN (15:11)
[2020-12-07] MEDS: LORazepam 0.5 MG TAB PO PRN (15:30)
[2020-12-07] MEDS ORDERED: DIVALPROEX 500 MG TABLET.DR PO SCH (21:00)
[2020-12-07] MEDS ORDERED: risperiDONE 0.5 MG TAB PO SCH (21:45)
--- NOTE | 2020-12-07 21:45 | P.HPIM ---
History of Present Illness H&P Date: 12/07/20 Chief Complaint: Altered mental status History of presenting complaint: This is a pleasant 75-year-old patient who follows with Dr. Thurston. Chronic stable medical conditions include hyperlipidemia, hypertension, hypothyroid, CAD for medical management. Diagnosis of neurocognitive disorder. She started having hallucinations in 2018 and she was diagnosed then with dementia. started seeing people that through television and started to connect with them. started having some interactions. Also with episodes that she'll start screaming at people. Diagnosed with major neurocognitive disorder and psychosis and was discharged on 07/17/2020 Subsequently she was Admitted with side effects of antipsychotics causing increasing medical debility, encephalopathic. Zyprexa, mirtazapine and Aricept was discontinued. Synthroid was resumed.. started sleeping better. Responded well Patient now presented to the ER with her daughter. Dr. Stinson last couple of days she has been started on clozapine and the dose was increased last week. Patient has become more sleepy and confused. Yesterday she could barely keep her eyes open. Patient is very sedated barely able to open her eyes. Patient's confusion was intubated. Today symptoms became worse and patient is even slu mping over the breakfast table she brought the patient to ER. When I walked in the room patient does recognize me. She thinks as a box of food near her.. She is hallucinating and talking about people not present. Patient is a rather picky eater. Does use a walker. No chest pain no fever no shortness of breath. Review of systems: GEN.: Tired, EYES: None HEENT: None NECK: None RESPIRATORY: None CARDIOVASCULAR: None GASTROINTESTINAL: None GENITOURINARY: Some urinary incontinence MUSCULOSKELETAL: Some joint pains LYMPHATICS: None HEMATOLOGICAL: None PSYCHIATRY: Hallucinating NEUROLOGICAL: None Past medical history to include: Hypertension, hyperlipidemia, hypothyroid, anxiety, depression, dementia, psychosis, CAD for medical management Social history: Lives with her a daughter. Drinks alcohol rarely. Patient smoked for about 20- 30 years stopped about 30 years ago. Physical examination: VITAL SIGNS: 98.5, 89, 18, 141/74, 98% room air GENERAL: BMI 29.1, reclining in bed, tired but sleepy EYES: Pupils equal. Conjunctiva normal. HEENT: External appearance of nose and ears normal, oral cavity grossly normal. NECK: JVD not raised; masses not palpable. HEART: First and second heart sounds are normal; mild edema. LUNGS: Respiratory rate normal; clear to auscultation. ABDOMEN: Soft, nontender, liver spleen not palpable, no masses palpable. PSYCH: Patient able to answer questions. We also hallucinating intermittently. MUSCULOSKELETAL: Evidence of OA especially in the hands. NEUROLOGICAL: Cranial nerves grossly intact; no facial asymmetry, power and sensation grossly intact. LYMPHATICS: No lymph nodes palpable in the axilla and neck INVESTIGATIONS, reviewed in the clinical context: WBC 3.9 hemoglobin 12.1 platelets 152 2140 potassium 4.4 BUN 36 creatinine 0.76 UA negative Urine drug screen: Negative Coronavirus [PCR]: Not detected EKG tracing personally reviewed by me-normal sinus rhythm, rate 88 Chest x-ray film personally reviewed by me: Some scattered changes possibly chronic. Assessment and plan: -Psychosis associated with dementia with acute flareup. Patient was recently increased on Clozaril. We'll hold off for right now. Consults psychiatry. Add Risperdal daily at bedtime -Acute metabolic encephalopathy possibly from Clozaril. From increased dose. Hold off Clozaril - coronary artery disease significant disease: [Cardiac catheterization September 2020: For medical management] Amlodipine 5 mg daily at bedtime, pravastatin 80 mg daily at bedtime, Lopressor 100 mg twice a day, Imdur ER 30 mg daily at bedtime -Essential hypertension Lopressor, amlodipine -Hypercholesterolemia Pravachol -GERD Protonix -Chronic insomnia long-standing Add Risperdal daily at bedtime -Hypothyroid Synthroid - Moderate cognitive impairment from dementia -Primary osteoarthritis, bilateral multiple joints Continue with Tylenol when necessary Hold off Clozaril. Other medications to continue. Hold off Lasix. Add Risperdal daily at bedtime. Consult psychiatry Past Medical History Past Medical History: Dementia, Hyperlipidemia, Hypertension, Thyroid Disorder Additional Past Medical History / Comment(s): Pt unreliable historian but states she thinks she has an implanted defibrillator. History of Any Multi-Drug Resistant Organisms: None Reported Past Surgical History: Orthopedic Surgery Past Psychological History: Anxiety, Depression Smoking Status: Former smoker Past Alcohol Use History: None Reported Past Drug Use History: None Reported Medications and Allergies Home Medications Medication Instructions Recorded Confirmed Type Calcium Carbonate/Vitamin D3 1 cap PO DAILY@0900 07/08/20 12/07/20 History [Calcium 600 mg-D3 10 Mcg (400 Iu)] Multivit-Min/FA/Lycopen/Lutein 1 tab PO DAILY@89907/08/20 12/07/20 History [Centrum Silver Tablet] Nitroglycerin Sl Tabs [Nitrostat] 0.4 mg SUBLINGUAL Q5M PRN 07/08/20 12/07/20 History Vitamin B Complex 1 cap PO DAILY@0907/08/20 12/07/20 History Aspirin 81 mg PO HS@209908/09/20 12/07/20 History D-Mannose 500mg 500 mg PO DAILY@0908/09/20 12/07/20 History Metoprolol Tartrate [Lopressor] 100 mg PO BID@899,209908/09/20 12/07/20 History Fish Oil/Dha/Epa [Fish Oil 1,200 1 cap PO HS@209909/08/20 12/07/20 History mg Fish Oil] Pravastatin Sodium 80 mg PO HS@209909/08/20 12/07/20 History Ubidecarenone [Co Q-10] 100 mg PO DAILY@0909/08/20 12/07/20 History Dicyclomine [Bentyl] 10 mg PO TID PRN 12/07/20 12/07/20 History Divalproex Sodium [Depakote] 500 mg PO HS@209912/07/20 12/07/20 History Furosemide [Lasix] 20 mg PO DAILY@0900 12/07/20 12/07/20 History Isosorbide Mononitrate ER [Imdur] 30 mg PO HS@209912/07/20 12/07/20 History LORazepam [Ativan] 0.5 mg PO BID PRN 12/07/20 12/07/20 History amLODIPine [Norvasc] 5 mg PO HS@209912/07/20 12/07/20 History cloZAPine [Clozaril] 75 mg PO HS@209912/07/20 12/07/20 History Allergies Allergy/AdvReac Type Severity Reaction Status Date / Time lisinopril Allergy Unknown Verified 12/07/20 13:28 simvastatin [From Zocor] Allergy Unknown Verified 12/07/20 13:28 Physical Exam Vitals: Vital Signs Temp Pulse Resp BP Pulse Ox 12/07/20 18:06 92 16 141/74 96 12/07/20 14:00 83 16 136/68 96 12/07/20 13:11 125/71 12/07/20 12:45 89 16 129/74 97 12/07/20 12:27 98.5 F 89 18 141/74 98 Intake and Output 12/07/20 12/07/20 12/07/20 06:59 14:59 22:59 Other: Weight 81.647 kg Results CBC & Chem 7: 12/07/20 13:01 12/07/20 13:01 Labs: Abnormal Lab Results - Last 24 Hours (Table) 12/07/20 12/07/20 Range/Units 13:01 13:01 Lymphocytes # 0.8 L (1.0-4.8) k/uL BUN 36 H (7-17) mg/dL Glucose 128 H (74-99) mg/dL
[2020-12-07] MEDS: ISOSORBIDE MONONITRATE ER 30 MG TAB.ER.24H PO SCH (23:12)
[2020-12-07] MEDS: ASPIRIN 81 MG PO SCH (23:12)
[2020-12-07] MEDS: METOPROLOL TARTRATE 50 MG TAB PO SCH (23:12)
[2020-12-07] MEDS: amLODIPine 5 MG TAB PO SCH (23:12)
[2020-12-07] MEDS: PRAVASTATIN SODIUM 80 MG TAB PO SCH (23:13)
--- NOTE | 2020-12-08 01:25 | P.CNNES ---
History of Present Illness Consult date: 12/07/20 Requesting physician: Maribel Flores Reason for Consult: acute encephalopathy, recent medication change History of Present Illness: Patient is a 75-year-old female came to the hospital today at 12:27 PM by ambulance. Patient not cooperating with a history taking or examination. According to EMS flow sheet, when they arrived, patient was sitting in the chair. Family has mentioned that patient has dementia and was started on a new medication which probably producing side effects. Family also had requested for her to be checked out for possible UTI. Patient's blood pressure at the scene was 142/52, pulse rate 91, respiration 18, saturation 98%, blood sugar 188. Patient's blood test shows normal CBC, PT/PTT, Chem-20. BUN is 36, creatinine 0.76. UA is negative. Urine drug screen is negative. Moreau virus PCR negative. Depakote 29.9. CTA of head and neck showed no significant arterial stenosis, or aneurysm. CT head showed no acute process. Moderate diffuse cerebral atrophy and [id number] chronic small vessel ischemic change. No significant change from prior computed tomography scan from 07/15/2020. Acute on chronic bilateral maxillary sinus disease. EKG shows normal sinus rhythm. Voltage criteria for LVH. Chest x-ray shows scattered bilateral interstitial densities. Consider bronchitis or atypical pneumonias. Including possibility of Covid pneumonia. Patient is not cooperating with the history or examination. She states that she is not feeling well. When I asked about what she is not feeling well, states "about everything". When I asked about headache, states "I always have headache". She just wants to go to sleep. She is concerned that her is leaving. Patient's B12 is 511 on 10/09/2020, TSH is normal 1.89. Free T4 normal. Hemoglobin A1c 5.3 on 07/08/2020. Review of Systems Patient did not cooperate with exam. Please refer to history and examination part. ROS unobtainable: due to mental status Past Medical History Past Medical History: Dementia, Hyperlipidemia, Hypertension, Thyroid Disorder Additional Past Medical History / Comment(s): Pt unreliable historian but states she thinks she has an implanted defibrillator. History of Any Multi-Drug Resistant Organisms: None Reported Past Surgical History: Orthopedic Surgery Past Psychological History: Anxiety, Depression Smoking Status: Former smoker Past Alcohol Use History: None Reported Past Drug Use History: None Reported Medications and Allergies Home Medications Medication Instructions Recorded Confirmed Type Calcium Carbonate/Vitamin D3 1 cap PO DAILY@0900 07/08/20 12/07/20 History [Calcium 600 mg-D3 10 Mcg (400 Iu)] Multivit-Min/FA/Lycopen/Lutein 1 tab PO DAILY@0900 07/08/20 12/07/20 History [Centrum Silver Tablet] Nitroglycerin Sl Tabs [Nitrostat] 0.4 mg SUBLINGUAL Q5M PRN 07/08/20 12/07/20 History Vitamin B Complex 1 cap PO DAILY@0907/08/20 12/07/20 History Aspirin 81 mg PO HS@209908/09/20 12/07/20 History D-Mannose 500mg 500 mg PO DAILY@89908/09/20 12/07/20 History Metoprolol Tartrate [Lopressor] 100 mg PO BID@0900,209908/09/20 12/07/20 History Fish Oil/Dha/Epa [Fish Oil 1,200 1 cap PO HS@209909/08/20 12/07/20 History mg Fish Oil] Pravastatin Sodium 80 mg PO HS@209909/08/20 12/07/20 History Ubidecarenone [Co Q-10] 100 mg PO DAILY@89909/08/20 12/07/20 History Dicyclomine [Bentyl] 10 mg PO TID PRN 12/07/20 12/07/20 History Divalproex Sodium [Depakote] 500 mg PO HS@209912/07/20 12/07/20 History Furosemide [Lasix] 20 mg PO DAILY@0912/07/20 12/07/20 History Isosorbide Mononitrate ER [Imdur] 30 mg PO HS@209912/07/20 12/07/20 History LORazepam [Ativan] 0.5 mg PO BID PRN 12/07/20 12/07/20 History amLODIPine [Norvasc] 5 mg PO HS@209912/07/20 12/07/20 History cloZAPine [Clozaril] 75 mg PO HS@209912/07/20 12/07/20 History Allergies Allergy/AdvReac Type Severity Reaction Status Date / Time lisinopril Allergy Unknown Verified 12/07/20 13:28 simvastatin [From Zocor] Allergy Unknown Verified 12/07/20 13:28 Physical Examination - Vital Signs Vital Signs: Vital Signs Temp Pulse Resp BP Pulse Ox 12/07/20 14:00 83 16 136/68 96 12/07/20 13:11 125/71 12/07/20 12:45 89 16 129/74 97 12/07/20 12:27 98.5 F 89 18 141/74 98 Intake and Output 12/07/20 12/07/20 12/07/20 06:59 14:59 22:59 Other: Weight 81.647 kg Patient is an elderly female, in no acute distress. She is somnolent. Patient is somewhat irritable. Patient does not want to provide any history, does not want to be examined. Patient is somnolent. When I asked about the month or year, states "I don't want to know". Speech and language functions are normal. Attention, concentration and fund of knowledge is limited. On cranial examination, pupils are round and reacting to light, patient did not cooperate with visual field testing. Her extraocular muscles are intact with no nystagmus. Face is symmetric, tongue protrudes to the midline. Patient did not cooperate with palatal testing. Hearing appears normal. Facial sensations normal. On muscle strength testing, there is no pronator drift and the strength is normal in bilateral biceps, triceps and forming department end finder. In the lower limbs, she did not cooperate, but her toe wiggling was equal bilaterally. Deep tendon reflexes are symmetric, trace to 1 in bilateral upper and lower limbs and plantars downgoing. Sensory to touch is equal with no neglect. Cerebellar function could not be checked because of patient's noncooperation. Tone and bulk of muscles normal. Gait not checked. On general examination, there is no carotid bruit or murmur, S1-S2 audible. Abdomen is soft nontender. Patient has positive peripheral edema. Results - Laboratory Findings CBC and BMP: 12/07/20 13:01 12/07/20 13:01 Abnormal Lab Findings: Abnormal Labs 12/07/20 12/07/20 13:01 13:01 Lymphocytes # 0.8 L BUN 36 H Glucose 128 H Assessment and Plan Assessment: * Altered mental status, likely due to medication side effect. Patient was recently started on new medication, perhaps clozapine, likely the cause of e xcessive somnolence. Depakote can also produce excessive somnolence. Her limited examination is nonfocal. * Abnormal chest x-ray, possibility of pneumonia. * History of dementia. Plan: * Patient's altered mental status is likely due to medication side effect. Patient was started on clozapine and Depakote, likely causing side effects. Her limited examination is nonfocal. Patient was not cooperative with examination. Suggest psychiatry consultation to address her psychoactive medications. * All metabolic workup is normal including B12 of 511 on 10/09/2020, TFTs are n ormal, ammonia normal, hemoglobin A1c 5.3 on 07/08/2020. CK normal 98, no evidence of UTI. * Lipid panel with cholesterol 106, LDL 48, HDL 40 and triglycerides 90. * Chest x-ray showed possibility of pneumonia. Will defer to IM. * No other neurological workup indicated.
[2020-12-08 07:47] LABS: African American GFR (CKD) >90 (>60 ml/min/1.73 sqM); Anion Gap 11 mmol/L; Blood Urea Nitrogen 24 mg/dL (7-17); Calcium 9.9 mg/dL (8.4-10.2); Carbon Dioxide 26 mmol/L (22-30); Chloride 103 mmol/L (98-107); Glucose 106 mg/dL (74-99); Non-African American GFR(CKD) 82 (>60 ml/min/1.73 sqM); Potassium 4.8 mmol/L (3.5-5.1); Sodium 140 mmol/L (137-145)
[2020-12-08 07:48] LABS: Basophils % (A) 1 %; Eosinophils # (A) 0.2 k/uL (0-0.7); Eosinophils % (A) 3 %; HCT 40.3 % (34.0-46.0); Lymphocytes # (A) 1.2 k/uL (1.0-4.8); Lymphocytes % (A) 23 %; MCH 27.5 pg (25.0-35.0); MCHC 32.3 g/dL (31.0-37.0); MCV 85.2 fL (80.0-100.0); Mean Platelet Volume 8.6; Monocytes # (A) 0.3 k/uL (0-1.0); Monocytes % (A) 6 %; Neutrophils # (A) 3.3 k/uL (1.3-7.7); Neutrophils % (A) 65 %; Platelet Count 188 k/uL (150-450); RBC 4.72 m/uL (3.80-5.40); RDW 13.6 % (11.5-15.5); WBC 5.1 k/uL (3.8-10.6)
[2020-12-08] MEDS ORDERED: LORazepam 2 MG/ML INJ ONE (08:39)
[2020-12-08] MEDS ORDERED: LORazepam 2 MG/ML INJ IV STA (08:45)
[2020-12-08] MEDS ORDERED: FUROSEMIDE 20 MG TAB PO SCH (09:00)
[2020-12-08] MEDS: METOPROLOL TARTRATE 50 MG TAB PO SCH ×2 (12:17→19:54)
[2020-12-08] MEDS ORDERED: OLANZapine 10 MG VIAL IM PRN (12:33)
--- NOTE | 2020-12-08 13:24 | P.CN ---
Psychiatric Consult - . Consult date: 12/08/20 Consult:: 12/08/20 13:23 IDENTIFYING DATA: This patient is a 75-year-old, , retired, female who was admitted for alterted mental status. HISTORY OF PRESENT ILLNESS: The patient presented to the hospital on 12/07/20, p resenting to the hospital with increased weakness and altered mental status. The patient was noted to be very sedated, having difficulty opening her eyes, with weakness on her left side. The patient was then subsequently brought to the emergency department by her daughter. On the morning of 12/08/2020, the patient was noted to be compative and angry in the hallway of the hospital. Security arrived and guided the patient back to bed. She continued being combative and required 4-point soft restraints. She was given a one time dose of 1 mg IV ativan. Present at the patient's bedside is her daughter Ericka, who provided the information ast the patient was somnolent and could not participate. As per discussion with the patient's daughter, the patient recently had a medication adjustment with the increase in clozapine over the past week. She states that since the patient was last admitted on to the psychiatric unit here in this hospital, she has been seeing Dr Moctezuma, a geriatric psychiatrist who has adjusted her medications. The patient was being managed on a regimen of depakote and clozaril after trialing various antipsychotics and antidepressants including zyprexa, haldol, risperdal, and remeron. The patient reportedly did well on these medications, with a significant increase in her ability to function, including participating in groups and community activities. Coordination of care with the patient's Psychaitrist Dr Moctezuma - The patient has been trialed on different antipsychotics with little to no improvement and therefore was started on clozaril. The patient tolerated and did well on a dose of [address] Moctezuma's plan was to gradually taper off depakote and have the patient on clozaril monotherapy initially. PAST PSYCHIATRIC HISTORY: Patient has a history of major neurocognitive disorder and psychosis. The patient has been on numerous psychiatric medications including Abilify, Zyprexa, Risperdal, Seroquel, and Remeron. She is currently on a home regimen of Clozaril and Depakote. The patient has had 1 prior inpatient psychiatric hospitalization in July 2020. The patient is currently open with a geriatric psychiatrist Dr Easton. Patient has had no prior attempts at suicide. PAST MEDICAL HISTORY: Past Medical History: Dementia, Hyperlipidemia, Hypertension, Thyroid Disorder Additional Past Medical History / Comment(s): Pt unreliable historian but states she thinks she has an implanted defibrillator. History of Any Multi-Drug Resistant Organisms: None Reported Past Surgical History: Orthopedic Surgery Past Psychological History: Anxiety, Depression Smoking Status: Former smoker Past Alcohol Use History: None Reported Past Drug Use History: None Reported ALLERGIES: Lisinopril, simvastatin CHEMICAL DEPENDENCY HISTORY: No reported substance abuse history. FAMILY PSYCHIATRIC/SUBSTANCE USE HISTORY: No reported history. SOCIAL HISTORY: Patient currently lives with her daughter. She is and retired. She has had memory problems since 2019. As per daughter, the patient is able to complete her ADLs with guidance. She ambulates with a walker typically. MENTAL STATUS EXAM: General Appearance: Patient appears to be stated age, wearing a hospital gown, and is currently somnolent. Behavior: Patient is calmly lying in bed without any agitated behavior. No eye contact. Sleeping. Speech: Could not assess. Mood/Affect: Could not assess. Affect somnolent. Suicidality/Homicidality: Could not assess. Perceptions :Could not assess. Though content/process: Could not assess. Memory and concentration:Could not assess. Judgment and insight: Could not assess. Poor at baseline. IMPRESSIONS: Major Neurocognitive Disorder, with behavioral disturbances and psychosis Psychosis unspecified Altered mental status, suspect acute metabolic encephalopathy due to medication side effect vs. possible pneumonia PLAN: -At this time patient DOES NOT meet criteria for inpatient psychiatric admission. We will continue to monitor for acute changes and re-evaluate necessity of inpatient psychiatric placement. Daughter does not wish patient to be admitted at this time. -Patient DOES NOT have decision making capacity at this time and is unable to reason through and communicate/appreciate the risks, benefits and alternatives to treatment. -Delirium precautions recommended with patient including - avoiding use of narc otics and INSURANCE OFFICE SUPERVISOR sedatives, limit anticholinergic medications when possible, frequent re-orientation, minimize use of restraints, open window shades during the day and close them at night -Would recommend the following medication changes/additions: After discussion with Dr Easton, we will continue with plan to have patient managed with monotherapy with clozaril. EKG and ANC were reviewed and appr opriate to start Clozaril. We will start Clozaril 25 mg at bedtime for psychosis/mood stabilization. We will taper Depakote to 250 mg at bedtime for mood stabilization. Start Zyprexa 2.5 mg IM PRN for agitation. -Psychiatry will continue to follow along. 12/08/20 13:23
--- NOTE | 2020-12-08 18:20 | P.PN ---
Progress Note - Text Progress Note Date: 12/08/20 Chief Complaint: Altered mental status History of presenting complaint: This is a pleasant 75-year-old patient who follows with Dr. Thurston. Chronic stable medical conditions include hyperlipidemia, hypertension, hypothyroid, CAD for medical management. Diagnosis of neurocognitive disorder. She started having hallucinations in 2018 and she was diagnosed then with dementia. started seeing people that through television and started to connect with them. started having some interactions. Also with episodes that she'll start screaming at people. Diagnosed with major neurocognitive disorder and psychosis and was discharged on 07/17/2020 Subsequently she was Admitted with side effects of antipsychotics causing increasing medical debility, encephalopathic. Zyprexa, mirtazapine and Aricept was discontinued. Synthroid was resumed.. started sleeping better. Responded well Patient now presented to the ER with her daughter. Dr. Stinson last couple of days she has been started on clozapine and the dose was increased last week. Patient has become more sleepy and confused. Yesterday she could barely keep her eyes open. Patient is very sedated barely able to open her eyes. Patient's confusion was intubated. Today symptoms became worse and patient is even slumping over the breakfast table she brought the patient to ER. When I walked in the room patient does recognize me. She thinks as a box of food near her.. She is hallucinating and talking about people not present. Patient is a rather picky eater. Does use a walker. No chest pain no fever no shortness of breath. December 08: Patient became rather agitated early hours of today. 1 mg of Ativan was given. Patient did sedated. Daughter came to the room. I did a lengthy talk with patient's daughter. Patient may have to be resumed on Clozaril dose smaller dose. I tried a small dose of Risperdal last night. Did discuss with her daughter about psychiatrist managing given patient's clinical symptoms. Later today psychiatrist is put the patient back on Clozaril 25 mg at night. Risperdal discontinued. Depakote has been cut back. Also Zyprexa when necessary. Patient other sedation this morning when I came to see the patient. Review of systems cannot obtain as patient is sedated Active Medications Amlodipine Besylate (Amlodipine 5 Mg Tab) 5 mg PO HS@2100 [facility] Last Admin: 12/07/20 23:12 Dose: 5 mg Documented by: Aspirin (Aspirin 81 Mg) 81 mg PO HS@2100 [facility] Last Admin: 12/07/20 23:12 Dose: 81 mg Documented by: Clozapine (Clozapine 25 Mg Tab) 25 mg PO [facility] Stop: 12/15/20 21:01 Dicyclomine HCl (Dicyclomine 10 Mg Cap) 10 mg PO TID PRN PRN Reason: Pain Divalproex Sodium (Divalproex 250 Mg Tablet.Dr) 250 mg PO HS@2100 [facility] Isosorbide Mononitrate (Isosorbide Mononitrate Er 30 Mg Tab.Er.24h) 30 mg PO HS@2100 [facility] Last Admin: 12/07/20 23:12 Dose: 30 mg Documented by: Lorazepam (Lorazepam 0.5 Mg Tab) 0.5 mg PO BID PRN PRN Reason: Anxiety Last Admin: 12/07/20 15:30 Dose: 0.25 mg Documented by: Metoprolol Tartrate (Metoprolol Tartrate 50 Mg Tab) 100 mg PO BID@0900,2099 [facility] Last Admin: 12/08/20 12:17 Dose: Not Given Documented by: Naloxone HCl (Naloxone 0.4 Mg/Ml 1 Ml Vial) 0.2 mg IV Q2M PRN PRN Reason: Opioid Reversal Olanzapine (Olanzapine 10 Mg Vial) 2.5 mg IM BID PRN PRN Reason: Agitation Pravastatin Sodium (Pravastatin Sodium 80 Mg Tab) 80 mg PO HS@2100 [facility] Last Admin: 12/07/20 23:13 Dose: 80 mg Documented by: Past medical history to include: Hypertension, hyperlipidemia, hypothyroid, anxiety, depression, dementia, psychosis, CAD for medical management Social history: Lives with her a daughter. Drinks alcohol rarely. Patient smoked for about 20- 30 years stopped about 30 years ago. Physical examination: VITAL SIGNS: 97.8, 89, 19, 122/86, 96% room air GENERAL: Laying in bed, sedated EYES: Pupils equal. Conjunctiva normal.. NECK: JVD not raised; masses not palpable. HEART: First and second heart sounds are normal; mild edema. LUNGS: Respiratory rate normal; clear to auscultation. ABDOMEN: Soft, nontender, liver spleen not palpable, no masses palpable. PSYCH: Unable to assess currently sedated. MUSCULOSKELETAL: Evidence of OA especially in the hands. INVESTIGATIONS, reviewed in the clinical context: December 08: WBC 5.1 hemoglobin 13 platelets 188 potassium 4.8 creatinine 0.7 to WBC 3.9 hemoglobin 12.1 platelets 152 2140 potassium 4.4 BUN 36 creatinine 0.76 UA negative Urine drug screen: Negative Coronavirus [PCR]: Not detected EKG tracing personally reviewed by me-normal sinus rhythm, rate 88 Chest x-ray film personally reviewed by me: Some scattered changes possibly chronic. Assessment and plan: -Psychosis associated with dementia with acute flareup. : Worsening Clozaril to be resumed at 25 mg daily at bedtime as per psychiatry. Zyprexa when necessary. -Acute metabolic encephalopathy possibly from Clozaril. Dose has been cut back Clozaril decreased to 25 mg at night. - coronary artery disease significant disease: [Cardiac catheterization September 2020: For medical management] Amlodipine 5 mg daily at bedtime, pravastatin 80 mg daily at bedtime, Lopressor 100 mg twice a day, Imdur ER 30 mg daily at bedtime -Essential hypertension Lopressor, amlodipine -Hypercholesterolemia Pravachol -GERD Protonix -Chronic insomnia long-standing Add Risperdal daily at bedtime -Hypothyroid Synthroid - Moderate cognitive impairment from dementia -Primary osteoarthritis, bilateral multiple joints Continue with Tylenol when necessary Care was discussed daughter the bedside. Clozaril be resumed at 25 mg at night. Risperdal discontinued. Depakote cutback. Zyprexa when necessary. Total time spent about 40 minutes with over 25 minutes of discussion.
[2020-12-08] MEDS: ASPIRIN 81 MG PO SCH (19:55)
[2020-12-08] MEDS: PRAVASTATIN SODIUM 80 MG TAB PO SCH (19:55)
[2020-12-08] MEDS: amLODIPine 5 MG TAB PO SCH (19:55)
[2020-12-08] MEDS: ISOSORBIDE MONONITRATE ER 30 MG TAB.ER.24H PO SCH (19:55)
[2020-12-08] MEDS: LORazepam 0.5 MG TAB PO PRN (19:55)
[2020-12-08] MEDS: DIVALPROEX 250 MG TABLET.DR PO SCH (19:56)
[2020-12-08] MEDS ORDERED: cloZAPine 25 MG TAB PO SCH (21:00)
[2020-12-08] MEDS ORDERED: OLANZapine 10 MG VIAL IM SCH (21:00)
[2020-12-08 22:56] LABS: Glucose,Whole Blood 101 mg/dL (75-99)
[2020-12-08] MEDS ORDERED: ADENOSINE 3 MG/ML 2 ML VIAL IVP STA (23:36)
--- NOTE | 2020-12-09 01:46 | P.EN ---
A team note Activated at 11:36 pm. Arrived on the scene shortly after. Reviewed the chart and discussed the case with the RN. The patient was admitted to the hospital for altered mental status, with suspicion of side effects from psychiatric medications. Tonight, the patient was noted to have developed sudden onset of tachycardia. An EKG was obtained revealing SVT at 146 bpm. The nurses also noted that the patient had been gradually becoming more lethargic since the beginning of the shift at 7 PM. Upon review of medications, the patient was given clozapine along with Ativan by mouth. Upon arrival at the scene, the patient's vitals were initially BP 86/52 with a pulse of 140 with monitor showing SVT. The patient quickly converted into A. fib with RVR at 1 10 bpm and subsequently into sinus rhythm with eventual BP 136/80, pulse of 78, SpO2 98% on room air, and temp 98.9. General: Non-toxic, in no acute distress, appears stated age, overweight HEENT: NC/AT, anicteric sclerae, moist conjunctiva, no lid-lag, PERRL Cardiovascular: S1/S2 wnl, no murmurs, rubs, or gallops Lungs: Clear to auscultation, normal respiratory effort, no accessory muscle use Abdominal: Soft, non-tender, non-distended, no guarding, rebound, or rigidity Skin: Warm, dry Extremities: No edema or contractures Psychiatric: Unresponsive to noxious similar Neuro: Unable to assess as patient is unresponsive Assessment/plan Tachycardia with SVT and A. fib -Cardiology consulted by primary team -Episodes resolved spontaneously -Continue with cardiac monitoring Altered mental status -Suspected due to benzodiazepine vs antipsychotics administration -Recommend holding off on further psychotropic medications -Primary team notified by RN Total time spent providing critical care including order replacement and chart review: Greater than 30 minutes
[2020-12-09] MEDS: METOPROLOL TARTRATE 50 MG TAB PO SCH ×2 (09:09→19:42)
--- NOTE | 2020-12-09 09:12 | P.PN ---
Subjective Progress Note Date: 12/08/20 Patient was seen for a follow-up. As per nursing report, patient has been very aggressive this morning. She was very sweet in the morning. However later during the day she became more irritable, started punching, slapping on the nurses. She was out in the hallway, pushed the nurse. She was given 1 mg Ativan IV and now patient is asleep. Patient's daughter has reported to the nursing staff, the patient has history of mood issues and has been in the general psych floor in the past. She was taking Zyprexa, which has been resumed by psychiatrist. Objective - Vital Signs Vital signs: Vital Signs Temp 98.3 F 12/09/20 01:25 Pulse 74 12/09/20 01:25 Resp 19 12/09/20 01:25 BP 116/72 12/09/20 01:25 Pulse Ox 98 12/09/20 01:25 Intake & Output 12/08/20 12/09/20 12/09/20 18:59 06:59 18:59 Other: Voiding Method Bedside Commode Bedside Commode # Voids 1 0 - Exam Deferred, as patient is asleep. - Labs CBC & Chem 7: 12/08/20 06:41 12/08/20 06:41 Labs: Abnormal Lab Results - Last 24 Hours (Table) 12/08/20 Range/Units 22:47 POC Glucose (mg/dL) 101 H (75-99) mg/dL Assessment and Plan Assessment: * Altered mental status, likely due to medication side effect. Patient was recently started on new medication, perhaps clozapine, likely the cause of excessive somnolence. Depakote can also produce excessive somnolence. Her limited examination is nonfocal. * Dementia with behavioral disturbance. * Abnormal chest x-ray, possibility of pneumonia. Plan: * Patient's altered mental status is likely due to medication side effect. * Psychiatry has seen the patient, and patient resumed on Zyprexa 2.5 mg IM when necessary agitation, and Clozaril 25 mg at bedtime. Wean down Depakote to 250 mg at bedtime. * All metabolic workup is normal including B12 of 511 on 10/09/2020, TFTs are normal, ammonia normal, hemoglobin A1c 5.3 on 07/08/2020. CK normal 98, no evidence of UTI. * Lipid panel with cholesterol 106, LDL 48, HDL 40 and triglycerides 90. * Chest x-ray showed possibility of pneumonia. Will defer to IM. * No other neurological workup indicated.
--- NOTE | 2020-12-09 10:09 | P.CRDCN ---
History of Present Illness History of present illness: HISTORY OF PRESENTING ILLNESS This is a pleasant 75-year-old female past medical history significant for coronary artery disease, SVT, hypertension, dyslipidemia and dementia. She follows in the office with Dr. Quintero. We have been asked to see in consultation for tachycardia. She initially presented to the hospital with symptoms of altered mental status per her daughter. She does have a history of dementia and follows with a geriatric psychiatrist. She has been started on new medications recently. Last night telemetry tracings revealed he was going into possibly SVT with episodes of multi-focal atrial tachycardia as well. Her blood pressure was low in the 80s systoilc. EKG reviewed revealed SVT. Prior to administration of adenosine she spontaneously converted to SR. She was refusing her lopressor yesterday due to severe agitation. She was aggressive and hitting staff throughout the day yesterday. Chest x-ray reveals scattered bilateral interstitial densities possibly bronchitis or atypical pneumonia. Laboratory data reviewed, CBC unremarkable, sodium 140, potassium 4.8, creatinine 0.72, troponin negative 1. Current daily cardiac medications include amlodipine 5 mg daily, pravastatin 80 mg daily, Lopressor 100 mg twice a day, Imdur 30 mg daily, Lasix 20 mg daily and aspirin 81 mg daily. She underwent cardiac catheterization September 2020 revealing an extremely calcified right left coronary system, chronic total occlusion of the RCA at the ostium that is filled by collaterals from the left system, mild to moderate disease involving the left system and mild peripheral vascular disease. At that time maximum medical therapy and risk factor modifications are recommended. Echocardiogram obtained September 2020 revealed preserved LV systolic function with ejection fraction 55-60% with mild aortic stenosis with a mean gradient of 15 mmHg. REVIEW OF SYSTEMS At the time of my exam: Patient denies all symptoms however unreliable due to altered mental status. PHYSICAL EXAMINATION Blood pressure 116/72 heart rate 74 afebrile and maintaining oxygen saturation on nasal cannula. CONSTITUTIONAL: No apparent distress. HEENT: Head is normocephalic. Pupils are equal, round. Sclerae anicteric. Mucous membranes of the mouth are moist. No JVD. No carotid bruit. CHEST EXAMINATION: Lungs are clear to auscultation. No chest wall tenderness is noted on palpation or with deep breathing. HEART EXAMINATION: Regular rate and rhythm. S1, S2 heard. Systolic ejection murmur at the base, no gallops or rub. ABDOMEN: Soft, nontender. EXTREMITIES: 2+ peripheral pulses, trace bilateral lower extremity nonpitting edema and no calf tenderness. NEUROLOGIC EXAMINATION: Patient is alert and disoriented. ASSESSMENT SVT Multifocal atrial tachycardia Altered mental status Acute psychosis Coronary artery disease Aortic stenosis Hypertension Dyslipidemia PLAN Check TSH and magnesium. Continue beta blockers as previously ordered. Compliance with beta blockers is imperative although difficult due to agitation and acute psychosis. Thank you kindly for this consultation. Nurse Practitioner note has been reviewed, I agree with a documented findings and plan of care. Patient was seen and examined. Past Medical History Past Medical History: Dementia, Hyperlipidemia, Hypertension, Thyroid Disorder Additional Past Medical History / Comment(s): Pt unreliable historian but states she thinks she has an implanted defibrillator. Last Myocardial Infarction Date:: September 08, 2020 History of Any Multi-Drug Resistant Organisms: None Reported Past Surgical History: Orthopedic Surgery Date of Last Stent Placement:: 2014 Past Psychological History: Anxiety, Depression Smoking Status: Former smoker Past Alcohol Use History: None Reported Past Drug Use History: None Reported Medications and Allergies Home Medications Medication Instructions Recorded Confirmed Type Calcium Carbonate/Vitamin D3 1 cap PO DAILY@89907/08/20 12/07/20 History [Calcium 600 mg-D3 10 Mcg (400 Iu)] Multivit-Min/FA/Lycopen/Lutein 1 tab PO DAILY@89907/08/20 12/07/20 History [Centrum Silver Tablet] Nitroglycerin Sl Tabs [Nitrostat] 0.4 mg SUBLINGUAL Q5M PRN 07/08/20 12/07/20 History Vitamin B Complex 1 cap PO DAILY@89907/08/20 12/07/20 History Aspirin 81 mg PO HS@209908/09/20 12/07/20 History D-Mannose 500mg 500 mg PO DAILY@89908/09/20 12/07/20 History Metoprolol Tartrate [Lopressor] 100 mg PO BID@08/09/20 12/07/20 History Fish Oil/Dha/Epa [Fish Oil 1,200 1 cap PO HS@209909/08/20 12/07/20 History mg Fish Oil] Pravastatin Sodium 80 mg PO HS@209909/08/20 12/07/20 History Ubidecarenone [Co Q-10] 100 mg PO DAILY@0900 09/08/20 12/07/20 History Dicyclomine [Bentyl] 10 mg PO TID PRN 12/07/20 12/07/20 History Divalproex Sodium [Depakote] 500 mg PO HS@209912/07/20 12/07/20 History Furosemide [Lasix] 20 mg PO DAILY@0900 12/07/20 12/07/20 History Isosorbide Mononitrate ER [Imdur] 30 mg PO HS@209912/07/20 12/07/20 History LORazepam [Ativan] 0.5 mg PO BID PRN 12/07/20 12/07/20 History amLODIPine [Norvasc] 5 mg PO HS@209912/07/20 12/07/20 History cloZAPine [Clozaril] 75 mg PO HS@209912/07/20 12/07/20 History Allergies Allergy/AdvReac Type Severity Reaction Status Date / Time lisinopril Allergy Unknown Verified 12/07/20 13:28 simvastatin [From Zocor] Allergy Unknown Verified 12/07/20 13:28 Physical Exam Vitals: Vital Signs Temp Pulse Resp BP Pulse Ox 12/09/20 01:25 98.3 F 74 19 116/72 98 12/09/20 00:19 98 12/09/20 00:02 85 126/75 12/08/20 23:54 89 16 139/79 99 12/08/20 23:42 155 H 85/54 98 12/08/20 23:39 141 H 88/61 12/08/20 22:49 98.9 F 134 H 24 109/58 94 L 12/08/20 19:58 89 16 12/08/20 19:35 98.5 F 95 18 155/71 94 L 12/08/20 14:00 98.4 F 67 17 127/76 97 Intake and Output 12/08/20 12/09/20 12/09/20 22:59 06:59 14:59 Other: Voiding Method Bedside Commode # Voids 1 0 Results 12/08/20 06:41 12/08/20 06:41 Current Medications Generic Name Dose Route Start Last Admin Trade Name Freq PRN Reason Stop Dose Admin Amlodipine Besylate 5 mg 12/07/20 21:00 12/08/20 19:55 Amlodipine 5 Mg Tab PO 5 mg HS@2100 [facility] Administration Aspirin 81 mg 12/07/20 21:00 12/08/20 19:55 Aspirin 81 Mg PO 81 mg HS@2100 [facility] Administration Clozapine 25 mg 12/08/20 21:00 12/08/20 19:55 Clozapine 25 Mg Tab PO 12/15/20 21:01 25 mg HS [facility] Administration Dicyclomine HCl 10 mg 12/07/20 15:11 Dicyclomine 10 Mg Cap PO TID PRN Pain Divalproex Sodium 250 mg 12/08/20 21:00 12/08/20 19:56 Divalproex 250 Mg Tablet.Dr PO 250 mg HS@2100 [facility] Administration Isosorbide Mononitrate 30 mg 12/07/20 21:00 12/08/20 19:55 Isosorbide Mononitrate Er 30 Mg Tab.Er.24h PO 30 mg HS@2100 [facility] Administration Lorazepam 0.5 mg 12/07/20 15:11 12/08/20 19:55 Lorazepam 0.5 Mg Tab PO 0.5 mg BID PRN Administration Anxiety Metoprolol Tartrate 100 mg 12/07/20 21:00 12/09/20 09:09 Metoprolol Tartrate 50 Mg Tab PO 100 mg BID@0900,2100 [facility] Administration Naloxone HCl 0.2 mg 12/07/20 15:09 Naloxone 0.4 Mg/Ml 1 Ml Vial IV Q2M PRN Opioid Reversal Olanzapine 2.5 mg 12/08/20 12:33 Olanzapine 10 Mg Vial IM BID PRN Agitation Pravastatin Sodium 80 mg 12/07/20 21:00 12/08/20 19:55 Pravastatin Sodium 80 Mg Tab PO 80 mg HS@2100 [facility] Administration Intake and Output 12/08/20 12/09/20 12/09/20 22:59 06:59 14:59 Other: Voiding Method Bedside Commode # Voids 1 0 12/08/20 06:41 12/08/20 06:41
[2020-12-09 11:05] LABS: Magnesium 2.3 mg/dL (1.6-2.3)
[2020-12-09] MEDS ORDERED: LORazepam 2 MG/ML INJ IM PRN (13:52)
--- NOTE | 2020-12-09 14:42 | CT ---
EXAMINATION TYPE: CT brain wo con DATE OF EXAM: 12/09/2020 COMPARISON: 12/07/2020 HISTORY: Confused CT DLP: 1067.4 mGycm Automated exposure control for dose reduction was used. FINDINGS: There is no acute intracranial hemorrhage or midline shift identified. There is moderate diffuse vent ricular and sulcal prominence consistent with diffuse age-related cerebral atrophy. There is mild to moderate low-attenuation in the periventricular white matter consistent with chronic small vessel isc hemic change. Mild to moderate dependent fluid and mucosal thickening in visualized portion of bilateral maxillary sinuses. Globes are intact bilaterally. Small hypodensity in the right basal ganglia compatible with remote lacunar infarct and there is a calcification within the left basal ganglia stable from prior e xam. Craniocervical junction maintained IMPRESSION: 1. Degenerative and nonspecific white matter change with no acute hemorrhage or mass effect. If there is concern for acute ischemia correlate with MRI as clinically warranted. 2. Findings compatible sinusitis. 3. Findings suggestive of chronic mastoiditis.
--- NOTE | 2020-12-09 15:07 | P.PN ---
Progress Note - Text Progress Note Date: 12/09/20 Interval History: Patient was seen sitting upright in her chair. As per reviewed the patient's chart and discussion with patient's nurse, an A team was activated at 11:36 pm. The patient developed an onset of tachycardia. EKG revealed SVT at 146 BPM. The patient had become more lethargic since beginning of the shift at 7 PM last night. The patient was given) and Ativan. BP was 86/52 with a pulse of 140 in the monitor showing SVT. The patient quickly converted A. fib with RVR. She eventually converted back to sinus rhythm without the administration of adenosine. The patient was noted to refuse her Lopressor during the day.. Review of the cardiology note today recommend compliance with beta blockers as previously ordered. As per discussion with the patient's daughter, the patient did not do well previously when given Zyprexa. The patient does appear to re spond well to Ativan. The patient's daughter would like the Zyprexa to be discontinued. This provider discussed at length with the patient's daughter that antipsychotic medications are cardiotoxic in nature and increase the risk for cardiac events. On evaluation of the patient, the patient is unable to provide any clear history of events. The patient appears to be somewhat disorganized. She admits to feeling paranoid and is concerned for her own safety. She is otherwise not endorsing any auditory or visual hallucinations. She is denying any suicidal or homicidal ideation, intention, and/or plan. She reports no issues with sleep. She does report some poor appetite. She does endorse some paranoid thoughts including thoughts that the food that she is given is poisoned or spoiled. Mental Status Exam: General Appearance: Patient appears to be stated age is alert, directable, and cooperative. Patient is wearing hospital gown. Behavior: Patient is calmly seated without any agitated behavior. Psychomotor activity appears normal. Eye contact is appropriate. Speech: Patient's speech is at times dysarthric. Spontaneous, monotone. Mood/Affect: Mood is "not doing so good." Affect is constricted in range. Suicidality/Homicidality: Patient denies any suicidal or homicidal ideation, intention, and/or plan. Perceptions: Patient denies any visual hallucinations and denies any auditory hallucinations Though content/process: Patient is endorsing delusional thought content. Thought process appears to be disorganized. Memory and concentration: The patient is alert and oriented to self only. Concentration appears to be grossly intact. Judgment and insight: Poor Vital Signs Temp 97.7 F 12/09/20 13:55 Pulse 85 12/09/20 13:55 Resp 15 12/09/20 13:55 BP 122/58 12/09/20 13:55 Pulse Ox 96 12/09/20 13:55 Intake & Output 12/08/20 12/09/20 12/09/20 18:59 06:59 18:59 Other: Voiding Method Bedside Commode Bedside Commode # Voids 1 0 Laboratory Results - Last 24 Hours 12/08/20 12/08/20 06:41 22:47 POC Glucose (mg/dL) 101 H POC Glu Bow Maker Machine Tender ID Maira Ozuna Magnesium 2.3 TSH 3.530 Assessment: Major neurocognitive disorder, with behavioral disturbances and psychosis SVT Multifocal atrial tachycardia Acute psychosis Coronary artery disease Aortic stenosis Hypertension Dyslipidemia Plan: -At this time patient DOES NOT meet criteria for inpatient psychiatric admission. We will continue to monitor for acute changes and re-evaluate necess ity of inpatient psychiatric placement. Daughter does not wish patient to be admitted at this time. -Patient DOES NOT have decision making capacity at this time and is unable to reason through and communicate/appreciate the risks, benefits and alternatives to treatment. -Delirium precautions recommended with patient including - avoiding use of narcotics and EMBOSSED OR IMPRESSED LETTERING PAINTER sedatives, limit anticholinergic medications when possible, frequent re-orientation, minimize use of restraints, open window shades during the day and close them at night -Would recommend the following medication changes/additions: We will hold Zyprexa when necessary for agitation as per daughter's request. We will start Ativan 0.5 mg twice a day when necessary for anxiety/agitation We will decrease clozapine to 12.5 mg by mouth at bedtime. Parameters to hold the medication if the patient refuses her cardiac medications during the day. Continue Depakote 250 mg at bedtime -Psychiatry will continue to follow along.
[2020-12-09] MEDS: LORazepam 0.5 MG TAB PO PRN (15:43)
--- NOTE | 2020-12-09 19:14 | MR ---
EXAMINATION TYPE: MR brain wo con DATE OF EXAM: 12/09/2020 COMPARISON: No prior MRI HISTORY: Clinical concern for stroke TECHNIQUE: Multiplanar multisequence MRI of the brain performed without contrast FINDINGS: Extremely limited study due to motion. No definite diffusion restriction identified. Mild bilateral periventricular white matter scattered T2/flair hyperintensities. Mild brain volume loss with prominence of the ventricles and CSF spaces. No acute orbital abnormality seen. No bone marrow replacing lesion seen. Craniocervical junction is within normal. IMPRESSION: 1. EXTREMELY LIMITED STUDY DUE TO MOTION. IF FURTHER CLINICAL CONCERN PERSISTS RECOMMEND REPEAT STUDY AFTER STABILIZATION. 2. NO DEFINITE EFFUSION RESTRICTION TO SUGGEST A VASCULAR INSULT. 3. NONSPECIFIC T2/FLAIR PERIVENTRICULAR AND DEEP WHITE MATTER FOCI. 3. MILD BRAIN VOLUME LOSS.
[2020-12-09] MEDS: ASPIRIN 81 MG PO SCH (19:42)
[2020-12-09] MEDS: ISOSORBIDE MONONITRATE ER 30 MG TAB.ER.24H PO SCH (19:43)
[2020-12-09] MEDS: PRAVASTATIN SODIUM 80 MG TAB PO SCH (19:43)
[2020-12-09] MEDS: DIVALPROEX 250 MG TABLET.DR PO SCH (19:43)
[2020-12-09] MEDS: amLODIPine 5 MG TAB PO SCH (20:00)
[2020-12-09] MEDS ORDERED: cloZAPine 25 MG TAB PO SCH (21:00)
--- NOTE | 2020-12-09 22:19 | P.PN ---
Subjective Progress Note Date: 12/09/20 History of presenting complaint: This is a pleasant 75-year-old patient who follows with Dr. Thurston. Chronic stable medical conditions include hyperlipidemia, hypertension, hypothyroid, CAD for medical management. Diagnosis of neurocognitive disorder. She started having hallucinations in 2018 and she was diagnosed then with dementia. started seeing people that through television and started to connect with them. started having some interactions. Also with episodes that she'll start screaming at ople. Diagnosed with major neurocognitive disorder and psychosis and was discharged on 07/17/2020 Subsequently she was Admitted with side effects of antipsychotics causing increasing medical debility, encephalopathic. Zyprexa, mirtazapine and Aricept was discontinued. Synthroid was resumed.. started sleeping better. Responded well Patient now presented to the ER with her daughter. Dr. Stinson last couple of days she has been started on clozapine and the dose was increased last week. Patient has become more sleepy and confused. Yesterday she could barely keep her eyes open. Patient is very sedated barely able to open her eyes. Patient's confusion was intubated. Today symptoms became worse and patient is even slumping over the breakfast table she brought the patient to ER. When I walked in the room patient does recognize me. She thinks as a box of food near her.. She is hallucinating and talking about people not present. Patient is a rather picky eater. Does use a walker. No chest pain no fever no shortness of breath. December 08: Patient became rather agitated early hours of today. 1 mg of Ativan was given. Patient did sedated. Daughter came to the room. I did a lengthy talk with patient's daughter. Patient may have to be resumed on Clozaril dose smaller dose. I tried a small dose of Risperdal last night. Did discuss with her daughter about psychiatrist managing given patient's clinical symptoms. Later today psychiatrist is put the patient back on Clozaril 25 mg at night. Risperdal discontinued. Depakote has been cut back. Also Zyprexa when necessary. Patient other sedation this morning when I came to see the patient. 12/09/2020 Patient evaluated resting in bed with a process safety engineering technologist at the bedside. She is alert x 1 and is agitated with questions. A ROS is difficult to complete, pt does deny pain. Pt was an ateam 12/08 at 1136, due to onset of tachycardia with a HR of 146, as well as increasing lethargy possibly due to clozapine and ativan given together. BP 86/52 and HR of 140, then converted to afib rvr and back to SR. Apparently due to pts increase in agitation she has been refusing her metoprolol. Cardiology consult today, reiterated importance of metoprolol for rate control. Brain CT reveals degenerative and nonspecific white matter changes with no acute hemorrhage or mass effect. 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 F/U MRI if acute ischemia is suspected. MRI Brain shows no definite effusion restruction to suggest a vascular insult. Nonspecific T2/Flair periventricular and deep white matter foci. mild brain volume loss. Psych recommends holding zyprexa at dtrs request, ativan BID PRN, decrease clozapine to 12.5 mg hs, Hold clozapine if pt does not take her metoprolol during the day. Continue depakote. Dtr does not want pt to be admitted to psych, pt does not meet inpatient criteria and does not have decision making capacity at this time. Review of systems cannot obtain as patient is uncooperative. Current medications are reviewed Past medical history to include: Hypertension, hyperlipidemia, hypothyroid, anxiety, depression, dementia, psychosis, CAD for medical management Social history: Lives with her a daughter. Drinks alcohol rarely. Patient smoked for about 20- 30 years stopped about 30 years ago. Physical examination: VITAL SIGNS: 97.8, 89, 19, 122/86, 96% room air GENERAL: Laying in bed, sedated EYES: Pupils equal. Conjunctiva normal.. NECK: JVD not raised; masses not palpable. HEART: First and second heart sounds are normal; mild edema. LUNGS: Respiratory rate normal; clear to auscultation. ABDOMEN: Soft, nontender, liver spleen not palpable, no masses palpable. PSYCH: Unable to assess currently lethargic and agitated MUSCULOSKELETAL: Evidence of OA especially in the hands. INVESTIGATIONS, reviewed in the clinical context: December 09: TSH 3.530, Mg 2.3 December 08: WBC 5.1 hemoglobin 13 platelets 188 potassium 4.8 creatinine 0.7 to WBC 3.9 hemoglobin 12.1 platelets 152 2140 potassium 4.4 BUN 36 creatinine 0.76 UA negative Urine drug screen: Negative Coronavirus [PCR]: Not detected EKG tracing personally reviewed by me-normal sinus rhythm, rate 88 Chest x-ray film personally reviewed by me: Some scattered changes possibly chronic. Assessment and plan: -Psychosis associated with dementia with acute flareup. : Worsening Clozaril to be resumed at 12.5 mg PO HS, Ativan 0.5 mg PO BID, Zyprexa is now O/H -Acute metabolic encephalopathy possibly from Clozaril. Dose has been cut back Clozaril decreased to 12.5 mg at night - coronary artery disease significant disease: [Cardiac catheterization September 2020: For medical management] Amlodipine 5 mg daily at bedtime, pravastatin 80 mg daily at bedtime, Lopressor 100 mg twice a day, Imdur ER 30 mg daily at bedtime -Essential hypertension Lopressor, amlodipine -Hypercholesterolemia Pravachol -GERD Protonix -Chronic insomnia long-standing Risperdal O/H -Hypothyroid Synthroid - Moderate cognitive impairment from dementia -Primary osteoarthritis, bilateral multiple joints Continue with Tylenol when necessary Clozaril be resumed at 12.5 mg at night. Risperdal discontinued. Depakote cutback. Ativan BID PRN, Zyprexa discontinued. Continue to monitor closely. Psych recommending holding HS Clozaril if patient did not take metoprolol during the day. Continue to monitor neuro status closely. Objective - Vital Signs Vital signs: Vital Signs Temp 98.0 F 12/09/20 08:00 Pulse 70 12/09/20 08:00 Resp 15 12/09/20 08:00 BP 107/66 12/09/20 08:00 Pulse Ox 94 L 12/09/20 12:29 Intake & Output 12/08/20 12/09/20 12/09/20 18:59 06:59 18:59 Other: Voiding Method Bedside Commode Bedside Commode # Voids 1 0 - Labs CBC & Chem 7: 12/08/20 06:41 12/08/20 06:41 Labs: Abnormal Lab Results - Last 24 Hours (Table) 12/08/20 Range/Units 22:47 POC Glucose (mg/dL) 101 H (75-99) mg/dL Assessment and Plan Time with Patient: Greater than 30
[2020-12-10 07:33] LABS: African American GFR (CKD) >90 (>60 ml/min/1.73 sqM); Anion Gap 6 mmol/L; Blood Urea Nitrogen 22 mg/dL (7-17); Calcium 8.9 mg/dL (8.4-10.2); Carbon Dioxide 25 mmol/L (22-30); Chloride 107 mmol/L (98-107); Glucose 96 mg/dL (74-99); Non-African American GFR(CKD) 90 (>60 ml/min/1.73 sqM); Potassium 4.5 mmol/L (3.5-5.1); Sodium 138 mmol/L (137-145)
[2020-12-10] MEDS: METOPROLOL TARTRATE 50 MG TAB PO SCH (08:26)
--- NOTE | 2020-12-10 09:15 | P.PN ---
Subjective Progress Note Date: 12/09/20 12/09/2020: Nurse has reported that the daughter has been present today. She has requested for reevaluation. Patient's daughter has noticed a left facial droopiness which is new and that she cannot string a sentence together, which is also new finding. She got some Ativan yesterday for combative behavior, went to sleep from medication until woke up this afternoon. A stat computed tomography scan of the head was done, which revealed no acute process. I came and saw the patient, and spoke to patient's daughter, who states that she noticed a left facial droop on 12/07/2020, but was not as severe as what she noticed today. She has noticed recurrence of facial droop an hour ago. She also noticed that patient is not moving her left arm as well and appears weak. Patient does have history of dementia, but now she is mixing up words which is new. All day she has been speaking words in wrong context. 12/08/2020: Patient was seen for a follow-up. As per nursing report, patient has been very aggressive this morning. She was very sweet in the morning. However later during the day she became more irritable, started punching, slapping on the nurses. She was out in the hallway, pushed the nurse. She was given 1 mg Ativan IV and now patient is asleep. Patient's daughter has reported to the nursing staff, the patient has history of mood issues and has been in the general psych floor in the past. She was taking Zyprexa, which has been resumed by psychiatrist. Objective - Vital Signs Vital signs: Vital Signs Temp 98.1 F 12/10/20 08:00 Pulse 82 12/10/20 08:00 Resp 18 12/10/20 08:00 BP 147/75 12/10/20 08:00 Pulse Ox 96 12/10/20 08:38 Intake & Output 12/09/20 12/10/20 12/10/20 18:59 06:59 18:59 Other: Voiding Method Bedside Commode # Voids 3 1 # Bowel Movements 1 1 - Exam Patient is alert and awake. She is more cooperative with the examination. Patient speaks short sentences well, but appears to have word salad with prolonged conversation. She was able to name "pencil". She is switching words, like "Bible" for knuckles. She could not name the "ear lobe". Patient is able to recognize her daughter Ericka and knows her name Michell, but states she is 14 years old. On cranial nerve examination pupils are round and reactive to light, visual best are full on confrontation. Patient has mild left facial asymmetry. Tongue protrudes the midline. Shoulder shrug is normal. Facial sensation normal. On muscle strength testing, the strength is normal in the upper extremities. These no pronator drift. Strength is normal. Reflexes are 1+ at the knees, 1 in the arms, plantars downgoing. Sensations are equal with no neglect. No ataxia for [id number] testing. - Labs CBC & Chem 7: 12/08/20 06:41 12/10/20 06:50 Labs: Abnormal Lab Results - Last 24 Hours (Table) 12/10/20 Range/Units 06:50 BUN 22 H (7-17) mg/dL Assessment and Plan Assessment: * New-onset possible facial droop, word salad and some fluent aphasia. Rule out stroke TIA versus acute psychosis with word salad. * Altered mental status, likely due to medication side effect. Patient was recently started on new medication, perhaps clozapine, likely the cause of excessive somnolence. Depakote can also produce excessive somnolence. Her limited examination is nonfocal. * Dementia with behavioral disturbance. * Abnormal chest x-ray, possibility of pneumonia. Plan: * MRI of the brain evaluate for an acute stroke. Patient will be given Ativan 0.5 mg, if needed for cooperation. Patient's daughter was recommended to stay with the patient while she gets MRI. * CTA of head and neck performed on 12/07/2020 shows no significant stenosis in, nor internal carotid arteries bilaterally. No significant stenosis or aneurysm at the level of alturas of [place]. * 2-D echo from 09/09/2020 shows normal left-ventricular size. EF is between 55-60%. Aortic valve is trileaflet and is mildly thickened. Mild aortic stenosis. No embolic source. * Continue aspirin and protocol 80 mg. * Hemoglobin A1c 5.3 07/08/2020. * Lipid panel with cholesterol 106, LDL 48, HDL 40 and triglycerides 90. Lipids are well controlled. * Psychiatry has seen the patient, and patient resumed on Zyprexa 2.5 mg IM when necessary agitation, and Clozaril 25 mg at bedtime. Wean down Depakote to 250 mg at bedtime. * All metabolic workup is normal including B12 of 511 on 10/09/2020, TFTs are normal, ammonia normal. CK normal 98, no evidence of UTI. * We will follow.
--- NOTE | 2020-12-10 12:53 | P.PN ---
Subjective HISTORY OF PRESENTING ILLNESS This is a pleasant 75-year-old female past medical history significant for coronary artery disease, SVT, hypertension, dyslipidemia and dementia. She follows in the office with Dr. Quintero. We have been asked to see in consultation for tachycardia. She initially presented to the hospital with symptoms of altered mental status per her daughter. She does have a history of dementia and follows with a geriatric psychiatrist. She has been started on new medications recently. Last night telemetry tracings revealed he was going into possibly SVT with episodes of multi-focal atrial tachycardia as well. Her blood pressure was low in the 80s systoilc. EKG reviewed revealed SVT. Prior to administration of adenosine she spontaneously converted to SR. She was refusing her lopressor yesterday due to severe agitation. She was aggressive and hitting staff throughout the day yesterday. Chest x-ray reveals scattered bilateral interstitial densities possibly bronchitis or atypical pneumonia. Laboratory da ta reviewed, CBC unremarkable, sodium 140, potassium 4.8, creatinine 0.72, troponin negative 1. Current daily cardiac medications include amlodipine 5 mg daily, pravastatin 80 mg daily, Lopressor 100 mg twice a day, Imdur 30 mg daily, Lasix 20 mg daily and aspirin 81 mg daily. She underwent cardiac catheterization September 2020 revealing an extremely calcified right left coronary system, chronic total occlusion of the RCA at the ostium that is filled by collaterals from the left system, mild to moderate disease involving the left system and mild peripheral vascular disease. At that time maximum medical therapy and risk factor modifications are recommended. Echocardiogram obtained September 2020 revealed preserved LV systolic function with ejection fraction 55-60% with mild aortic stenosis with a mean gradient of 15 mmHg. 12/10/2020 Patient seen and examined resting comfortably in no acute distress. Telemetry tracings reviewed. She continues to maintain sinus rhythm. Blood pressure 144/75 heart rate 82 afebrile maintaining oxygen saturation on room air. Laboratory data reviewed, sodium 138, potassium 4.5, creatinine 0.57, magnesium 2.3 and TSH 3.53. PHYSICAL EXAMINATION Blood pressure 116/72 heart rate 74 afebrile and maintaining oxygen saturation on nasal cannula. CONSTITUTIONAL: No apparent distress. HEENT: Head is normocephalic. Pupils are equal, round. Sclerae anicteric. Mucous membranes of the mouth are moist. No JVD. No carotid bruit. CHEST EXAMINATION: Lungs are clear to auscultation. No chest wall tenderness is noted on palpation or with deep breathing. HEART EXAMINATION: Regular rate and rhythm. S1, S2 heard. Systolic ejection murmur at the base, no gallops or rub. ABDOMEN: Soft, nontender. EXTREMITIES: 2+ peripheral pulses, trace bilateral lower extremity nonpitting edema and no calf tenderness. NEUROLOGIC EXAMINATION: Patient is alert and disoriented. ASSESSMENT SVT Multifocal atrial tachycardia Altered mental status Acute psychosis Coronary artery disease Aortic stenosis Hypertension Dyslipidemia PLAN Continue current medical regimen. We will follow along as needed, please call with further questions or concerns. Follow-up with Dr. Quintero upon discharge. Nurse Practitioner note has been reviewed, I agree with a documented findings and plan of care. Patient was seen and examined. Objective - Vital Signs Vital signs: Vital Signs Temp 98.1 F 12/10/20 08:00 Pulse 82 12/10/20 08:00 Resp 18 12/10/20 08:00 BP 147/75 12/10/20 08:00 Pulse Ox 96 12/10/20 08:38 Intake & Output 12/09/20 12/10/20 12/10/20 18:59 06:59 18:59 Output Total 0 Balance 0 Output: Post Void Residual 0 Other: Voiding Method Bedside Commode Bedside Commode # Voids 3 1 2 # Bowel Movements 1 1 - Labs CBC & Chem 7: 12/08/20 06:41 12/10/20 06:50 Labs: Abnormal Lab Results - Last 24 Hours (Table) 12/10/20 Range/Units 06:50 BUN 22 H (7-17) mg/dL
--- NOTE | 2020-12-10 13:27 | P.PN ---
Progress Note - Text Progress Note Date: 12/10/20 Interval History: Patient was seen sitting upright in her chair. The patient continues to display symptoms of psychosis. Today, the patient is concerned about a little girl she has seen in the hospital that she expresses worry for. The patient is tearful and hopes the child will find her mother. She was informed that this is a hallucination and delusion. The patient is otherwise adherent with her medications and is not endorsing any significant side effects at this time. She reports no suicidal or homicidal ideation, intention, and/or plan. As per discussion with the patient's daughter, the patient is able to perform her ADLs and is eating appropriately. She states aside from the psychotic symptoms, the patient is back to baseline functioning. She would prefer her mother not be admitted to a psychiatric unit and we discussed that familiarity and her home environment might be more beneficial for the patient. Mental Status Exam: General Appearance: Patient appears to be stated age is alert, directable, and cooperative. Patient is wearing hospital gown. Behavior: Patient is calmly seated without any agitated behavior. Psychomotor activity appears normal. Eye contact is appropriate. Speech: Patient's speech is at times dysarthric. Disorganized speech at times. Mood/Affect: Mood is "I'm worried for that girl" Affect is tearful. Suicidality/Homicidality: Patient denies any suicidal or homicidal ideation, intention, and/or plan. Perceptions: Patient endorses hallucinations. Though content/process: Patient is endorsing delusional thought content. Thought process appears to be disorganized. Memory and concentration: The patient is alert and oriented to self only. Concentration appears to be grossly intact. Judgment and insight: Poor Vital Signs Temp 98.1 F 12/10/20 08:00 Pulse 82 12/10/20 08:00 Resp 18 12/10/20 08:00 BP 147/75 12/10/20 08:00 Pulse Ox 96 12/10/20 08:38 Intake & Output 12/09/20 12/10/20 12/10/20 18:59 06:59 18:59 Output Total 0 Balance 0 Output: Post Void Residual 0 Other: Voiding Method Bedside Commode Bedside Commode # Voids 3 1 2 # Bowel Movements 1 1 Laboratory Results - Last 24 Hours 12/10/20 06:50 Sodium 138 Potassium 4.5 Chloride 107 Carbon Dioxide 25 Anion Gap 6 BUN 22 H Creatinine 0.57 Est GFR (CKD-EPI)AfAm >90 Est GFR (CKD-EPI)NonAf 90 Glucose 96 Calcium 8.9 Assessment: Major neurocognitive disorder, with behavioral disturbances and psychosis SVT Multifocal atrial tachycardia Acute psychosis Coronary artery disease Aortic stenosis Hypertension Dyslipidemia Plan: -At this time patient DOES NOT meet criteria for inpatient psychiatric admission. We will hold on a recommendation for inpatient psychiatry. Discussed with the patient's daughter and we agree that familiarity and her home environment would be more therapeutic for the patient. -Patient DOES NOT have decision making capacity at this time and is unable to reason through and communicate/appreciate the risks, benefits and alternatives to treatment. -Delirium precautions recommended with patient including - avoiding use of narcotics and COSTUMER sedatives, limit anticholinergic medications when possible, frequent re-orientation, minimize use of restraints, open window shades during the day and close them at night -Would recommend the following medication changes/additions: Increase Clozaril to 25 mg at bedtime. Parameters to hold the medication if the patient refuses her cardiac medications during the day. Continue Depakote 250 mg at bedtime -Psychiatry will sign off for now. Please reconsult or call us if necessary. -Please have SW fax labs and notes to Dr Aubree Easton's office ([phone]) as per request of the patient's daughter
[2020-12-10 13:51] VITALS: BP 137/75; PULSE 79; RESP 16; TEMP 98.3
--- NOTE | 2020-12-10 13:56 | P.DS ---
Providers Date of admission: 12/09/20 08:57 Attending physician: Kana Ragland Consults: 12/07/20 15:10 Consult Physician Urgent Consulting Provider: Sunny Cisneros Consult Reason/Comments: acute encephalopathy, recent medication change Do you want consulting provider notified?: Yes Consult Physician Urgent Consulting Provider: Zenon Gonzalez Consult Reason/Comments: acute encephalopathy, recent medication change Do you want consulting provider notified?: Already Contacted 12/08/20 23:11 Consult Physician Stat Consulting Provider: Eleazar Robbins Consult Reason/Comments: tachycardia Do you want consulting provider notified?: Yes Primary care physician: [facility] Course: is a pleasant 75-year-old patient who follows with Dr. Thurston. Chronic stable medical conditions include hyperlipidemia, hypertension, hypothyroid, CAD for medical management. Diagnosis of neurocognitive disorder. She started having hallucinations in 2018 and she was diagnosed then with dementia. started seeing people that through television and started to connect with them. started having some interactions. Also with episodes that she'll start screaming at people. Diagnosed with major neurocognitive disorder and psychosis and was discharged on 07/17/2020 Subsequently she was Admitted with side effects of antipsychotics causing increasing medical debility, encephalopathic. Zyprexa, mirtazapine and Aricept was discontinued. Synthroid was resumed.. started sleeping better. Responded well Patient now presented to the ER with her daughter. Dr. Stinson last couple of days she has been started on clozapine and the dose was increased last week. Patient has become more sleepy and confused. Yesterday she could barely keep her eyes open. Patient is very sedated barely able to open her eyes. Patient's confusion was intubated. Today symptoms became worse and patient is even slumping over the breakfast table she brought the patient to ER. When I walked in the room patient does recognize me. She thinks as a box of food near her.. She is hallucinating and talking about people not present. Patient is a rather picky eater. Does use a walker. No chest pain no fever no shortness of breath. December 08: Patient became rather agitated early hours of today. 1 mg of Ativan was given. Patient did sedated. Daughter came to the room. I did a lengthy talk with patient's daughter. Patient may have to be resumed on Clozaril dose smaller dose. I tried a small dose of Risperdal last night. Did discuss with her daughter about psychiatrist managing given patient's clinical symptoms. Later today psychiatrist is put the patient back on Clozaril 25 mg at night. Risperdal discontinued. Depakote has been cut back. Also Zyprexa when necessary. Patient other sedation this morning when I came to see the patient. 12/09/2020 Patient evaluated resting in bed with a campus safety officer at the bedside. She is alert x 1 and is agitated with questions. A ROS is difficult to complete, pt does deny pain. Pt was an ateam 12/08 at 1136, due to onset of tachycardia with a HR of 146, as well as increasing lethargy possibly due to clozapine and ativan given together. BP 86/52 and HR of 140, then converted to afib rvr and back to SR. Apparently due to pts increase in agitation she has been refusing her metoprolol. Cardiology consult today, reiterated importance of metoprolol for rate control. Brain CT reveals degenerative and nonspecific white matter changes with no acute hemorrhage or mass effect. 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 F/U MRI if acute ischemia is suspected. MRI Brain shows no definite effusion restruction to suggest a vascular insult. Nonspecific T2/Flair periventricular and deep white matter foci. mild brain volume loss. Psych recommends holding zyprexa at dtrs request, ativan BID PRN, decrease clozapine to 12.5 mg hs, Hold clozapine if pt does not take her metoprolol during the day. Continue depakote. Dtr does not want pt to be admitted to psych, pt does not meet inpatient criteria and does not have decision making capacity at this time. 12/10/2020 Patient is evaluated today sitting up in the chair with her daughter at the bedside. She is alert 1, denies any pain. She has had 2 bowel movements yesterday. She is ambulating without difficulty. Daughter would like take the patient home, neurology has signed off. Psychiatry has signed off with current medication changes. Patient does have a most of the component of possible delirium today, it would most likely be better in a home environment. Vital signs are stable, afebrile, blood pressure 137/75. Patient can be discharged home with daughter. Review of systems cannot obtain as patient is uncooperative. Current medications are reviewed Past medical history to include: Hypertension, hyperlipidemia, hypothyroid, anxiety, depression, dementia, psychosis, CAD for medical management Social history: Lives with her a daughter. Drinks alcohol rarely. Patient smoked for about 20- 30 years stopped about 30 years ago. Physical examination: VITAL SIGNS: 97.8, 89, 19, 122/86, 96% room air GENERAL: Laying in bed, sedated EYES: Pupils equal. Conjunctiva normal.. NECK: JVD not raised; masses not palpable. HEART: First and second heart sounds are normal; mild edema. LUNGS: Respiratory rate normal; clear to auscultation. ABDOMEN: Soft, nontender, liver spleen not palpable, no masses palpable. PSYCH: Patient alert times one, she is using inappropriate words and has auditory and visual hallucinations. This is slowly improving and psych felt the patient would do best in a home environment on the current medication changes. She will follow-up with her regular providers. MUSCULOSKELETAL: Evidence of OA especially in the hands. INVESTIGATIONS, reviewed in the clinical context: December 10: Labs are unremarkable Brain MRI - no definite effusion restriction to suggest a vascular insult, nonspecific T2/flair periventricular and deep white matter foci Brain CT -degenerative and nonspecific white matter change with no acute hemorrhage or mass effect December 09: TSH 3.530, Mg 2.3 December 08: WBC 5.1 hemoglobin 13 platelets 188 potassium 4.8 creatinine 0.7 to WBC 3.9 hemoglobin 12.1 platelets 152 2140 potassium 4.4 BUN 36 creatinine 0.76 UA negative Urine drug screen: Negative Coronavirus [PCR]: Not detected EKG tracing personally reviewed by me-normal sinus rhythm, rate 88 Chest x-ray film personally reviewed by me: Some scattered changes possibly chronic. Assessment and plan: -Psychosis associated with dementia with acute flareup. : Improving medications, suspected component of hospital delirium Clozaril to be resumed at 25 mg PO HS, Ativan 0.5 mg PO BID, Zyprexa is now O/H -Acute metabolic encephalopathy possibly from Clozaril. Dose has been cut back Clozaril 25 mg po HS, metabolic panel has normalized - coronary artery disease significant disease: [Cardiac catheterization September 2020: For medical management] Amlodipine 5 mg daily at bedtime, pravastatin 80 mg daily at bedtime, Lopressor 100 mg twice a day, Imdur ER 30 mg daily at bedtime -Essential hypertension Lopressor, amlodipine -Hypercholesterolemia Pravachol -GERD Protonix -Chronic insomnia long-standing Risperdal O/H -Hypothyroid Synthroid - Moderate cognitive impairment from dementia -Primary osteoarthritis, bilateral multiple joints Continue with Tylenol when necessary Clozaril be resumed at 25 mg at night. Risperdal discontinued. Depakote cutback. Ativan BID PRN, Zyprexa discontinued. Continue to monitor closely. Psych recommending holding HS Clozaril if patient did not take metoprolol during the day. Continue to monitor neuro status closely. Neurology has cleared the patient, MRI brain CT are negative for any signs of acute stroke. Patient was discharged on aspirin 81 mg as well as a statin. Patient is evaluated today December 10 by psychiatric services, they are recommending that patient would do best in a home environment. Patient started the bedside is agreeing. Patient is discharged home on most recent medication changes. Please see medication reconciliation. Thank you for allowing us to participate in the care of this patient. Patient Condition at Discharge: Stable Plan - Discharge Summary Discharge Rx Participant: No New Discharge Prescriptions: New Divalproex [Depakote] 250 mg PO HS@2100 #30 tablet Continue Nitroglycerin Sl Tabs [Nitrostat] 0.4 mg SUBLINGUAL Q5M PRN PRN Reason: Chest Pain Multivit-Min/FA/Lycopen/Lutein [Centrum Silver Tablet] 1 tab PO DAILY@0900 Calcium Carbonate/Vitamin D3 [Calcium 600 mg-D3 10 Mcg (400 Iu)] 1 cap PO EDGAR LY@0900 D-Mannose 500mg 500 mg PO DAILY@0900 Furosemide [Lasix] 20 mg PO DAILY@0900 Vitamin B Complex 1 cap PO DAILY@0900 Metoprolol Tartrate [Lopressor] 100 mg PO BID@0900,2100 Aspirin 81 mg PO HS@2100 Fish Oil/Dha/Epa [Fish Oil 1,200 mg Fish Oil] 1 cap PO HS@2100 Ubidecarenone [Co Q-10] 100 mg PO DAILY@0900 Pravastatin Sodium 80 mg PO HS@2100 LORazepam [Ativan] 0.5 mg PO BID PRN PRN Reason: Anxiety Dicyclomine [Bentyl] 10 mg PO TID PRN PRN Reason: Pain amLODIPine [Norvasc] 5 mg PO HS@2100 Isosorbide Mononitrate ER [Imdur] 30 mg PO HS@2099 Changed cloZAPine [Clozaril] 25 mg PO HS@2100 #0 Discontinued Divalproex Sodium [Depakote] 500 mg PO HS@2099 Discharge Medication List Calcium Carbonate/Vitamin D3 [Calcium 600 mg-D3 10 Mcg (400 Iu)] 1 cap PO DAILY@0907/08/20 [History] Multivit-Min/FA/Lycopen/Lutein [Centrum Silver Tablet] 1 tab PO DAILY@89907/08/20 [History] Nitroglycerin Sl Tabs [Nitrostat] 0.4 mg SUBLINGUAL Q5M PRN 07/08/20 [History] Vitamin B Complex 1 cap PO DAILY@89907/08/20 [History] Aspirin 81 mg PO HS@209908/09/20 [History] D-Mannose 500mg 500 mg PO DAILY@89908/09/20 [History] Metoprolol Tartrate [Lopressor] 100 mg PO BID@0900,209908/09/20 [History] Fish Oil/Dha/Epa [Fish Oil 1,200 mg Fish Oil] 1 cap PO HS@209909/08/20 [Histor y] Pravastatin Sodium 80 mg PO HS@209909/08/20 [History] Ubidecarenone [Co Q-10] 100 mg PO DAILY@89909/08/20 [History] Dicyclomine [Bentyl] 10 mg PO TID PRN 12/07/20 [History] Furosemide [Lasix] 20 mg PO DAILY@0912/07/20 [History] Isosorbide Mononitrate ER [Imdur] 30 mg PO HS@209912/07/20 [History] LORazepam [Ativan] 0.5 mg PO BID PRN 12/07/20 [History] amLODIPine [Norvasc] 5 mg PO HS@209912/07/20 [History] Divalproex [Depakote] 250 mg PO HS@2099 #30 tablet 12/10/20 [Rx] cloZAPine [Clozaril] 25 mg PO HS@2100 #0 12/10/20 [Rx] Follow up Appointment(s)/Referral(s): [facility], [NON-STAFF] - As Needed Zac Thurston DO [Primary Care Provider] - 1-2 days Columba Quintero MD [STAFF PHYSICIAN] - 2 Weeks lobo joyner [Other] - 1 Week Discharge Disposition: HOME SELF-CARE
[2020-12-10] MEDS: LORazepam 0.5 MG TAB PO PRN (14:35)
[2020-12-10] MEDS ORDERED: cloZAPine 25 MG TAB PO SCH (21:00)
--- NOTE | 2020-12-10 23:57 | P.PN ---
Subjective Progress Note Date: 12/10/20 12/10/2020: Patient very pleasant. Wants to go home. Patient is not agitated today. Patient still speaking with some loose associations. Please refer to examination below. 12/09/2020: Nurse has reported that the daughter has been present today. She has requested for reevaluation. Patient's daughter has noticed a left facial droopiness which is new and that she cannot string a sentence together, which is also new finding. She got some Ativan yesterday for combative behavior, went to sleep from medication until woke up this afternoon. A stat computed tomography scan of the head was done, which revealed no acute process. I came and saw the patient, and spoke to patient's daughter, who states that she noticed a left facial droop on 12/07/2020, but was not as severe as what she noticed today. She has noticed recurrence of facial droop an hour ago. She also noticed that patient is not moving her left arm as well and appears weak. Patient does have history of dementia, but now she is mixing up words which is new. All day she has been speaking words in wrong context. 12/08/2020: Patient was seen for a follow-up. As per nursing report, patient has been very aggressive this morning. She was very sweet in the morning. However later during the day she became more irritable, started punching, slapping on the nurses. She was out in the hallway, pushed the nurse. She was given 1 mg Ativan IV and now patient is asleep. Patient's daughter has reported to the nursing staff, the patient has history of mood issues and has been in the general psych floor in the past. She was taking Zyprexa, which has been resumed by psychiatrist. Objective - Vital Signs Vital signs: Vital Signs Temp 98.3 F 12/10/20 13:50 Pulse 79 12/10/20 13:50 Resp 16 12/10/20 13:50 BP 137/75 12/10/20 13:50 Pulse Ox 95 12/10/20 13:50 Intake & Output 12/10/20 12/10/20 12/11/20 06:59 18:59 06:59 Output Total 0 Balance 0 Output: Post Void Residual 0 Other: Voiding Method Bedside Commode Bedside Commode # Voids 1 2 # Bowel Movements 1 - Exam Patient is alert and awake. Patient speaks fairly clearly. Patient sometimes speaks completely out of context. Patient for no reason stated "we came down from [facility]". Patient stating something about her sister. Patient states "Ericka is going over the leaf". Face appears symmetric. Pupils are round and reacting, visual best full. Muscle strength appears equal. - Labs CBC & Chem 7: 12/08/20 06:41 12/10/20 06:50 Labs: Abnormal Lab Results - Last 24 Hours (Table) 12/10/20 Range/Units 06:50 BUN 22 H (7-17) mg/dL Assessment and Plan Assessment: * Transient facial droop, left arm weakness reported by patient's daughter, ? Possible TIA. No evidence of stroke on MRI. * Abnormal speech, with loose association, inappropriate words, probably due to psychosis/delirium. Speech abnormality most likely not related to cerebral ischemia, as MRI is negative. * Altered mental status, likely due to medication side effect. Patient was recently started on new medication, perhaps clozapine, likely the cause of excessive somnolence. Depakote can also produce excessive somnolence. Her limited examination is nonfocal. * Dementia with behavioral disturbance. * Abnormal chest x-ray, possibility of pneumonia. Plan: * MRI of the brain was limited study due to motion artifact. Otherwise no definitive diffusion restriction to suggest acute ischemia. Patient may have a possible TIA. * Recommend switching from aspirin to Plavix. Discussed with patient's daughter and Dr. Kwan about switching antiplatelet medication. * CTA of head and neck performed on 12/07/2020 shows no significant stenosis in, nor internal carotid arteries bilaterally. No significant stenosis or aneurysm at the level of [place] of [place]. * 2-D echo from 09/09/2020 shows normal left-ventricular size. EF is between 55-60%. Aortic valve is trileaflet and is mildly thickened. Mild aortic stenosis. No embolic source. * Continue aspirin and protocol 80 mg. * Hemoglobin A1c 5.3 07/08/2020. * Lipid panel with cholesterol 106, LDL 48, HDL 40 and triglycerides 90. Lipids are well controlled. * Psychiatry has seen the patient, and patient resumed on Zyprexa 2.5 mg IM when necessary agitation, and Clozaril 25 mg at bedtime. Wean down Depakote to 250 mg at bedtime. * All metabolic workup is normal including B12 of 511 on 10/09/2020, TFTs are normal, ammonia normal. CK normal 98, no evidence of UTI. * Neurologically clear for discharge.
== END 2020-12-10 16:19 | disposition home or self-care (01) | DRG 92 ==
LOC: EC 12:27 → 5NMEDONC 15:09 → 4SSUR 23:34 → OBSVTOIN 12-09 08:57
PROVIDERS: ADMIT Hospitalist; ATTEND Hospitalist
DX: G92.8 Other toxic encephalopathy (principal); F03.91 Unspecified dementia, unspecified severity, with behavioral disturbance; I47.1 Supraventricular tachycardia; F32.3 Major depressive disorder, single episode, severe with psychotic features; F23 Brief psychotic disorder; T42.4X5A Adverse effect of benzodiazepines, initial encounter; E03.9 Hypothyroidism, unspecified; E78.00 Pure hypercholesterolemia, unspecified; E78.5 Hyperlipidemia, unspecified; I10 Essential (primary) hypertension; F51.04 Psychophysiologic insomnia; Z20.822 Contact with and (suspected) exposure to COVID-19; X58.XXXA Exposure to other specified factors, initial encounter; F41.9 Anxiety disorder, unspecified; I25.10 Atherosclerotic heart disease of native coronary artery without angina pectoris; I25.2 Old myocardial infarction; I35.0 Nonrheumatic aortic (valve) stenosis; I48.91 Unspecified atrial fibrillation; I73.9 Peripheral vascular disease, unspecified; J32.0 Chronic maxillary sinusitis; J01.00 Acute maxillary sinusitis, unspecified; K21.9 Gastro-esophageal reflux disease without esophagitis; M19.91 Primary osteoarthritis, unspecified site; Z79.02 Long term (current) use of antithrombotics/antiplatelets; Z79.82 Long term (current) use of aspirin; Z79.899 Other long term (current) drug therapy; Z87.891 Personal history of nicotine dependence; Z88.8 Allergy status to other drugs, medicaments and biological substances
CPT/HCPCS: 36415; 70450; 70496; 70498; 70551; 71046; 80048; 80053; 80164; 80306; 81003; 82140; 83735; 84443; 84484; 85025; 85610; 85730; 87635; 93005; 94760; 99285